=== PATIENT | male | born 1945 | race Caucasian/White ===

== ENCOUNTER 2019-08-08 13:01 | Outpatient (RCR) | payer OTHER, SELFPAY | END 2019-08-16 00:01 | LOC: WOUND 13:01 | PROVIDERS: Family Provider Emergency Medicine Emergency Medical Services; Visit Provider Nurse Practitioner Family | DX: I96 Gangrene, not elsewhere classified (principal); L89.893 Pressure ulcer of other site, stage 3 | CPT/HCPCS: 11042; 11043 ×2; 83036; 87070; 87077; 87176; 87186 ×2; 87205; 93923; 93970 ==

== ENCOUNTER 2019-09-08 10:40 | Outpatient (RCR) | payer OTHER, SELFPAY | END 2019-09-16 23:59 | disposition home or self-care (01) | LOC: WOUND 10:40 | PROVIDERS: Family Provider Emergency Medicine Emergency Medical Services; PCP Emergency Medicine Emergency Medical Services; Visit Provider Nurse Practitioner Family | DX: I96 Gangrene, not elsewhere classified (principal); L89.893 Pressure ulcer of other site, stage 3 | CPT/HCPCS: 11042; 99212; 99214; G0463 ==

== ENCOUNTER 2019-10-03 07:52 | Emergency (ER) | payer OTHER, SELFPAY ==
[2019-10-03 07:52] VITALS: BP 140/76; PULSE 60; RESP 18; TEMP 36.6; O2SAT 892; BMI 32.9
--- NOTE | 2019-10-03 08:01 | W.ED.NAVMDI ---
HPI - Nausea/Vomiting/Diarrhea General: Chief complaint: Nausea/Vomiting/Diarrhea Stated complaint: Diarrhea/nausea Time Seen by Provider: 10/03/19 07:54 Source: patient Mode of arrival: EMS Limitations: no limitations History of Present Illness: HPI Narrative: Patient is a 74-year-old male who presents to ED today with complaints of nausea and diarrhea that began yesterday. Patient states while in [facility] his belly began rumbling and states he had a diarrhea stool while there. He reports the remainder of the day he felt normal but reports last night around 6 PM after eating chicken broth and Ramen noodles he began having diarrhea again. He reports approximately 20 stools since onset. Reports some mild abdominal cramping that seems to improve after defecation. No vomiting. He does not seem to be able to tell me the color of his stools as he states it was dark in the bathroom every time he went. No urinary symptoms. No fever/chills. No bad food exposure he is aware of. No recent antibiotic use. MD elicited complaint: nausea, diarrhea and abdominal pain Associated nausea: Yes Associated abdominal pain: Yes Location of pain: Epigastric, LUQ and RUQ Pain consistency: intermittent Quality: cramping Associated symtoms: Reports nausea; Denies change in vision, chest pain, dysuria, fatigue, fecal incontinence, headache(s), malaise, palpitations or syncope Review of Systems Const: Denies: fever, chills, body aches, fatigue or malaise Eyes: Denies: change in vision or blurry vision ENMT: Denies: enlarged tonsils or painful swallowing Card: Denies: chest pain, palpitations, irregular heart rhythm, lightheadedness, syncope or shortness of breath on exertion Resp: Denies: shortness of breath, productive cough or pain on inspiration GI: Reports: abdominal pain, nausea, diarrhea and cramping; Denies: vomiting, vomiting blood, coffee grounds in vomit, difficulty swallowing, heartburn/indigestion, feeling full early, constipation, belching, excessive passing of gas, fecal incontinence or painful bowel movements : Denies: flank pain, difficulty urinating, painful urination, urinary frequency, urinary urgency or urinary hesitancy Musc: Denies: neck pain, back pain or joint pain Skin/Breast: Denies: rash Neuro: Denies: headache PFSH ED PFSH: Social History Smoking and tobacco status: never smoked Physical Exam Const: COMMON NORMALS: no apparent distress, oriented x3, no limitations and alert NUTRITIONAL APPEARANCE: obese HENMT: COMMON NORMALS: normocephalic and head/scalp atraumatic HEAD & SCALP: normocephalic and atraumatic Neck/C-Spine: COMMON NORMALS: full ROM, no lymphadenopathy, supple and no meningeal signs Resp: COMMON NORMALS: normal respiratory effort and clear to auscultation bilaterally AUSCULTATION: clear to auscultation bilaterally Cardio: COMMON NORMALS: regular rate and regular rhythm RATE: regular rate RHYTHM: regular rhythm GI: COMMON NORMALS: normal to inspection, nondistended, normoactive bowel sounds, soft to palpation, non-tender, no hepatosplenomegaly and no masses PALPATION: Yes soft and Yes no hepatosplenomegaly : COMMON NORMALS: Yes no CVA tenderness BLADDER/KIDNEY EXAM: Yes no CVA tenderness Back/Pelvis: COMMON NORMALS: no CVA tenderness and thoracic and lumbar spine normal to inspection Extremity: COMMON NORMALS: normal to inspection Neuro: COMMON NORMALS: oriented x3 SENSORIUM/ORIENTATION: Yes alert MENINGEAL SIGNS: Yes no meningeal signs Skin: COMMON NORMALS: no rashes or lesions noted GENERAL SKIN EXAM: no rashes or lesions noted Course Vital Signs: Vital signs: Vital Signs Temperature 97.8 F 10/03/19 07:52 Pulse Rate 75 10/03/19 09:23 Respiratory Rate 14 10/03/19 09:23 Blood Pressure 126/67 10/03/19 09:23 Pulse Oximetry 98 10/03/19 09:23 MDM - Nausea/Vomiting/Diarrhea MDM Narrative: Medical decision making narrative: Stool that patient produced here was nonbloody, non-black/tarry. Labs appear non-concerning. Vitals are stable. Stool sample is negative for Shigella, Shiga, Campylobacter, Salmonella, C. difficile, and occult blood. He is positive for lactoferrin. Parasite panel pending. Lab Data: Labs: Lab Results 10/03/19 10/03/19 Range/Units 08:02 08:02 WBC 8.1 (4.0-10.0) 10^3/ uL RBC 5.22 (4.1-5.3) 10^6/u L Hgb 15.1 (11.7-16.6) g/dL Hct 47.0 (42.0-52.0) % MCV 90.0 (80-94) fL MCH 28.9 (28.0-34.0) pg MCHC 32.1 (30.0-36.0) g/dL RDW 13.2 (12.1-15.1) % Plt Count 184 (130-400) 10^3/c mm MPV 9.8 (7.4-10.4) fL Neut % (Auto) 67.1 % Lymph % (Auto) 14.7 % [place] % (Auto) 12.7 % Eos % (Auto) 4.9 % Baso % (Auto) 0.4 % Neut # (Auto) 5.4 (1.8-7.7) 10^3/u L Lymph # (Auto) 1.2 (0.8-4.8) 10^3/u L [place] # (Auto) 1.0 H (0.2-0.9) 10^3/u L Eos # (Auto) 0.4 (0.0-0.8) 10^3/u L Baso # (Auto) 0.0 (0.0-0.1) 10^3/u L Nucleated RBC % (a uto) 0 % Nucleated RBCs # 0.0 /100WBC Sodium 135 L (136-145) mmol/L Potassium 4.1 (3.5-5.1) mmol/L Chloride 98 (98-107) mmol/L Carbon Dioxide 27 (22-29) mmol/L Anion Gap 14.1 (5-19) BUN 16 (8-23) mg/dL Creatinine 1.2 (0.7-1.2) mg/dL Glucose 130 H (65-115) mg/dL Calcium 10.1 (8.5-10.5) mg/dL Total Bilirubin 0.8 (0.15-1.2) mg/dL AST 22 (0-40) U/L ALT 14 (0-41) U/L Alkaline Phosphata se 65 (40-130) IU/L Total Protein 8.1 (6.6-8.7) g/dL Albumin 4.1 (3.5-5.2) g/dL Globulin 4.0 (1.3-4.6) g/dL Lipase 46 (13-60) U/L Discharge Plan Discharge Patient Disposition: Home, Self-Care Clinical Impression: Gastroenteritis Condition: Stable Prescriptions: No Action omeprazole 20 mg Capsule,Delayed Release(Dr/Ec) 20 mg PO DAILY RF: 0 pravastatin 20 mg Tablet 10 mg PO BID RF: 0 ProAir HFA 90 mcg/actuation Hfa Aerosol Inhaler 2 puff INHALATION QID PRN (Reason: Shortness Of Breath) RF: 0 cholecalciferol (vitamin D3) 2,000 unit Tablet 2,000 unit PO DAILY RF: 0 Discharge Orders: Discharge Order (Routine); Ordered 10/03/19 Ordered By: Maida Foster Referrals: Jesse Perry DO [Primary Care Provider] - Discharge Diet: Advance as tolerated Discharge Activity: Increase activity as tolerated Patient Instructions: Gastroenteritis (ED) Activity Restrictions/Additional Instructions: As discussed I will contact you with any abnormal results of your stool cultures. You may incorporate bananas, rice, apples, toast into your diet to help with the diarrhea. Do not take anti diarrhea medications. Most cases of diarrhea are self-limited and will resolve in 24 to 48 hours. If you still have symptoms past 48 hours please return to the emergency department or follow-up with primary care. Return to the emergency department sooner if you begin noticing blood in your diarrhea or black/tarry stools. Discharge Date/Time: 10/03/19 09:24 Coding Level of Care Code ED Pulmonary Fellow for Mike Fwd Exam Detailed
[2019-10-03 08:10] LABS: Basophils % 0.4 %; Eosinophils # 0.4 10^3/uL (0.0-0.8); Eosinophils % 4.9 %; Hemoglobin 15.1 g/dL (11.7-16.6); Lymphocytes # 1.2 10^3/uL (0.8-4.8); Lymphocytes % 14.7 %; Mean Corpuscular HGB Conc 32.1 g/dL (30.0-36.0); Mean Corpuscular Hemoglobin 28.9 pg (28.0-34.0); Mean Platelet Volume 9.8 fL (7.4-10.4); Monocytes % 12.7 %; Neutrophils # 5.4 10^3/uL (1.8-7.7); Neutrophils % 67.1 %; Nucleated Red Blood Cells % 0 %; Platelet Count 184 10^3/cmm (130-400); Red Blood Count 5.22 10^6/uL (4.1-5.3); Red Cell Distribution Width 13.2 % (12.1-15.1); White Blood Count 8.1 10^3/uL (4.0-10.0)
[2019-10-03] MEDS: sodium chloride 0.9% 1,000 ML 999 ML IV (08:14)
[2019-10-03 08:21] LABS: Alanine Aminotransferase 14 U/L (0-41); Albumin Level 4.1 g/dL (3.5-5.2); Alkaline Phosphatase 65 IU/L (40-130); Anion Gap 14.1 (5-19); Aspartate Amino Transferase 22 U/L (0-40); Blood Urea Nitrogen 16 mg/dL (8-23); Calcium 10.1 mg/dL (8.5-10.5); Carbon Dioxide 27 mmol/L (22-29); Chloride 98 mmol/L (98-107); Glucose 130 mg/dL (65-115); Lipase 46 U/L (13-60); Potassium 4.1 mmol/L (3.5-5.1); Sodium 135 mmol/L (136-145); Total Bilirubin 0.8 mg/dL (0.15-1.2); Total Protein 8.1 g/dL (6.6-8.7)
[2019-10-03 09:23] VITALS: BP 126/67; PULSE 75; RESP 14; O2SAT 98
== END 2019-10-03 09:24 | disposition home or self-care (01) ==
PROVIDERS: Emergency Provider Physician Assistant; Family Provider Emergency Medicine Emergency Medical Services; PCP Emergency Medicine Emergency Medical Services
DX: K52.9 Noninfective gastroenteritis and colitis, unspecified (principal); E66.9 Obesity, unspecified; Z68.32 Body mass index [BMI] 32.0-32.9, adult
CPT/HCPCS: 36415; 80053; 82274; 83630; 83690; 85025; 87493; 87505; 96360; 99282; 99283; J7030

== ENCOUNTER 2020-04-04 15:40 | Emergency (ER) | payer OTHER, SELFPAY ==
[2020-04-04 15:44] VITALS: BP 134/79; PULSE 56; RESP 18; TEMP 36.8; O2SAT 92; BMI 33.9
--- NOTE | 2020-04-04 15:50 | XR_ITS ---
WS: [id number] EXAM: AP CHEST: PORTABLE UPRIGHT DATE OF EXAM: 04/04/2020, 1615 hours COMPARISON: Chest x-ray from 09/17/2017. HISTORY: Patient is 74 years old with acute mental status changes.. FINDINGS: The cardiac silhouette is normal in size. The mediastinal contours are similar and within normal l imits. The pulmonary vascularity is normal. Chronic lung changes are demonstrated. Lungs are clear of consolidation. There is no effusion or pneumothorax. No acute bony abnormality is seen. Old ri ght clavicle fracture deformity again noted. XR/XR chest 1V portable [id number] IMPRESSION: No acute pulmonary disease.
--- NOTE | 2020-04-04 15:51 | ECG_ITS ---
[facility] Test Date: 2020-04-04 Pat Name: Laith Santiago Department: Room: Gender: Male Hand Model: : 1945 Requested By: Ilene Bernal Order Number: [id number] Melodie MD: Susanne Martínez M.D. Measurements Intervals [place] Rate: 58 P: 68 IA: 173 QRS: 47 QRSD: 93 T: 62 QT: 372 QTc: 367 Interpretive Statements SINUS BRADYCARDIA WITH FREQUENT SUPRAVENTRICULAR PREMATURE COMPLEXES NONSPECIFIC ST & T-WAVE ABNORMALITY ABNORMAL RHYTHM ECG Compared to ECG 06/25/2015 13:29:19 T-wave abnormality now present Electronically Signed On 04-04-2020 20:25:57 CDT by Susanne Martínez M.D. [id number]
[2020-04-04 16:07] LABS: Basophils % 0.6 %; Eosinophils # 0.7 10^3/uL (0.0-0.8); Eosinophils % 13.7 %; Hematocrit 44.7 % (42.0-52.0); Hemoglobin 14.6 g/dL (11.7-16.6); Lymphocytes # 1.3 10^3/uL (0.8-4.8); Lymphocytes % 28.3 %; Mean Corpuscular HGB Conc 32.7 g/dL (30.0-36.0); Mean Corpuscular Hemoglobin 30.4 pg (28.0-34.0); Mean Corpuscular Volume 93.1 fL (80-94); Mean Platelet Volume 9.8 fL (7.4-10.4); Monocytes # 0.8 10^3/uL (0.2-0.9); Monocytes % 16.5 %; Neutrophils # 1.94 10^3/uL (1.8-7.7); Neutrophils % 40.9 %; Nucleated Red Blood Cells % 0 %; Platelet Count 175 10^3/cmm (130-400); Red Cell Distribution Width 12.8 % (12.1-15.1); White Blood Count 4.7 10^3/uL (4.0-10.0)
--- NOTE | 2020-04-04 16:14 | W.ED.PSYCH ---
HPI - Psych General: Chief Complaint: Psychiatric Symptoms Stated Complaint: PSYCH EVAL, HALLUCINATIONS Time Seen by Provider: 04/04/20 15:43 Source: patient and police Mode of arrival: EMS Limitations: altered mental status History of Present Illness: HPI Narrative: Mr. Santiago is a 74-year-old male who called police today after he explained to them that his neighbors and other people where magic and passing in and out the mirror in his home. The patient believes that these things are real and does not understand that these could be hallucinations. Patient denies any pain or other illness. Patient stated the police that he was going to start shooting people that came into his home and the patient does have a firearm in his home. It was because of this finding the police brought him here. Review of Systems General: Reports: ROS unobtainable due to mental status PFSH ED PFSH: Medical History GERD (gastroesophageal reflux disease) Social History Smoking and tobacco status: never smoked Physical Exam Const: COMMON NORMALS: no acute distress, patient oriented x3, no limitations, healthy appearing and well nourished GENERAL APPEARANCE: cooperative, well kempt and well developed HENMT: COMMON NORMALS: normocephalic, atraumatic, external ears normal, EAC's normal and Normal external nose present HEAD & SCALP: normal to inspection, normocephalic and atraumatic FACE & SINUS: normal facial exam and face symmetric NOSE: Normal external nose present and Normal nares present EXTERNAL EAR: Yes external ears normal EXTERNAL AUDITORY CANAL: EAC's normal MOUTH: Normal oral and palatal mucosa present, lip normal and tongue normal Eye: COMMON NORMALS: Equal, round and reactive pupils present and conjunctivae normal GENERAL EYE: appearance normal, both eyes and all related structures ALIGNMENT: Yes alignment normal PERIORBITAL: periorbital findings normal EYELID: eyelids normal CONJUNCTIVA: Yes conjunctivae normal SCLERA: sclerae normal PUPIL: Yes Equal, round and reactive pupils present Neck/C-Spine: COMMON NORMALS: full ROM, no lymphadenopathy, supple, no meningeal signs and no JVD GENERAL: Yes normal visual inspection and Yes trachea midline Chest: COMMONS NORMALS: normal inspection of the chest and normal palpation of entire chest wall Resp: COMMON NORMALS: normal respiratory effort, No retractions, No use of accessory muscles and clear to auscultation bilaterally EFFORT & INSPECTION: Yes able to speak in complete sentences and Yes symmetric chest movement AUSCULTATION: clear to auscultation bilaterally, no crackles, no rales, no rhonchi and no wheezes Cardio: COMMON NORMALS: no JVD, regular rate, regular rhythm, S1 normal heart sound present and S2 normal heart sound present RATE: regular rate RHYTHM: regular rhythm HEART SOUNDS: S1 normal heart sound present, S2 normal heart sound present, no click, no gallops, no murmurs, no rubs and abnormal split S2 GI: COMMON NORMALS: Soft to palpation and No hepatosplenomegaly present PALPATION: Yes Soft to palpation, No Tenderness to palpation present (GI), No Guarding due to palpation present (GI), No Rigid due to palpation, Yes No hepatosplenomegaly present, No Hernia present, No Palpable mass present and No Pulsatile mass present : COMMON NORMALS: Yes no CVA tenderness BLADDER/KIDNEY EXAM: Yes no CVA tenderness Back/Pelvis: COMMON NORMALS: no CVA tenderness, thoracic and lumbar spine normal to inspection, no thoracic nor lumbar tenderness and thoraco-lumbar ROM normal Extremity: COMMON NORMALS: normal to inspection, full ROM, capillary refill normal, no joint enlargement, no clubbing, cyanosis or edema and no calf tenderness Neuro: COMMON NORMALS: patient oriented x3, CN's II-XII intact bilaterally, moves all extremities, no focal motor deficits and no sensory deficits noted MENINGEAL SIGNS: Yes no meningeal signs SPEECH: speech normal Psych: APPEARANCE: Yes well kempt OTHER: Patient somewhat reluctant to answer questions. He does repeat the same story of hallucinations as described by police. Skin: COMMON NORMALS: no rashes or lesions noted, turgor normal, no jaundice, no petechiae and no mottling GENERAL SKIN EXAM: no rashes or lesions noted and turgor normal MDM - Psych Lab Data: Labs: Lab Results 04/04/20 04/04/20 04/04/20 Range/Units 16:00 16:00 16:00 WBC 4.7 (4.0-10.0) 10^3/ uL RBC 4.80 (4.1-5.3) 10^6/u L Hgb 14.6 (11.7-16.6) g/dL Hct 44.7 (42.0-52.0) % MCV 93.1 (80-94) fL MCH 30.4 (28.0-34.0) pg MCHC 32.7 (30.0-36.0) g/dL RDW 12.8 (12.1-15.1) % Plt Count 175 (130-400) 10^3/c mm MPV 9.8 (7.4-10.4) fL Neut % (Auto) 40.9 % Lymph % (Auto) 28.3 % [place] % (Auto) 16.5 % Eos % (Auto) 13.7 % Baso % (Auto) 0.6 % Neut # (Auto) 1.94 (1.8-7.7) 10^3/u L Lymph # (Auto) 1.3 (0.8-4.8) 10^3/u L [place] # (Auto) 0.8 (0.2-0.9) 10^3/u L Eos # (Auto) 0.7 (0.0-0.8) 10^3/u L Baso # (Auto) 0.0 (0.0-0.1) 10^3/u L Nucleated RBC % (a uto) 0 % Nucleated RBCs # 0.0 /100WBC PT 13.20 (12.1-14.9) SECO NDS INR 0.97 (0.8-1.2) Sodium 138 (136-145) mmol/L Potassium 4.2 (3.5-5.1) mmol/L Chloride 102 (98-107) mmol/L Carbon Dioxide 29 (22-29) mmol/L Anion Gap 11.2 (5-19) BUN 12 (8-23) mg/dL Creatinine 0.9 (0.7-1.2) mg/dL GFR Calculation Not Reportable Glucose 112 (65-115) mg/dL Calculated Osmolal ity 283 L (285-295) mOsm/k g Calcium 9.4 (8.5-10.5) mg/dL Magnesium 1.9 (1.7-2.3) mg/dL Total Bilirubin 0.5 (0.15-1.2) mg/dL AST 19 (0-40) U/L ALT 13 (0-41) U/L Alkaline Phosphata se 63 (40-130) IU/L Troponin T Baselin e (0-15) ng/L Troponin T 120 Min [place] (0-15) ng/L Delta Troponin T (0-10) ABS# Troponin T Hi Sens 6Hr (0-15) ng/L Troponin T Hi Sens 6Hr Delta (0-12) ng/L Total Protein 7.1 (6.6-8.7) g/dL Albumin 4.0 (3.5-5.2) g/dL Globulin 3.1 (1.3-4.6) g/dL TSH 1.65 (0.27-4.20) uIU/ mL Free T4 1.18 (0.82-1.77) ng/d L Urine Color (Yellow) Urine Appearance (CLEAR) Urine pH (5-7) Ur Specific Gravit y (1.005-1.030) Urine Protein (Negative) Urine Glucose (UA) (Normal) Urine Ketones (Negative) Urine Blood (Negative) Urine Nitrate (Negative) Urine Bilirubin (NEGATIVE) Urine Urobilinogen (Negative) mg/dL Ur Leukocyte Constance ase (Negative) Urine RBC (0-2) /hpf Urine WBC (0-5) /hpf Ur Squamous Epith Cells (0-5) Amorphous Sediment Urine Bacteria (NONE) Urine Mucus Urine Opiates Scre en (Negative) ng/mL Ur Barbiturates Sc reen (Negative) ng/mL Ur Phencyclidine S crn (Negative) ng/mL Ur Amphetamines Sc reen (Negative) ng/mL U Benzodiazepines Scrn (Negative) ng/mL Urine Cocaine Scre en (Negative) ng/mL U Marijuana (THC) Screen (Negative) ng/mL SARS-CoV-2 Ag (Rap id) (Negative) 04/04/20 04/04/20 04/04/20 Range/Units 16:00 16:40 16:40 WBC (4.0-10.0) 10^3/ uL RBC (4.1-5.3) 10^6/u L Hgb (11.7-16.6) g/dL Hct (42.0-52.0) % MCV (80-94) fL MCH (28.0-34.0) pg MCHC (30.0-36.0) g/dL RDW (12.1-15.1) % Plt Count (130-400) 10^3/c mm MPV (7.4-10.4) fL Neut % (Auto) % Lymph % (Auto) % [place] % (Auto) % Eos % (Auto) % Baso % (Auto) % Neut # (Auto) (1.8-7.7) 10^3/u L Lymph # (Auto) (0.8-4.8) 10^3/u L [place] # (Auto) (0.2-0.9) 10^3/u L Eos # (Auto) (0.0-0.8) 10^3/u L Baso # (Auto) (0.0-0.1) 10^3/u L Nucleated RBC % (a uto) % Nucleated RBCs # /100WBC PT (12.1-14.9) SECO NDS INR (0.8-1.2) Sodium (136-145) mmol/L Potassium (3.5-5.1) mmol/L Chloride (98-107) mmol/L Carbon Dioxide (22-29) mmol/L Anion Gap (5-19) BUN (8-23) mg/dL Creatinine (0.7-1.2) mg/dL GFR Calculation Glucose (65-115) mg/dL Calculated Osmolal ity (285-295) mOsm/k g Calcium (8.5-10.5) mg/dL Magnesium (1.7-2.3) mg/dL Total Bilirubin (0.15-1.2) mg/dL AST (0-40) U/L ALT (0-41) U/L Alkaline Phosphata se (40-130) IU/L Troponin T Baselin e 22 H (0-15) ng/L Troponin T 120 Min [place] (0-15) ng/L Delta Troponin T (0-10) ABS# Troponin T Hi Sens 6Hr (0-15) ng/L Troponin T Hi Sens 6Hr Delta (0-12) ng/L Total Protein (6.6-8.7) g/dL Albumin (3.5-5.2) g/dL Globulin (1.3-4.6) g/dL TSH (0.27-4.20) uIU/ mL Free T4 (0.82-1.77) ng/d L Urine Color Yellow (Yellow) Urine Appearance Clear (CLEAR) Urine pH 5 (5-7) Ur Specific Gravit y 1.020 (1.005-1.030) Urine Protein Neg (Negative) Urine Glucose (UA) Norm (Normal) Urine Ketones Negative (Negative) Urine Blood Neg (Negative) Urine Nitrate Negative (Negative) Urine Bilirubin Neg (NEGATIVE) Urine Urobilinogen Norm (Negative) mg/dL Ur Leukocyte Constance ase Negative (Negative) Urine RBC None (0-2) /hpf Urine WBC 0-4 H (0-5) /hpf Ur Squamous Epith Cells 0-4 H (0-5) Amorphous Sediment Not Reportable Urine Bacteria Trace (NONE) Urine Mucus 1+ Urine Opiates Scre en Negative (Negative) ng/mL Ur Barbiturates Sc reen Negative (Negative) ng/mL Ur Phencyclidine S crn Negative (Negative) ng/mL Ur Amphetamines Sc reen Negative (Negative) ng/mL U Benzodiazepines Scrn Negative (Negative) ng/mL Urine Cocaine Scre en Negative (Negative) ng/mL U Marijuana (THC) Screen Negative (Negative) ng/mL SARS-CoV-2 Ag (Rap id) (Negative) 04/04/20 04/04/20 04/05/20 Range/Units 18:06 23:20 07:05 WBC (4.0-10.0) 10^3/ uL RBC (4.1-5.3) 10^6/u L Hgb (11.7-16.6) g/dL Hct (42.0-52.0) % MCV (80-94) fL MCH (28.0-34.0) pg MCHC (30.0-36.0) g/dL RDW (12.1-15.1) % Plt Count (130-400) 10^3/c mm MPV (7.4-10.4) fL Neut % (Auto) % Lymph % (Auto) % [place] % (Auto) % Eos % (Auto) % Baso % (Auto) % Neut # (Auto) (1.8-7.7) 10^3/u L Lymph # (Auto) (0.8-4.8) 10^3/u L [place] # (Auto) (0.2-0.9) 10^3/u L Eos # (Auto) (0.0-0.8) 10^3/u L Baso # (Auto) (0.0-0.1) 10^3/u L Nucleated RBC % (a uto) % Nucleated RBCs # /100WBC PT (12.1-14.9) SECO NDS INR (0.8-1.2) Sodium (136-145) mmol/L Potassium (3.5-5.1) mmol/L Chloride (98-107) mmol/L Carbon Dioxide (22-29) mmol/L Anion Gap (5-19) BUN (8-23) mg/dL Creatinine (0.7-1.2) mg/dL GFR Calculation Glucose (65-115) mg/dL Calculated Osmolal ity (285-295) mOsm/k g Calcium (8.5-10.5) mg/dL Magnesium (1.7-2.3) mg/dL Total Bilirubin (0.15-1.2) mg/dL AST (0-40) U/L ALT (0-41) U/L Alkaline Phosphata se (40-130) IU/L Troponin T Baselin e (0-15) ng/L Troponin T 120 Min [place] 20.39 H (0-15) ng/L Delta Troponin T -1.61 L (0-10) ABS# Troponin T Hi Sens 6Hr 19.04 H (0-15) ng/L Troponin T Hi Sens 6Hr Delta -2.96 L (0-12) ng/L Total Protein (6.6-8.7) g/dL Albumin (3.5-5.2) g/dL Globulin (1.3-4.6) g/dL TSH (0.27-4.20) uIU/ mL Free T4 (0.82-1.77) ng/d L Urine Color (Yellow) Urine Appearance (CLEAR) Urine pH (5-7) Ur Specific Gravit y (1.005-1.030) Urine Protein (Negative) Urine Glucose (UA) (Normal) Urine Ketones (Negative) Urine Blood (Negative) Urine Nitrate (Negative) Urine Bilirubin (NEGATIVE) Urine Urobilinogen (Negative) mg/dL Ur Leukocyte Constance ase (Negative) Urine RBC (0-2) /hpf Urine WBC (0-5) /hpf Ur Squamous Epith Cells (0-5) Amorphous Sediment Urine Bacteria (NONE) Urine Mucus Urine Opiates Scre en (Negative) ng/mL Ur Barbiturates Sc reen (Negative) ng/mL Ur Phencyclidine S crn (Negative) ng/mL Ur Amphetamines Sc reen (Negative) ng/mL U Benzodiazepines Scrn (Negative) ng/mL Urine Cocaine Scre en (Negative) ng/mL U Marijuana (THC) Screen (Negative) ng/mL SARS-CoV-2 Ag (Rap id) Negative (Negative) EKG Data^: EKG 1: Attestation: I personally reviewed and interpreted this EKG as follows: EKG interpretation date: 04/04/20 EKG interpretation time: 16:15 Interpretation: Sinus bradycardia 58 beats a minute, nonspecific ST and T wave changes. EKG 2: Attestation: I personally reviewed and interpreted this EKG as follows: EKG interpretation date: 04/04/20 EKG interpretation time: 17:54 Interpretation: Normal sinus rhythm at 52 beats a minute, nonspecific ST and T wave changes, no blocks, normal intervals Discharge Plan Discharge Patient Disposition: Xfer Psychiatric Hosp Clinical Impression: Acute psychosis Condition: Stable Referrals: Jesse Perry DO [Primary Care Provider] - Coding Level of Care Code ED [place] for Chg Fwd Exam Comprehensive
[2020-04-04 16:21] LABS: INR 0.97 (0.8-1.2)
[2020-04-04 16:33] LABS: Troponin(5th) Baseline 22 ng/L (0-15)
[2020-04-04 16:35] LABS: Alanine Aminotransferase 13 U/L (0-41); Alkaline Phosphatase 63 IU/L (40-130); Anion Gap 11.2 (5-19); Aspartate Amino Transferase 19 U/L (0-40); Blood Urea Nitrogen 12 mg/dL (8-23); Calcium 9.4 mg/dL (8.5-10.5); Carbon Dioxide 29 mmol/L (22-29); Chloride 102 mmol/L (98-107); Free T4 Free Thyroxine 1.18 ng/dL (0.82-1.77); Globulin 3.1 g/dL (1.3-4.6); Glucose 112 mg/dL (65-115); Magnesium 1.9 mg/dL (1.7-2.3); Osmolality Calculated 283 mOsm/kg (285-295); Potassium 4.2 mmol/L (3.5-5.1); Sodium 138 mmol/L (136-145); Thyroid Stimulating Hormone 1.65 uIU/mL (0.27-4.20); Total Bilirubin 0.5 mg/dL (0.15-1.2); Total Protein 7.1 g/dL (6.6-8.7)
[2020-04-04] MEDS: ondansetron 2 mg/ML SDV 2 mL 4 MG IVP (16:41)
[2020-04-04] MEDS: sodium chloride 0.9% 1,000 ML 999 ML IV (16:41)
[2020-04-04] MEDS: LORazepam 1 mg Tablet PO (16:41)
[2020-04-04 16:52] LABS: Bilirubin Urine Neg (NEGATIVE); Blood Urine Neg (Negative); Glucose Urine UA Norm (Normal); Ketones Urine Negative (Negative); Leukocyte Esterase Urine Negative (Negative); Nitrate Urine Negative (Negative); Protein Urine Neg (Negative); Urine Appearance Clear (CLEAR); Urine Color Yellow (Yellow); Urobilinogen Urine Norm (Negative); WBC Urine 0-4 /hpf (0-5); pH Urine 5 (5-7)
[2020-04-04 16:53] LABS: Add Urine Culture? No; Bacteria Urine TRACE; Mucus Urine 1+; Squamous Epithelial Cell Urine 0-4 (0-5)
--- NOTE | 2020-04-04 17:51 | ECG_ITS ---
[facility] Test Date: 2020-04-04 Pat Name: Laith Santiago Department: Room: Gender: Male Hospital Clinic Assistant: : 1945 Requested By: Ilene Bernal Order Number: [id number] Melodie MD: Susanne Martínez M.D. Measurements Intervals [place] Rate: 52 P: 52 ID: [id number] QRS: 30 QRSD: 99 T: 43 QT: 422 QTc: 394 Interpretive Statements SINUS BRADYCARDIA WITH OCCASIONAL SUPRAVENTRICULAR PREMATURE COMPLEXES Compared to ECG 04/04/2020 16:15:05 T-wave abnormality no longer present Electronically Signed On 04-04-2020 20:27:50 CDT by Susanne Martínez M.D. [id number]
[2020-04-04 18:37] LABS: Troponin 5 2HR 20.39 ng/L (0-15)
[2020-04-04 18:41] LABS: Troponin 5 2HR Delta -1.61 ABS# (0-10)
[2020-04-04 20:00] VITALS: BP 132/84; PULSE 62; RESP 18; O2SAT 94
[2020-04-04 23:38] LABS: Amphetamines Screen Urine Negative (Negative); Barbiturates Screen Urine Negative (Negative); Benzodiazepines Screen Urine Negative (Negative); Cocaine Screen Urine Negative (Negative); Opiate Screen Urine Negative (Negative); PCP Screen Urine Negative (Negative); THC Screen Urine Negative (Negative)
[2020-04-05] VITALS: BP 128/79; PULSE 55; RESP 18; O2SAT 95
[2020-04-05 00:16] LABS: Troponin 5 6HR 19.04 ng/L (0-15); Troponin 5 6HR Delta -2.96 ng/L (0-12)
--- NOTE | 2020-04-05 03:04 | PC.NURSE ---
[facility] requesting neg Covid test prior to admission. [facility] states since [facility] is [facility], they will not accept [facility]. Per [place], will not do overnight transfer request. Will have to call earliest [phone] to [phone] to speak with ED physician prior to acceptance
--- NOTE | 2020-04-05 03:08 | PC.NURSE ---
[facility] will review chart for bed acceptance
--- NOTE | 2020-04-05 06:58 | PC.NURSE ---
Bedside report received at this time. Patient resting in bed. No distress noted at this time. Will continue to monitor patient.
[2020-04-05 07:45] LABS: SARS Covid-2 Antigen Negative (Negative)
[2020-04-05 08:00] VITALS: BP 179/96; PULSE 58; RESP 18; O2SAT 91
[2020-04-05 10:30] VITALS: BP 156/63; PULSE 56; RESP 18; O2SAT 92
--- NOTE | 2020-04-05 11:57 | USCV_ITS ---
Liath Santiago Age: 74 Gender: M : 1945 Exam Date: 04/05/2020 12:26 Ordering Phys: Ilene Jurado DO Technologist: Anabella Wayne Exam Location: [facility] [place] Indication: INCREASED CARDIAC ENZYMES BP: / HR: 53 Rhythm: Technical Quality: Adequate MEASUREMENTS (Male / Female) Normal Values 2D ECHO LV Diastolic Diameter PLAX 3.8 cm 4.2 - 5.9 / 3.9 - 5.3 cm LV Systolic Diameter PLAX 2.8 cm LV Chamber Size 3.4 cm IVS Diastolic Thickness 1.6 cm 0.6 - 1.0 / 0.6 - 0.9 cm IVS Systolic Thickness 1.5 cm LVPW Diastolic Thickness 1.4 cm 0.6 - 1.0 / 0.6 - 0.9 cm LVPW Systolic Thickness 1.5 cm RV Chamber Size 2.5 cm LVOT Diameter 2.0 cm LV Ejection Fraction 2D Teich 50.9 % LV Ejection Fraction MOD 2C 76.8 % LV Ejection Fraction 2C AL 76.3 % LA Diameter 2.8 cm LA Width 2.6 cm LA Height 4.4 cm RA Width 3.3 cm RA Height 4.5 cm Aorta at Sinotubular Diameter 3.3 cm M-MODE LV Diastolic Diameter MM 4.7 cm 4.2 - 5.9 / 3.9 - 5.3 cm LV Systolic Diameter MM 2.6 cm LV Ejection Fraction MM Teich 77.1 % IVS Diastolic Thickness MM 1.2 cm 0.6 - 1.0 / 0.6 - 0.9 cm IVS Systolic Thickness MM 1.4 cm LVPW Diastolic Thickness MM 1.2 cm 0.6 - 1.0 / 0.6 - 0.9 cm LVPW Systolic Thickness MM 1.9 cm RV Diastolic Diameter MM 1.8 cm Aortic Annulus Diameter 3.3 cm LA Ao Ratio MM 0.8 MV E Point Septal Separation 0.7 cm FINDINGS Left Ventricle Normal left ventricular size, systolic function and wall thickness, with no regional wall motion abnormalities. Left ventricular ejection fraction is estimated at 55 %. Right Ventricle The right ventricle is normal in size and function. Right Atrium The right atrium is normal in size. Left Atrium The left atrium is normal in size. Mitral Valve Structurally normal mitral valve without significant stenosis or prolapse. There is no mitral regurgitation. Aortic Valve Moderate aortic valve calcification. Aortic valve not well visualized. Could be there is element of mild aortic valve stenosis. Tricuspid Valve Structurally normal tricuspid valve without significant stenosis or regurgitation. Pulmonary artery systolic pressure is normal. Pulmonic Valve Structurally normal pulmonic valve without significant stenosis. There is no pulmonic regurgitation. Pericardium Normal pericardium without effusion. Aorta Normal ascending aorta dimension. CONCLUSIONS 1-Normal left ventricular size, systolic function and wall thickness, with no regional wall motion abnormalities. Left ventricular ejection fraction is estimated at 55 %. 2-Moderate aortic valve calcification. Aortic valve not well visualized. Could be there is element of mild aortic valve stenosis. 3-There is no pericardial effusion. 4-Right atrial pressure is around 5 mm of mercury. 5-No significant change since the prior echocardiogram study of 06/26/2015. Susanne Martínez MD (Electronically Signed) Final Date: 05 April 2020 15:01 S
[2020-04-05 12:14] VITALS: BP 130/80; PULSE 64; RESP 18; O2SAT 93
[2020-04-05 14:00] VITALS: BP 138/76; PULSE 62; RESP 18; TEMP 36.6; O2SAT 95
[2020-04-05 16:00] VITALS: BP 141/72; PULSE 57; RESP 18; TEMP 36.6; O2SAT 94
--- NOTE | 2020-04-05 16:39 | PC.NURSE ---
Accepted patient accepted to [facility]. is accepting physician.
--- NOTE | 2020-04-05 17:43 | PC.NURSE ---
REPORT CALLED REPORT CALLED TO rachael Duffy. all questions answered.
== END 2020-04-05 18:23 ==
PROVIDERS: Emergency Medicine; Emergency Provider Emergency Medicine; PCP Emergency Medicine Emergency Medical Services
DX: F23 Brief psychotic disorder (principal)
CPT/HCPCS: 12345; 36415; 71045; 80053; 80306; 81001; 83735; 84439; 84443; 84484; 85025; 85610; 87426; 93005; 93308; 96361; 96374; 96375; 99284; 99285; J2405; J7030

== ENCOUNTER 2020-06-08 12:56 | Outpatient (CLI) | payer OTHER, SELFPAY | END 2020-06-08 12:57 | disposition home or self-care (01) | LOC: WOUND 12:59 | PROVIDERS: PCP Emergency Medicine Emergency Medical Services; Visit Provider Surgery | DX: L97.422 Non-pressure chronic ulcer of left heel and midfoot with fat layer exposed (principal) | CPT/HCPCS: 97597; G0463; L3260 ==

== ENCOUNTER 2020-06-15 14:40 | Outpatient (CLI) | payer OTHER, SELFPAY | END 2020-06-15 14:41 | disposition home or self-care (01) | LOC: WOUND 14:45 | PROVIDERS: PCP Emergency Medicine Emergency Medical Services; Visit Provider Surgery | DX: L89.892 Pressure ulcer of other site, stage 2 (principal) | CPT/HCPCS: 99212 ==

== ENCOUNTER 2020-08-15 13:47 | Outpatient (CLI) | payer OTHER, SELFPAY | END 2020-08-15 13:48 | disposition home or self-care (01) | LOC: SPT 13:48 | PROVIDERS: PCP Emergency Medicine Emergency Medical Services; Visit Provider Podiatrist Foot & Ankle Surgery | DX: Z46.89 Encounter for fitting and adjustment of other specified devices (principal); L97.522 Non-pressure chronic ulcer of other part of left foot with fat layer exposed | CPT/HCPCS: 97760; L4361 ==

== ENCOUNTER 2020-11-19 15:47 | Inpatient (IN) | payer OTHER, MEDICARE, SELFPAY ==
[2020-11-19 15:56] VITALS: BP 126/69; PULSE 68; RESP 18; TEMP 37.2; O2SAT 93; BMI 29.3
--- NOTE | 2020-11-19 16:40 | ECG_ITS ---
[facility] Test Date: 2020-11-19 Pat Name: Laith Santiago Department: Room: Gender: Male X [employer] Tech: : 1945 Requested By: Murphy Cedeno Order Number: [id number] Melodie MD: Dior Damon M.D. Measurements Intervals [place] Rate: 65 P: 46 GA: 156 QRS: -7 QRSD: 100 T: 51 QT: 401 QTc: 417 Interpretive Statements SINUS RHYTHM WITH OCCASIONAL SUPRAVENTRICULAR PREMATURE COMPLEXES NONSPECIFIC T-WAVE ABNORMALITY Compared to ECG 04/04/2020 17:54:06 T-wave abnormality now present Sinus bradycardia no longer present Electronically Signed On 11-20-2020 1:13:15 CDT by Dior Damon M.D. [id number]
--- NOTE | 2020-11-19 16:40 | XRR_ITS ---
PROCEDURE INFORMATION: Exam: XR Chest Exam date and time: 11/19/2020 4:49 PM Age: 75 years old Clinical indication: Injury or trauma; Fall; Dyspnea; Blunt trauma (contusions or hematomas); Injury date: 11/18/20 TECHNIQUE: Imaging protocol: XR of the chest Views: 1 view. COMPARISON: CR XR chest 1V portable [id number] 04/04/2020 4:15 PM FINDINGS: Lungs: Minimal left basilar atelectasis or other infiltrate. Pleural spaces: Unremarkable. No pleural effusion. No pneumothorax. Heart/Mediastinum: No cardiomegaly. Bones/joints: No acute fracture. XR/XR chest 1V portable [id number] IMPRESSION: Minimal left basilar atelectasis or other infiltrate.
--- NOTE | 2020-11-19 16:40 | CTR_ITS ---
PROCEDURE INFORMATION: Exam: CT Head Without Contrast Exam date and time: 11/19/2020 4:59 PM Age: 75 years old Clinical indication: Injury or trauma; Fall; Blunt trauma (contusions or hematomas); Altered mental status/memory loss; Patient HX: Pellets in face; Additional info: Trauma/ams TECHNIQUE: Imaging protocol: Computed tomography of the head without contrast. Radiation optimization: All CT scans at this facility use at least one of these dose optimization techniques: automated exposure control; mA and/or kV adjustment per patient size (includes targeted exams where dose is matched to clinical indication); or iterative reconstruction. COMPARISON: CT head wo con* [id number] 04/21/2018 3:25 PM RADIATION DOSE METRICS: Total DLP (mGy-cm): 987.28 FINDINGS: Brain: No evidence of acute infarct. No mass or mass effect. No intra axial hemorrhage. No extra axial fluid collection or hemorrhage. Scattered white matter hypodensities likely from chronic microvascular ischemic disease. Global brain volume loss, likely age related. Cerebral ventricles: Symmetric and without enlargement. Bones/joints: No acute fracture. 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 Paranasal sinuses: Visualized sinuses are well aerated. Mastoid air cells: Visualized mastoid air cells are well aerated. Soft tissues: No concerning abnormalities. Multiple metallic densities in the superficial soft tissues again noted. CT/CT head wo con* [id number] IMPRESSION: No acute intracranial abnormality. Radiation Dose CTDIVOL = (mGy): DLP = 987.28 (mGy-cm)
--- NOTE | 2020-11-19 16:42 | W.ED.AMS ---
Documented by User: Murphy Caruso DO 11/20/20 05:58 HPI - Altered Mental Status General: Chief Complaint: ER Hold Stated Complaint: falling Time Seen by Provider: 11/19/20 16:25 History of Present Illness: HPI narrative: 75-year-old male presents emergency room with the daughter. He evidently fell at home and went to the [place] [facility] to be evaluated and he was sent here because he fell he has a abrasion on left supraorbital ridge. He cannot really tell me if he lost consciousness. He does say that people come in and out of his house at 90 is not having any visual or auditory hallucinations the daughter does come into the hospital states she states it is not at night. He denies any suicidal or homicidal thoughts. He largely denies any particular problem. He is not been taking his medications which is his daughter's main complaint that she brought him in for along with a fall. He seems lethargic and slow to answer questions. Patient noted to have masklike facies and a baseline tremor. MD complaint: weakness Onset (ago): day(s) Timing confirmed by: family member Severity: mild Consistency of symptoms: Getting Worse Context: other (History of Parkinson's) Review of Systems Const: Denies: fever(s), chills, body aches, change in appetite, fatigue or malaise ENMT: Denies: throat pain, ear or mastoid pain, nasal discharge or nasal congestion Card: Denies: chest pain, edema, dyspnea on exertion or orthopnea Resp: Denies: dyspnea, productive cough or non-productive cough GI: Denies: abdominal pain, nausea, vomiting, hematemesis, coffee ground emesis, diarrhea, constipation, bloating, hematochezia or melena : Denies: flank pain, dysuria, urinary frequency or urinary urgency Skin/Breast: Denies: rash or pruritus PFSH ED PFSH: Medical History Acquired hallux malleus of both feet Depression Equinus contracture of ankle Falls GERD (gastroesophageal reflux disease) Hallucinations Hammertoe HLD (hyperlipidemia) Parkinsons Vitamin B 12 deficiency Surgical History H/O hand surgery History of mandibular surgery Status post tonsillectomy Family History Father CAD (coronary artery disease) Mother CAD (coronary artery disease) Social History Smoking and tobacco status: never smoked Alcohol intake: never Lives independently: Yes Housing: House Physical Exam Const: COMMON NORMALS: no acute distress GENERAL APPEARANCE: cooperative and comfortable ORIENTATION/CONSCIOUSNESS: Yes awake HENMT: COMMON NORMALS: normocephalic, atraumatic and hearing grossly normal bilaterally HEAD & SCALP: normocephalic and atraumatic Neck/C-Spine: COMMON NORMALS: no JVD Resp: COMMON NORMALS: normal respiratory effort, No retractions, No use of accessory muscles and clear to auscultation bilaterally AUSCULTATION: clear to auscultation bilaterally Cardio: COMMON NORMALS: no JVD, regular rate, regular rhythm and No murmurs present (Cardio) RATE: regular rate RHYTHM: regular rhythm GI: COMMON NORMALS: Soft to palpation and No hepatosplenomegaly present AUSCULTATION: Yes normoactive bowel sounds PALPATION: Yes Soft to palpation, No Tenderness to palpation present (GI), No Guarding due to palpation present (GI) and Yes No hepatosplenomegaly present Extremity: COMMON NORMALS: normal to inspection, capillary refill normal, no clubbing, cyanosis or edema, no calf tenderness and no pedal edema Skin: COMMON NORMALS: no rashes or lesions noted GENERAL SKIN EXAM: no rashes or lesions noted Course Vital Signs: Vital signs: Vital Signs Temperature 98.9 F 11/19/20 15:56 Pulse Rate 72 11/20/20 04:56 Respiratory Rate 15 11/20/20 04:56 Blood Pressure 123/74 11/20/20 04:56 Pulse Oximetry 97 11/20/20 04:56 MDM - Altered Mental Status MDM Narrative: Medical decision making narrative: Elevated CPK. UA is pending. 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 Also suspect he may need long-term placement do not think he is currently able to manage cares even with his family assistance at home. UA pending care turned over to Dr. Cid at change of shift see his notes for final diagnosis and disposition Lab Data: Labs: Lab Results 11/19/20 11/19/20 11/19/20 Range/Units 16:48 17:00 17:00 WBC 5.6 (4.0-10.0) 10^3/ uL RBC 4.33 (4.1-5.3) 10^6/u L Hgb 13.2 (11.7-16.6) g/dL Hct 40.6 L (42.0-52.0) % MCV 93.8 (80-94) fL MCH 30.5 (28.0-34.0) pg MCHC 32.5 (30.0-36.0) g/dL RDW 12.8 (12.1-15.1) % Plt Count 199 (130-400) 10^3/c mm MPV 10.1 (7.4-10.4) fL Neut % (Auto) 47.8 % Lymph % (Auto) 26.1 % [place] % (Auto) 20.5 % Eos % (Auto) 4.3 % Baso % (Auto) 1.1 % Neut # (Auto) 2.66 (1.8-7.7) 10^3/u L Lymph # (Auto) 1.5 (0.8-4.8) 10^3/u L [place] # (Auto) 1.1 H (0.2-0.9) 10^3/u L Eos # (Auto) 0.2 (0.0-0.8) 10^3/u L Baso # (Auto) 0.1 (0.0-0.1) 10^3/u L Nucleated RBC % (a uto) 0 % Nucleated RBCs # 0.0 /100WBC Specimen Type Arterial Sample Site Radial, left ABG pH 7.44 (7.35-7.45) ABG pCO2 48.3 H (35-45) mmHg ABG pO2 58.3 L (80.0-100.0) mmH g ABG HCO3 32.9 H (22-26) mmol/L ABG O2 Saturation 92.8 ABG Base Excess 7.5 H (-2.0-2.0) mmol/ L Rm Test Pos A-a O2 Gradient 4.2 L (5-10) mmHg Hematocrit 40.8 L (42-52) % Hgb O2 Saturation 90.8 L (95-100) % Carboxyhemoglobin 1.3 (0.4-20.1) %THgb Methemoglobin 0.8 (0.4-1.5) % Total Hemoglobin 13.3 L (14-18) g/dL Sodium 145.0 H (131-143) mmol/L Potassium 3.7 (3.5-5.0) mmol/L Glucose 108.0 (70-115) mg/dL Ionized Calcium 1.2 (1.1-1.4) mmol/L O2 Delivery Device Room air FiO2 21.0 % Freezer Unloader ID glc Chloride (98-107) mmol/L Carbon Dioxide (22-29) mmol/L Anion Gap (5-19) BUN (8-23) mg/dL Creatinine (0.7-1.2) mg/dL GFR Calculation Calculated Osmolal ity (285-295) mOsm/k g Lactic Acid 1.3 (0.5-2.2) mmol/L Calcium (8.5-10.5) mg/dL Total Bilirubin (0.15-1.2) mg/dL AST (0-40) U/L ALT (0-41) U/L Alkaline Phosphata se (40-130) IU/L Creatine Kinase (39-308) U/L Total Protein (6.6-8.7) g/dL Albumin (3.5-5.2) g/dL Globulin (1.3-4.6) g/dL Lipase (13-60) U/L Urine Color (Yellow) Urine Appearance (CLEAR) Urine pH (5-7) Ur Specific Gravit y (1.005-1.030) Urine Protein (Negative) Urine Glucose (UA) (Normal) Urine Ketones (Negative) Urine Blood (Negative) Urine Nitrate (Negative) Urine Bilirubin (Negative) Urine Urobilinogen (Negative) mg/dL Ur Leukocyte Constance ase (Negative) Serum Ketones (Negative) 11/19/20 11/19/20 11/19/20 Range/Units 17:00 17:00 17:31 WBC (4.0-10.0) 10^3/ uL RBC (4.1-5.3) 10^6/u L Hgb (11.7-16.6) g/dL Hct (42.0-52.0) % MCV (80-94) fL MCH (28.0-34.0) pg MCHC (30.0-36.0) g/dL RDW (12.1-15.1) % Plt Count (130-400) 10^3/c mm MPV (7.4-10.4) fL Neut % (Auto) % Lymph % (Auto) % [place] % (Auto) % Eos % (Auto) % Baso % (Auto) % Neut # (Auto) (1.8-7.7) 10^3/u L Lymph # (Auto) (0.8-4.8) 10^3/u L [place] # (Auto) (0.2-0.9) 10^3/u L Eos # (Auto) (0.0-0.8) 10^3/u L Baso # (Auto) (0.0-0.1) 10^3/u L Nucleated RBC % (a uto) % Nucleated RBCs # /100WBC Specimen Type Sample Site ABG pH (7.35-7.45) ABG pCO2 (35-45) mmHg ABG pO2 (80.0-100.0) mmH g ABG HCO3 (22-26) mmol/L ABG O2 Saturation ABG Base Excess (-2.0-2.0) mmol/ L Rm Test A-a O2 Gradient (5-10) mmHg Hematocrit (42-52) % Hgb O2 Saturation (95-100) % Carboxyhemoglobin (0.4-20.1) %THgb Methemoglobin (0.4-1.5) % Total Hemoglobin (14-18) g/dL Sodium 138 (131-143) mmol/L Potassium 3.5 (3.5-5.0) mmol/L Glucose 103 (70-115) mg/dL Ionized Calcium (1.1-1.4) mmol/L O2 Delivery Device FiO2 % Freezer Unloader ID Chloride 100 (98-107) mmol/L Carbon Dioxide 31 H (22-29) mmol/L Anion Gap 10.5 (5-19) BUN 26 H (8-23) mg/dL Creatinine 1.0 (0.7-1.2) mg/dL GFR Calculation Not Reportable Calculated Osmolal ity 291 (285-295) mOsm/k g Lactic Acid (0.5-2.2) mmol/L Calcium 9.2 (8.5-10.5) mg/dL Total Bilirubin 0.7 (0.15-1.2) mg/dL AST 266 H (0-40) U/L ALT 95 H (0-41) U/L Alkaline Phosphata se 78 (40-130) IU/L Creatine Kinase 7495 H* (39-308) U/L Total Protein 7.5 (6.6-8.7) g/dL Albumin 4.0 (3.5-5.2) g/dL Globulin 3.5 (1.3-4.6) g/dL Lipase 37 (13-60) U/L Urine Color Dark yellow (Yellow) Urine Appearance Clear (CLEAR) Urine pH 5 (5-7) Ur Specific Gravit y 1.025 (1.005-1.030) Urine Protein Neg (Negative) Urine Glucose (UA) Norm (Normal) Urine Ketones 1+ H (Negative) Urine Blood Neg (Negative) Urine Nitrate Negative (Negative) Urine Bilirubin 1+ H (Negative) Urine Urobilinogen 8 H (Negative) mg/dL Ur Leukocyte Constance ase Negative (Negative) Serum Ketones Negative (Negative) Discharge Plan Discharge Patient Disposition: Admitted As Inpatient Admit Provider: Wali Musa Clinical Impression: Fall Qualifiers: Encounter type: initial encounter Qualified Code(s): W19.XXXA - Unspecified fall, initial encounter Rhabdomyolysis Qualifiers: Rhabdomyolysis type: non-traumatic Qualified Code(s): M62.82 - Rhabdomyolysis Condition: Stable Coding Level of Care Code ED Distribution [facility] Administrator for [facility] Fwd Exam Comprehensive Documented by User: Tanja Cid MD 11/19/20 19:28 HPI - Altered Mental Status General: Chief Complaint: ER Hold Stated Complaint: falling Time Seen by Provider: 11/19/20 16:25 PFSH ED PFSH: Medical History Acquired hallux malleus of both feet Depression Equinus contracture of ankle Falls GERD (gastroesophageal reflux disease) Hallucinations Hammertoe HLD (hyperlipidemia) Parkinsons Vitamin B 12 deficiency Surgical History H/O hand surgery History of mandibular surgery Status post tonsillectomy Family History Father CAD (coronary artery disease) Mother CAD (coronary artery disease) Social History Smoking and tobacco status: never smoked Alcohol intake: never Lives independently: Yes Housing: House Course Vital Signs: Vital signs: Vital Signs Temperature 98.9 F 11/19/20 15:56 Pulse Rate 72 11/20/20 04:56 Respiratory Rate 15 11/20/20 04:56 Blood Pressure 123/74 11/20/20 04:56 Pulse Oximetry 97 11/20/20 04:56 MDM - Altered Mental Status MDM Narrative: Medical decision making narrative: Patient presents here after a fall and is in multiple falls likely from his Parkinson's. Patient is in rhabdomyolysis and has a CK of 7500. He has no kidney malfunction at this time. Spoke to hospitalist will admit for continued hydration. Lab Data: Labs: Lab Results 11/19/20 11/19/20 11/19/20 Range/Units 16:48 17:00 17:00 WBC 5.6 (4.0-10.0) 10^3/ uL RBC 4.33 (4.1-5.3) 10^6/u L Hgb 13.2 (11.7-16.6) g/dL Hct 40.6 L (42.0-52.0) % MCV 93.8 (80-94) fL MCH 30.5 (28.0-34.0) pg MCHC 32.5 (30.0-36.0) g/dL RDW 12.8 (12.1-15.1) % Plt Count 199 (130-400) 10^3/c mm MPV 10.1 (7.4-10.4) fL Neut % (Auto) 47.8 % Lymph % (Auto) 26.1 % [place] % (Auto) 20.5 % Eos % (Auto) 4.3 % Baso % (Auto) 1.1 % Neut # (Auto) 2.66 (1.8-7.7) 10^3/u L Lymph # (Auto) 1.5 (0.8-4.8) 10^3/u L [place] # (Auto) 1.1 H (0.2-0.9) 10^3/u L Eos # (Auto) 0.2 (0.0-0.8) 10^3/u L Baso # (Auto) 0.1 (0.0-0.1) 10^3/u L Nucleated RBC % (a uto) 0 % Nucleated RBCs # 0.0 /100WBC Specimen Type Arterial Sample Site Radial, left ABG pH 7.44 (7.35-7.45) ABG pCO2 48.3 H (35-45) mmHg ABG pO2 58.3 L (80.0-100.0) mmH g ABG HCO3 32.9 H (22-26) mmol/L ABG O2 Saturation 92.8 ABG Base Excess 7.5 H (-2.0-2.0) mmol/ L Rm Test Pos A-a O2 Gradient 4.2 L (5-10) mmHg Hematocrit 40.8 L (42-52) % Hgb O2 Saturation 90.8 L (95-100) % Carboxyhemoglobin 1.3 (0.4-20.1) %THgb Methemoglobin 0.8 (0.4-1.5) % Total Hemoglobin 13.3 L (14-18) g/dL Sodium 145.0 H (131-143) mmol/L Potassium 3.7 (3.5-5.0) mmol/L Glucose 108.0 (70-115) mg/dL Ionized Calcium 1.2 (1.1-1.4) mmol/L O2 Delivery Device Room air FiO2 21.0 % Freezer Unloader ID glc Chloride (98-107) mmol/L Carbon Dioxide (22-29) mmol/L Anion Gap (5-19) BUN (8-23) mg/dL Creatinine (0.7-1.2) mg/dL GFR Calculation Calculated Osmolal ity (285-295) mOsm/k g Lactic Acid 1.3 (0.5-2.2) mmol/L Calcium (8.5-10.5) mg/dL Total Bilirubin (0.15-1.2) mg/dL AST (0-40) U/L ALT (0-41) U/L Alkaline Phosphata se (40-130) IU/L Creatine Kinase (39-308) U/L Total Protein (6.6-8.7) g/dL Albumin (3.5-5.2) g/dL Globulin (1.3-4.6) g/dL Lipase (13-60) U/L Urine Color (Yellow) Urine Appearance (CLEAR) Urine pH (5-7) Ur Specific Gravit y (1.005-1.030) Urine Protein (Negative) Urine Glucose (UA) (Normal) Urine Ketones (Negative) Urine Blood (Negative) Urine Nitrate (Negative) Urine Bilirubin (Negative) Urine Urobilinogen (Negative) mg/dL Ur Leukocyte Constance ase (Negative) Serum Ketones (Negative) 11/19/20 11/19/20 11/19/20 Range/Units 17:00 17:00 17:31 WBC (4.0-10.0) 10^3/ uL RBC (4.1-5.3) 10^6/u L Hgb (11.7-16.6) g/dL Hct (42.0-52.0) % MCV (80-94) fL MCH (28.0-34.0) pg MCHC (30.0-36.0) g/dL RDW (12.1-15.1) % Plt Count (130-400) 10^3/c mm MPV (7.4-10.4) fL Neut % (Auto) % Lymph % (Auto) % [place] % (Auto) % Eos % (Auto) % Baso % (Auto) % Neut # (Auto) (1.8-7.7) 10^3/u L Lymph # (Auto) (0.8-4.8) 10^3/u L [place] # (Auto) (0.2-0.9) 10^3/u L Eos # (Auto) (0.0-0.8) 10^3/u L Baso # (Auto) (0.0-0.1) 10^3/u L Nucleated RBC % (a uto) % Nucleated RBCs # /100WBC Specimen Type Sample Site ABG pH (7.35-7.45) ABG pCO2 (35-45) mmHg ABG pO2 (80.0-100.0) mmH g ABG HCO3 (22-26) mmol/L ABG O2 Saturation ABG Base Excess (-2.0-2.0) mmol/ L Rm Test A-a O2 Gradient (5-10) mmHg Hematocrit (42-52) % Hgb O2 Saturation (95-100) % Carboxyhemoglobin (0.4-20.1) %THgb Methemoglobin (0.4-1.5) % Total Hemoglobin (14-18) g/dL Sodium 138 (131-143) mmol/L Potassium 3.5 (3.5-5.0) mmol/L Glucose 103 (70-115) mg/dL Ionized Calcium (1.1-1.4) mmol/L O2 Delivery Device FiO2 % Freezer Unloader ID Chloride 100 (98-107) mmol/L Carbon Dioxide 31 H (22-29) mmol/L Anion Gap 10.5 (5-19) BUN 26 H (8-23) mg/dL Creatinine 1.0 (0.7-1.2) mg/dL GFR Calculation Not Reportable Calculated Osmolal ity 291 (285-295) mOsm/k g Lactic Acid (0.5-2.2) mmol/L Calcium 9.2 (8.5-10.5) mg/dL Total Bilirubin 0.7 (0.15-1.2) mg/dL AST 266 H (0-40) U/L ALT 95 H (0-41) U/L Alkaline Phosphata se 78 (40-130) IU/L Creatine Kinase 7495 H* (39-308) U/L Total Protein 7.5 (6.6-8.7) g/dL Albumin 4.0 (3.5-5.2) g/dL Globulin 3.5 (1.3-4.6) g/dL Lipase 37 (13-60) U/L Urine Color Dark yellow (Yellow) Urine Appearance Clear (CLEAR) Urine pH 5 (5-7) Ur Specific Gravit y 1.025 (1.005-1.030) Urine Protein Neg (Negative) Urine Glucose (UA) Norm (Normal) Urine Ketones 1+ H (Negative) Urine Blood Neg (Negative) Urine Nitrate Negative (Negative) Urine Bilirubin 1+ H (Negative) Urine Urobilinogen 8 H (Negative) mg/dL Ur Leukocyte Constance ase Negative (Negative) Serum Ketones Negative (Negative) Imaging Data^: CT Head: Radiologist's impression: [id number] [id number] [address] Scan Report Signed Patient: Laith Santiago Unit #: [id number] : 1945 Age/Sex: 75 / M ADM Date: 11/19/20 Loc: ER Room/Bed: Attending Dr: Ordering Provider/Ordering MD: Murphy Caruso DO Date of Service: 11/19/20 Procedure(s): CT head wo con* [id number] Accession Number(s): [id number] Report Number: [id number] PROCEDURE INFORMATION: Exam: CT Head Without Contrast Exam date and time: 11/19/2020 4:59 PM Age: 75 years old Clinical indication: Injury or trauma; Fall; Blunt trauma (contusions or hematomas); Altered mental status/memory loss; Patient HX: Pellets in face; Additional info: Trauma/ams TECHNIQUE: Imaging protocol: Computed tomography of the head without contrast. Radiation optimization: All CT scans at this facility use at least one of these dose optimization techniques: automated exposure control; mA and/or kV adjustment per patient size (includes targeted exams where dose is matched to clinical indication); or iterative reconstruction. COMPARISON: CT head wo con* [id number] 04/21/2018 3:25 PM RADIATION DOSE METRICS: Total DLP (mGy-cm): 987.28 FINDINGS: Brain: No evidence of acute infarct. No mass or mass effect. No intra axial hemorrhage. No extra axial fluid collection or hemorrhage. Scattered white matter hypodensities likely from chronic microvascular ischemic disease. Global brain volume loss, likely age related. Cerebral ventricles: Symmetric and without enlargement. Bones/joints: No acute fracture. 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 Paranasal sinuses: Visualized sinuses are well aerated. Mastoid air cells: Visualized mastoid air cells are well aerated. Soft tissues: No concerning abnormalities. Multiple metallic densities in the superficial soft tissues again noted. CT/CT head wo con* [id number] IMPRESSION: No acute intracranial abnormality. Discharge Plan Discharge Patient Disposition: Admitted As Inpatient Admit Provider: Wali Musa Clinical Impression: Fall Qualifiers: Encounter type: initial encounter Qualified Code(s): W19.XXXA - Unspecified fall, initial encounter Rhabdomyolysis Qualifiers: Rhabdomyolysis type: non-traumatic Qualified Code(s): M62.82 - Rhabdomyolysis Condition: Stable Coding Level of Care Code ED Distribution Center Administrator for [facility] Fwd Exam Comprehensive
[2020-11-19 16:59] LABS: Blood Gas Allen Test Pos; Blood Gas Sample Type Arterial; Ionized Calcium Level - ABG 1.2 mmol/L (1.1-1.4); Methemoglobin 0.8 % (0.4-1.5); Oxygen Device ROOM AIR
[2020-11-19 17:10] LABS: Basophils # 0.1 10^3/uL (0.0-0.1); Basophils % 1.1 %; Eosinophils # 0.2 10^3/uL (0.0-0.8); Eosinophils % 4.3 %; Hematocrit 40.6 % (42.0-52.0); Hemoglobin 13.2 g/dL (11.7-16.6); Lymphocytes # 1.5 10^3/uL (0.8-4.8); Lymphocytes % 26.1 %; Mean Corpuscular HGB Conc 32.5 g/dL (30.0-36.0); Mean Corpuscular Hemoglobin 30.5 pg (28.0-34.0); Mean Corpuscular Volume 93.8 fL (80-94); Mean Platelet Volume 10.1 fL (7.4-10.4); Monocytes # 1.1 10^3/uL (0.2-0.9); Monocytes % 20.5 %; Neutrophils # 2.66 10^3/uL (1.8-7.7); Neutrophils % 47.8 %; Nucleated Red Blood Cells % 0 %; Platelet Count 199 10^3/cmm (130-400); Red Blood Count 4.33 10^6/uL (4.1-5.3); Red Cell Distribution Width 12.8 % (12.1-15.1); White Blood Count 5.6 10^3/uL (4.0-10.0)
[2020-11-19 17:26] LABS: Ketone (Acetest) Serum Negative (Negative)
[2020-11-19 17:34] VITALS: BP 128/72; PULSE 64; RESP 18; O2SAT 96
[2020-11-19 17:35] LABS: Lactic Sepsis W/Reflex 1.3 mmol/L (0.5-2.2)
[2020-11-19 17:37] LABS: Alanine Aminotransferase 95 U/L (0-41); Alkaline Phosphatase 78 IU/L (40-130); Anion Gap 10.5 (5-19); Aspartate Amino Transferase 266 U/L (0-40); Blood Urea Nitrogen 26 mg/dL (8-23); Calcium 9.2 mg/dL (8.5-10.5); Carbon Dioxide 31 mmol/L (22-29); Chloride 100 mmol/L (98-107); Creatinine Clr Calc Pharmacy 67.6064; Globulin 3.5 g/dL (1.3-4.6); Glucose 103 mg/dL (65-115); Lipase 37 U/L (13-60); Osmolality Calculated 291 mOsm/kg (285-295); Potassium 3.5 mmol/L (3.5-5.1); Sodium 138 mmol/L (136-145); Total Bilirubin 0.7 mg/dL (0.15-1.2); Total Protein 7.5 g/dL (6.6-8.7)
[2020-11-19 17:38] LABS: Add Urine Microscopic? NO; Charge for UA Resulting for Rev
[2020-11-19 17:39] LABS: ABG PCO2 48.3 mmHg (35-45); ABG PH Result 7.44 (7.35-7.45); Alveolar-Arterial Oxygen Gradi 4.2 mmHg (5-10); Arterial Blood Gas Hematocrit 40.8 % (42-52); Base Excess ABG 7.5 mmol/L (-2.0-2.0); Blood Gas Operator Identificat glc; Blood Gas Sample Site Radial, left; Carboxyhemoglobin 1.3 %THgb (0.4-20.1); HCO3 ABG 32.9 mmol/L (22-26); HGB O2 Sat 90.8 % (95-100); Oxygen Saturation ABG 92.8; PO2 ABG 58.3 mmHg (80.0-100.0); Potassium Level - ABG 3.7 mmol/L (3.5-5.0); Total Hemoglobin 13.3 g/dL (14-18)
[2020-11-19 17:51] LABS: Creatine Phosphokinase 7495 U/L (39-308)
[2020-11-19 17:59] LABS: Bilirubin Urine 1+ (Negative); Blood Urine Neg (Negative); Glucose Urine UA Norm (Normal); Ketones Urine 1+ (Negative); Leukocyte Esterase Urine Negative (Negative); Nitrate Urine Negative (Negative); Protein Urine Neg (Negative); Specific Gravity, Urine 1.025 (1.005-1.030); Urine Appearance Clear (CLEAR); Urine Color Dark Yellow (Yellow); Urobilinogen Urine 8 mg/dL (Negative); pH Urine 5 (5-7)
[2020-11-19] MEDS: tetanus-diphtheria tox (adult) 0.5 mL SDV IM (19:11)
[2020-11-19 19:14] VITALS: BP 123/68; PULSE 66; RESP 14; O2SAT 93
[2020-11-19] MEDS: sodium chloride 0.9% 1,000 ML 999 ML IV (19:14)
--- NOTE | 2020-11-19 19:23 | PM.HP ---
Providers/Chief Complaint Primary Care Provider: Jesse Perry DO Chief Complaint: falling History of Present Illness Laith Satniago is a 75 year old male who has history of Parkinson's, dementia, preserved ejection fraction, presented today with chief complaint of generalized weakness, fatigue and recurrent falls. Patient is stating that he lives alone and manages his daily activities on his own, his daughter visits him frequently. Today when she visited him found him very weak, lethargic and as per EMS report he was found on the ground, that is why he was sent to the ED for further evaluation. Patient himself is denying staying on the ground for prolonged period of time, he is denying chest pain, shortness of breath, dysuria, he is endorsing recurrent falls, resting tremors, constipation. No previous history of seizure or syncopal events. Diagnosis in the ER revealed normal CBC, BMP, I do believe blood gas is venous not arterial he saturating well on room air, he is awake alert oriented x3 GCS 15, CT head shows chronic changes, CPK is 7400 normal UA, chest x-ray without acute pathology Review of Systems Const: Reports: chills, body aches and fatigue; Denies: fever(s) Eyes: Denies: change in vision ENMT: Denies: throat pain Card: Denies: chest pain Resp: Denies: dyspnea GI: Denies: abdominal pain : Denies: flank pain Musc: Denies: neck pain Skin/Breast: Reports: rash, lesions and striae Neuro: Denies: headache(s) Psych: Denies: anxiety Endo: Denies: polyuria Mitchell/Lymph: Denies: easy bruising All/Imm: Denies: urticaria Medications/Allergies Home Medications Medication Instructions Recorded Confirmed Last Taken Type cholecalciferol (vitamin D3) 2,000 unit PO DAILY 10/03/19 11/19/20 11/15/20 History atorvastatin 10 mg tablet 10 mg PO BEDTIME tab 04/18/20 11/19/20 11/16/20 History escitalopram oxalate 5 mg tablet 5 mg PO DAILY 04/18/20 11/19/20 Unknown History cam boot #1 ea 08/15/20 11/19/20 Unknown Rx custom orthotics #1 ea 08/15/20 11/19/20 Unknown Rx orthopedic shoes with extra deapth #1 ea 09/25/20 11/19/20 Unknown Rx olanzapine 10 mg PO BID 11/19/20 11/19/20 11/16/20 History omeprazole 20 mg PO DAILY 11/19/20 11/19/20 11/16/20 History Allergies Allergy/AdvReac Type Severity Reaction Status Date / Time Penicillins Allergy Unknown Verified 11/19/20 15:56 ranitidine [From Zantac] Allergy Unknown Verified 11/19/20 15:56 PFSH Acute PFSH: Medical History Acquired hallux malleus of both feet Depression Equinus contracture of ankle Falls GERD (gastroesophageal reflux disease) Hallucinations Hammertoe HLD (hyperlipidemia) Parkinsons Vitamin B 12 deficiency Surgical History H/O hand surgery History of mandibular surgery Status post tonsillectomy Family History Father CAD (coronary artery disease) Mother CAD (coronary artery disease) Social History Smoking and tobacco status: never smoked Alcohol intake: never Lives independently: Yes Housing: House Vitals/I&O/Wt Last Vital Signs Temp 98.9 F 11/19/20 15:56 Pulse 66 11/19/20 19:14 Resp 14 11/19/20 19:14 BP 123/68 11/19/20 19:14 Pulse Ox 93 11/19/20 19:14 Weight last 48 hrs Weight 87.543 kg Physical Exam Narrative: EXAM NARRATIVE: Pleasant male he was laying comfortably in his bed, he was asking for orange juice when entered the room, I gave him orange juice and then started my interview and evaluation S1, S2, did not appreciate murmur however has mild fluid overload + Lower extremity edema 1+ with pedal edema Abdomen soft, distended, bloated bowel sound present Bilateral breath sounds without adventitious rhonchi or crackles Resting tremors Multiple laceration all over his extremities, Laceration on forehead noticed as well Appropriate mood and affect No neurological deficits Hammertoes Healing wound of left foot dorsal side Data : 11/19/20 17:00 11/19/20 17:00 A&P Assessment and plan (1) Fall: Status: Acute Qualifiers: Encounter type: initial encounter Qualified Code(s): W19.XXXA - Unspecified fall, initial encounter (2) Rhabdomyolysis: Status: Acute Qualifiers: Rhabdomyolysis type: non-traumatic Qualified Code(s): M62.82 - Rhabdomyolysis (3) Vitamin B 12 deficiency: Status: Acute Additional A&P Information Rhabdomyolysis due to recurrent falls Has resting tremors, B12 deficiency, he lives alone, Will start him on normal saline 75 mill per hour, his EF is preserved however has grade 2 diastolic dysfunction clinically has edema of lower extremities, I would avoid titrating up his fluids because of history of diastolic heart failure Trend CPK Creatinine is normal We will get physical therapy evaluation I do believe he is unsafe to live alone considering his multiple comorbid conditions, ideally would need assisted living, patient is refusing going to a care home, kindly reevaluate in the morning TSH normal Check B12 level Patient does have parkinsonian features, does not take any Parkinson's medications, will need neurology consult for diagnosis and treatment Lower extremity edema: We will obtain Dopplers, Requiring IV fluids for mild rhabdo, will initiate Lasix tomorrow I would not repeat echo at this point Goals of care discussed with the patient: Full code DVT prophylaxis Lovenox Cardiac diet Attestations Medical Necessity Statement*: Anticipating discharge in less than 48 hours continued IV fluids for rhabdomyolysis recurrent falls Time Spent in Patient Care: (>than 50% of time spent in counselling and/or direct pt care on unit). 40mins Coding Level of Care Code Acute Operations Management Trainee for Mike Fwd Diagnoses Fall W19.XXXA Encounter type: initial encounter Rhabdomyolysis M62.82 Rhabdomyolysis type: non-traumatic Vitamin B 12 deficiency E53.8
[2020-11-19 20:51] VITALS: BP 114/71; PULSE 67; RESP 19; O2SAT 95
[2020-11-19 21:04] VITALS: BP 112/57; PULSE 68; RESP 18; O2SAT 95
[2020-11-19] MEDS: sodium chloride 0.9% 1,000 ML 150 ML IV (22:09)
[2020-11-20] VITALS (11 sets, daily range): BP systolic 101–176; BP diastolic 65–91; PULSE 55–76; RESP 12–27; TEMP 36.5–37.1; O2SAT 90–98
--- NOTE | 2020-11-20 | USCV_ITS ---
Laith Santiago Age: 75 Gender: M : 1945 Exam Date: 11/20/2020 06:18 Ordering Phys: Susanne Alvarez MD Technologist: Shara Torres Exam Location: [facility] [place] Indication: BLE SWELLING HISTORY: Lower extremity swelling. PROCEDURES: Venous duplex imaging was performed in bilateral lower extremities. The following venous structures were evaluated: common femoral vein, profunda vein, proximal portion of the greater saphenous vein, superficial femoral vein, and the popliteal vein. In addition, the posterior tibial and peroneal trunk were evaluated. Serial compression, augmentation maneuvers, and spectral Doppler flow evaluation were performed. FINDINGS: No evidence of DVT seen in any vessel visualized at this time. RIGHT POP FOSSA SUAREZ'S CYST SEEN CONCLUSIONS No evidence of right lower extremity DVT. No evidence of left lower extremity DVT. Popliteal cyst measuring 2.5 x 0.9 x 4.9cm with internal debris Elpidio Maguire MD (Electronically Signed) Final Date: 20 November 2020 17:28 S
[2020-11-20] MEDS: enoxaparin 40 mg/0.4 mL Syringe SUBCUT (00:20)
[2020-11-20 01:29] LABS: Creatine Phosphokinase 5166 U/L (39-308)
[2020-11-20 02:14] LABS: Vitamin B12 278 pg/mL (232-1245)
[2020-11-20 04:35] LABS: Anion Gap 11.3 (5-19); Blood Urea Nitrogen 19 mg/dL (8-23); Calcium 8.3 mg/dL (8.5-10.5); Carbon Dioxide 28 mmol/L (22-29); Chloride 105 mmol/L (98-107); Glucose 114 mg/dL (65-115); Osmolality Calculated 295 mOsm/kg (285-295); Potassium 3.3 mmol/L (3.5-5.1); Sodium 141 mmol/L (136-145)
[2020-11-20] MEDS: sodium chloride 0.9% 1,000 ML 75 ML IV ×2 (06:26→17:07)
--- NOTE | 2020-11-20 08:03 | PC.NURSE ---
Addendum entered by Basia Drummond RN 11/20/20 18:14: noted pt to have what appears to be an abd hernia/distention Original Note: ADMISSION NOTE UPON ENTERING ROOM THIS NURSE ASK PT NAME AND DATE - PT STARES AT NURSE - AFTER MULTIPLE ATTEMPTS STATES ARE YOU TALKING TO ME - PT STATES NAME AND PLACE - UNSURE TO WHERE HE LIVES OR WHO ASSISTS HIM AT HOME - STATES A BUNCH OF BEAUTIF[employer] WOMEN BROUGHT ME HERE - SEE ADMISSION ASSESSMENT AND PHYSICAL ASSESSMENT FOR DETAILS - BED CHECK ON - WILL MONITOR AND AWAIT DR SEGOVIA - ALSO NOTED LEFT EYE TO BE BLOOD SHOT - PT IS ABLE TO FOLLOW COMMANDS AND FOLLOW/RESPOND TO DIRECTIONS ON FOLLOWING OBJECT
[2020-11-20] MEDS: FUROsemide 20 mg Tablet PO (09:27)
[2020-11-20] MEDS: sennosides-docusate Tablet 1 TAB PO (09:27)
--- NOTE | 2020-11-20 09:34 | PC.NURSE ---
AM NOTE PT NOW ALERT AND ORIENTATED X4 - TALKATIVE STATES HE LIVES IN [facility]
[2020-11-20] MEDS: ondansetron 2 mg/ML SDV 2 mL 4 MG IVP (10:45)
--- NOTE | 2020-11-20 10:49 | PC.NURSE ---
CONFUSION PT NOTED TO HAVE PERIODS OF CONFUSION - HOLDING BASIN COMPLAINING OF NAUSEA - ZOFRAN GIVEN - PT ALSO HAS URINAL TO MOUTH - TAKEN FROM PT AND INSTRUCTED PT NOT TO HOLD URINAL TO FACE - PT DEMANDS URINAL BACK - GIVEN - TAKEN BACK TO FACIAL AREA - AGAIN INSTRUCTED PT TO WHAT URINAL WAS AND TO NOT HOLD IT TO FACE - PT STATES OK
--- NOTE | 2020-11-20 14:48 | PC.NURSE ---
PT UP TO BATHROOM WITH ESEQUIEL LUKE - HAD APPROX 60CC OF DARK EMESIS INTO TOLIET - RETURNED TO BED - GREG FAIR - NEEDS ASSISTANCE TO GET UP AND OUT OF BED
--- NOTE | 2020-11-20 16:43 | XR_ITS ---
WS: [id number] KUB, AP view, 11/20/2020 Clinical Data: evaluate for ileus/SBO Comparison: None. Findings: There are dilated small bowel loops in the central portion of the abdomen. The stomach is dilated. Th ere is air in the colon. No abnormal intra-abdominal masses or calcifications are seen. XR/XR abdomen 1V* 13013 Impression: Dilated central small bowel loops which could indicate severe ileus or early sm all bowel obstruction.
--- NOTE | 2020-11-20 16:44 | ECG_ITS ---
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 Measurements Intervals [place] Rate: 63 P: 61 MT: 159 QRS: 2 QRSD: 103 T: 19 QT: 384 QTc: 394 Interpretive Statements SINUS RHYTHM WITH OCCASIONAL SUPRAVENTRICULAR PREMATURE COMPLEXES NONSPECIFIC ST & T-WAVE ABNORMALITY Compared to ECG 11/19/2020 16:26:54 No significant changes Electronically Signed On 11-20-2020 17:58:04 CDT by Jairon Osorio M.D. [id number] f
--- NOTE | 2020-11-20 16:44 | P.PN_ITS ---
Subjective Subjective: Interval history: Complains of multiple episodes of vomiting since this morning, denies any chest pain, denies any dyspnea. Also noted to have increased abdominal distention. Patient did have bowel movement today and has been passing urine however output noted to be 200 cc. Patient is incontinent. Medications: Reviewed: Yes Vitals/I&O/Wt Last Vital Signs Temp 98.6 F 11/20/20 15:32 Pulse 72 11/20/20 15:32 Resp 18 11/20/20 15:32 BP 156/65 11/20/20 15:32 Pulse Ox 98 11/20/20 15:32 11/20/20 11/20/20 11/20/20 06:59 14:59 22:59 Intake Total 999 260 / 260 Output Total 200 / 200 Balance 999 60 / 60 Weight last 48 hrs Weight 87.543 kg Physical Exam Narrative: EXAM NARRATIVE: GEN: Awake, alert and oriented, currently with emesis, CVS: S1S2 N RS: CTA B/L Abd: Noted to be distended, bowel sounds present but sluggish INTERN PRODUCT MARKETING MANAGER: no focal neuro deficits Data : 11/19/20 17:00 11/20/20 03:57 A&P Assessment and plan (1) Fall: Status: Acute Qualifiers: Encounter type: initial encounter Qualified Code(s): W19.XXXA - Unspecified fall, initial encounter (2) Rhabdomyolysis: Status: Acute Qualifiers: Rhabdomyolysis type: non-traumatic Qualified Code(s): M62.82 - Rhabdomyolysis (3) Vitamin B 12 deficiency: Status: Acute Additional A&P Information Rhabdomyolysis due to recurrent falls, presented overnight, CPK greater than 5000 At this present time patient is experiencing multiple episodes of vomiting nausea, noted to have increased abdominal distention Check stat abdominal x-ray to evaluate for ileus/SBO, bladder scan to evaluate for any urinary retention which could be causing the above symptoms Check also EKG and troponin series to rule out acute MD with atypical presentation. Currently patient is receiving normal saline for his rhabdomyolysis Creatinine is normal Awaiting physical therapy evaluation I do believe he is unsafe to live alone considering his multiple comorbid conditions, ideally would need assisted living, defers decision to his next of kin who has been contacted and will let us know by tomorrow TSH normal Lower extremity edema: Requiring IV fluids for mild rhabdo, reduced to 50 cc an hour DVT prophylaxis Lovenox Cardiac diet Attestations Medical Necessity Statement*: Continued observation for rhabdomyolysis, IV fluids, intractable nausea vomiting today, needs symptomatic control, CT imaging if persists Coding Level of Care Code Acute Assistant Golf Coach for Chg Fwd Diagnoses Fall W19.XXXA Encounter type: initial encounter Rhabdomyolysis M62.82 Rhabdomyolysis type: non-traumatic Vitamin B 12 deficiency E53.8
[2020-11-20] MEDS: metoclopramide 5 mg/mL SDV 2 mL IVP (17:06)
--- NOTE | 2020-11-20 17:11 | PC.NURSE ---
DR OSEAS MC PREVIOUSLY IN ROOM - NOTIFIED OF EMESIS X2 - DARK EMESIS - NEW ORDERS REC'D
[2020-11-20 18:09] LABS: Troponin(5th) Baseline 36 ng/L (0-15)
--- NOTE | 2020-11-20 18:44 | ECG_ITS ---
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 Measurements Intervals [place] Rate: 68 P: 54 VA: 158 QRS: 22 QRSD: 97 T: 23 QT: 396 QTc: 422 Interpretive Statements SINUS RHYTHM WITH OCCASIONAL SUPRAVENTRICULAR PREMATURE COMPLEXES NONSPECIFIC ST & T-WAVE ABNORMALITY Compared to ECG 11/20/2020 17:04:55 No significant changes Electronically Signed On 11-20-2020 18:37:13 CDT by Jairon Osorio M.D. [id number]
[2020-11-20 20:31] LABS: Troponin 5 2HR 37.51 ng/L (0-15); Troponin 5 2HR Delta 1.51 ABS# (0-10)
[2020-11-20 23:58] LABS: Troponin 5 6HR 31.27 ng/L (0-15)
[2020-11-21] LABS: Troponin 5 6HR Delta -4.73 ng/L (0-12)
[2020-11-21] MEDS: ondansetron 2 mg/ML SDV 2 mL 4 MG IVP ×2 (00:32→10:38)
[2020-11-21] MEDS: enoxaparin 40 mg/0.4 mL Syringe SUBCUT (00:32)
[2020-11-21] MEDS: metoclopramide 5 mg/mL SDV 2 mL IVP (02:44)
[2020-11-21 04:00] VITALS: BP 158/85; PULSE 67; RESP 16; TEMP 37.2; O2SAT 92
[2020-11-21 06:44] LABS: Basophils % 0.2 %; Hematocrit 39.6 % (42.0-52.0); Hemoglobin 12.8 g/dL (11.7-16.6); Lymphocytes # 0.9 10^3/uL (0.8-4.8); Lymphocytes % 8.6 %; Mean Corpuscular HGB Conc 32.3 g/dL (30.0-36.0); Mean Corpuscular Hemoglobin 30.3 pg (28.0-34.0); Mean Corpuscular Volume 93.8 fL (80-94); Mean Platelet Volume 10.6 fL (7.4-10.4); Monocytes # 1.2 10^3/uL (0.2-0.9); Monocytes % 12.5 %; Neutrophils # 7.77 10^3/uL (1.8-7.7); Neutrophils % 78.5 %; Nucleated Red Blood Cells % 0 %; Platelet Count 185 10^3/cmm (130-400); Red Blood Count 4.22 10^6/uL (4.1-5.3); Red Cell Distribution Width 12.9 % (12.1-15.1); White Blood Count 9.9 10^3/uL (4.0-10.0)
[2020-11-21 06:57] LABS: Alanine Aminotransferase 66 U/L (0-41); Albumin Level 3.4 g/dL (3.5-5.2); Alkaline Phosphatase 64 IU/L (40-130); Anion Gap 11.4 (5-19); Aspartate Amino Transferase 112 U/L (0-40); Blood Urea Nitrogen 20 mg/dL (8-23); Calcium 8.9 mg/dL (8.5-10.5); Carbon Dioxide 28 mmol/L (22-29); Chloride 107 mmol/L (98-107); Globulin 3.2 g/dL (1.3-4.6); Glucose 135 mg/dL (65-115); Osmolality Calculated 301 mOsm/kg (285-295); Potassium 3.4 mmol/L (3.5-5.1); Sodium 143 mmol/L (136-145); Total Bilirubin 0.8 mg/dL (0.15-1.2); Total Protein 6.6 g/dL (6.6-8.7)
[2020-11-21 07:11] VITALS: BP 146/83; PULSE 83; RESP 18; TEMP 36.6; O2SAT 91
[2020-11-21 07:14] LABS: Creatine Phosphokinase 1410 U/L (39-308)
[2020-11-21] MEDS: sodium chloride 0.9% 1,000 ML 75 ML IV (10:38)
--- NOTE | 2020-11-21 10:43 | CT_ITS ---
WS: [id number] CT ABDOMEN PELVIS TECHNIQUE: Noncontrast CT of the abdomen and pelvis with coronal and sagittal reformatted images. CLINICAL INFORMATION: small bowel obstruction vs ileus COMPARISON: None. DLP: 1279.[address] scans at [facility] use at least one of these dose optimization techniques: automat ed exposure control; mA and/or kV adjustment per patient size (includes targeted exams where dose is matched to clinical indication); or iterative reconstruction. FINDINGS: Small left pleural effusion. Compressive atelectasis left lower lobe with a few air bronchograms. Tin y right pleural effusion with compressive atelectasis in the right lower lobe.Gastric emphysema invol ving the proximal stomach and greater curvature likely due to recent vomiting. Tiny amount of pneumobilia. Noncontrast liver with small cyst in the dome of the liver left hepatic l obe measuring 1.7 CM. Adrenal glands are normal. Small esophageal hiatal hernia. Right renal cyst the largest right upper pole measuring 6.4 x 5.4 cm with a few septations. Bilateral renal cortical atro phy. No hydronephrosis in either kidney. Dilated fluid-filled loops of proximal and mid small bowel loops in the left upper quadrant, mid abd omen and pelvis measuring up to 3.5 cm. Terminal ileal small bowel loops are decompressed. Small amou nt of fluid in the right lower quadrant. Low-lying mobile cecum in the right midabdomen. Suspected tr ansition point in the right lower quadrant with transition to more normal appearing ileal bowel loops . Distended transverse colon with air-fluid levels due to ileus. Normal sigmoid colon. Sigmoid divertic ulosis. CT/CT abdomen pelvis wo con [id number] IMPRESSION: 1. Dilated loops of fluid-filled proximal and mid small bowel loops with suspe cted transition point in the right lower quadrant to more normal caliber ileal bowel loops. Largest small bowel is measure approximately 3.5 CM. 2. Largest small bowel loops measure approximately 3.5 CM. 3. Gastric emphysema involving the proximal stomach and greater curvature like ly due to recent vomiting. 4. Fluid-filled transverse colon with air-fluid levels likely due to ileus. Lo w-lying mobile cecum right lower quadrant. 5. Small left pleural effusion with compressive atelectasis left lower lobe. 6. Septated right upper pole renal cyst measuring 6.4 x 5.3 CCM. Notified Vicki Haile MD at 11/21/2020 2:23 PM.
[2020-11-21 11:48] VITALS: BP 123/65; PULSE 65; RESP 18; TEMP 36.6; O2SAT 96
--- NOTE | 2020-11-21 14:07 | PC.NURSE ---
CT SCAN RETURNED TO FLOOR VIA TRANSPORT FROM CT - PT SITTING ON SIDE OF BED WITH SMALL AMOUNT OF LIQUID STOOL NOTED - AMBULATED TO BATHROOM PER THIS NURSE - PT STATES I NEED TO GET MY PANTS AND GET TO MY TRUCK HAS REMAINED CONFUSED THROUGHOUT THIS SHIFT - DAUGHTER, JANUARY UPDATED TO PLAN OF CARE
[2020-11-21] MEDS: dextrose 5%-sod chloride 0.9% 1,000 ML 50 ML IV (14:56)
[2020-11-21] MEDS: famotidine 20 mg/2 mL INJ IVP (14:56)
--- NOTE | 2020-11-21 15:42 | PM.CONSULT ---
Providers/Reason For Consult Consulting Physican/Specialty*: General Surgery Geovany Kumar MD Reason for Consult*: Abnormal CAT scan of the abdomen revealing gastric emphysema and possible small bowel obstruction. Attending Physician: Vicki Haile MD Primary Care Provider: Jesse Perry DO History of Present Illness History of Present Illness Laith Santiago is a 75 year old male who apparently lives by himself and can tell me that he has frequent falls at home. His family members visit him and apparently when they visited him a couple of days ago they found him very weak and lethargic. EMS was called and he was brought to the hospital. He says he was vomiting multiple times over the weekend. He did not see any evidence of hematemesis. While he has had reportedly improved from that aspect, he was apparently found to have some increased small bowel air on a plain film. A follow-up CAT scan was done today and revealed possible evidence of small bowel obstruction, but also some air-fluid levels within the colon. More impressively, he was found to have some gastric emphysema. The patient denies any abdominal pain. He thinks he may have had a history of ulcers a long time ago. He tells me that he has been moving his bowels since he came into the hospital, but it has been loose. Review of Systems General: Reports: 10 or more systems reviewed and unremarkable except in HPI and below Const: Denies: fever(s) GI: Reports: vomiting ( Thursday and Thursday ) and diarrhea; Denies: abdominal pain or hematemesis Meds/Allergies Home Medications and Allergies Home Medications Medication Instructions Recorded Confirmed Last Taken Type cholecalciferol (vitamin D3) 2,000 unit PO DAILY 10/03/19 11/19/20 11/15/20 History atorvastatin 10 mg tablet 10 mg PO BEDTIME tab 04/18/20 11/19/20 11/16/20 History escitalopram oxalate 5 mg tablet 5 mg PO DAILY 04/18/20 11/19/20 Unknown History cam boot #1 ea 08/15/20 11/19/20 Unknown Rx custom orthotics #1 ea 08/15/20 11/19/20 Unknown Rx orthopedic shoes with extra deapth #1 ea 09/25/20 11/19/20 Unknown Rx olanzapine 10 mg PO BID 11/19/20 11/19/20 11/16/20 History omeprazole 20 mg PO DAILY 11/19/20 11/19/20 11/16/20 History Allergies Allergy/AdvReac Type Severity Reaction Status Date / Time Penicillins Allergy Unknown Verified 11/19/20 15:56 ranitidine [From Zantac] Allergy Unknown Verified 11/19/20 15:56 Current Medications Current Medications Generic Name Dose Route Start Last Admin Trade Name Freq PRN Reason Stop Dose Admin Enoxaparin Sodium 40 mg 11/20/20 00:00 11/21/20 00:32 Enoxaparin 40 Mg/0.4 Ml Syringe SUBCUT 40 mg Q24H ATIF Administration Famotidine 20 mg 11/21/20 16:00 11/21/20 14:56 Famotidine 20 Mg/2 Ml Inj IVP 20 mg Q12H ATIF Administration Furosemide 20 mg 11/20/20 09:00 11/20/20 09:27 Furosemide 20 Mg Tablet PO 20 mg DAILY ATIF Administration Dextrose/Sodium Chloride 1,000 mls @ 50 mls/hr 11/21/20 15:00 11/21/20 14:56 Dextrose 5%-Sod Chloride 0.9% IV 50 mls/hr .Q20H ATIF Administration Metoclopramide HCl 5 mg 11/20/20 16:52 11/21/20 02:44 Metoclopramide 5 Mg/Ml Sdv 2 Ml IVP 5 mg Q6H PRN Administration NAUSEA AND VOMITING Ondansetron HCl 4 mg 11/20/20 10:34 11/21/20 10:38 Ondansetron 2 Mg/Ml Sdv 2 Ml IVP 4 mg Q6H PRN Administration NAUSEA AND VOMITING Senna/Docusate Sodium 1 tab 11/20/20 09:00 11/21/20 08:03 Sennosides-Docusate Tablet PO Not Given DAILY ATIF PFSH Acute PFSH: Medical History Acquired hallux malleus of both feet Depression Equinus contracture of ankle Falls GERD (gastroesophageal reflux disease) Hallucinations Hammertoe HLD (hyperlipidemia) Parkinsons Vitamin B 12 deficiency Surgical History H/O hand surgery History of mandibular surgery Status post tonsillectomy Family History Father CAD (coronary artery disease) Mother CAD (coronary artery disease) Social History Smoking and tobacco status: never smoked Alcohol intake: never Lives independently: Yes Housing: House Vitals/I&O/Wt Last Vital Signs Temp 97.8 F 11/21/20 11:48 Pulse 65 11/21/20 11:48 Resp 18 11/21/20 11:48 BP 123/65 11/21/20 11:48 Pulse Ox 96 11/21/20 11:48 11/21/20 11/21/20 11/21/20 06:59 14:59 22:59 Intake Total 1000 / 1.25 Balance 1000 / 1786.25 Weight last 48 hrs Weight 193 lb Physical Exam Narrative: EXAM NARRATIVE: The patient was examined in his hospital room. He does not appear to be in any distress. His pupils seem equal. No carotid bruits are heard. The lungs are clear anteriorly. The heart is regular. The abdomen reveals some bowel sounds that may be somewhat hypoactive. It is soft but somewhat protuberant. He has no tenderness to my exam, however. No obvious masses are palpated. The extremities reveal no edema. Data Imaging^: CT Abd/Pel: Radiologist's impression: CT scan abdomen/pelvis 11/21/2020 IMPRESSION: 1. Dilated loops of fluid-filled proximal and mid small bowel loops with suspected transition point in the right lower quadrant to more normal caliber ileal bowel loops. Largest small bowel is measure approximately 3.5 CM. 2. Largest small bowel loops measure approximately 3.5 CM. 3. Gastric emphysema involving the proximal stomach and greater curvature likely due to recent vomiting. 4. Fluid-filled transverse colon with air-fluid levels likely due to ileus. Low-lying mobile cecum right lower quadrant. 5. Small left pleural effusion with compressive atelectasis left lower lobe. 6. Septated right upper pole renal cyst measuring 6.4 x 5.3 CCM. A&P Assessment and plan (1) Gastric emphysema: Gastric emphysema can be secondary to a benign source which can usually and easily be treated conservatively or a more ominous source such as infections, etc. requiring immediate exploration. Many so-called benign cases have been seen following episodes of vomiting. This does not appear to be a ominous case of gastric emphysema, and is probably from his repeated vomiting. He does have an impressive amount of air within the wall of his stomach, however. I am going to recommend placement of a nasogastric tube to keep his stomach decompressed for 2 to 3 days. I have discussed this with him. Most of these cases will resolve with gastric decompression over that period of time. Continue famotidine. With respect to the possible small bowel obstruction reported on the CAT scan, I do not think this is the case. The patient has air and fluid throughout his colon and I suspect this is probably more of an ileus as opposed to a mechanical obstructive process. He says he continues to pass some stool. I will continue following with you. Status: Acute Consult Attestations Medical Necessity Statement: See admitting service's notation. Coding Level of Care Code Acute Production Proofreader for Mike Bellamy Diagnoses Gastric emphysema K29.60
[2020-11-21 15:57] VITALS: BP 154/78; PULSE 77; RESP 18; TEMP 36.6; O2SAT 97
[2020-11-21] MEDS: lidocaine 1% 5 ML in potassium chloride premix 100 ML 25 ML IV (16:00)
--- NOTE | 2020-11-21 16:28 | P.PN_ITS ---
Subjective Subjective: Interval history: X-ray abdomen performed yesterday evening returned with SBO needs follow-up CT of the abdomen performed today which did show presence of small bowel obstruction with transition point in the right lower quadrant. Also of note made of gastric emphysema unclear significance. Symptomatically patient reports improvement today, he has not had any more vomiting today, was mildly nauseous this morning but states this is currently under control. Had one episode of loose bowel movement earlier this morning. Medications: Reviewed: Yes Vitals/I&O/Wt Last Vital Signs Temp 97.8 F 11/21/20 15:57 Pulse 77 11/21/20 15:57 Resp 18 11/21/20 15:57 BP 154/78 11/21/20 15:57 Pulse Ox 97 11/21/20 15:57 11/21/20 11/21/20 11/21/20 06:59 14:59 22:59 Intake Total 1000 / 2061.25 Balance 1000 / 1786.25 Physical Exam 2 Narrative: EXAM NARRATIVE: GEN: Awake, alert and oriented, appears overall more comfortable compared to yesterday's exam CVS: S1S2 N RS: CTA B/L Abd: Abdomen still with some distention, however improved compared to yesterday, no gross tenderness REGIONAL DIRECTOR OF ADMISSIONS: no focal neuro deficits Data : 11/21/20 06:13 11/21/20 06:13 CT Abd/Pel: I personally reviewed and interpreted this imaging study as follows: My impression: 1. Dilated loops of fluid-filled proximal and mid small bowel loops with suspected transition point in the right lower quadrant to more normal caliber ileal bowel loops. Largest small bowel is measure approximately 3.5 CM. 2. Largest small bowel loops measure approximately 3.5 CM. 3. Gastric emphysema involving the proximal stomach and greater curvature likely due to recent vomiting. 4. Fluid-filled transverse colon with air-fluid levels likely due to ileus. Low-lying mobile cecum right lower quadrant. KUB: I personally reviewed and interpreted this imaging study as follows: My impression: Dilated central small bowel loops which could indicate severe ileus or early small bowel obstruction. A&P Assessment and plan (1) Fall: Status: Acute Qualifiers: Encounter type: initial encounter Qualified Code(s): W19.XXXA - Unspec ified fall, initial encounter (2) Rhabdomyolysis: Status: Acute Qualifiers: Rhabdomyolysis type: non-traumatic Qualified Code(s): M62.82 - Rhabd omyolysis (3) Vitamin B 12 deficiency: Status: Acute (4) Small bowel obstruction: Status: Acute Additional A&P Information Rhabdomyolysis due to recurrent falls, CPK greater than 5000, now trending down appropriately to 1500 with IV hydration. Renal function remains stable at this time. Yesterday noted to have proximal abdominal distention along with multiple episodes of vomiting, abdominal x-ray and CT of the abdomen taken today confirms small bowel obstruction. Note made on CAT scan of emphysematous stomach wall lining, unclear significance, may be related to excessive vomiting. Surgical consult given SBO and above changes. EKG and troponin series negative for acute AL Change fluids to D5 normal saline at 50 cc/h, careful IV hydration in view of history of CHF. Lasix continues to be on hold Hypokalemia, repleted with IV supplementation Appreciate PT evaluation Lower extremity edema: Lower extremity Doppler negative for DVT Requiring IV fluids for mild rhabdo, reduced to 50 cc an hour to avoid decompensated heart failure. Last echocardiogram with LVEF of 55%, no regional wall motion abnormalities, moderate aortic valve calcification, diastolic function not established. DVT prophylaxis Lovenox Cardiac diet Change to inpatient admission, will require greater than 2 midnight stay as patient has small bowel obstruction, will need to await return of bowel function, surgery consult as above. Attestations Medical Necessity Statement*: Small bowel obstruction, needs further evaluation, return of bowel function will need to be evaluated Coding Level of Care Code Acute Magician/Illusionist for Chg Fwd Diagnoses Fall W19.XXXA Encounter type: initial encounter Rhabdomyolysis M62.82 Rhabdomyolysis type: non-traumatic Vitamin B 12 deficiency E53.8 Small bowel obstruction K56.609
--- NOTE | 2020-11-21 16:57 | PC.NURSE ---
1:1 1:1 AT SIDE TO SECURE NG PLACEMENT
--- NOTE | 2020-11-21 18:21 | PC.NURSE ---
DAUGHTER DAUGHTER AT BEDSIDE - UPDATED TO PLAN OF CARE
[2020-11-21 19:22] VITALS: BP 171/84; PULSE 62; RESP 18; TEMP 36.9; O2SAT 93
[2020-11-21 19:34] VITALS: BP 162/84
[2020-11-22] VITALS (7 sets, daily range): BP systolic 156–174; BP diastolic 72–86; PULSE 54–67; RESP 17–18; TEMP 36.5–37.1; O2SAT 90–96
[2020-11-22] MEDS: enoxaparin 40 mg/0.4 mL Syringe SUBCUT ×2 (00:22→23:51)
[2020-11-22] MEDS: famotidine 20 mg/2 mL INJ IVP ×2 (04:38→17:30)
[2020-11-22 05:41] LABS: Basophils # 0.1 10^3/uL (0.0-0.1); Basophils % 0.6 %; Eosinophils # 0.2 10^3/uL (0.0-0.8); Hematocrit 43.8 % (42.0-52.0); Hemoglobin 13.8 g/dL (11.7-16.6); Lymphocytes # 1.5 10^3/uL (0.8-4.8); Lymphocytes % 13.2 %; Mean Corpuscular HGB Conc 31.5 g/dL (30.0-36.0); Mean Corpuscular Hemoglobin 30.1 pg (28.0-34.0); Mean Corpuscular Volume 95.6 fL (80-94); Mean Platelet Volume 10.1 fL (7.4-10.4); Monocytes # 1.3 10^3/uL (0.2-0.9); Monocytes % 11.7 %; Neutrophils # 7.91 10^3/uL (1.8-7.7); Neutrophils % 72.1 %; Nucleated Red Blood Cells % 0 %; Platelet Count 191 10^3/cmm (130-400); Red Blood Count 4.58 10^6/uL (4.1-5.3); Red Cell Distribution Width 12.9 % (12.1-15.1)
[2020-11-22 05:58] LABS: Alanine Aminotransferase 54 U/L (0-41); Albumin Level 3.4 g/dL (3.5-5.2); Alkaline Phosphatase 72 IU/L (40-130); Anion Gap 10.9 (5-19); Aspartate Amino Transferase 75 U/L (0-40); Blood Urea Nitrogen 15 mg/dL (8-23); Carbon Dioxide 30 mmol/L (22-29); Chloride 107 mmol/L (98-107); Globulin 3.3 g/dL (1.3-4.6); Glucose 102 mg/dL (65-115); Osmolality Calculated 299 mOsm/kg (285-295); Potassium 3.9 mmol/L (3.5-5.1); Sodium 144 mmol/L (136-145); Total Bilirubin 0.9 mg/dL (0.15-1.2); Total Protein 6.7 g/dL (6.6-8.7)
--- NOTE | 2020-11-22 06:36 | PM.PN ---
Subjective Subjective: Interval history: The patient has a nasogastric tube in place. He says his abdomen is still the same. He was a little bit confused when I was talking to him yesterday, and remains about the same today. Vitals/I&O/Wt Last Vital Signs Temp 97.7 F 11/22/20 04:00 Pulse 67 11/22/20 04:00 Resp 18 11/22/20 04:00 BP 164/83 11/22/20 04:00 Pulse Ox 90 11/22/20 04:00 11/21/20 11/21/20 11/22/20 14:59 22:59 06:59 Intake Total 1105 / 1105 Output Total 50 / 450 400 / 450 Balance -50 / 655 705 / 655 Physical Exam Narrative: EXAM NARRATIVE: Abdomen remains soft and nontender. Data : 11/22/20 05:30 11/22/20 05:30 A&P Assessment and plan (1) Gastric emphysema: NG placed 11/21/2020. I am going to recommend we leave the nasogastric tube in place until perhaps Thursday morning. If a repeat CAT scan of the stomach at that time looks like this has resolved then hopefully we can get it removed. Status: Acute Attestations Medical Necessity Statement*: See admitting service's notation. Coding Level of Care Code Acute Biomedical Analytical Scientist for Mike Bellamy Diagnoses Gastric emphysema K29.60
--- NOTE | 2020-11-22 10:20 | PC.NURSE ---
PSA in room with patient.
--- NOTE | 2020-11-22 10:55 | PC.CHAP ---
Pastoral Care Encounter/Spiritual Assessment Type of Contact [x] Declined rv service technician visit [] Patient/Family/Request visit [] Outpatient visit [] Follow-up visit [] Physician referral [] Code/Alert [] Routine visit [] Staff referral [] Actively dying [] Patient sleeping [] Family support [] [] Out of room [] Palliative care [] [] Receiving care in room [] Pre-surgical visit [] Trauma [] Long length of stay [] ICU visit [] Other: Relational/Emotional Strength [] Patient feels connected with others/family/visitors/staff [] Distress [] Loneliness/isolation [] Abandonment Spirituality of Patient [] Person of Betsy [] Attends Religion of their Betsy [] Believes in Prayer [] Reads Bible or Advent materials [] There are Spiritual issues to be addressed Inspector Electromechanical Interventions [] Prayer [] Active listening [] Non-anxious presence [] Spiritual/emotional support [] Crisis/trauma care [] Spiritual counseling [] Bereavement support [] Provided bereavement packet [] Provided Bible/devotional materials [] Provided toy/stuffed animal, coloring book to patient or family member [] Provided Communion [] Anointing/[place] [] Salvation [] Completed spiritual assessment [] Other: Impact on Illness or Injury [] Angry [] Fearful [] Anxious [] Often cries [] Exhaustion [] Unable to work [] Unable to attend tenriism [] Unable to walk/stand [] Unable to read [] Unable to drive [] Unable to eat/drink [] Unable to sleep [] Unable to be with family [] Patient intubated [] Other: Summary Declined rv service technician visit Time spent with patient 5 mins
--- NOTE | 2020-11-22 11:08 | PC.NURSE ---
PSA in room with patient.
--- NOTE | 2020-11-22 13:07 | PC.NURSE ---
AT APPROX 1250 PT PULLED OUT NG TUBE, DR. FAROOQ NOTIFIED
--- NOTE | 2020-11-22 13:49 | PC.NURSE ---
SALES MERCHANDISE ASSOCIATE in room with patient
--- NOTE | 2020-11-22 14:50 | P.PN_ITS ---
Subjective Subjective: Interval history: Yesterday, noted to have some bruising from recent fall, swelling over left knee overall ears to be unchanged. Systolic blood pressure ranging between 1 60-1 70 heart rate 60 bpm intermittent asymptomatic sinus bradycardia with heart rate between 54-60. Patient is afebrile. NGT ongoing to suction, output 300 cc Medications: Reviewed: Yes Vitals/I&O/Wt Last Vital Signs Temp 98.6 F 11/22/20 11:09 Pulse 60 11/22/20 11:09 Resp 17 11/22/20 11:09 BP 174/72 11/22/20 11:09 Pulse Ox 96 11/22/20 11:09 11/21/20 11/22/20 11/22/20 22:59 06:59 14:59 Intake Total 1105 / 1105 Output Total 50 / 50 400 / 450 Balance -50 / -50 705 / 655 Physical Exam Narrative: EXAM NARRATIVE: GEN: Awake, alert and oriented, no acute distress CVS: S1S2 N RS: CTA B/L anteriorly Abd: Soft, nt/nd , bs+ REMEDIAL PROJECT MANAGER: no focal neuro deficits Extremities: Minimal pitting edema left greater than right, overall appears unchanged Data : 11/22/20 05:30 11/22/20 05:30 A&P Assessment and plan (1) Fall: Status: Acute Qualifiers: Encounter type: initial encounter Qualified Code(s): W19.XXXA - Unspecified fall, initial encounter (2) Rhabdomyolysis: Status: Acute Qualifiers: Rhabdomyolysis type: non-traumatic Qualified Code(s): M62.82 - Rhabdomyolysis (3) Vitamin B 12 deficiency: Status: Acute (4) Small bowel obstruction: Status: Acute (5) Hypertension: Status: Acute (6) Gastric emphysema: Status: Acute Additional A&P Information # Rhabdomyolysis due to recurrent falls, CPK greater than 5000, trending down appropriately with IV hydration. Renal function remains stable at this time. Continue fluids wuth D5 normal saline at 50 cc/h, careful IV hydration in view of history of CHF. Lasix continues to be on hold Appreciate PT evaluation # Ileus/gastric emphysema Appreciate surgical recommendations Overall CT findings appear more consistent with ileus as against small bowel obstruction. Emphysematous gastric changes likely as a result of excessive vomiting, patient does not appear to have any current signs or symptoms of infection. #Transaminitis, resolving #Hypertension: Currently n.p.o., avoiding IV beta-blockers as patient otherwise with sinus bradycardia heart rate between 54-60. Currently short on IV hydralazine. Started on Nitro-Bid patch 1 inch every 6 hour and monitor blood pressure. #Lower extremity edema: Lower extremity Doppler negative for DVT, currently stable, careful IV hydration, patient has a history of CHF #History of preserved ejection fraction heart failure, currently euvolemic last echocardiogram with LVEF of 55%, no regional wall motion abnormalities, moderate aortic valve calcification, diastolic function not established. #Complains of pain over bilateral knees, multiple scrapes and bruises noted, likely from recent fall. Added morphine pain control lidocaine patch locally. DVT prophylaxis Lovenox NPO Disposition discharge planning to SNF. Attestations Medical Necessity Statement*: ileus, gastric emphysema, needs ongoing NGT, bowel rest, Blood pressure control Coding Level of Care Code Acute Unit Manager [employer] for Chg Fwd Diagnoses Fall W19.XXXA Encounter type: initial encounter Rhabdomyolysis M62.82 Rhabdomyolysis type: non-traumatic Vitamin B 12 deficiency E53.8 Small bowel obstruction K56.609 Hypertension I10 Gastric emphysema K29.60
--- NOTE | 2020-11-22 15:19 | PC.NURSE ---
PSA in room with patient.
[2020-11-22] MEDS: dextrose 5%-sod chloride 0.9% 1,000 ML 50 ML IV (15:24)
[2020-11-22] MEDS: morphine 4 mg/mL SDV 1 mL 2 MG IVP (15:26)
--- NOTE | 2020-11-22 15:33 | XRR_ITS ---
PROCEDURE INFORMATION: Exam: XR Chest Exam date and time: 11/22/2020 3:56 PM Age: 75 years old Clinical indication: Device placement; Ng tube; Additional info: Ng tube placement TECHNIQUE: Imaging protocol: XR of the chest. Views: 1 view. COMPARISON: CR XR chest 1V portable [id number] 11/19/2020 5:03 PM FINDINGS: Tubes, catheters and devices: NG tube in the proximal stomach. Lungs: Decreased lung volumes. No focal airspace consolidation. Pleural spaces: Unremarkable. No pleural effusion. No pneumothorax. Heart/Mediastinum: Mild dilation central pulmonary arteries. Vasculature: Mild atherosclerosis thoracic aortic arch. Bones/joints: Old right clavicle fracture. No acute thoracic fractures. XR/XR chest 1V portable [id number] IMPRESSION: NG tube in the proximal stomach. Recommend advancement 10 cm.
--- NOTE | 2020-11-22 15:50 | PC.NURSE ---
PT PULLED OUT NG TUBE, VERBAL ORDER FROM DR. LEA TO REINSERT IT.
[2020-11-22] MEDS: nitroglycerin 1 gm/inch oint Pkt 0.5 INCH TOPICAL ×2 (17:30→23:51)
[2020-11-22] MEDS: OLANZapine 10 mg ODT PO (17:31)
[2020-11-23] VITALS (9 sets, daily range): BP systolic 152–183; BP diastolic 75–93; PULSE 63–94; RESP 17–22; TEMP 36.3–38.3; O2SAT 91–97
--- NOTE | 2020-11-23 00:47 | XRR_ITS ---
PROCEDURE INFORMATION: Exam: XR Chest Exam date and time: 11/23/2020 12:48 AM Age: 75 years old Clinical indication: Device placement; Ng tube; Patient HX: Check for ng placement; Additional info: Ng tube placement TECHNIQUE: Imaging protocol: XR of the chest. Views: 1 view. COMPARISON: CR XR chest 1V portable [id number] 11/22/2020 3:53 PM FINDINGS: Tubes, catheters and devices: Nasogastric tube side port is just below the GE junction. Lungs: Patchy opacity present at the left lung base concerning for pneumonia. Pleural spaces: Unremarkable. No pleural effusion. No pneumothorax. Heart/Mediastinum: Unremarkable. No cardiomegaly. Bones/joints: Unremarkable. XR/XR chest 1V portable [id number] IMPRESSION: 1. Nasogastric tube side port is just below the GE junction. 2. Patchy opacity present at the left lung base concerning for pneumonia.
[2020-11-23] MEDS: famotidine 20 mg/2 mL INJ IVP ×2 (04:56→17:16)
[2020-11-23] MEDS: nitroglycerin 1 gm/inch oint Pkt 0.5 INCH TOPICAL ×2 (05:37→14:15)
[2020-11-23] MEDS: dextrose 5%-sod chloride 0.9% 1,000 ML 50 ML IV ×2 (05:37→23:22)
[2020-11-23 06:27] LABS: Basophils # 0.1 10^3/uL (0.0-0.1); Basophils % 0.6 %; Eosinophils # 0.3 10^3/uL (0.0-0.8); Eosinophils % 2.8 %; Hematocrit 39.3 % (42.0-52.0); Hemoglobin 12.6 g/dL (11.7-16.6); Lymphocytes # 1.3 10^3/uL (0.8-4.8); Lymphocytes % 13.2 %; Mean Corpuscular HGB Conc 32.1 g/dL (30.0-36.0); Mean Corpuscular Hemoglobin 30.2 pg (28.0-34.0); Mean Corpuscular Volume 94.2 fL (80-94); Mean Platelet Volume 10.5 fL (7.4-10.4); Monocytes # 1.2 10^3/uL (0.2-0.9); Neutrophils # 6.79 10^3/uL (1.8-7.7); Nucleated Red Blood Cells % 0 %; Platelet Count 194 10^3/cmm (130-400); Red Blood Count 4.17 10^6/uL (4.1-5.3); Red Cell Distribution Width 12.7 % (12.1-15.1); White Blood Count 9.6 10^3/uL (4.0-10.0)
[2020-11-23 06:54] LABS: Alanine Aminotransferase 42 U/L (0-41); Albumin Level 3.2 g/dL (3.5-5.2); Alkaline Phosphatase 63 IU/L (40-130); Anion Gap 12.5 (5-19); Aspartate Amino Transferase 39 U/L (0-40); Blood Urea Nitrogen 11 mg/dL (8-23); Calcium 8.6 mg/dL (8.5-10.5); Carbon Dioxide 28 mmol/L (22-29); Chloride 106 mmol/L (98-107); Globulin 3.4 g/dL (1.3-4.6); Glucose 110 mg/dL (65-115); Osmolality Calculated 296 mOsm/kg (285-295); Potassium 3.5 mmol/L (3.5-5.1); Sodium 143 mmol/L (136-145); Total Bilirubin 0.8 mg/dL (0.15-1.2); Total Protein 6.6 g/dL (6.6-8.7)
[2020-11-23 07:10] LABS: Magnesium 1.7 mg/dL (1.7-2.3)
--- NOTE | 2020-11-23 07:35 | PC.NURSE ---
PSA in room with patient
--- NOTE | 2020-11-23 09:32 | P.PN_ITS ---
Subjective Subjective: Interval history: The patient says I am doing better today. He denies any abdominal pain. Nursing has reported that he has pulled his nasogastric tube out twice, and it h as been replaced. He had a one-on-one sitter both times this happened but now they are using some soft restraints as it is very important that he keep his stomach decompressed with the NG tube. Vitals/I&O/Wt Last Vital Signs Temp 97.3 F L 11/23/20 07:28 Pulse 63 11/23/20 07:28 Resp 17 11/23/20 07:28 BP 159/82 11/23/20 07:28 Pulse Ox 94 11/23/20 07:28 11/22/20 11/23/20 11/23/20 22:59 06:59 14:59 Intake Total 710.833 / 1710.833 Output Total 100 / 600 500 / 600 Balance -100 / 1110.833 210.833 / 1110.833 Physical Exam Narrative: EXAM NARRATIVE: The patient has a very small amount of watery but bright red blood in the nasogastric tube. This may be the result of the tube being present and/or trauma from having it replaced 2 times. His chest x-ray this morning shows the NG tube to be in good position. His abdomen remains n ontender. Data : 11/23/20 05:55 11/23/20 05:55 A&P Assessment and plan (1) Gastric emphysema: NG placed 11/21/2020. It has been replaced twice after the patient pulled it out despite having a 1 on 1 sitter both times. He now has some soft restraints in place. I am going to order a CAT scan of the abdomen tomorrow to follow-up his gastric emphysema. Continue to watch nasogastric output. If the bloody content of his gastric drainage increases, his Lovenox may need to be discontinued and we may need to switch to mechanical DVT prophylaxis in the form of teds/SCDs. Status: Acute Attestations Medical Necessity Statement*: See admitting service's notation. Coding Level of Care Code Acute Senior Maintenance Mechanic for Mike Bellamy Diagnoses Gastric emphysema K29.60
[2020-11-23] MEDS: lidocaine 5% Patch 1 PATCH TOPICAL (10:39)
[2020-11-23] MEDS: OLANZapine 10 mg ODT PO (10:39)
[2020-11-23] MEDS: sennosides-docusate Tablet 1 TAB PO (10:39)
[2020-11-23] MEDS: LORazepam 2 mg/mL INJ 1 mL 1 MG IVP (14:13)
[2020-11-23] MEDS: nitroglycerin 1 gm/inch oint Pkt 1 INCH TOPICAL ×2 (17:16→22:35)
--- NOTE | 2020-11-23 17:42 | PM.PN ---
Subjective Subjective: Interval history: Patient removed his NG tube twice, needed to be replaced. Mild restraints on. Developed fever with T-max up to 100.9 Fahrenheit. No leukocytosis. Chest x-ray with possible left-sided infiltrate. Medications: Reviewed: Yes Vitals/I&O/Wt Last Vital Signs Temp 100.9 F H 11/23/20 16:00 Pulse 76 11/23/20 16:00 Resp 17 11/23/20 16:00 BP 168/86 11/23/20 16:00 Pulse Ox 92 11/23/20 16:00 11/23/20 11/23/20 11/23/20 06:59 14:59 22:59 Intake Total 710.833 / 1710.833 Output Total 500 / 600 Balance 210.833 / 1110.833 Physical Exam Narrative: EXAM NARRATIVE: GEN: Awake, alert and oriented, no acute distress CVS: S1S2 N RS: CTA B/L anteriorly Abd: Soft, nt/nd , bs+ SUSTAINABILITY DIRECTOR: no focal neuro deficits Data : 11/24/20 07:30 11/24/20 07:30 A&P Assessment and plan (1) Fall: Status: Acute Qualifiers: Encounter type: initial encounter Qualified Code(s): W19.XXXA - Unspecified fall, initial encounter (2) Rhabdomyolysis: Status: Acute Qualifiers: Rhabdomyolysis type: non-traumatic Qualified Code(s): M62.82 - Rhabdomyolysis (3) Vitamin B 12 deficiency: Status: Acute (4) Small bowel obstruction: Status: Acute (5) Hypertension: Status: Acute (6) Gastric emphysema: Status: Acute Additional A&P Information # Rhabdomyolysis due to recurrent falls, CPK greater than 5000, trending down appropriately with IV hydration. Renal function remains stable at this time. Continue fluids wuth D5 normal saline at 50 cc/h, careful IV hydration in view of history of CHF. Lasix continues to be on hold # Ileus/gastric emphysema Appreciate surgical recommendations Overall CT findings appear more consistent with ileus as against small bowel obstruction. Emphysematous gastric changes likely as a result of excessive vomiting. No other evidence of intraabdominal infection. Planned for f/up CT in am #Transaminitis, resolving #Hypertension: Currently n.p.o., avoiding IV beta-blockers as patient otherwise with sinus bradycardia heart rate between 54-60. Currently short on IV hydralazine. Started on Nitro-Bid patch 1 inch every 6 hour and monitor blood pressure. #Lower extremity edema: Lower extremity Doppler negative for DVT, currently stable, careful IV hydration, patient has a history of CHF #History of preserved ejection fraction heart failure, currently euvolemic last echocardiogram with LVEF of 55%, no regional wall motion abnormalities, moderate aortic valve calcification, diastolic function not established. #Complains of pain over bilateral knees, multiple scrapes and bruises noted, likely from recent fall. Added morphine pain control lidocaine patch locally. DVT prophylaxis Lovenox NPO Disposition discharge planning to SNF. Attestations Medical Necessity Statement*: ongoing NGT management, repeat CT in am to follow up resoltuion of ileus, emphysematous gastric changes Coding Level of Care Code Acute Computer Terminal Operator for Chg Fwd Diagnoses Fall W19.XXXA Encounter type: initial encounter Rhabdomyolysis M62.82 Rhabdomyolysis type: non-traumatic Vitamin B 12 deficiency E53.8 Small bowel obstruction K56.609 Hypertension I10 Gastric emphysema K29.60
--- NOTE | 2020-11-23 17:45 | XRR_ITS ---
PROCEDURE INFORMATION: Exam: XR Chest Exam date and time: 11/23/2020 5:46 PM Age: 75 years old Clinical indication: Shortness of breath; Additional info: Pneumonia TECHNIQUE: Imaging protocol: XR of the chest. Views: 1 view. COMPARISON: CR (CHEST, ) 11/23/2020 12:59 AM FINDINGS: Tubes, catheters and devices: Enteric tube terminates over the upper abdomen with the side port at the expected gastroesophageal junction. Lungs: Mild left basilar atelectasis. The lungs are otherwise clear. Pleural spaces: Unremarkable. No pleural effusion. No pneumothorax. Heart/Mediastinum: Cardiac shadow is at the upper limit of normal for size. Bones/joints: No acute abnormality. XR/XR chest 1V portable [id number] IMPRESSION: Mild left basilar atelectasis. Unchanged appearance of the enteric tube whose side port terminates over the expected gastroesophageal junction. Consider advancement.
[2020-11-23] MEDS: cefTRIAXone 1,000 MG in sodium chloride 0.9% (plus) 50 ML 100 MG IV (17:51)
[2020-11-23] MEDS: metroNIDAZOLE IV 500 MG/100 ML PREMIX 100 MG IV (18:38)
[2020-11-23] MEDS: haloperidol inj 5 mg/mL INJ 1 mL 1 MG IM (18:38)
[2020-11-23] MEDS: enoxaparin 40 mg/0.4 mL Syringe SUBCUT (23:22)
[2020-11-24 03:22] VITALS: BP 161/81; PULSE 72; RESP 18; TEMP 38.1; O2SAT 93
[2020-11-24] MEDS: metroNIDAZOLE IV 500 MG/100 ML PREMIX 100 MG IV ×3 (03:22→18:15)
[2020-11-24] MEDS: haloperidol inj 5 mg/mL INJ 1 mL 1 MG IM (03:28)
[2020-11-24] MEDS: famotidine 20 mg/2 mL INJ IVP ×2 (04:42→17:08)
[2020-11-24] MEDS: nitroglycerin 1 gm/inch oint Pkt 1 INCH TOPICAL ×2 (04:42→10:49)
--- NOTE | 2020-11-24 07:36 | CTR_ITS ---
PROCEDURE INFORMATION: Exam: CT Abdomen Without Contrast Exam date and time: 11/24/2020 8:25 AM Age: 75 years old Clinical indication: Other: Gastric emphysema; Additional info: Follow-up gastric emphysema TECHNIQUE: Imaging protocol: Computed tomography images of the abdomen without contrast. Radiation optimization: All CT scans at this facility use at least one of these dose optimization techniques: automated exposure control; mA and/or kV adjustment per patient size (includes targeted exams where dose is matched to clinical indication); or iterative reconstruction. COMPARISON: CR XR abdomen 1V* [id number] 11/20/2020 5:36 PM RADIATION DOSE METRICS: Total DLP (mGy-cm): 953.93 FINDINGS: Tubes, catheters and devices: A nasogastric tube is present in the stomach. Lungs: There is left basilar atelectasis. Small bilateral pleural effusions are present larger on the left side. Liver: There is a benign 2 cm cyst in the dome of the left lobe of the liver and a benign 5 mm cyst in the dome of the right lobe of the liver. The tiny amount of portal venous gas that was seen in the liver on previous study has resolved. Gallbladder and bile ducts: Normal. No calcified stones. No ductal dilation. Pancreas: Normal. No ductal dilation. Spleen: Normal. No splenomegaly. Adrenals: Normal. No mass. Kidneys and ureters: Multiple benign renal cysts are present which have not significantly changed since a CT scan from 09/22/2014. The largest is in the upper pole of the right kidney measures 6 cm in diameter. There is no hydronephrosis or renal calculus. Stomach and bowel: There is a small amount of gastric wall emphysema. This has near completely resolved when compared to the previous scan from 11/21/2020. There is no evidence of bowel obstruction dilatation or mural thickening. Intraperitoneal space: Unremarkable. No free air. No significant fluid collection. Lymph nodes: Unremarkable. No enlarged lymph nodes. Vasculature: The aorta is calcified. There is no aneurysm. Bones/joints: Chronic degenerative changes are present in the spine with sclerosis joint space narrowing and osteophytes. Soft tissues: Unremarkable. CT/CT abdomen wo con [id number] IMPRESSION: 1. The gastric wall emphysema has near completely resolved. 2. There is no longer any air identified in the portal veins. 3. Left basilar atelectasis and bilateral small pleural effusions. 4. No new abnormalities have developed since previous scan. COMMENTS: Consistent with the [employer]'s Incidental Findings Committee white paper (J Am Rudolph Radiol 2018): Any incidental renal lesion less than 1 cm or classified as too small to characterize, or any incidental cystic renal lesion characterized as simple-appearing, is likely benign. No follow-up imaging is recommended for these lesions per consensus recommendations based on imaging criteria. Radiation Dose CTDIVOL = (mGy): DLP = 953.93 (mGy-cm)
[2020-11-24 07:43] LABS: Basophils # 0.1 10^3/uL (0.0-0.1); Basophils % 0.6 %; Eosinophils # 0.3 10^3/uL (0.0-0.8); Eosinophils % 2.9 %; Hematocrit 39.2 % (42.0-52.0); Hemoglobin 12.7 g/dL (11.7-16.6); Mean Corpuscular HGB Conc 32.4 g/dL (30.0-36.0); Mean Corpuscular Hemoglobin 30.5 pg (28.0-34.0); Mean Platelet Volume 10.2 fL (7.4-10.4); Monocytes # 1.2 10^3/uL (0.2-0.9); Monocytes % 13.7 %; Neutrophils % 70.3 %; Nucleated Red Blood Cells % 0 %; Platelet Count 214 10^3/cmm (130-400); Red Blood Count 4.17 10^6/uL (4.1-5.3); Red Cell Distribution Width 12.5 % (12.1-15.1); White Blood Count 8.7 10^3/uL (4.0-10.0)
[2020-11-24 07:47] VITALS: BP 184/86; PULSE 75; RESP 17; TEMP 37.1; O2SAT 90
[2020-11-24 08:29] LABS: Procalcitonin 0.07 ng/mL (0-0.5)
[2020-11-24 08:40] LABS: Alanine Aminotransferase 33 U/L (0-41); Albumin Level 3.1 g/dL (3.5-5.2); Alkaline Phosphatase 66 IU/L (40-130); Anion Gap 12.4 (5-19); Aspartate Amino Transferase 33 U/L (0-40); Blood Urea Nitrogen 9 mg/dL (8-23); Calcium 8.5 mg/dL (8.5-10.5); Carbon Dioxide 29 mmol/L (22-29); Chloride 103 mmol/L (98-107); Globulin 3.2 g/dL (1.3-4.6); Glucose 101 mg/dL (65-115); Osmolality Calculated 291 mOsm/kg (285-295); Potassium 3.4 mmol/L (3.5-5.1); Sodium 141 mmol/L (136-145); Total Bilirubin 0.8 mg/dL (0.15-1.2); Total Protein 6.3 g/dL (6.6-8.7)
--- NOTE | 2020-11-24 09:57 | PC.NURSE ---
Physical therapy did range of motion on all 4 extremities with patient at 0930.
[2020-11-24] MEDS: sennosides-docusate Tablet 1 TAB PO (10:31)
[2020-11-24] MEDS: OLANZapine 10 mg ODT PO ×2 (10:31→17:11)
[2020-11-24] MEDS: lidocaine 5% Patch 1 PATCH TOPICAL (10:32)
--- NOTE | 2020-11-24 10:42 | PM.PN ---
Subjective Subjective: Interval history: The patient says he is ready to have his nasogastric tube removed. His CAT scan was repeated this morning. He has no new complaints. Vitals/I&O/Wt Last Vital Signs Temp 98.8 F 11/24/20 07:47 Pulse 75 11/24/20 07:47 Resp 17 11/24/20 07:47 BP 184/86 11/24/20 07:47 Pulse Ox 90 11/24/20 07:47 11/23/20 11/24/20 11/24/20 22:59 06:59 14:59 Intake Total 150 / 1137.5 987.5 / 1137.5 Balance 150 / 1137.5 987.5 / 1137.5 Physical Exam Narrative: EXAM NARRATIVE: Abdomen remains soft and nontender. Data : 11/24/20 07:30 11/24/20 07:30 Micro: Microbiology 11/24/20 07:31 Blood Culture - Preliminary Blood SPECIMEN COLLECTED 11/24/20 07:30 Blood Culture - Preliminary Blood SPECIMEN COLLECTED Other CT: Radiologist's impression: CT abdomen 11/24/2020 IMPRESSION: 1. The gastric wall emphysema has near completely resolved. 2. There is no longer any air identified in the portal veins. 3. Left basilar atelectasis and bilateral small pleural effusions. 4. No new abnormalities have developed since previous scan. A&P Assessment and plan (1) Gastric emphysema: I am going to have nursing remove the patient's nasogastric tube. His CAT scan looks much better. Additionally, there is no evidence of a bowel obstruction on this most recent CAT scan (I thought he was dealing with more of an ileus on the first CAT scan, anyway). Status: Acute Attestations Medical Necessity Statement*: See admitting service's notation. Coding Level of Care Code Acute Clinical Mental Health Counselor for Mike Bellamy Diagnoses Gastric emphysema K29.60
[2020-11-24 12:00] VITALS: BP 164/83; PULSE 60; RESP 18; TEMP 36.9; O2SAT 91
[2020-11-24 12:56] LABS: Add Urine Microscopic? NO; Charge for UA Resulting for Rev
[2020-11-24 13:09] LABS: Bilirubin Urine 1+ (Negative); Blood Urine Neg (Negative); Glucose Urine UA Norm (Normal); Ketones Urine 2+ (Negative); Leukocyte Esterase Urine Negative (Negative); Nitrate Urine Negative (Negative); Protein Urine Neg (Negative); Urine Appearance Clear (CLEAR); Urine Color Dark Yellow (Yellow); Urobilinogen Urine 8 mg/dL (Negative); pH Urine 7 (5-7)
[2020-11-24] MEDS: LORazepam 2 mg/mL INJ 1 mL 1 MG IVP (13:46)
--- NOTE | 2020-11-24 13:49 | PC.SOCIAL ---
IMM Update Pg.2 of IMM updated and reviewed with patient who verbalized understanding. Copy provided.
[2020-11-24 16:00] VITALS: BP 170/78; PULSE 79; RESP 17; TEMP 36.6; O2SAT 90
--- NOTE | 2020-11-24 16:37 | PM.PN ---
Subjective Subjective: Interval history: CT scan repeated today which shows rapid lesion of emphysematous changes. Has a gastric tube removed today. Starting on clear liquid diet with dysphagia modifications today. Swallow eval ordered. T-max over last 24 hours at 100.9 Fahrenheit. Was started on ceftriaxone and Flagyl with onset of fever. Since removal of NGT, patient is more relaxed, denies any current complaints at this time. Medications: Reviewed: Yes Vitals/I&O/Wt Last Vital Signs Temp 98.5 F 11/24/20 12:00 Pulse 60 11/24/20 12:00 Resp 18 11/24/20 12:00 BP 164/83 11/24/20 12:00 Pulse Ox 91 11/24/20 12:00 11/24/20 11/24/20 11/24/20 06:59 14:59 22:59 Intake Total 987.5 / 1137.5 100 / 100 Balance 987.5 / 1137.5 100 / 100 Physical Exam Narrative: EXAM NARRATIVE: GEN: Awake, alert and oriented, no acute distress CVS: S1S2 N RS: CTA B/L anteriorly Abd: Soft, nt/nd , bs+ VICE PRESIDENT QUALITY ASSURANCE: no focal neuro deficits Data : 11/24/20 07:30 11/24/20 07:30 Micro: Microbiology 11/24/20 07:31 Blood Culture - Preliminary Blood SPECIMEN COLLECTED 11/24/20 07:30 Blood Culture - Preliminary Blood SPECIMEN COLLECTED Attestation for Other Data: I personally reviewed and interpreted the following: Other data: Laboratory Results WBC 8.7 10^3/uL (4.0-10.0) 11/24/20 07:30 RBC 4.17 10^6/uL (4.1-5.3) 11/24/20 07:30 Hgb 12.7 g/dL (11.7-16.6) 11/24/20 07:30 Hct 39.2 % (42.0-52.0) L 11/24/20 07:30 MCV 94.0 fL (80-94) 11/24/20 07:30 MCH 30.5 pg (28.0-34.0) 11/24/20 07:30 MCHC 32.4 g/dL (30.0-36.0) 11/24/20 07:30 RDW 12.5 % (12.1-15.1) 11/24/20 07:30 Plt Count 214 10^3/cmm (130-400) 11/24/20 07:30 MPV 10.2 fL (7.4-10.4) 11/24/20 07:30 Neut % (Auto) 70.3 % 11/24/20 07:30 Lymph % (Auto) 12.0 % 11/24/20 07:30 [place] % (Auto) 13.7 % 11/24/20 07:30 Eos % (Auto) 2.9 % 11/24/20 07:30 Baso % (Auto) 0.6 % 11/24/20 07:30 Neut # (Auto) 6.10 10^3/uL (1.8-7.7) 11/24/20 07:30 Lymph # (Auto) 1.0 10^3/uL (0.8-4.8) 11/24/20 07:30 [place] # (Auto) 1.2 10^3/uL (0.2-0.9) H 11/24/20 07:30 Eos # (Auto) 0.3 10^3/uL (0.0-0.8) 11/24/20 07:30 Baso # (Auto) 0.1 10^3/uL (0.0-0.1) 11/24/20 07:30 Nucleated RBC % (auto) 0 % 11/24/20 07:30 Nucleated RBCs # 0.0 /100WBC 11/24/20 07:30 Specimen Type Arterial 11/19/20 16:48 Sample Site Radial, left 11/19/20 16:48 ABG pH 7.44 (7.35-7.45) 11/19/20 16:48 ABG pCO2 48.3 mmHg (35-45) H 11/19/20 16:48 ABG pO2 58.3 mmHg (80.0-100.0) L 11/19/20 16:48 ABG HCO3 32.9 mmol/L (22-26) H 11/19/20 16:48 ABG O2 Saturation 92.8 11/19/20 16:48 ABG Base Excess 7.5 mmol/L (-2.0-2.0) H 11/19/20 16:48 Rm Test Pos 11/19/20 16:48 A-a O2 Gradient 4.2 mmHg (5-10) L 11/19/20 16:48 Hematocrit 40.8 % (42-52) L 11/19/20 16:48 Hgb O2 Saturation 90.8 % (95-100) L 11/19/20 16:48 Carboxyhemoglobin 1.3 %THgb (0.4-20.1) 11/19/20 16:48 Methemoglobin 0.8 % (0.4-1.5) 11/19/20 16:48 Total Hemoglobin 13.3 g/dL (14-18) L 11/19/20 16:48 Sodium 145.0 mmol/L (131-143) H 11/19/20 16:48 Potassium 3.7 mmol/L (3.5-5.0) 11/19/20 16:48 Glucose 108.0 mg/dL (70-115) 11/19/20 16:48 Ionized Calcium 1.2 mmol/L (1.1-1.4) 11/19/20 16:48 O2 Delivery Device Room air 11/19/20 16:48 FiO2 21.0 % 11/19/20 16:48 Cotton Picking Machine Operator ID glc 11/19/20 16:48 Sodium 141 mmol/L (136-145) 11/24/20 07:30 Potassium 3.4 mmol/L (3.5-5.1) L 11/24/20 07:30 Chloride 103 mmol/L (98-107) 11/24/20 07:30 Carbon Dioxide 29 mmol/L (22-29) 11/24/20 07:30 Anion Gap 12.4 (5-19) 11/24/20 07:30 BUN 9 mg/dL (8-23) 11/24/20 07:30 Creatinine 0.6 mg/dL (0.7-1.2) L 11/24/20 07:30 GFR Calculation Not Reportable 11/24/20 07:30 Glucose 101 mg/dL (65-115) 11/24/20 07:30 Calculated Osmolality 291 mOsm/kg (285-295) 11/24/20 07:30 Lactic Acid 1.3 mmol/L (0.5-2.2) 11/19/20 17:00 Calcium 8.5 mg/dL (8.5-10.5) 11/24/20 07:30 Magnesium 1.7 mg/dL (1.7-2.3) 11/23/20 05:55 Total Bilirubin 0.8 mg/dL (0.15-1.2) 11/24/20 07:30 AST 33 U/L (0-40) 11/24/20 07:30 ALT 33 U/L (0-41) 11/24/20 07:30 Alkaline Phosphatase 66 IU/L (40-130) 11/24/20 07:30 Creatine Kinase 1410 U/L (39-308) H* 11/21/20 06:13 Troponin T Baseline 36 ng/L (0-15) H 11/20/20 17:38 Troponin T 120 Minute 37.51 ng/L (0-15) H 11/20/20 19:38 Delta Troponin T 1.51 ABS# (0-10) 11/20/20 19:38 Troponin T Hi Sens 6Hr 31.27 ng/L (0-15) H 11/20/20 23:24 Troponin T Hi Sens 6Hr Delta -4.73 ng/L (0-12) L 11/20/20 23:24 Total Protein 6.3 g/dL (6.6-8.7) L 11/24/20 07:30 Albumin 3.1 g/dL (3.5-5.2) L 11/24/20 07:30 Globulin 3.2 g/dL (1.3-4.6) 11/24/20 07:30 Lipase 37 U/L (13-60) 11/19/20 17:00 Vitamin B12 278 pg/mL (232-1245) 11/20/20 00:50 Procalcitonin 0.07 ng/mL (0-0.5) 11/24/20 07:30 Urine Color Dark yellow (Yellow) 11/24/20 11:56 Urine Appearance Clear (CLEAR) 11/24/20 11:56 Urine pH 7 (5-7) 11/24/20 11:56 Ur Specific [place] 1.010 (1.005-1.030) 11/24/20 11:56 Urine Protein Neg (Negative) 11/24/20 11:56 Urine Glucose (UA) Norm (Normal) 11/24/20 11:56 Urine Ketones 2+ (Negative) H 11/24/20 11:56 Urine Blood Neg (Negative) 11/24/20 11:56 Urine Nitrate Negative (Negative) 11/24/20 11:56 Urine Bilirubin 1+ (Negative) H 11/24/20 11:56 Urine Urobilinogen 8 mg/dL (Negative) H 11/24/20 11:56 Ur Leukocyte Esterase Negative (Negative) 11/24/20 11:56 Serum Ketones Negative (Negative) 11/19/20 17:[address] 11/24/20 07:36 IMPRESSION: 1. The gastric wall emphysema has near completely resolved. 2. There is no longer any air identified in the portal veins. 3. Left basilar atelectasis and bilateral small pleural effusions. 4. No new abnormalities have developed since previous scan. COMMENTS: Consistent with the [employer]'s Incidental Findings Committee white paper (J Am Rudolph Radiol 2018): Any incidental renal lesion less than 1 cm or classified as too small to characterize, or any incidental cystic renal lesion characterized as simple-appearing, is likely benign. No follow-up imaging is recommended for these lesions per consensus recommendations based on imaging criteria. Radiation Dose CTDIVOL = (mGy): DLP = 953.93 (mGy-cm) A&P Assessment and plan (1) Fall: Status: Acute Qualifiers: Encounter type: initial encounter Qualified Code(s): W19.XXXA - Unspecified fall, initial encounter (2) Rhabdomyolysis: Status: Acute Qualifiers: Rhabdomyolysis type: non-traumatic Qualified Code(s): M62.82 - Rhabdomyolysis (3) Vitamin B 12 deficiency: Status: Acute (4) Small bowel obstruction: Status: Acute (5) Hypertension: Status: Acute (6) Gastric emphysema: Status: Acute Additional A&P Information # Rhabdomyolysis due to recurrent falls, now resolved. IV fluid D5 normal saline at 50 cc an hour currently. Starting clear liquid diet today. If consistently able to take p.o. intake over the next 24 to 48 hours, will discontinue IV fluids. Kidney function remained stable. # Ileus/gastric emphysema Appreciate surgical recommendations Overall CT findings appear more consistent with ileus as against small bowel obstruction. Emphysematous gastric changes likely as a result of excessive vomiting. No other evidence of intraabdominal infection on CT imaging. Repeat CT today shows resolution of emphysematous changes. NGT removed, start clear liquid diet with dinner. Assess for tolerability. #Fever 100.9 Fahrenheit, left lower lobe atelectasis versus infiltrate on chest x-ray. May have developed aspiration pneumonia with episodes of multiple vomiting. Started on ceftriaxone and metronidazole empirically yesterday. Remains afebrile today. Incentive spirometry additionally added now. Urine culture without growth #Hypertension: Discontinue nitrates. Start amlodipine 10 mg orally now. #History of preserved ejection fraction heart failure, currently euvolemic last echocardiogram with LVEF of 55%, no regional wall motion abnormalities, moderate aortic valve calcification, diastolic function not established. #Complains of pain over bilateral knees, multiple scrapes and bruises noted, likely from recent fall. Added morphine pain control lidocaine patch locally. Pain is much better controlled now. Swelling over left knee is additionally much improved on today's exam. DVT prophylaxis Lovenox Clear liquid diet Disposition discharge planning to SNF. Attestations Medical Necessity Statement*: NGT removed, watch for return of bowel function, fever likely as a result of aspiration pneumonia, on antibiotics Coding Level of Care Code Acute Heater Room Helper for Chg Fwd Diagnoses Fall W19.XXXA Encounter type: initial encounter Rhabdomyolysis M62.82 Rhabdomyolysis type: non-traumatic Vitamin B 12 deficiency E53.8 Small bowel obstruction K56.609 Hypertension I10 Gastric emphysema K29.60
[2020-11-24] MEDS: amlodipine 10 mg Tablet PO (17:11)
[2020-11-24] MEDS: cefTRIAXone 1,000 MG in sodium chloride 0.9% (plus) 50 ML 100 MG IV (17:11)
[2020-11-24 17:54] VITALS: PULSE 87; RESP 16; O2SAT 94
[2020-11-24 19:36] VITALS: BP 178/93; PULSE 72; RESP 20; TEMP 37; O2SAT 96
--- NOTE | 2020-11-24 19:39 | PC.NURSE ---
Shift summary pt had NG removed at approximately 1250, 150ml brown fluid came from NG tube, pt tolerated well and is on a clear liquid diet which he is tolerating well. pt is confused and continues to try to get out of bed and becomes very anxious and agitated at which his PRN order for Ativan helps when he becomes anxious and agitated. Pt has had no other changes at this time. No BM this shift.
[2020-11-24] MEDS: dextrose 5%-sod chloride 0.9% 1,000 ML 50 ML IV (22:46)
[2020-11-25] VITALS: BP 155/79; PULSE 61; RESP 20; TEMP 36.8; O2SAT 93
[2020-11-25] MEDS: enoxaparin 40 mg/0.4 mL Syringe SUBCUT (01:10)
[2020-11-25] MEDS: metroNIDAZOLE IV 500 MG/100 ML PREMIX 100 MG IV ×3 (01:10→18:39)
[2020-11-25 03:58] VITALS: BP 149/76; PULSE 70; RESP 18; TEMP 36.7; O2SAT 95
[2020-11-25] MEDS: famotidine 20 mg/2 mL INJ IVP ×2 (04:07→15:49)
--- NOTE | 2020-11-25 07:59 | P.PN_ITS ---
Subjective Subjective: Interval history: The patient's nasogastric tube is out. He is resting comfortably this morning. Vitals/I&O/Wt Last Vital Signs Temp 98.0 F 11/25/20 03:58 Pulse 70 11/25/20 03:58 Resp 18 11/25/20 03:58 BP 149/76 11/25/20 03:58 Pulse Ox 95 11/25/20 03:58 11/24/20 11/25/20 11/25/20 22:59 06:59 14:59 Intake Total 1390 / 1590 100 / 1590 Output Total 200 / 320 120 / 320 Balance 1190 / 1270 -20 / 1270 Physical Exam Narrative: EXAM NARRATIVE: The patient remains afebrile. Abdomen remains soft. Data : 11/24/20 07:30 11/24/20 07:30 Micro: Microbiology 11/24/20 07:31 Blood Culture - Preliminary Blood NEGATIVE TO DATE 11/24/20 07:30 Blood Culture - Preliminary Blood NEGATIVE TO DATE A&P Assessment and plan (1) Gastric emphysema: Resolved. Nasogastric tube is now out. I may not continue to follow the patient daily. Please call if I can be of further help. Status: Acute Attestations Medical Necessity Statement*: See admitting service's notation. Coding Level of Care Code Acute Retail Center Receptionist for Mike Bellamy Diagnoses Gastric emphysema K29.60
[2020-11-25 08:00] VITALS: BP 156/83; PULSE 55; RESP 18; TEMP 36.6; O2SAT 93
[2020-11-25] MEDS: sennosides-docusate Tablet 1 TAB PO (09:11)
[2020-11-25] MEDS: OLANZapine 10 mg ODT PO ×2 (09:11→18:43)
[2020-11-25] MEDS: amlodipine 10 mg Tablet PO (09:11)
[2020-11-25] MEDS: escitalopram 10 mg Tablet 5 MG PO (09:11)
[2020-11-25] MEDS: lidocaine 5% Patch 1 PATCH TOPICAL (09:12)
[2020-11-25 12:00] VITALS: BP 123/62; PULSE 62; RESP 18; TEMP 36.6; O2SAT 90
[2020-11-25 16:00] VITALS: BP 148/76; PULSE 58; RESP 18; TEMP 36.7; O2SAT 91
--- NOTE | 2020-11-25 17:04 | P.PN_ITS ---
Subjective Subjective: Interval history: Resting comfortably this morning. Asleep when first seen, wakes up easily to calling name, able to answer all questions appropriately regarding his name age date of , current location and medical problems. Passing flatus, no bowel movement. Medications: Reviewed: Yes Vitals/I&O/Wt Last Vital Signs Temp 98.0 F 11/25/20 16:00 Pulse 58 L 11/25/20 16:00 Resp 18 11/25/20 16:00 BP 148/76 11/25/20 16:00 Pulse Ox 91 11/25/20 16:00 11/25/20 11/25/20 11/25/20 06:59 14:59 22:59 Intake Total 100 / 1590 340 / 340 Output Total 120 / 320 Balance -20 / 1270 340 / 340 Physical Exam Narrative: EXAM NARRATIVE: GEN: Awake, alert and oriented, no acute distress CVS: S1S2 N RS: CTA B/L anteriorly Abd: Soft, nt/nd , bs+ SIGNALS INTELLIGENCE ANALYST: no focal neuro deficits Data : 11/24/20 07:30 11/24/20 07:30 Micro: Microbiology 11/24/20 07:31 Blood Culture - Preliminary Blood NEGATIVE TO DATE 11/24/20 07:30 Blood Culture - Preliminary Blood NEGATIVE TO DATE A&P Assessment and plan (1) Fall: Status: Acute Qualifiers: Encounter type: initial encounter Qualified Code(s): W19.XXXA - Unspecified fall, initial encounter (2) Rhabdomyolysis: Status: Acute Qualifiers: Rhabdomyolysis type: non-traumatic Qualified Code(s): M62.82 - Rhabdomyolysis (3) Vitamin B 12 deficiency: Status: Acute (4) Small bowel obstruction: Status: Acute (5) Hypertension: Status: Acute (6) Gastric emphysema: Status: Acute Additional A&P Information # Rhabdomyolysis due to recurrent falls, now resolved. IV fluid D5 normal saline at 50 cc an hour currently. Tolerating a clear liquid diet at this present time, advance as tolerated to GI soft. If consistently able to take p.o. intake over the next 24 to 48 hours, will discontinue IV fluids. Kidney function remained stable. # Ileus/gastric emphysema Appreciate surgical recommendations Overall CT findings appear more consistent with ileus as against small bowel obstruction. Emphysematous gastric changes likely as a result of excessive vomiting. No other evidence of intraabdominal infection on CT imaging. Repeat CT today shows resolution of emphysematous changes. NGT removed, advance diet today. #Fever 100.9 Fahrenheit, now resolved. Left lower lobe atelectasis versus infiltrate on chest x-ray. May have developed aspiration pneumonia with episodes of multiple vomiting. Started on ceftriaxone and metronidazole empirically. Plan treatment for 5 days Continue incentive spirometry. Urine culture without growth #Hypertension: Continue amlodipine 10 mg orally, blood pressure is better controlled today #History of preserved ejection fraction heart failure, currently euvolemic last echocardiogram with LVEF of 55%, no regional wall motion abnormalities, moderate aortic valve calcification, diastolic function not established. #Complains of pain over bilateral knees, multiple scrapes and bruises noted, likely from recent fall. Added morphine pain control lidocaine patch locally. Pain is much better controlled now. Swelling over left knee is additionally much improved on today's exam. DVT prophylaxis Lovenox Clear liquid diet, advance as tolerated Disposition discharge planning to SNF. Attestations Medical Necessity Statement*: Improving SBO ileus, advance diet as tolerated, wean off of IV fluids, awaiting placement to SNF, IV antibiotics for aspiration pneumonia. Coding Level of Care Code Acute Auditor Supervisor for Chg Fwd Diagnoses Fall W19.XXXA Encounter type: initial encounter Rhabdomyolysis M62.82 Rhabdomyolysis type: non-traumatic Vitamin B 12 deficiency E53.8 Small bowel obstruction K56.609 Hypertension I10 Gastric emphysema K29.60
[2020-11-25] MEDS: cefTRIAXone 1,000 MG in sodium chloride 0.9% (plus) 50 ML 100 MG IV (18:39)
[2020-11-25] MEDS: dextrose 5%-sod chloride 0.9% 1,000 ML 50 ML IV (18:41)
[2020-11-25 20:00] VITALS: BP 150/76; PULSE 69; RESP 17; TEMP 36.6; O2SAT 91
[2020-11-25] MEDS: haloperidol inj 5 mg/mL INJ 1 mL IM (23:16)
[2020-11-26] VITALS: BP 162/78; PULSE 70; RESP 17; TEMP 36.3; O2SAT 91
[2020-11-26] MEDS: LORazepam 2 mg/mL INJ 1 mL 1 MG IVP (01:03)
[2020-11-26] MEDS: metroNIDAZOLE IV 500 MG/100 ML PREMIX 100 MG IV ×3 (03:50→18:00)
[2020-11-26 04:00] VITALS: BP 157/88; PULSE 59; RESP 16; TEMP 36.6; O2SAT 90
[2020-11-26] MEDS: famotidine 20 mg/2 mL INJ IVP ×2 (04:06→15:57)
[2020-11-26 07:11] VITALS: BP 164/93; PULSE 63; RESP 17; TEMP 36.4; O2SAT 91
[2020-11-26 08:01] LABS: Alanine Aminotransferase 29 U/L (0-41); Albumin Level 3.2 g/dL (3.5-5.2); Alkaline Phosphatase 61 IU/L (40-130); Anion Gap 11.3 (5-19); Aspartate Amino Transferase 26 U/L (0-40); Blood Urea Nitrogen 8 mg/dL (8-23); Calcium 8.6 mg/dL (8.5-10.5); Carbon Dioxide 29 mmol/L (22-29); Chloride 106 mmol/L (98-107); Globulin 3.3 g/dL (1.3-4.6); Glucose 100 mg/dL (65-115); Osmolality Calculated 294 mOsm/kg (285-295); Potassium 3.3 mmol/L (3.5-5.1); Sodium 143 mmol/L (136-145); Total Bilirubin 0.4 mg/dL (0.15-1.2); Total Protein 6.5 g/dL (6.6-8.7)
[2020-11-26] MEDS: escitalopram 10 mg Tablet 5 MG PO (10:05)
[2020-11-26] MEDS: sennosides-docusate Tablet 1 TAB PO (10:05)
[2020-11-26] MEDS: amlodipine 10 mg Tablet PO (10:06)
[2020-11-26] MEDS: lidocaine 5% Patch 1 PATCH TOPICAL (10:06)
[2020-11-26] MEDS: OLANZapine 10 mg ODT PO ×2 (10:06→17:57)
--- NOTE | 2020-11-26 11:16 | P.PN_ITS ---
Subjective Subjective: Interval history: No acute event overnight.Patient has remained afebrile,other vitals and labs have been reviewed. Medications: Reviewed: Yes Vitals/I&O/Wt Last Vital Signs Temp 97.5 F L 11/26/20 07:11 Pulse 63 11/26/20 07:11 Resp 17 11/26/20 07:11 BP 164/93 11/26/20 07:11 Pulse Ox 91 11/26/20 07:11 11/25/20 11/26/20 11/26/20 22:59 06:59 14:59 Intake Total 1265.833 / 1605.833 100 / 1705.833 60 / 60 Balance 1265.833 / 1605.833 100 / 1705.833 60 / 60 Physical Exam HENMT: COMMON NORMALS: normocephalic and atraumatic HEAD & SCALP: normocep halic and atraumatic Resp: COMMON NORMALS: clear to auscultation bilaterally EFFORT & INSPECTION: Yes symmetric chest movement AUSCULTATION: clear to auscultation bilaterally Cardio: COMMON NORMALS: regular rate, regular rhythm, S1 normal heart sound present, S2 normal heart sound present, No gallops present (Cardio), No murmurs present (Cardio), No rub (Cardio) and Peripheral pulses 2+ throughout RATE: regular rate RHYTHM: regular rhythm HEART SOUNDS: S1 normal heart sound present and S2 normal heart sound present PERIPHERAL PULSES: Peripheral pulses 2+ throughout GI: COMMON NORMALS: Normal to inspection, nondistended, normoactive bowel sounds present, Soft to palpation, non-tender, No hepatosplenomegaly present and no masses AUSCULTATION: Yes normoactive bowel sounds PALPATION: Yes Soft to palpation and Yes No hepatosplenomegaly present RECTAL EXAM: Yes deferred Extremity: COMMON NORMALS: no clubbing, cyanosis or edema and no pedal edema Data : 11/24/20 07:30 11/26/20 07:24 Micro: Microbiology 11/24/20 07:31 Blood Culture - Preliminary Blood NEGATIVE TO DATE 11/24/20 07:30 Blood Culture - Preliminary Blood NEGATIVE TO DATE A&P Assessment and plan (1) Fall: Status: Acute Qualifiers: Encounter type: initial encounter Qualified Code(s): W19.XXXA - Unspecified fall, initial encounter (2) Rhabdomyolysis: Status: Acute Qualifiers: Rhabdomyolysis type: non-traumatic Qualified Code(s): M62.82 - Rhabdomyolysis (3) Vitamin B 12 deficiency: Status: Acute (4) Small bowel obstruction: Status: Acute (5) Hypertension: Status: Acute (6) Gastric emphysema: Status: Acute Additional A&P Information # Rhabdomyolysis due to recurrent falls, now resolved. IV fluid D5 normal saline at 50 cc an hour currently. Tolerating a clear liquid diet at this present time, advance as tolerated to GI soft. If consistently able to take p.o. intake over the next 24 to 48 hours, will discontinue IV fluids. Kidney function remained stable. # Ileus/gastric emphysema Appreciate surgical recommendations Overall CT findings appear more consistent with ileus as against small bowel obstruction. Emphysematous gastric changes likely as a result of excessive vomiting. No other evidence of intraabdominal infection on CT imaging. Repeat CT today shows resolution of emphysematous changes. NGT removed, advance diet today. #Fever 100.9 Fahrenheit, now resolved. Left lower lobe atelectasis versus infiltrate on chest x-ray. May have developed aspiration pneumonia with episodes of multiple vomiting. Started on ceftriaxone and metronidazole empirically. Plan treatment for 5 days Continue incentive spirometry. Urine culture without growth #Hypertension: Continue amlodipine 10 mg orally, blood pressure is better controlled today #History of preserved ejection fraction heart failure, currently euvolemic last echocardiogram with LVEF of 55%, no regional wall motion abnormalities, moderate aortic valve calcification, diastolic function not established. #Complains of pain over bilateral knees, multiple scrapes and bruises noted, likely from recent fall. Added morphine pain control lidocaine patch locally. Pain is much better controlled now. Swelling over left knee is additionally much improved on today's exam. DVT prophylaxis Lovenox Clear liquid diet, advance as tolerated Disposition discharge planning to SNF. Attestations Medical Necessity Statement*: awaiting placement to SNF. Coding Level of Care Code Acute Field Training Agent for [facility] Fwd Diagnoses Fall W19.XXXA Encounter type: initial encounter Rhabdomyolysis M62.82 Rhabdomyolysis type: non-traumatic Vitamin B 12 deficiency E53.8 Small bowel obstruction K56.609 Hypertension I10 Gastric emphysema K29.60
[2020-11-26 11:20] VITALS: BP 158/77; PULSE 53; RESP 17; TEMP 36.4; O2SAT 93
--- NOTE | 2020-11-26 12:20 | PC.CHAP ---
Pastoral Care Encounter/Spiritual Assessment Type of Contact [] Declined flame annealing machine setter visit [] Patient/Family/Request visit [] Outpatient visit [x] Follow-up visit [] Physician referral [] Code/Alert [] Routine visit [] Staff referral [] Actively dying [] Patient sleeping [] Family support [] [] Out of room [] Palliative care [] [] Receiving care in room [] Pre-surgical visit [] Trauma [] Long length of stay [] ICU visit [] Other: Relational/Emotional Strength [] Patient feels connected with others/family/visitors/staff [] Distress [] Loneliness/isolation [] Abandonment Spirituality of Patient [] Person of Betsy [] Attends Sabianist of their Betsy [] Believes in Prayer [] Reads Bible or Advent materials [] There are Spiritual issues to be addressed Hamper Maker Interventions [] Prayer [] Active listening [] Non-anxious presence [] Spiritual/emotional support [] Crisis/trauma care [] Spiritual counseling [] Bereavement support [] Provided bereavement packet [] Provided Bible/devotional materials [] Provided toy/stuffed animal, coloring book to patient or family member [] Provided Communion [] Anointing/[place] [] Salvation [] Completed spiritual assessment [] Other: Impact on Illness or Injury [] Angry [] Fearful [] Anxious [] Often cries [] Exhaustion [] Unable to work [] Unable to attend jain [] Unable to walk/stand [] Unable to read [] Unable to drive [] Unable to eat/drink [] Unable to sleep [] Unable to be with family [] Patient intubated [] Other: Summary Time spent with patient sjeeping
--- NOTE | 2020-11-26 15:00 | PC.SLP ---
PRODUCTION POTTER attempted follow-up, but pt was not able to maintain alertness to participate.
[2020-11-26 15:47] VITALS: BP 160/88; PULSE 53; RESP 17; TEMP 36.4; O2SAT 93
[2020-11-26] MEDS: dextrose 5%-sod chloride 0.9% 1,000 ML 50 ML IV (15:57)
[2020-11-26] MEDS: cefTRIAXone 1,000 MG in sodium chloride 0.9% (plus) 50 ML 100 MG IV (17:10)
--- NOTE | 2020-11-26 17:45 | PC.SOCIAL ---
IMM Updated Updated Pg 2 IMM with Pt & daughter. No questions voiced. Provided pt a copy. Initialed, dated, & timed copy in chart.
--- NOTE | 2020-11-26 18:18 | PC.NURSE ---
Rcvd order from Dr Musa to renew 1:1 order
[2020-11-26 20:00] VITALS: BP 125/71; PULSE 63; RESP 20; TEMP 36.7; O2SAT 94
[2020-11-26] MEDS: haloperidol inj 5 mg/mL INJ 1 mL IM (21:48)
--- NOTE | 2020-11-26 21:50 | PC.NURSE ---
PATIENT AGITATED, ATTEMPTING TO CRAWL OUT OF BED, GRABBING AT LINEN AND GOWN, WHILE TAKING OFF GOWN RIPPED OUT IV. YELLING AT STAFF THAT HE HAS BEEN MOLESTED, RAPED AND THE JAVA ANALYST ARE ON THE WAY. ATTEMPTS TO REDIRECT HAVE FAILED. THIS NURSE ADMINISTERED 0.5MG HALDOL IM AT 2148 INTO PATIENTS LEFT DELTOID. WILL CONTINUE TO REDIRECT PATIENT AND REASSESS.
[2020-11-27] VITALS: BP 146/73; PULSE 67; RESP 18; TEMP 36.7; O2SAT 97
[2020-11-27] MEDS: enoxaparin 40 mg/0.4 mL Syringe SUBCUT (00:05)
[2020-11-27] MEDS: metroNIDAZOLE IV 500 MG/100 ML PREMIX 100 MG IV ×3 (00:52→17:53)
[2020-11-27] MEDS: famotidine 20 mg/2 mL INJ IVP ×2 (03:08→16:40)
[2020-11-27 04:00] VITALS: BP 103/60; PULSE 52; RESP 16; TEMP 36.2; O2SAT 92
[2020-11-27 07:16] VITALS: BP 124/68; PULSE 70; RESP 18; TEMP 36.4; O2SAT 91
[2020-11-27] MEDS: OLANZapine 10 mg ODT PO ×2 (08:35→17:59)
[2020-11-27] MEDS: amlodipine 10 mg Tablet PO (08:35)
[2020-11-27] MEDS: escitalopram 10 mg Tablet 5 MG PO (08:35)
[2020-11-27] MEDS: sennosides-docusate Tablet 1 TAB PO (08:35)
[2020-11-27] MEDS: lidocaine 5% Patch 1 PATCH TOPICAL (08:36)
--- NOTE | 2020-11-27 08:41 | PC.NURSE ---
Lidocaine placed behind patients left knee per patient request.
[2020-11-27 10:26] LABS: SARS Covid-2 Antigen Negative (Negative)
--- NOTE | 2020-11-27 11:31 | PM.PN ---
Subjective Subjective: Interval history: No acute event overnight.Patient has remained afebrile,other vitals and labs have been reviewed. Medications: Reviewed: Yes Vitals/I&O/Wt Last Vital Signs Temp 97.5 F L 11/27/20 07:16 Pulse 70 11/27/20 07:16 Resp 18 11/27/20 07:16 BP 124/68 11/27/20 07:16 Pulse Ox 91 11/27/20 07:16 11/26/20 11/27/20 11/27/20 22:59 06:59 14:59 Intake Total 1552.5 / 1712.5 100 / 1812.5 786.667 / 786.667 Output Total 120 / 120 Balance 1552.5 / 1712.5 -20 / 1692.5 786.667 / 786.667 Physical Exam HENMT: COMMON NORMALS: normocephalic and atraumatic HEAD & SCALP: normocephalic and atraumatic Resp: COMMON NORMALS: clear to auscultation bilaterally EFFORT & INSPECTION: Yes symmetric chest movement AUSCULTATION: clear to auscultation bilaterally Cardio: COMMON NORMALS: regular rate, regular rhythm, S1 normal heart sound present, S2 normal heart sound present, No gallops present (Cardio), No murmurs present (Cardio), No rub (Cardio) and Peripheral pulses 2+ throughout RATE: regular rate RHYTHM: regular rhythm HEART SOUNDS: S1 normal heart sound present and S2 normal heart sound present PERIPHERAL PULSES: Peripheral pulses 2+ throughout GI: COMMON NORMALS: Normal to inspection, nondistended, normoactive bowel sounds present, Soft to palpation, non-tender, No hepatosplenomegaly present and no masses AUSCULTATION: Yes normoactive bowel sounds PALPATION: Yes Soft to palpation and Yes No hepatosplenomegaly present RECTAL EXAM: Yes deferred Extremity: COMMON NORMALS: no clubbing, cyanosis or edema and no pedal edema Data : 11/24/20 07:30 11/26/20 07:24 A&P Assessment and plan (1) Fall: Status: Acute Qualifiers: Encounter type: initial encounter Qualified Code(s): W19.XXXA - Unspecified fall, initial encounter (2) Rhabdomyolysis: Status: Acute Qualifiers: Rhabdomyolysis type: non-traumatic Qualified Code(s): M62.82 - Rhabdomyolysis (3) Vitamin B 12 deficiency: Status: Acute (4) Small bowel obstruction: Status: Acute (5) Hypertension: Status: Acute (6) Gastric emphysema: Status: Acute Additional A&P Information # Rhabdomyolysis due to recurrent falls, now resolved. IV fluid D5 normal saline at 50 cc an hour currently. Tolerating a clear liquid diet at this present time, advance as tolerated to GI soft. If consistently able to take p.o. intake over the next 24 to 48 hours, will discontinue IV fluids. Kidney function remained stable. # Ileus/gastric emphysema Appreciate surgical recommendations Overall CT findings appear more consistent with ileus as against small bowel obstruction. Emphysematous gastric changes likely as a result of excessive vomiting. No other evidence of intraabdominal infection on CT imaging. Repeat CT today shows resolution of emphysematous changes. NGT removed.Currently tolerating G/I Soft diet. #Fever 100.9 Fahrenheit, now resolved. Left lower lobe atelectasis versus infiltrate on chest x-ray. May have developed aspiration pneumonia with episodes of multiple vomiting. Started on ceftriaxone and metronidazole empirically. Plan treatment for 5 days Continue incentive spirometry. Urine culture without growth #Hypertension: Continue amlodipine 10 mg orally, blood pressure is better controlled today #History of preserved ejection fraction heart failure, currently euvolemic last echocardiogram with LVEF of 55%, no regional wall motion abnormalities, moderate aortic valve calcification, diastolic function not established. #Complains of pain over bilateral knees, multiple scrapes and bruises noted, likely from recent fall. Added morphine pain control lidocaine patch locally. Pain is much better controlled now. Swelling over left knee is additionally much improved on today's exam. DVT prophylaxis Lovenox Clear liquid diet, advance as tolerated Disposition discharge planning to SNF. Attestations Medical Necessity Statement*: Awaiting placement to SNF.1:1 has been discontinued.Likely discharge in am Coding Level of Care Code Acute Insurance Specialist for [facility] Fwd Exam Detailed Diagnoses Fall W19.XXXA Encounter type: initial encounter Rhabdomyolysis M62.82 Rhabdomyolysis type: non-traumatic Vitamin B 12 deficiency E53.8 Small bowel obstruction K56.609 Hypertension I10 Gastric emphysema K29.60
--- NOTE | 2020-11-27 11:47 | PC.NURSE ---
Patient set off bed alarm, went to assist patient to restroom. Patient voided on the floor in the bathroom. Gave bed bath via bath wipes. IV from right forearm was pulled out by patient. Located IV in the linen cart. Disposed of catheter observed tip intact. Patient assisted back to bed. Call light in reach and bed alarm reset.
[2020-11-27 11:49] VITALS: BP 114/71; PULSE 74; RESP 18; TEMP 36.8; O2SAT 95
[2020-11-27 15:36] VITALS: BP 112/70; PULSE 62; RESP 18; TEMP 36.8; O2SAT 95
[2020-11-27] MEDS: cefTRIAXone 1,000 MG in sodium chloride 0.9% (plus) 50 ML 100 MG IV (17:53)
--- NOTE | 2020-11-27 19:12 | PC.NURSE ---
Patient peeled off his lidocaine patch off the back of his left knee. Did not want it replaced,
[2020-11-27 20:00] VITALS: BP 114/71; PULSE 63; RESP 18; TEMP 36.6; O2SAT 93
--- NOTE | 2020-11-27 20:13 | PC.NURSE ---
Fall Patient attempted to ambulate to bathroom and lost his balance. Pt states I grabbed the chair to get my balance and slipped down to floor on my bottom. Patient was assessed by this nurse and assisted to the bathroom and back into bed with bed alarm on. No injuries to patient. Patient did not hit his head. Vital signs within normal limits. Physician notified with no new orders. Daughter, Trini Horton, was notified of incident.
[2020-11-28 00:10] VITALS: BP 113/63; PULSE 67; RESP 18; TEMP 36.7; O2SAT 91
[2020-11-28] MEDS: metroNIDAZOLE IV 500 MG/100 ML PREMIX 100 MG IV ×2 (00:57→10:40)
[2020-11-28] MEDS: enoxaparin 40 mg/0.4 mL Syringe SUBCUT (00:57)
[2020-11-28] MEDS: famotidine 20 mg/2 mL INJ IVP (03:15)
[2020-11-28 04:51] VITALS: BP 120/60; PULSE 62; RESP 17; TEMP 36.6; O2SAT 93
[2020-11-28 07:51] VITALS: BP 134/60; PULSE 60; RESP 17; TEMP 37; O2SAT 95
[2020-11-28] MEDS: lidocaine 5% Patch 1 PATCH TOPICAL (10:24)
[2020-11-28] MEDS: amlodipine 10 mg Tablet PO (10:25)
[2020-11-28] MEDS: sennosides-docusate Tablet 1 TAB PO (10:25)
[2020-11-28] MEDS: escitalopram 10 mg Tablet 5 MG PO (10:25)
[2020-11-28] MEDS: OLANZapine 10 mg ODT PO (10:25)
[2020-11-28 11:24] VITALS: BP 132/70; PULSE 82; RESP 18; TEMP 36.6; O2SAT 94
--- NOTE | 2020-11-28 13:11 | P.DS_ITS ---
Discharge Providers Date of Admission: 11/21/20 10:42 Date of Discharge: November 28, 2020 Attending Provider at Admission: Wali Musa MD Attending Provider at Discharge: Wali Musa MD Primary Care Provider: Jesse Perry DO Diagnoses at Discharge Discharge Diagnosis (1) Rhabdomyolysis: Status: Resolved Qualifiers: Rhabdomyolysis type: non-traumatic Qualified Code(s): M62.82 - Rhabdomyolysis (2) Small bowel obstruction: Status: Resolved (3) Hypertension: Status: Chronic (4) Gastric emphysema: Status: Resolved Reason for Visit Reason for Visit: falling Hospital Course Hospital Course 75-year-old male with past medical history of GERD (gastroesophageal reflux disease), Parkinsons initially presented with fall at home and rhabdomyolysis, that has improved with IV hydration, however incidentally found to have grossly distended abdomen, x-ray with ileus.Was managed conservatively with N.G tube which was later removed and at the time of discharge patient was tolerating G.I Soft diet well. Patient also had emphysematous gastritis on his CT abdomen likely 2/2 excessive vomitting. No other evidence of intraabdominal infection on CT imaging. Repeat CT today shows resolution of emphysematous changes. Surgery was on board.Patient was also managed for aspiration PNA was on ceftriaxone and metronidazole empirically.Patient responded well to the above medical management and was discharged in stable condition to [facility] ( SNF ) Physical Exam Narrative: EXAM NARRATIVE: Alert and awake HENMT: COMMON NORMALS: normocephalic and atraumatic HEAD & SCALP: normocephalic and atraumatic Resp: COMMON NORMALS: clear to auscultation bilaterally EFFORT & INSPECTION: Yes symmetric chest movement AUSCULTATION: clear to auscultation bilaterally Cardio: COMMON NORMALS: regular rate, regular rhythm, S1 normal heart sound present, S2 normal heart sound present, No gallops present (Cardio), No murmurs present (Cardio), No rub (Cardio) and Peripheral pulses 2+ throughout RATE: regular rate RHYTHM: regular rhythm HEART SOUNDS: S1 normal heart sound present and S2 normal heart sound present PERIPHERAL PULSES: Peripheral pulses 2+ throughout GI: COMMON NORMALS: Normal to inspection, nondistended, normoactive bowel sounds present, Soft to palpation, non-tender, No hepatosplenomegaly present and no masses AUSCULTATION: Yes normoactive bowel sounds PALPATION: Yes Soft to palpation and Yes No hepatosplenomegaly present RECTAL EXAM: Yes deferred Extremity: COMMON NORMALS: no clubbing, cyanosis or edema and no pedal edema Discharge Data Data Completed and Pending: Completed Studies During Hospitalization Category Date Time Status CT abdomen pelvis wo con [id number] Rout ine Cat Scan 11/21/20 10:[address] abdomen wo con [id number] Routine Cat Scan 11/24/20 07:[address] head wo con* 7 [id number] Stat Cat Scan 11/19/20 16:40 Completed XR abdomen 1V* 74 [id number] Stat Exams 11/20/20 16:43 Completed XR chest 1V krystin ble [id number] Routine Exams 11/23/20 17:45 Completed XR chest 1V krystin ble [id number] Stat Exams 11/19/20 16:40 Completed XR chest 1V krystin ble [id number] Stat Exams 11/22/20 15:33 Completed XR chest 1V krystin ble [id number] Stat Exams 11/23/20 00:47 [place] [id number] Routin e Ultrasound 11/20/20 00:00 Completed Pending at discharge Category Date Time Status Blood Culture AM LABS Lab 11/24/20 07:31 Results Clostridioides Di fficile PCR Routin e Lab 11/21/20 15:15 Uncollected Vitals: Last Vital Signs Temp 98 F 11/28/20 11:24 Pulse 82 11/28/20 11:24 Resp 18 11/28/20 11:24 BP 132/70 11/28/20 11:24 Pulse Ox 94 11/28/20 11:24 Discharge Plan Discharge Patient Disposition: Home Condition: Stable Prescriptions: Continued atorvastatin 10 mg tablet 10 mg PO BEDTIME RF: 0 escitalopram oxalate 5 mg tablet 5 mg PO DAILY RF: 0 (DME) cam boot See Rx Instructions .Route .MEDSUPPLY Qty: 1 RF: 0 (DME) custom orthotics 11 See Rx Instructions .Route .MEDSUPPLY Qty: 1 RF: 0 (DME) orthopedic shoes with extra deapth See Rx Instructions .Route .MEDSUPPLY Qty: 1 RF: 0 cholecalciferol (vitamin D3) 2,000 unit Tablet 2,000 unit PO DAILY RF: 0 omeprazole 20 mg Capsule,Delayed Release(Dr/Ec) 20 mg PO DAILY RF: 0 olanzapine 10 mg tablet 10 mg PO BID RF: 0 Discharge Orders: Discharge Order (Routine); Ordered 11/28/20 Ordered By: Wali Musa Referrals: Jesse Perry, DO [Primary Care Provider] - Discharge Diet: GI Soft Discharge Activity: Increase activity as tolerated Patient Instructions: Opioid Safety Discharge Attestations Time Spent in Discharge Care*: less than 30 min Specific Discharge Activities: educating patient, discussing with medical case manager/social workers/dc planners, documenting/other paperwork and evaluating patient/reviewing data Status at Discharge: Cognitive status at discharge: cognitively intact , Behavioral status at discharge: cooperative , Functional status at discharge: uses cane/walker Overall status at discharge: patient is back to baseline Quality Metrics Clinical Quality Measures During this hospital stay, did patient experience: None Coding Level of Care Code Acute Chg FW DC note Exam Detailed Diagnoses Rhabdomyolysis M62.82 Rhabdomyolysis type: non-traumatic Small bowel obstruction K56.609 Hypertension I10 Gastric emphysema K29.60
--- NOTE | 2020-11-28 15:36 | PC.SOCIAL ---
*IMM UPDATE* Gave patient's daughter IMM update. 11/28/20 @1521 Initialed, dated, timed and placed in chart.
[2020-11-28 16:00] VITALS: BP 124/78; PULSE 88; RESP 18; TEMP 36.9; O2SAT 94
[2020-11-28 17:02] VITALS: BP 124/78; PULSE 88; RESP 18; TEMP 36.9; O2SAT 94
== END 2020-11-28 16:55 | disposition skilled nursing facility (03) | DRG 388 ==
LOC: ER 19:25 → ER IP 21:27 → MEDSURG 11-20 06:32
PROVIDERS: Family Medicine; Internal Medicine; Student in an Organized Health Care Education/Training Program; Admitting Provider Internal Medicine; Emergency Provider Emergency Medicine; PCP Emergency Medicine Emergency Medical Services; Visit Provider Internal Medicine
DX: K56.609 Unspecified intestinal obstruction, unspecified as to partial versus complete obstruction (principal); J69.0 Pneumonitis due to inhalation of food and vomit; M62.82 Rhabdomyolysis; G20 Parkinson's disease; F02.80 Dementia in other diseases classified elsewhere, unspecified severity, without behavioral disturbance, psychotic disturbance, mood disturbance, and anxiety; M20.32 Hallux varus (acquired), left foot; M20.31 Hallux varus (acquired), right foot; F32.9 Major depressive disorder, single episode, unspecified; K21.9 Gastro-esophageal reflux disease without esophagitis; E78.5 Hyperlipidemia, unspecified; E53.8 Deficiency of other specified B group vitamins; R29.6 Repeated falls; K29.60 Other gastritis without bleeding; M25.562 Pain in left knee; M25.561 Pain in right knee; K56.7 Ileus, unspecified; I10 Essential (primary) hypertension; I70.0 Atherosclerosis of aorta
CPT/HCPCS: 12345; 36415; 36600; 51798; 70450; 71045; 74018; 74150; 74176; 80048; 80051; 80053; 81003; 82009; 82330; 82550; 82607; 82805; 83605; 83690; 83735; 84145; 84484; 85025; 87040; 87426; 90471; 90714; 92507; 92523; 92526; 92610; 93005; 93970; 96372; 97110; 97116; 97161; 97530; 99285; 99291; G0378; J0696; J1630; J1650; J2060; J2270; J2405; J2765; J3480; J3490; J7030; S0030

== ENCOUNTER → 2020-12-25 14:17 | Outpatient (BNVA) | payer OTHER, SELFPAY | PROVIDERS: PCP Emergency Medicine Emergency Medical Services; Visit Provider Specialist | DX: G31.83 Neurocognitive disorder with Lewy bodies (principal); F02.80 Dementia in other diseases classified elsewhere, unspecified severity, without behavioral disturbance, psychotic disturbance, mood disturbance, and anxiety | CPT/HCPCS: 96116; 99215 ==

== ENCOUNTER 2021-02-27 08:44 | Emergency (ER) | payer OTHER, SELFPAY ==
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
[2021-02-27 08:51] VITALS: BP 167/79; PULSE 50; RESP 14; O2SAT 96; BMI 27.3
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
[2021-02-27 09:03] VITALS: BP 161/81; PULSE 47; O2SAT 94
--- NOTE | 2021-02-27 09:03 | XR_ITS ---
WS: [id number] Portable AP upright chest, 02/27/2021 Clinical Data: falls, weakness Comparison: Portable chest, 11/23/2020. Findings: No nodules, masses or effusions are seen. The heart is normal. The pulmonary vascularity is not increased. No pneumonia or pneumothorax is seen. The aortic arch and descending aorta show calci fication and tortuosity. There is an old fracture of the middle of the right clavicle. XR/XR chest 1V portable [id number] Impression: Atherosclerosis.
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
--- NOTE | 2021-02-27 09:03 | CT_ITS ---
WS: [id number] CT CERVICAL TRAUMA TECHNIQUE: Noncontrast CT of the cervical spine with coronal and sagittal reformatted images. CLINICAL INFORMATION: fall COMPARISON: None. DLP: 767.[address] scans at [facility] use at least one of these dose optimization techniques: automat ed exposure control; mA and/or kV adjustment per patient size (includes targeted exams where dose is matched to clinical indication); or iterative reconstruction. FINDINGS: Straightening of the normal cervical lordosis. Moderate spondylitic changes. Normal C1-C2 articulatio n. Disc space narrowing worse at C3-4, C4-5, C6-C7, and C7-T1. Normal craniocervical junction. Normal C1-C2 articulation. Congenital partial absence of the posterio r C1 ring. This is unchanged since September 07, 2018. Incomplete fusion of the anterior ring is unchan ged. Dens is normal in appearance. Normal occipital condyles. No high-grade spinal canal narrowing. N ormal C1 ring. No evidence of acute fracture or dislocation. Mild chronic central canal stenosis in t he mid cervical spine C3-C5. Normal prevertebral soft tissues. Mastoids air cells are well aerated. CT/CT cervical spin wo con* [id number] IMPRESSION: 1. Straightening of the normal cervical lordosis with moderate spondylitic yadira nges. 2. No acute fractures. 3. 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
--- NOTE | 2021-02-27 09:04 | ECG_ITS ---
[facility] Test Date: 2021-02-27 Pat Name: Laith Santiago Department: Room: Gender: Male Panel Sewer: : 1945 Requested By: Maida Foster Order Number: [id number] Melodie MD: Roz Guy M.D. Measurements Intervals [place] Rate: 59 P: 34 OK: 185 QRS: 11 QRSD: 110 T: 9 QT: 462 QTc: 458 Interpretive Statements SINUS BRADYCARDIA WITH OCCASIONAL VENTRICULAR PREMATURE COMPLEXES WITH OCCASIONAL SUPRAVENTRICULAR PREMATURE COMPLEXES Compared to ECG 11/20/2020 18:27:32 Ventricular premature complex(es) now present Sinus rhythm no longer present T-wave abnormality no longer present Electronically Signed On 02-27-2021 21:45:50 CDT by Roz Guy M.D. [id number]
[2021-02-27 10:00] VITALS: BP 154/101; PULSE 55; RESP 15; O2SAT 96
[2021-02-27] MEDS: sodium chloride 0.9% 1,000 ML 999 ML IV (10:30)
[2021-02-27 10:56] LABS: Basophils % 0.9 %; Eosinophils # 0.2 10^3/uL (0.0-0.8); Eosinophils % 3.5 %; Hematocrit 44.2 % (42.0-52.0); Hemoglobin 14.3 g/dL (11.7-16.6); Lymphocytes # 1.2 10^3/uL (0.8-4.8); Lymphocytes % 28.4 %; Mean Corpuscular HGB Conc 32.4 g/dL (30.0-36.0); Mean Corpuscular Hemoglobin 29.9 pg (28.0-34.0); Mean Corpuscular Volume 92.5 fL (80-94); Mean Platelet Volume 10.3 fL (7.4-10.4); Monocytes # 0.6 10^3/uL (0.2-0.9); Monocytes % 13.9 %; Neutrophils # 2.23 10^3/uL (1.8-7.7); Neutrophils % 52.8 %; Nucleated Red Blood Cells % 0 %; Platelet Count 161 10^3/cmm (130-400); Red Blood Count 4.78 10^6/uL (4.1-5.3); Red Cell Distribution Width 12.7 % (12.1-15.1); White Blood Count 4.2 10^3/uL (4.0-10.0)
[2021-02-27 11:04] VITALS: BP 163/91; PULSE 52; RESP 14; O2SAT 96
[2021-02-27 11:15] LABS: Troponin(5th) Baseline 31 ng/L (0-15)
[2021-02-27 11:17] LABS: Alanine Aminotransferase 13 U/L (0-41); Alkaline Phosphatase 69 IU/L (40-130); Aspartate Amino Transferase 20 U/L (0-40); Blood Urea Nitrogen 18 mg/dL (8-23); Carbon Dioxide 27 mmol/L (22-29); Chloride 102 mmol/L (98-107); Creatine Phosphokinase 191 U/L (39-308); Creatinine Clr Calc Pharmacy 72.7889; Glucose 96 mg/dL (65-115); Magnesium 1.9 mg/dL (1.7-2.3); Osmolality Calculated 288 mOsm/kg (285-295); Sodium 138 mmol/L (136-145); Total Bilirubin 0.5 mg/dL (0.15-1.2)
--- NOTE | 2021-02-27 11:31 | PC.PHAR ---
PT UNABLE TO VERIFY MEDICATIONS-PTS FAMILY VERIFIED MEDICATIONS-FAMILY STATES THE PT IS ONLY TAKING ZYPREXA 10MG HS-RX FILLED 5MG IN THE AM AND 10MG HS-PTS [facility] LIST HAS PREDNISOLONE ACETATES 1% EYE DROPS FAMILY STATES THE PT HASNT EVER USED STATES THE PT CHANGED HIS MIND ABOUT HAVING THE EYE SURGERY
[2021-02-27 11:53] LABS: Anion Gap 13.1 (5-19); Potassium 4.1 mmol/L (3.5-5.1)
[2021-02-27 12:12] LABS: Add Urine Microscopic? NO; Charge for UA Resulting for Rev
[2021-02-27 12:42] LABS: Bilirubin Urine Neg (Negative); Blood Urine Neg (Negative); Glucose Urine UA Norm (Normal); Ketones Urine 1+ (Negative); Nitrate Urine Negative (Negative); Protein Urine Neg (Negative); Specific Gravity, Urine 1.025 (1.005-1.030); Urine Appearance Clear (CLEAR); Urine Color Yellow (Yellow); pH Urine 5 (5-7)
[2021-02-27 12:43] LABS: Leukocyte Esterase Urine Negative (Negative); Urobilinogen Urine 1 mg/dL (Negative)
[2021-02-27 13:15] LABS: Troponin 5 2HR 29.65 ng/L (0-15)
[2021-02-27 13:17] LABS: Troponin 5 2HR Delta -1.35 ABS# (0-10)
== END 2021-02-27 13:52 | disposition home or self-care (01) ==
PROVIDERS: Emergency Provider Physician Assistant; PCP Emergency Medicine Emergency Medical Services
DX: S01.01XA Laceration without foreign body of scalp, initial encounter (principal); G31.83 Neurocognitive disorder with Lewy bodies; R29.6 Repeated falls; E78.5 Hyperlipidemia, unspecified; I10 Essential (primary) hypertension; G20 Parkinson's disease
CPT/HCPCS: 12002; 36415; 70450; 70486; 71045; 72125; 80053; 81003; 82550; 83605; 83735; 84484; 85025; 93005; 96360; 99284; J7030

== ENCOUNTER → 2021-06-17 11:56 | Outpatient (BNVA) | payer OTHER, SELFPAY | PROVIDERS: PCP Emergency Medicine Emergency Medical Services; Visit Provider Specialist | DX: G31.83 Neurocognitive disorder with Lewy bodies (principal); F02.80 Dementia in other diseases classified elsewhere, unspecified severity, without behavioral disturbance, psychotic disturbance, mood disturbance, and anxiety | CPT/HCPCS: 99214 ==

== ENCOUNTER 2021-06-26 10:20 | Emergency (ER) | payer OTHER, SELFPAY ==
[2021-06-26 10:29] VITALS: BP 109/68; PULSE 63; RESP 16; TEMP 36.2; O2SAT 97; BMI 27.3
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
--- NOTE | 2021-06-26 10:39 | XR_ITS ---
WS: [id number] Left hand, 3 views, 06/26/2021 Clinical Data: pain trauma Comparison: None. Findings: No new fractures or dislocations are seen. The soft tissues are unremarkable. 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 There is old trauma to the distal phalanx of the left third finger. There is a plate and screws repairing an old fracture of the distal left second metacarpal. There is osteoarthritic overgrowth of the distal left ulna. There are vascular calcifications. XR/XR hand LT min 3V* [id number] Impression: 1. Negative for new fractures or dislocations. 2. Repair of old left second metacarpal fracture. 3. Osteoarthritis of the distal left ulna.
--- NOTE | 2021-06-26 10:39 | XR_ITS ---
WS: [id number] Left shoulder, 3 views, 06/26/2021 Clinical Data: pain trauma Comparison: None. Findings: No fractures or dislocations are seen. The AC joint is normal. The adjacent left clavicle, left scapu la and ribs are normal. The soft tissues are unremarkable. XR/XR shoulder LT min 2V* [id number] Impression: Negative left shoulder.
--- NOTE | 2021-06-26 10:39 | CT_ITS ---
WS: [id number] CT CERVICAL SPINE HISTORY: pain TECHNIQUE: Contiguous 2.5 mm axial imaging performed through the entire cervical spine. Sagittal and coronal reformats also performed. All CT scans at [facility] use at least one of these dose o ptimization techniques: automated exposure control; mA and/or kV adjustment per patient size (include s targeted exams where dose is matched to clinical indication); or iterative reconstruction. DLP: 826.23 mGy.cm COMPARISON: 02/27/2021 Straightening of the normal cervical lordosis. C3 retrolisthesis by 2 mm. Advanced degenerative disc space narrowing and osteophytosis and spondylitic changes. Craniocervical junction is normally aligne d. Lateral masses are normally aligned. 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 Facet joint arthritis is mild/moderate throughout the cervical spine. Vertebral body osteophytic ridg ing at multiple levels causing mild central stenosis. No acute interval change. Lung apices are clear. CT/CT cervical spin wo con* [id number] IMPRESSION: 1. No acute cervical spine fractures identified. 2. Moderate spondylitic changes as described above. Very similar to the prior study from 02/27/2021.
--- NOTE | 2021-06-26 10:39 | ECG_ITS ---
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 Measurements Intervals [place] Rate: 56 P: 29 VA: 170 QRS: 30 QRSD: 95 T: 57 QT: 419 QTc: 407 Interpretive Statements SINUS BRADYCARDIA WITH OCCASIONAL SUPRAVENTRICULAR PREMATURE COMPLEXES IN A BIGEMINAL PATTERN ABNORMAL RHYTHM ECG Compared to ECG 02/27/2021 10:25:51 Ventricular premature complex(es) no longer present Electronically Signed On 06-26-2021 20:42:17 PROFESSOR OF GENETICS by Dior Damno M.D. [email or web address] [email or web address] systemGl[facility] Medicalreg[email or web address] [email or web address]/[id number]
[2021-06-26 11:21] LABS: Basophils % 0.8 %; Eosinophils # 0.2 10^3/uL (0.0-0.8); Eosinophils % 4.9 %; Hematocrit 38.8 % (42.0-52.0); Hemoglobin 12.3 g/dL (11.7-16.6); Lymphocytes # 1.7 10^3/uL (0.8-4.8); Lymphocytes % 35.9 %; Mean Corpuscular HGB Conc 31.7 g/dL (30.0-36.0); Mean Corpuscular Hemoglobin 29.7 pg (28.0-34.0); Mean Corpuscular Volume 93.7 fl (80-94); Mean Platelet Volume 9.5 fL (7.4-10.4); Monocytes # 0.8 10^3/uL (0.2-0.9); Monocytes % 16.7 %; Neutrophils # 1.97 10^3/uL (1.8-7.7); Neutrophils % 41.7 %; Nucleated Red Blood Cells % 0 %; Platelet Count 185 10^3/cmm (130-400); Red Blood Count 4.14 10^6/uL (4.1-5.3); Red Cell Distribution Width 13.3 % (12.1-15.1); White Blood Count 4.7 10^3/uL (4.0-10.0)
--- NOTE | 2021-06-26 11:32 | ED_ITS ---
HPI - Fall General: Chief Complaint: Fall Stated Complaint: FALL THIS AM: HIT HEAD, LUE INJURIES Time Seen by Provider: 06/26/21 10:34 History of Present Illness: HPI Narrative: 75-year-old male presents emergency room after falling at home and hitting his head. He is complaining of pain in his left shoulder left hand. There is no loss consciousness he was on the floor for approximately an hour eventually was able to get himself up using a chair. He has some swelling in his left hand severe pain left shoulder he denies any loss of consciousness. Patient has known Parkinson's is not any medications because he had problems with side effects. He denies any chest pain or any other injuries he was ambulatory has no pain in the hips. complaint: fall Onset (ago): hour(s) Fall from: standing Fall witnessed: no Place fall occurred: home Loss of consciousness: None Prolonged down time: no Context: tripped/slipped Location of injury: head and neck Location of injury - extremities: Left: shoulder and hand Severity: moderate Associated symptoms-after fall: Denies abdominal pain, chest pain, confusion, difficulty walking, headache(s), hematuria, lightheadedness, neck pain, numbness, short of breath, vertigo or weakness Review of Systems Const: Denies: fever(s), chills, body aches, change in appetite, fatigue or malaise ENMT: Denies: throat pain, ear or mastoid pain, nasal discharge or nasal congestion Card: Denies: chest pain or lightheadedness Resp: Denies: dyspnea, productive cough or non-productive cough GI: Denies: abdominal pain : Denies: hematuria Musc: Denies: neck pain Skin/Breast: Denies: rash or pruritus Neuro: Denies: headache(s), difficulty walking, vertigo or confusion PFSH ED PFSH: Medical History Acquired hallux malleus of both feet Depression Equinus contracture of ankle [place] Gastric emphysema GERD (gastroesophageal reflux disease) Hallucinations Hammertoe HLD (hyperlipidemia) Hypertension Parkinsons Rhabdomyolysis Small bowel obstruction Vitamin B 12 deficiency Surgical History H/O hand surgery History of mandibular surgery Status post tonsillectomy Family History Father CAD (coronary artery disease) Mother CAD (coronary artery disease) Social History Alcohol intake: never Lives independently: Yes Housing: House History of recent travel: No Physical Exam Const: COMMON NORMALS: no acute distress GENERAL APPEARANCE: cooperative and comfortable ORIENTATION/CONSCIOUSNESS: Yes awake, Yes oriented to person, Yes oriented to place and Yes oriented to time HENMT: COMMON NORMALS: normocephalic, atraumatic and hearing grossly normal bilaterally HEAD & SCALP: normocephalic and atraumatic Neck/C-Spine: COMMON NORMALS: no JVD Resp: COMMON NORMALS: normal respiratory effort, No retractions, No use of accessory muscles and clear to auscultation bilaterally AUSCULTATION: clear to auscultation bilaterally Cardio: COMMON NORMALS: no JVD, regular rate, regular rhythm and No murmurs present (Cardio) RATE: regular rate RHYTHM: regular rhythm GI: COMMON NORMALS: Soft to palpation and No hepatosplenomegaly present AUSCULTATION: Yes normoactive bowel sounds PALPATION: Yes Soft to palpation, No Tenderness to palpation present (GI), No Guarding due to palpation present (GI) and Yes No hepatosplenomegaly present Extremity: COMMON NORMALS: normal to inspection, capillary refill normal, no clubbing, cyanosis or edema, no calf tenderness and no pedal edema Neuro: SENSORIUM/ORIENTATION: Yes oriented to person, Yes oriented to place and Yes oriented to time Skin: COMMON NORMALS: no rashes or lesions noted GENERAL SKIN EXAM: no rashes or lesions noted Course Vital Signs: Vital signs: Vital Signs Temperature 97.1 F L 06/26/21 10:29 Pulse Rate 54 L 06/26/21 15:02 Respiratory Rate 14 06/26/21 15:02 Blood Pressure 117/69 06/26/21 15:02 Pulse Oximetry 96 06/26/21 15:02 MDM - Fall MDM Narrative: Medical decision making narrative: Labs and imaging reviewed with the patient. No fractures noted. We will go ahead and discharge patient home discussed with family encouraged him to consider higher level of care for his living facility. Lab Data: Labs: Lab Results 06/26/21 06/26/21 06/26/21 11:13 11:13 11:13 WBC 4.7 10^3/uL 10^3/ uL (4.0-10.0) RBC 4.14 10^6/uL 10^6 /uL (4.1-5.3) Hgb 12.3 g/dL g/dL (11.7-16.6) Hct 38.8 % L % (42.0-52.0) MCV 93.7 fl fl (80-94) MCH 29.7 pg pg (28.0-34.0) MCHC 31.7 g/dL g/dL (30.0-36.0) RDW 13.3 % % (12.1-15.1) Plt Count 185 10^3/cmm 10^3 /cmm (130-400) MPV 9.5 fL fL (7.4-10.4) Neut % (Auto) 41.7 % % Lymph % (Auto) 35.9 % % [place] % (Auto) 16.7 % % Eos % (Auto) 4.9 % % Baso % (Auto) 0.8 % % Neut # (Auto) 1.97 10^3/uL 10^3 /uL (1.8-7.7) Lymph # (Auto) 1.7 10^3/uL 10^3/ uL (0.8-4.8) [place] # (Auto) 0.8 10^3/uL 10^3/ uL (0.2-0.9) Eos # (Auto) 0.2 10^3/uL 10^3/ uL (0.0-0.8) Baso # (Auto) 0.0 10^3/uL 10^3/ uL (0.0-0.1) Nucleated RBC % (a uto) 0 % % Nucleated RBCs # 0.0 /100WBC /100W BC Sodium 141 mmol/L mmol/L (136-145) Potassium 4.2 mmol/L mmol/L (3.5-5.1) Chloride 103 mmol/L mmol/L (98-107) Carbon Dioxide 30 mmol/L H mmol/ L (22-29) Anion Gap 12.2 (5-19) BUN 18 mg/dL mg/dL (8-23) Creatinine 0.8 mg/dL mg/dL (0.7-1.2) GFR Calculation Not Reportable Glucose 101 mg/dL mg/dL (65-115) Calculated Osmolal ity 294 mOsm/kg mOsm/ kg (285-295) Calcium 9.0 mg/dL mg/dL (8.5-10.5) Total Bilirubin 0.3 mg/dL mg/dL (0.15-1.2) AST 24 U/L U/L (0-40) ALT 16 U/L U/L (0-41) Alkaline Phosphata se 66 IU/L IU/L (40-130) Creatine Kinase 376 U/L H* U/L (39-308) Troponin T Baselin e 64 ng/L H ng/L (0-15) Troponin T 120 Min squax[place] Delta Troponin T Total Protein 6.3 g/dL L g/dL (6.6-8.7) Albumin 3.7 g/dL g/dL (3.5-5.2) Globulin 2.6 g/dL g/dL (1.3-4.6) Urine Color Urine Appearance Urine pH Ur Specific Gravit y Urine Protein Urine Glucose (UA) Urine Ketones Urine Blood Urine Nitrate Urine Bilirubin Urine Urobilinogen Ur Leukocyte Constance ase 06/26/21 06/26/21 12:33 13:50 WBC RBC Hgb Hct MCV MCH MCHC RDW Plt Count MPV Neut % (Auto) Lymph % (Auto) [place] % (Auto) Eos % (Auto) Baso % (Auto) Neut # (Auto) Lymph # (Auto) [place] # (Auto) Eos # (Auto) Baso # (Auto) Nucleated RBC % (a uto) Nucleated RBCs # Sodium Potassium Chloride Carbon Dioxide Anion Gap BUN Creatinine GFR Calculation Glucose Calculated Osmolal ity Calcium Total Bilirubin AST ALT Alkaline Phosphata se Creatine Kinase Troponin T Baselin e Troponin T 120 Min [place] 59.99 ng/L H ng/L (0-15) Delta Troponin T -4.01 ABS# L ABS# (0-10) Total Protein Albumin Globulin Urine Color Dark yellow (Yellow) Urine Appearance Clear (CLEAR) Urine pH 5 (5-7) Ur Specific Gravit y 1.020 (1.005-1.030) Urine Protein Neg (Negative) Urine Glucose (UA) Norm (Normal) Urine Ketones Negative (Negative) Urine Blood Neg (Negative) Urine Nitrate Negative (Negative) Urine Bilirubin 1+ H (Negative) Urine Urobilinogen 1 mg/dL H mg/dL (Negative) Ur Leukocyte Constance ase Negative (Negative) Discharge Plan Discharge Patient Disposition: Home Clinical Impression: Fall, Lewy body dementia Condition: Stable Prescriptions: No Action atorvastatin 10 mg tablet 10 mg PO BEDTIME RF: 0 escitalopram oxalate 5 mg tablet 5 mg PO QAM RF: 0 (DME) custom orthotics 11 See Rx Instructions .Route .MEDSUPPLY Qty: 1 RF: 0 (DME) orthopedic shoes with extra deapth See Rx Instructions .Route .MEDSUPPLY Qty: 1 RF: 0 cholecalciferol (vitamin D3) 2,000 unit Tablet 2,000 unit PO QAM RF: 0 mupirocin 2 % ointment 1 applic topical BID PRN (Reason: UNKNOWN) RF: 0 omeprazole 20 mg Capsule,Delayed Release(Dr/Ec) 20 mg PO QAM RF: 0 olanzapine 10 mg tablet 10 mg PO BEDTIME RF: 0 Discharge Orders: Discharge ED (Routine); Ordered 06/26/21 Ordered By: Murphy Caruso Referrals: Jesse Perry DO [Primary Care Provider] - Discharge Diet: Usual diet Discharge Activity: Resume usual activity Patient Instructions: Opioid Safety Activity Restrictions/Additional Instructions: Follow-up with your primary care doctor for a repeat creatinine test in the next 1 to 2 days. Return if you have further problems. Coding Level of Care Code ED Collections Analyst for Mike Fwd Exam Comprehensive
[2021-06-26 11:52] LABS: Troponin(5th) Baseline 64 ng/L (0-15)
[2021-06-26 11:54] LABS: Alanine Aminotransferase 16 U/L (0-41); Albumin Level 3.7 g/dL (3.5-5.2); Alkaline Phosphatase 66 IU/L (40-130); Anion Gap 12.2 (5-19); Aspartate Amino Transferase 24 U/L (0-40); Blood Urea Nitrogen 18 mg/dL (8-23); Carbon Dioxide 30 mmol/L (22-29); Chloride 103 mmol/L (98-107); Globulin 2.6 g/dL (1.3-4.6); Glucose 101 mg/dL (65-115); Osmolality Calculated 294 mOsm/kg (285-295); Potassium 4.2 mmol/L (3.5-5.1); Sodium 141 mmol/L (136-145); Total Bilirubin 0.3 mg/dL (0.15-1.2); Total Protein 6.3 g/dL (6.6-8.7)
[2021-06-26 12:01] LABS: Creatine Phosphokinase 376 U/L (39-308)
--- NOTE | 2021-06-26 12:39 | ECG_ITS ---
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 Measurements Intervals [place] Rate: 51 P: 85 SC: 168 QRS: 63 QRSD: 97 T: 75 QT: 419 QTc: 388 Interpretive Statements SINUS BRADYCARDIA WITH SINUS ARRHYTHMIA Nonspecific T wave change Compared to ECG 06/26/2021 11:12:19 No significant changes Electronically Signed On 06-26-2021 20:49:17 BUSHER HELPER by Dior Damon M.D. [id number]
[2021-06-26 13:04] LABS: Add Urine Microscopic? NO; Charge for UA Resulting for Rev
[2021-06-26 13:10] LABS: Bilirubin Urine 1+ (Negative); Blood Urine Neg (Negative); Glucose Urine UA Norm (Normal); Ketones Urine Negative (Negative); Leukocyte Esterase Urine Negative (Negative); Nitrate Urine Negative (Negative); Protein Urine Neg (Negative); Urine Appearance Clear (CLEAR); Urine Color Dark Yellow (Yellow); Urobilinogen Urine 1 mg/dL (Negative); pH Urine 5 (5-7)
[2021-06-26 14:18] LABS: Troponin 5 2HR 59.99 ng/L (0-15)
[2021-06-26 14:19] LABS: Troponin 5 2HR Delta -4.01 ABS# (0-10)
[2021-06-26 15:02] VITALS: BP 117/69; PULSE 54; RESP 14; O2SAT 96
== END 2021-06-26 15:05 | disposition home or self-care (01) ==
PROVIDERS: Emergency Provider Family Medicine; PCP Emergency Medicine Emergency Medical Services
DX: S09.90XA Unspecified injury of head, initial encounter (principal); W01.0XXA Fall on same level from slipping, tripping and stumbling without subsequent striking against object, initial encounter; G31.83 Neurocognitive disorder with Lewy bodies; F02.80 Dementia in other diseases classified elsewhere, unspecified severity, without behavioral disturbance, psychotic disturbance, mood disturbance, and anxiety; I10 Essential (primary) hypertension; K21.9 Gastro-esophageal reflux disease without esophagitis; E78.5 Hyperlipidemia, unspecified; G20 Parkinson's disease
CPT/HCPCS: 70450; 72125; 73030; 73130; 80053; 81003; 82550; 84484; 85025; 93005; 99283

== ENCOUNTER 2021-07-08 15:34 | Inpatient (IN) | payer OTHER, MEDICARE, SELFPAY ==
[2021-07-08 15:43] VITALS: BP 124/68; PULSE 66; RESP 16; TEMP 37; O2SAT 94; BMI 28.0
--- NOTE | 2021-07-08 15:46 | ED_ITS ---
HPI - Extremity Problem General: Chief complaint: Extremity Injury, Lower Stated complaint: Left Foot Pain Time Seen by Provider: 07/08/21 15:45 PFSH ED PFSH: Medical History Acquired hallux malleus of both feet Depression Equinus contracture of ankle [place] Gastric emphysema GERD (gastroesophageal reflux disease) Hallucinations Hammertoe HLD (hyperlipidemia) Hypertension Parkinsons Rhabdomyolysis Small bowel obstruction Vitamin B 12 deficiency Surgical History H/O hand surgery History of mandibular surgery Status post tonsillectomy Family History Father CAD (coronary artery disease) Mother CAD (coronary artery disease) Social History Alcohol intake: never Lives independently: Yes Housing: House History of recent travel: No Discharge Plan Discharge Prescriptions: No Action atorvastatin 10 mg tablet 10 mg PO BEDTIME RF: 0 escitalopram oxalate 5 mg tablet 5 mg PO QAM RF: 0 (DME) custom orthotics 11 See Rx Instructions .Route .MEDSUPPLY Qty: 1 RF: 0 (DME) orthopedic shoes with extra deapth See Rx Instructions .Route .MEDSUPPLY Qty: 1 RF: 0 cholecalciferol (vitamin D3) 2,000 unit Tablet 2,000 unit PO QAM RF: 0 mupirocin 2 % ointment 1 applic topical BID PRN (Reason: UNKNOWN) RF: 0 omeprazole 20 mg Capsule,Delayed Release(Dr/Ec) 20 mg PO QAM RF: 0 olanzapine 10 mg tablet 10 mg PO BEDTIME RF: 0 Coding Level of Care Code ED Digital Photographic Printer for Mike Fwmatthew
--- NOTE | 2021-07-08 15:58 | CTR_ITS ---
PROCEDURE INFORMATION: Exam: CT Left Lower Extremity With Contrast, Foot Exam date and time: 07/08/2021 3:58 PM Age: 75 years old Clinical indication: Swelling, leg or foot and other: Sore on bottom of left foot; Additional info: Necrotic ulcer TECHNIQUE: Imaging protocol: CT of the Left lower extremity with intravenous contrast was performed. Exam focused on the foot. Radiation optimization: All CT scans at this facility use at least one of these dose optimization techniques: automated exposure control; mA and/or kV adjustment per patient size (includes targeted exams where dose is matched to clinical indication); or iterative reconstruction. Contrast material: OMNI 350; Contrast volume: 95 ml; Contrast route: INTRAVENOUS (IV); COMPARISON: MRI Foot w/wo LEFT [id number] 06/17/2019 2:43 PM RADIATION DOSE METRICS: Total DLP (mGy-cm): 170.82 FINDINGS: Bones/joints: Normal. No acute fracture or dislocation. Soft tissues: Plantar skin ulceration seen overlying the 1st metatarsal head with a 11 mm collection of fluid in this area with some subcutaneous edema suggestive of an abscess and cellulitis, negative for bony abnormality. CT/CT foot LT w con [id number] IMPRESSION: Plantar skin ulceration seen overlying the 1st metatarsal head with a 11 mm collection of fluid in this area with some subcutaneous edema suggestive of an abscess and cellulitis, negative for bony abnormality. Radiation Dose CTDIVOL = (mGy): DLP = 170.82 (mGy-cm)
--- NOTE | 2021-07-08 16:26 | PC.PHAR ---
PTS DAUGHTER VERIFIED THE PTS MEDICATIONS-[facility] FOR [facility] FA[facility] MED LIST
--- NOTE | 2021-07-08 16:36 | ED_ITS ---
Documented by User: Murphy Caruso DO 07/12/21 09:53 HPI - Extremity Problem General: Chief complaint: Extremity Injury, Lower Stated complaint: Left Foot Pain Time Seen by Provider: 07/08/21 15:45 History of Present Illness: HPI Narrative: 75-year-old male presents emergency room initially was seen in vertical flow by one of the midlevel's and handed over to me. Patient has a wound between the first and second metatarsals distally been present for some time he has not been following instructions on wound is open and necrotic appearing has foul-smelling serous drainage. He denies any fever sweats or chills. Patient does not seem to be fully cognizant of the care needs of the foot injury. This evidently initially occurred some weeks ago. MD Complaint: extremity pain and extremity swelling Onset (ago): week(s) Pain Consistency: constant Location: left (foot) Quality: aching Radiation: proximal Relieving factors: elevation Exacerbating factors: weight bearing, walking and palpation Associated symptoms: Deny arthralgias, chest pain, fever(s), myalgias, rash or short of breath Review of Systems Const: Denies: fever(s) ENMT: Denies: throat pain, ear or mastoid pain, nasal discharge or nasal congestion Card: Denies: chest pain Resp: Denies: dyspnea, productive cough or non-productive cough GI: Denies: abdominal pain, nausea, vomiting, hematemesis, coffee ground emesis, diarrhea, constipation, bloating, hematochezia or melena : Denies: flank pain, dysuria, urinary frequency or urinary urgency Skin/Breast: Denies: rash PFSH ED PFSH: Medical History Acquired hallux malleus of both feet Depression Equinus contracture of ankle [place] Gastric emphysema GERD (gastroesophageal reflux disease) Hallucinations Hammertoe HLD (hyperlipidemia) Hypertension Parkinsons Rhabdomyolysis Small bowel obstruction Vitamin B 12 deficiency Surgical History H/O hand surgery History of mandibular surgery Status post tonsillectomy Family History Father CAD (coronary artery disease) Mother CAD (coronary artery disease) Social History Alcohol intake: never Lives independently: Yes Housing: House History of recent travel: No Physical Exam Const: COMMON NORMALS: no acute distress GENERAL APPEARANCE: cooperative and comfortable ORIENTATION/CONSCIOUSNESS: Yes awake, Yes oriented to person, Yes oriented to place and Yes oriented to time HENMT: COMMON NORMALS: normocephalic, atraumatic and hearing grossly normal bilaterally HEAD & SCALP: normocephalic and atraumatic Neck/C-Spine: COMMON NORMALS: no JVD Resp: COMMON NORMALS: normal respiratory effort, No retractions, No use of accessory muscles and clear to auscultation bilaterally AUSCULTATION: clear to auscultation bilaterally Cardio: COMMON NORMALS: no JVD, regular rate, regular rhythm and No murmurs present (Cardio) RATE: regular rate RHYTHM: regular rhythm GI: COMMON NORMALS: Soft to palpation and No hepatosplenomegaly present AUSCULTATION: Yes normoactive bowel sounds PALPATION: Yes Soft to palpation, No Tenderness to palpation present (GI), No Guarding due to palpation present (GI) and Yes No hepatosplenomegaly present Extremity: COMMON NORMALS: normal to inspection, capillary refill normal, no clubbing, cyanosis or edema and no calf tenderness OTHER: Edema and swelling to the level of the malleoli on the left foot. There is gangrenous changes with a open laceration with a necrotic 6 area on the sole of the foot between the first and second distal metatarsals. There is serous drainage foul-smelling. Some the tissue discoloration is very dark black underlay underneath the overlying devascularized skin. Neuro: SENSORIUM/ORIENTATION: Yes oriented to person, Yes oriented to place and Yes oriented to time Course Vital Signs: Vital signs: Vital Signs Temperature 97.7 F 07/12/21 07:47 Pulse Rate 48 L 07/12/21 07:47 Respiratory Rate 16 07/12/21 07:47 Blood Pressure 146/84 07/12/21 07:47 Pulse Oximetry 94 07/12/21 07:47 MDM - Extremity (Nontraumatic) MDM Narrative: Medical decision making narrative: Care turned over to Dr. Cid at change of shift see his note from diagnosis and disposition. Lab Data: Labs: Lab Results 07/08/21 07/08/21 07/08/21 14:22 14:22 14:22 WBC 4.6 10^3/uL 10^3/ uL (4.0-10.0) RBC 3.29 10^6/uL L 10 ^6/uL (4.1-5.3) Hgb 10.0 g/dL L g/dL (11.7-16.6) Hct 30.4 % L % (42.0-52.0) MCV 92.4 fl fl (80-94) MCH 30.4 pg pg (28.0-34.0) MCHC 32.9 g/dL g/dL (30.0-36.0) RDW 13.3 % % (12.1-15.1) Plt Count 176 10^3/cmm 10^3 /cmm (130-400) MPV 10.1 fL fL (7.4-10.4) Neut % (Auto) 48.2 % % Lymph % (Auto) 23.6 % % Sutton % (Auto) 21.2 % % Eos % (Auto) 6.1 % % Baso % (Auto) 0.7 % % Neut # (Auto) 2.20 10^3/uL 10^3 /uL (1.8-7.7) Lymph # (Auto) 1.1 10^3/uL 10^3/ uL (0.8-4.8) Sutton # (Auto) 1.0 10^3/uL H 10^ 3/uL (0.2-0.9) Eos # (Auto) 0.3 10^3/uL 10^3/ uL (0.0-0.8) Baso # (Auto) 0.0 10^3/uL 10^3/ uL (0.0-0.1) Nucleated RBC % (a uto) 0 % % Nucleated RBCs # 0.0 /100WBC /100W BC PT 14.70 SECONDS SEC ONDS (12.1-14.9) INR 1.12 (0.8-1.2) APTT 36.6 SECONDS SECO NDS (23.9-36.7) Sodium 141 mmol/L mmol/L (136-145) Potassium 3.6 mmol/L mmol/L (3.5-5.1) Chloride 106 mmol/L mmol/L (98-107) Carbon Dioxide 30 mmol/L H mmol/ L (22-29) Anion Gap 8.6 (5-19) BUN 13 mg/dL mg/dL (8-23) Creatinine 0.8 mg/dL mg/dL (0.7-1.2) GFR Calculation Not Reportable Glucose 108 mg/dL mg/dL (65-115) Calculated Osmolal ity 293 mOsm/kg mOsm/ kg (285-295) Calcium 8.0 mg/dL L mg/dL (8.5-10.5) Total Bilirubin 0.3 mg/dL mg/dL (0.15-1.2) AST 28 U/L U/L (0-40) ALT 20 U/L U/L (0-41) Alkaline Phosphata se 67 IU/L IU/L (40-130) C-Reactive Protein 66.0 mg/L H mg/L (0.0-4.9) Total Protein 5.9 g/dL L g/dL (6.6-8.7) Albumin 3.1 g/dL L g/dL (3.5-5.2) Globulin 2.8 g/dL g/dL (1.3-4.6) Procalcitonin 07/08/21 14:22 WBC RBC Hgb Hct MCV MCH MCHC RDW Plt Count MPV Neut % (Auto) Lymph % (Auto) Sutton % (Auto) Eos % (Auto) Baso % (Auto) Neut # (Auto) Lymph # (Auto) Sutton # (Auto) Eos # (Auto) Baso # (Auto) Nucleated RBC % (a uto) Nucleated RBCs # PT INR APTT Sodium Potassium Chloride Carbon Dioxide Anion Gap BUN Creatinine GFR Calculation Glucose Calculated Osmolal ity Calcium Total Bilirubin AST ALT Alkaline Phosphata se C-Reactive Protein Total Protein Albumin Globulin Procalcitonin 0.05 ng/mL ng/mL (0-0.5) Discharge Plan Discharge Patient Disposition: Admitted As Inpatient Admit Provider: Susanne Alvarez Clinical Impression: Cellulitis Qualifiers: Site of cellulitis: extremity Site of cellulitis of extremity: lower extremity Laterality: left Qualified Code(s): L03.116 - Cellulitis of left lower limb Condition: Stable Coding Level of Care Code ED Mechanical Test Technician for [facility] Fwd Exam Detailed Documented by User: Tanja Cid MD 07/08/21 19:41 HPI - Extremity Problem General: Chief complaint: Extremity Injury, Lower Stated complaint: Left Foot Pain Time Seen by Provider: 07/08/21 15:45 PFSH ED PFSH: Medical History Acquired hallux malleus of both feet Depression Equinus contracture of ankle [place] Gastric emphysema GERD (gastroesophageal reflux disease) Hallucinations Hammertoe HLD (hyperlipidemia) Hypertension Parkinsons Rhabdomyolysis Small bowel obstruction Vitamin B 12 deficiency Surgical History H/O hand surgery History of mandibular surgery Status post tonsillectomy Family History Father CAD (coronary artery disease) Mother CAD (coronary artery disease) Social History Alcohol intake: never Lives independently: Yes Housing: House History of recent travel: No Course Vital Signs: Vital signs: Vital Signs Temperature 97.7 F 07/12/21 07:47 Pulse Rate 48 L 07/12/21 07:47 Respiratory Rate 16 07/12/21 07:47 Blood Pressure 146/84 07/12/21 07:47 Pulse Oximetry 94 07/12/21 07:47 MDM - Extremity (Nontraumatic) 2 MDM Narrative: Medical decision making narrative: I took patient over from Dr. Mariano and patient does have cellulitis along with ulcer to the leg very poor diabetic spoke to hospitalist will admit for IV antibiotics. Patient has no obvious signs of osteomyelitis. Lab Data: Labs: Lab Results 07/08/21 07/08/21 07/08/21 14:22 14:22 14:22 WBC 4.6 10^3/uL 10^3/ uL (4.0-10.0) RBC 3.29 10^6/uL L 10 ^6/uL (4.1-5.3) Hgb 10.0 g/dL L g/dL (11.7-16.6) Hct 30.4 % L % (42.0-52.0) MCV 92.4 fl fl (80-94) MCH 30.4 pg pg (28.0-34.0) MCHC 32.9 g/dL g/dL (30.0-36.0) RDW 13.3 % % (12.1-15.1) Plt Count 176 10^3/cmm 10^3 /cmm (130-400) MPV 10.1 fL fL (7.4-10.4) Neut % (Auto) 48.2 % % Lymph % (Auto) 23.6 % % Sutton % (Auto) 21.2 % % Eos % (Auto) 6.1 % % Baso % (Auto) 0.7 % % Neut # (Auto) 2.20 10^3/uL 10^3 /uL (1.8-7.7) Lymph # (Auto) 1.1 10^3/uL 10^3/ uL (0.8-4.8) Sutton # (Auto) 1.0 10^3/uL H 10^ 3/uL (0.2-0.9) Eos # (Auto) 0.3 10^3/uL 10^3/ uL (0.0-0.8) Baso # (Auto) 0.0 10^3/uL 10^3/ uL (0.0-0.1) Nucleated RBC % (a uto) 0 % % Nucleated RBCs # 0.0 /100WBC /100W BC PT 14.70 SECONDS SEC ONDS (12.1-14.9) INR 1.12 (0.8-1.2) APTT 36.6 SECONDS SECO NDS (23.9-36.7) Sodium 141 mmol/L mmol/L (136-145) Potassium 3.6 mmol/L mmol/L (3.5-5.1) Chloride 106 mmol/L mmol/L (98-107) Carbon Dioxide 30 mmol/L H mmol/ L (22-29) Anion Gap 8.6 (5-19) BUN 13 mg/dL mg/dL (8-23) Creatinine 0.8 mg/dL mg/dL (0.7-1.2) GFR Calculation Not Reportable Glucose 108 mg/dL mg/dL (65-115) Calculated Osmolal ity 293 mOsm/kg mOsm/ kg (285-295) Calcium 8.0 mg/dL L mg/dL (8.5-10.5) Total Bilirubin 0.3 mg/dL mg/dL (0.15-1.2) AST 28 U/L U/L (0-40) ALT 20 U/L U/L (0-41) Alkaline Phosphata se 67 IU/L IU/L (40-130) C-Reactive Protein 66.0 mg/L H mg/L (0.0-4.9) Total Protein 5.9 g/dL L g/dL (6.6-8.7) Albumin 3.1 g/dL L g/dL (3.5-5.2) Globulin 2.8 g/dL g/dL (1.3-4.6) Procalcitonin 07/08/21 14:22 WBC RBC Hgb Hct MCV MCH MCHC RDW Plt Count MPV Neut % (Auto) Lymph % (Auto) Sutton % (Auto) Eos % (Auto) Baso % (Auto) Neut # (Auto) Lymph # (Auto) Sutton # (Auto) Eos # (Auto) Baso # (Auto) Nucleated RBC % (a uto) Nucleated RBCs # PT INR APTT Sodium Potassium Chloride Carbon Dioxide Anion Gap BUN Creatinine GFR Calculation Glucose Calculated Osmolal ity Calcium Total Bilirubin AST ALT Alkaline Phosphata se C-Reactive Protein Total Protein Albumin Globulin Procalcitonin 0.05 ng/mL ng/mL (0-0.5) Imaging Data^: Other CT: Attestation: I personally reviewed and interpreted this imaging study as follows: Radiologist's impression: [address] [address] [address] Scan Report Signed Patient: Laith Jimenez Unit #: [id number] : 1945 Acct#:[id number] Age/Sex: 75 / M ADM Date: 07/08/21 Loc: ER Room/Bed: Attending Dr: Ordering Provider/Ordering MD: Danuta Sawyer Date of Service: 07/08/21 Procedure(s): CT foot LT w con [id number] Accession Number(s): [id number] Report Number: [id number] PROCEDURE INFORMATION: Exam: CT Left Lower Extremity With Contrast, Foot Exam date and time: 07/08/2021 3:58 PM Age: 75 years old Clinical indication: Swelling, leg or foot and other: Sore on bottom of left foot; Additional info: Necrotic ulcer TECHNIQUE: Imaging protocol: CT of the Left lower extremity with intravenous contrast was performed. Exam focused on the foot. Radiation optimization: All CT scans at this facility use at least one of these dose optimization techniques: automated exposure control; mA and/or kV adjustment per patient size (includes targeted exams where dose is matched to clinical indication); or iterative reconstruction. Contrast material: OMNI 350; Contrast volume: 95 ml; Contrast route: INTRAVENOUS (IV); COMPARISON: MRI Foot w/wo LEFT [id number] 06/17/2019 2:43 PM RADIATION DOSE METRICS: Total DLP (mGy-cm): 170.82 FINDINGS: Bones/joints: Normal. No acute fracture or dislocation. Soft tissues: Plantar skin ulceration seen overlying the 1st metatarsal head with a 11 mm collection of fluid in this area with some subcutaneous edema suggestive of an abscess and cellulitis, negative for bony abnormality. CT/CT foot LT w con [id number] IMPRESSION: Plantar skin ulceration seen overlying the 1st metatarsal head with a 11 mm collection of fluid in this area with some subcutaneous edema suggestive of an abscess and cellulitis, negative for bony abnormality. Radiation Dose CTDIVOL = (mGy): DLP = 170.82 (mGy-cm) Dictated By: Fabien Basilio MD Signed By: Fabien Basilio MD Signed Date/Time: 07/08/21 1721 DD/ 1558 Discharge Plan Discharge Patient Disposition: Admitted As Inpatient Admit Provider: Susanne Alvarez Clinical Impression: Cellulitis Qualifiers: Site of cellulitis: extremity Site of cellulitis of extremity: lower extremity Laterality: left Qualified Code(s): L03.116 - Cellulitis of left lower limb Condition: Stable Coding Level of Care Code ED Mechanical Test Technician for [facility] Fwd Exam Detailed
[2021-07-08] MEDS: iohexol 350 mg/mL 100 mL Btl IV (16:52)
[2021-07-08] MEDS: vancomycin 1,000 MG in sodium chloride 0.9% 250 ML 250 MG IV (17:10)
[2021-07-08 17:15] VITALS: BP 136/57; PULSE 64; RESP 20; O2SAT 97
[2021-07-08 18:36] LABS: Basophils % 0.7 %; Eosinophils # 0.3 10^3/uL (0.0-0.8); Eosinophils % 6.1 %; Hematocrit 30.4 % (42.0-52.0); Lymphocytes # 1.1 10^3/uL (0.8-4.8); Lymphocytes % 23.6 %; Mean Corpuscular HGB Conc 32.9 g/dL (30.0-36.0); Mean Corpuscular Hemoglobin 30.4 pg (28.0-34.0); Mean Corpuscular Volume 92.4 fl (80-94); Mean Platelet Volume 10.1 fL (7.4-10.4); Monocytes % 21.2 %; Neutrophils % 48.2 %; Nucleated Red Blood Cells % 0 %; Platelet Count 176 10^3/cmm (130-400); Red Blood Count 3.29 10^6/uL (4.1-5.3); Red Cell Distribution Width 13.3 % (12.1-15.1); White Blood Count 4.6 10^3/uL (4.0-10.0)
[2021-07-08 18:56] LABS: INR 1.12 (0.8-1.2); Partial Thromboplastin Time 36.6 SECONDS (23.9-36.7)
[2021-07-08 19:02] LABS: Alanine Aminotransferase 20 U/L (0-41); Albumin Level 3.1 g/dL (3.5-5.2); Alkaline Phosphatase 67 IU/L (40-130); Anion Gap 8.6 (5-19); Aspartate Amino Transferase 28 U/L (0-40); Blood Urea Nitrogen 13 mg/dL (8-23); Carbon Dioxide 30 mmol/L (22-29); Chloride 106 mmol/L (98-107); Globulin 2.8 g/dL (1.3-4.6); Glucose 108 mg/dL (65-115); Osmolality Calculated 293 mOsm/kg (285-295); Potassium 3.6 mmol/L (3.5-5.1); Sodium 141 mmol/L (136-145); Total Bilirubin 0.3 mg/dL (0.15-1.2); Total Protein 5.9 g/dL (6.6-8.7)
[2021-07-08 19:15] VITALS: BP 134/62; PULSE 66; RESP 18; O2SAT 98
--- NOTE | 2021-07-08 19:47 | PM.HP ---
Providers/Chief Complaint Primary Care Provider: Jesse Perry DO Chief Complaint: Left Foot Pain History of Present Illness Laith Jimenez is a 75 year old male carries history of dementia, has been living in an apartment near her daughter's home, Dr. Chew recommended care home because of his worsening dementia and Parkinson's, presented today with chief complaint of left foot pain and edema. Patient stated that he had a spider bite a few weeks ago which has gotten worse. He has been noticing leg swelling. No family member at the bedside at the time of my evaluation around 9 PM. Patient arrived in the ER around 4 PM. He is not a reliable historian. Hemodynamically stable, no leukocytosis, ESR requested, he was not septic, foot CT shows IMPRESSION: Plantar skin ulceration seen overlying the 1st metatarsal head with a 11 mm collection of fluid in this area with some subcutaneous edema suggestive of an abscess and cellulitis, negative for bony abnormality. He has penicillin allergy I will start him on vancomycin, metronidazole and cefepime, n.p.o., will need surgical intervention in the morning, Review of Systems General: Reports: ROS unobtainable due to medical condition ( underlying dementia) Medications/Allergies Home Medications Medication Instructions Recorded Confirmed Last Taken Type cholecalciferol (vitamin D3) 2,000 unit PO QAM 10/03/19 07/08/21 07/08/21 History atorvastatin 10 mg tablet 10 mg PO BEDTIME tab 04/18/20 07/08/21 07/07/21 History escitalopram oxalate 5 mg tablet 5 mg PO QAM 04/18/20 07/08/21 07/08/21 History custom orthotics #1 ea 08/15/20 07/08/21 Unknown Rx orthopedic shoes with extra deapth #1 ea 09/25/20 07/08/21 Unknown Rx olanzapine See Rx Instructions .ROUTE .COMPLEX 11/19/20 07/08/21 07/08/21 History 5 MG omeprazole 20 mg PO QAM 11/19/20 07/08/21 07/08/21 History vitamin E 1 cap PO QAM 07/08/21 07/08/21 Unknown History Allergies Allergy/AdvReac Type Severity Reaction Status Date / Time Penicillins Allergy Unknown Verified 06/17/21 12:16 ranitidine [From Zantac] Allergy Unknown Verified 06/17/21 12:16 PFSH Acute PFSH: Medical History Acquired hallux malleus of both feet Depression Equinus contracture of ankle [place] Gastric emphysema GERD (gastroesophageal reflux disease) Hallucinations Hammertoe HLD (hyperlipidemia) Hypertension Parkinsons Rhabdomyolysis Small bowel obstruction Vitamin B 12 deficiency Surgical History H/O hand surgery History of mandibular surgery Status post tonsillectomy Family History Father CAD (coronary artery disease) Mother CAD (coronary artery disease) Social History Alcohol intake: never Lives independently: Yes Housing: House History of recent travel: No Vitals/I&O/Wt Last Vital Signs Temp 98.6 F 07/08/21 15:43 Pulse 64 07/08/21 17:15 Resp 20 H 07/08/21 17:15 BP 136/57 07/08/21 17:15 Pulse Ox 97 07/08/21 17:15 Weight last 48 hrs Weight 86.183 kg Physical Exam Narrative: EXAM NARRATIVE: Patient is oriented to himself Laying in bed Left leg edema with open purulent wound of left foot, muscle layer exposed, necrotic base with serous drainage Purulent cellulitis Hyperemia of leg noted No signs of ischemic ulcer Oriented to himself Nonfocal neuro exam Parkinsonian features Abdomen hard no active signs of peritonitis S1, S2 Clinical looks euvolemic Saturating well on room air Data : 07/08/21 14:22 07/08/21 14:22 Micro: Microbiology 07/08/21 14:22 Blood Culture - Preliminary Blood SPECIMEN COLLECTED 07/08/21 14:22 Blood Culture - Preliminary Blood SPECIMEN COLLECTED A&P Assessment and plan (1) Cellulitis: Status: Acute Qualifiers: Laterality: left Site of cellulitis: extremity Site of cellulitis of extremity: lower extremity Qualified Code(s): L03.116 - Cellulitis of left lower limb (2) Weight loss, non-intentional: Status: Acute (3) Lewy body dementia: Status: Acute (4) Cellulitis and abscess of foot: Status: Acute Additional A&P Information Purulent cellulitis Start broad-spectrum antibiotics Penicillin allergy Would use vancomycin, metronidazole and cefepime Blood cultures requested in the ER He is not septic He is not diabetic, last A1c level 4.9, recheck A1c N.p.o. for intervention in the morning No family member at the bedside, kindly call his daughter in the morning to get more details DVT prophylaxis contraindicated in anticipation of surgical intervention Morphine for analgesia along bowel regimen Full code DVT prophylaxis: SCDs Attestations Medical Necessity Statement*: More than 2 midnights anticipated Time Spent in Patient Care: Greater than 35 minutes Coding Level of Care Code Acute Tapper Helper for [facility] Fwd Diagnoses Cellulitis L03.116 Laterality: left Site of cellulitis: extremity Site of cellulitis of extremity: lower extremity Weight loss, non-intentional R63.4 Lewy body dementia G31.83; F02.80 Cellulitis and abscess of foot L03.119; L02.619
[2021-07-08 20:34] LABS: Procalcitonin 0.05 ng/mL (0-0.5)
[2021-07-08 22:05] VITALS: BP 150/78; PULSE 64; RESP 17; O2SAT 97
[2021-07-08 22:58] VITALS: BP 136/72; PULSE 98; RESP 18; O2SAT 98
--- NOTE | 2021-07-08 23:58 | PC.PHAR ---
Vancomycin is dosed at 1gm IVPB every 12 hours to produce a predicted trough level of 13.34 (population based pharmacokinetic analysis). A trough level has been ordered from the lab to be obtained before the fourth dose to confirm and adjust if needed.
[2021-07-09] VITALS (13 sets, daily range): BP systolic 115–161; BP diastolic 54–82; PULSE 48–82; RESP 14–18; TEMP 36.3–36.9; O2SAT 90–99; BMI 29.0
[2021-07-09 00:49] LABS: Glucose Point of Care 103 mg/dL (70-110)
--- NOTE | 2021-07-09 01:25 | USCV_ITS ---
BarbaraLaith cassidy Age: 75 Gender: M : 1945 Exam Date: 07/09/2021 09:00 Ordering Phys: Susanne Alvarez MD Technologist: Shara Torres Exam Location[place] [facility] [place] Indication: LLE EDEMA HISTORY: Lower extremity edema. PROCEDURES: Venous duplex imaging was performed in only the left lower extremity. The following venous structures were evaluated: common femoral vein, profunda vein, proximal portion of the greater saphenous vein, superficial femoral vein, and the popliteal vein. In addition, the posterior tibial and peroneal trunk were evaluated. Serial compression, augmentation maneuvers, and spectral Doppler flow evaluation were performed. FINDINGS: Normal 2-D Doppler and augmentation and compressibility throughout the lower extremity venous structures. Additional imaging through the proximal calf veins also reveals no thrombus. Limited evaluation of the greater saphenous vein is patent with no thrombus. Small left inguinal lymph nodes Complex cystic mass with low level echos and no vascularity measuring 4.8 x 2.3 cm in the left popliteal fossa. CONCLUSIONS No DVT left lower extremity. Left popliteal fossa Long's cyst. Dr. Jen Olson DO (Electronically Signed) Final Date: 09 July 2021 10:31 S
[2021-07-09] MEDS: cefepime 2,000 MG in sodium chloride 0.9% (plus) 50 ML 100 MG IV (03:27)
[2021-07-09] MEDS: dextrose 5%-sod chloride 0.45% 1,000 ML 75 ML IV ×2 (03:28→16:29)
[2021-07-09] MEDS: vancomycin 1,000 MG in sodium chloride 0.9% 250 ML 250 MG IV ×2 (05:18→17:20)
[2021-07-09] MEDS: OLANZapine 5 mg TABLET PO (06:15)
[2021-07-09 06:46] LABS: Glucose Point of Care 82 mg/dL (70-110)
[2021-07-09 06:59] LABS: Basophils % 0.5 %; Eosinophils # 0.3 10^3/uL (0.0-0.8); Eosinophils % 6.3 %; Hemoglobin 10.4 g/dL (11.7-16.6); Lymphocytes % 25.8 %; Mean Corpuscular HGB Conc 31.5 g/dL (30.0-36.0); Mean Corpuscular Hemoglobin 29.9 pg (28.0-34.0); Mean Corpuscular Volume 94.8 fl (80-94); Mean Platelet Volume 10.5 fL (7.4-10.4); Monocytes # 0.8 10^3/uL (0.2-0.9); Monocytes % 20.5 %; Neutrophils # 1.85 10^3/uL (1.8-7.7); Neutrophils % 46.6 %; Nucleated Red Blood Cells % 0 %; Platelet Count 195 10^3/cmm (130-400); Red Blood Count 3.48 10^6/uL (4.1-5.3); Red Cell Distribution Width 13.3 % (12.1-15.1)
[2021-07-09 07:15] LABS: D Dimer 1.02 ug/mIFEU (0-0.59)
[2021-07-09 07:22] LABS: Anion Gap 10.6 (5-19); Blood Urea Nitrogen 11 mg/dL (8-23); C Reactive Protein 59.5 mg/L (0.0-4.9); Carbon Dioxide 31 mmol/L (22-29); Chloride 105 mmol/L (98-107); Glucose 81 mg/dL (65-115); Magnesium 1.7 mg/dL (1.7-2.3); Osmolality Calculated 294 mOsm/kg (285-295); Potassium 3.6 mmol/L (3.5-5.1); Sodium 143 mmol/L (136-145)
[2021-07-09 07:30] LABS: Procalcitonin 0.06 ng/mL (0-0.5)
--- NOTE | 2021-07-09 07:50 | PC.NURSE ---
Patient came to floor via stretcher from ER. Patient was unable to help transfer from [facility] to bed and was very lethargic. Patient slept most of the night after arriving with the exception of waking up to urinate. Patient was confused at one point about the IV and asked what was in his hand while holding the IV line. This nurse educated patient on the IV, line, pump and pole. Patient nodded that he understood then closed eyes. Frequent rounding was done through out shift.
[2021-07-09 08:20] LABS: Estmated Average Glucose 88; Hemoglobin A1C 4.7 % (4.0-6.0)
[2021-07-09] MEDS: metroNIDAZOLE 500 MG Tablet PO ×2 (08:24→20:21)
[2021-07-09] MEDS: sennosides-docusate Tablet 1 TAB PO (08:24)
--- NOTE | 2021-07-09 10:24 | PM.CONSULT ---
Providers/Reason For Consult Consulting Physician/Specialty*: Chu Garcia MD Reason for Consult*: Left diabetic foot infection Requesting Physician: Dr. Walter Attending Physician: Susanne Alvarez MD Primary Care Provider: Jesse Perry DO History of Present Illness History of Present Illness Chief Complaint: Left foot infection History of present illness: Laith Jimenez is a 75 year old male multiple medical comorbidities appears to be a longterm resident with worsening dementia. Patient presented to the ER with worsening left foot pain and swelling. Hospitalist note there was a history of spider bite but not clear as the patient is nonverbal to me at the time of the clinical encounter, further work-up was done in the ER. CT scan left foot shows: Plantar skin ulceration seen overlying the 1st metatarsal head with a 11 mm collection of fluid in this area with some subcutaneous edema suggestive of an abscess and cellulitis, negative for bony abnormality. Left lower extremity venous duplex that showed No DVT left lower extremity. Left popliteal fossa Long's cyst. Review of Systems General: Reports: ROS unobtainable due to medical condition Meds/Allergies Home Medications and Allergies Home Medications Medication Instructions Recorded Confirmed Last Taken Type cholecalciferol (vitamin D3) 2,000 unit PO QAM 10/03/19 07/08/21 07/08/21 History atorvastatin 10 mg tablet 10 mg PO BEDTIME tab 04/18/20 07/08/21 07/07/21 History escitalopram oxalate 5 mg tablet 5 mg PO QAM 04/18/20 07/08/21 07/08/21 History custom orthotics #1 ea 08/15/20 07/08/21 Unknown Rx orthopedic shoes with extra deapth #1 ea 09/25/20 07/08/21 Unknown Rx olanzapine See Rx Instructions .ROUTE .COMPLEX 11/19/20 07/08/21 07/08/21 History 5 MG omeprazole 20 mg PO QAM 11/19/20 07/08/21 07/08/21 History vitamin E 1 cap PO QAM 07/08/21 07/08/21 Unknown History Allergies Allergy/AdvReac Type Severity Reaction Status Date / Time Penicillins Allergy Unknown Verified 07/09/21 12:58 ranitidine [From Zantac] Allergy Unknown Verified 07/09/21 12:58 Current Medications Current Medications Generic Name Dose Route Start Last Admin Trade Name Freq PRN Reason Stop Dose Admin Cefepime HCl 2,000 mg/ Sodium 50 mls @ 100 mls/hr 07/08/21 23:33 07/09/21 04:26 Chloride IV Infused Q12H ATIF Infusion Protocol Vancomycin HCl 1,000 mg/ 250 mls @ 250 mls/hr 07/09/21 05:00 07/09/21 06:20 Sodium Chloride IV Infused Q12H ATIF Infusion Dextrose/Sodium Chloride 1,000 mls @ 75 mls/hr 07/09/21 01:30 07/09/21 03:28 Dextrose 5%-Sod Chloride 0.45% IV 75 mls/hr .[id number] ATIF Administration Insulin Human Lispro 0 unit 07/09/21 08:00 07/09/21 08:23 Insulin Lispro 100 Unit/1 Ml SUBCUT Not Given TIDWM ATIF Protocol Metronidazole 500 mg 07/08/21 23:33 07/09/21 08:24 Metronidazole 500 Mg Tablet PO 500 mg TID ATIF Administration Olanzapine 5 mg 07/09/21 06:00 07/09/21 06:15 Olanzapine 5 Mg Tablet PO 5 mg QAM ATIF Administration Senna/Docusate Sodium 1 tab 07/09/21 09:00 07/09/21 08:24 Sennosides-Docusate Tablet PO 1 tab DAILY ATIF Administration PFSH Acute PFSH: Medical History Acquired hallux malleus of both feet Depression Equinus contracture of ankle [place] Gastric emphysema GERD (gastroesophageal reflux disease) Hallucinations Hammertoe HLD (hyperlipidemia) Hypertension Parkinsons Rhabdomyolysis Small bowel obstruction Vitamin B 12 deficiency Surgical History H/O hand surgery History of mandibular surgery Status post tonsillectomy Family History Father CAD (coronary artery disease) Mother CAD (coronary artery disease) Social History Alcohol intake: never Lives independently: Yes Housing: House History of recent travel: No Vitals/I&O/Wt Last Vital Signs Temp 97.3 F L 07/09/21 08:00 Pulse 59 L 11/23/21 08:00 Resp 18 07/09/21 08:00 BP 134/70 07/09/21 08:00 Pulse Ox 93 07/09/21 08:00 07/08/21 07/09/21 07/09/21 22:59 06:59 14:59 Intake Total 550 / 550 Balance 550 / 550 Weight last 48 hrs Weight 196 lb 6.4 oz Weight 190 lb Physical Exam Narrative: EXAM NARRATIVE: Patient is conscious alert, signs of dementia BMI 29 Head and neck examination PERRLA no masses no cervical lymphadenopathy no jaundice Cardiac examination audible S1-S2 no murmurs no gallops no arrhythmias Chest is clear bilateral,abscence of Rhonchi or wheezes,no surgical emphysema Abdomen nontender nondistended soft no organomegaly guarding or rigidity/no signs of peritonitis Bilateral lower extremities well Left foot shows dorsal edema with draining sinus at the plantar aspect of the base of the left big toe. With purulent discharge, left dorsalis pedis artery was palpated with difficulty due to dorsal edema. Data Micro: Micro: Microbiology 07/08/21 14:22 Blood Culture - Pr eliminary Blood SPECIMEN [facility] 07/08/21 14:22 Blood Culture - Pr eliminary Blood SPECIMEN [facility] A&P Assessment and plan (1) Diabetic infection of left foot: After thorough history physical examination and reviewing the chart and images with my personal interpretation. I did financial counselor the patient's son-in-law [place] for incision and drainage of left foot abscess. Indications, risks, benefits alternatives all discussed with the patient's family and agreed to proceed accordingly Patient may require future surgical interventions may end up by an amputate left or [id number] Informed consent per chart Status: Acute Consult Attestations Medical Necessity Statement: Per admitting service Time Spent in Patient Care: (>than 50% of time spent in counselling and/or direct pt care on unit). Coding Level of Care Code Acute Computer Support Technician for Mike Bellamy Diagnoses Diabetic infection of left foot E11.628; L08.9
[2021-07-09 12:23] LABS: Glucose Point of Care 95 mg/dL (70-110)
--- NOTE | 2021-07-09 13:41 | ANES.PREANE2 ---
Pre-Anesthetic Assessment Pre-Anesthetic Assessment: Height/Weight: Height 1.75 m Weight 89.086 kg Temp Pulse Resp BP Pulse Ox 97.8 F 65 16 136/56 92 07/09/21 12:00 07/09/21 12:00 07/09/21 12:00 07/09/21 12:00 07/09/21 12:00 Preop Diagnosis: Abcess Proposed Procedure: Operation Date: 07/09/21 15:00 Proposed Procedures p Incision And Drainage(Left) - Chu Garcia MD Familial anesthetic complications: none Was Beta Fransisco taken within 24 hours: N/A Was Clonidine taken within 24 hours: N/A Last intake: > 8hrs Social: Social History: No alcohol and No tobacco Exam: Pre-Anes Outpt Exam: alert, oriented x 3, clear to auscultation bilaterally and regular rate & rhythm Airway: Cervical ROM: WNL MP: 3 Dentition: Other (1 tooth in back) CV/HEM: CV/HEM: HTN GI: GI: GERD Neuropsych: Neuropsych: Dementia Anesthetic Plan: ASA status: 3 Anesthesia: MAC Risk of > 500 ml blood loss (7ml/kg in children): No Meds/Allergies Current Medications: Current Medications Generic Name Dose Route Start Last Admin Trade Name Freq PRN Reason Stop Dose Admin Cefepime HCl 2,000 mg/ Sodium 50 mls @ 100 mls/ hr 07/08/21 23:33 07/09/21 04:26 Chloride IV Infused Q12H ATIF Infusion Protocol Vancomycin HCl 1,0 00 mg/ 250 mls @ 250 mls /hr 07/09/21 05:00 07/09/21 06:20 Sodium Chloride IV Infused Q12H ATIF Infusion Dextrose/Sodium Ch loride 1,000 mls @ 75 ml s/hr 07/09/21 01:30 07/09/21 03:28 Dextrose 5%-Sod Chloride 0.45% IV 75 mls/hr .[id number] ATIF Administration Insulin Human Lisp ro 0 unit 07/09/21 08:00 07/09/21 08:23 Insulin Lispro 1 00 Unit/1 Ml SUBCUT Not Given TIDWM ATIF Protocol Metronidazole 500 mg 07/08/21 23:33 07/09/21 08:24 Metronidazole 50 0 Mg Tablet PO 500 mg TID ATIF Administration Olanzapine 5 mg 07/09/21 06:00 07/09/21 06:15 Olanzapine 5 Mg Tablet PO 5 mg QAM ATIF Administration Senna/Docusate Sod ium 1 tab 07/09/21 09:00 07/09/21 08:24 Sennosides-Docus ate Tablet PO 1 tab DAILY ATIF Administration PFSH Anesthesia PFSH: Medical History Acquired hallux malleus of both feet Depression Equinus contracture of ankle [place] Gastric emphysema GERD (gastroesophageal reflux disease) Hallucinations Hammertoe HLD (hyperlipidemia) Hypertension Parkinsons Rhabdomyolysis Small bowel obstruction Vitamin B 12 deficiency Surgical History H/O hand surgery History of mandibular surgery Status post tonsillectomy Family History Father CAD (coronary artery disease) Mother CAD (coronary artery disease) Social History Alcohol intake: never Lives independently: Yes Housing: House History of recent travel: No Data Anesthesia CBC & Chem 7: 07/09/21 06:14 07/09/21 06:14 Other Labs: Laboratory Results - last 48 hr 07/08/21 07/08/21 07/08/21 14:22 14:22 14:22 WBC 4.6 RBC 3.29 L Hgb 10.0 L Hct 30.4 L MCV 92.4 MCH 30.4 MCHC 32.9 RDW 13.3 Plt Count 176 MPV 10.1 Neut % (Auto) 48.2 Lymph % (Auto) 23.6 [place] % (Auto) 21.2 Eos % (Auto) 6.1 Baso % (Auto) 0.7 Neut # (Auto) 2.20 Lymph # (Auto) 1.1 [place] # (Auto) 1.0 H Eos # (Auto) 0.3 Baso # (Auto) 0.0 Nucleated RBC % (auto) 0 Nucleated RBCs # 0.0 PT 14.70 INR 1.12 APTT 36.6 D-Dimer Sodium 141 Potassium 3.6 Chloride 106 Carbon Dioxide 30 H Anion Gap 8.6 BUN 13 Creatinine 0.8 GFR Calculation Not Reportable Glucose 108 POC Glucose Estimat Average Glucose Hemoglobin A1c Calculated Osmolality 293 Calcium 8.0 L Magnesium Total Bilirubin 0.3 AST 28 ALT 20 Alkaline Phosphatase 67 C-Reactive Protein 66.0 H Total Protein 5.9 L Albumin 3.1 L Globulin 2.8 Procalcitonin 07/08/21 07/09/21 07/09/21 14:22 00:45 06:14 WBC 4.0 RBC 3.48 L Hgb 10.4 L Hct 33.0 L MCV 94.8 H MCH 29.9 MCHC 31.5 RDW 13.3 Plt Count 195 MPV 10.5 H Neut % (Auto) 46.6 Lymph % (Auto) 25.8 [place] % (Auto) 20.5 Eos % (Auto) 6.3 Baso % (Auto) 0.5 Neut # (Auto) 1.85 Lymph # (Auto) 1.0 [place] # (Auto) 0.8 Eos # (Auto) 0.3 Baso # (Auto) 0.0 Nucleated RBC % (auto) 0 Nucleated RBCs # 0.0 PT INR APTT D-Dimer Sodium Potassium Chloride Carbon Dioxide Anion Gap BUN Creatinine GFR Calculation Glucose POC Glucose 103 Estimat Average Glucose Hemoglobin A1c Calculated Osmolality Calcium Magnesium Total Bilirubin AST ALT Alkaline Phosphatase C-Reactive Protein Total Protein Albumin Globulin Procalcitonin 0.05 07/09/21 07/09/21 07/09/21 06:14 06:14 06:14 WBC RBC Hgb Hct MCV MCH MCHC RDW Plt Count MPV Neut % (Auto) Lymph % (Auto) [place] % (Auto) Eos % (Auto) Baso % (Auto) Neut # (Auto) Lymph # (Auto) [place] # (Auto) Eos # (Auto) Baso # (Auto) Nucleated RBC % (auto) Nucleated RBCs # PT INR APTT D-Dimer 1.02 H Sodium 143 Potassium 3.6 Chloride 105 Carbon Dioxide 31 H Anion Gap 10.6 BUN 11 Creatinine 0.7 GFR Calculation Not Reportable Glucose 81 POC Glucose Estimat Average Glucose 88 Hemoglobin A1c 4.7 Calculated Osmolality 294 Calcium 8.0 L Magnesium 1.7 Total Bilirubin AST ALT Alkaline Phosphatase C-Reactive Protein 59.5 H Total Protein Albumin Globulin Procalcitonin 0.06 07/09/21 07/09/21 06:32 12:13 WBC RBC Hgb Hct MCV MCH MCHC RDW Plt Count MPV Neut % (Auto) Lymph % (Auto) [place] % (Auto) Eos % (Auto) Baso % (Auto) Neut # (Auto) Lymph # (Auto) [place] # (Auto) Eos # (Auto) Baso # (Auto) Nucleated RBC % (auto) Nucleated RBCs # PT INR APTT D-Dimer Sodium Potassium Chloride Carbon Dioxide Anion Gap BUN Creatinine GFR Calculation Glucose POC Glucose 82 95 Estimat Average Glucose Hemoglobin A1c Calculated Osmolality Calcium Magnesium Total Bilirubin AST ALT Alkaline Phosphatase C-Reactive Protein Total Protein Albumin Globulin Procalcitonin Micro: Microbiology 07/08/21 14:22 Blood Culture - Preliminary Blood SPECIMEN COLLECTED 07/08/21 14:22 Blood Culture - Preliminary Blood SPECIMEN COLLECTED Cardiac Studies: No Data to Display
[2021-07-09] MEDS: sodium chloride 0.9% 1,000 ML 30 ML IV (14:19)
--- NOTE | 2021-07-09 14:59 | P.OP_ITS ---
Operative Report Date of procedure: July 09, 2021 Pre-op Diagnosis: Left diabetic foot infection Post-op diagnosis: same Post-op Findings: Left diabetic foot abscess located at the base of the left first toe occupying the distal metatarsal phalangeal Procedure Done: 1-Incision and drainage of left diabetic foot abscess 2-Sharp and excisional debridement of abscess cavity Implants: Packing half-inch Nu Gauze impregnated and lidocaine 2% Specimens removed/disposition: Tissues for cultures and sensitivities Surgeon: Chu Garcia Registered Occupational Therapist: radiological technologist Sarina Circulating nurse Mariluz Anesthesia: MAC (Prasanna Garza) Estimated blood loss (mL): 5 IV fluids (mL): 300 Condition: stable Disposition: floor Brief History: Left diabetic foot infection Procedure: After identifying the patient holding area,Left lower extremity was marked by me, the, patient was then taken to the operative suite, was placed in supine position, IV propofol was infused by the anesthesia provider a patient wa s already on therapeutic antibiotics, prep and drape of Left lower extremity circumferentially till below the knee done under the usual sterile technique. Time-out was done verifying the patient's name/date of /planned procedure and destination after the procedure, all were in agreement Started by debridement of the ulcer located at the dorsal surface of the base of the left big toe. Sharp and debridement included necrotic tissues to the level of the muscular fascial layer without evidence of joint or bone exposure. Tissues were taken for cultures and sensitivities there was mild purulent discharge draining from the site of the ulcer Predebridement measurements 2 x 1 x 0.1 cm Post debridement measurements 3 x 1.2 x [address] to the muscular fascial layer Copious and thorough irrigation with lavage followed by 1 L of warm saline was done, followed by appropriate hemostasis, 1/2 inch Nu Gauze impregnated with lidocaine 2% was used to pack the abscess cavity. Followed by 4 x 4's, ABDs Kerlix and Tim wrap Patient tolerated the procedure well, count of instruments and sponges were completed at the end of the procedure. And then patient was taken to the recovery area in stable condition. I Was present for the whole entire procedure
--- NOTE | 2021-07-09 15:15 | SUR.PHASEI ---
PT AWAKES TO VOICE PT ASKES PERTINENT QUESTIONS ABOUT HIS FOOT, PT KNOWS NAME AND THAT HE IS IN A HOSPITAL ONLY PT QUICKLY BACK TO SLEEP . ATTEMPTED TO CALL REPORT TO FLOOR , UNABLE AT THIS TIME.
--- NOTE | 2021-07-09 15:29 | SUR.PHASEI ---
STILL WAITING TO GIVE REPORT TO FLOOR NURSE. PT SLEEPING QUIETLY
--- NOTE | 2021-07-09 15:45 | P.PN_ITS ---
Subjective Subjective: Interval history: He is sleeping, wakes up, tells me he is not been doing very well. He seems unable to identify where he is currently. Tells me he has had difficulty walking that his foot has gotten worse. Vitals/I&O/Wt Last Vital Signs Temp 97.6 F 07/09/21 15:20 Pulse 51 L 07/09/21 15:20 Resp 17 07/09/21 15:20 BP 120/66 07/09/21 15:20 Pulse Ox 91 07/09/21 15:20 07/09/21 07/09/21 07/09/21 06:59 14:59 22:59 Intake Total 550 / 550 25 / 25 Output Total 5 / 5 Balance 550 / 550 / Weight last 48 hrs Weight 89.086 kg Weight 86.183 kg Physical Exam Const: COMMON NORMALS: no acute distress; negative for patient oriented x3 GENERAL APPEARANCE: cooperative OTHER: [place]: COMMON NORMALS: oropharynx normal Neck/C-Spine: COMMON NORMALS: no JVD Resp: COMMON NORMALS: normal respiratory effort and clear to auscultation bilaterally AUSCULTATION: clear to auscultation bilaterally Cardio: COMMON NORMALS: no JVD, regular rhythm, S1 normal heart sound present, S2 normal heart sound present and No murmurs present (Cardio) RHYTHM: regular rhythm HEART SOUNDS: S1 normal heart sound present and S2 normal heart sound present GI: COMMON NORMALS: Normal to inspection, nondistended, normoactive bowel sounds present, Soft to palpation and non-tender PALPATION: Yes Soft to palpation Extremity: COMMON NORMALS: no joint enlargement and no pedal edema OTHER: Left plantar foot with noted horizontal cleft, with thickened ridges, erythema, swelling and with localized swelling under the first metatarsal, no active drainage during my examination. Prior blister noted going laterally from the same location. Neuro: COMMON NORMALS: moves all extremities; negative for patient oriented x3 Skin: COMMON NORMALS: no rashes or lesions noted GENERAL SKIN EXAM: no rashes or lesions noted Data : 07/09/21 06:14 07/09/21 06:14 Micro: Microbiology 07/08/21 14:22 Blood Culture - Preliminary Blood SPECIMEN COLLECTED 07/08/21 14:22 Blood Culture - Preliminary Blood SPECIMEN COLLECTED A&P Assessment and plan (1) Cellulitis: Cellulitis, abscess left foot, I&D today. Antibiotic treatment currently with cefepime, Flagyl and vancomycin. Follow-up cultures. PT, OT assessment. Disposition planning. No suggestion for bony abnormality on recent CT with contrast 07/08, however, additional imaging to exclude osteomyelitis may need to be revisited depending on healing. Status: Acute Qualifiers: Laterality: left Site of cellulitis: extremity Site of cellulitis of extremity: lower extremity Qualified Code(s): L03.116 - Cellulitis of left lower limb (2) Weight loss, non-intentional: Status: Acute (3) Lewy body dementia: PT, OT assessment. ST assessment. Disposition planning. Status: Acute (4) Cellulitis and abscess of foot: Status: Acute Additional A&P Information Left Long's cyst: Incidentally noted on venous venous duplex ultrasound. No DVT. Attestations Medical Necessity Statement*: Continue admission for assessment management of left foot with cellulitis, abscess, nonhealing wound. Coding Level of Care Code Acute General Warehouse Worker for [facility] Diagnoses Cellulitis L03.116 Laterality: left Site of cellulitis: extremity Site of cellulitis of extremity: lower extremity Weight loss, non-intentional R63.4 Lewy body dementia G31.83; F02.80 Cellulitis and abscess of foot L03.119; L02.619
--- NOTE | 2021-07-09 16:51 | ANE.PACU2 ---
Inpatient post-anesthesia follow up: Airway intact: Yes Vital signs: Temperature 97.6 F Pulse Rate 51 Respiratory Rate 17 Blood Pressure 120/66 Pulse Oximetry 91 Oxygen Delivery Me thod Room Air Oxygen Flow Rate 8 Fraction of Inspir ed Oxygen Hydration adequate: Yes Nausea and vomiting: No Pain level: 2 Mental status: Baseline
--- NOTE | 2021-07-09 16:58 | PC.PT ---
Attempted PT evaluation at 1645, unable to arouse patient, patient still lethargic postanesthesia from debridement received left foot at 3 PM today; will reattempt tomorrow.
--- NOTE | 2021-07-09 17:04 | PC.SLP ---
Decreased alertness reported. Unable to work with physical therapy due to inability to wake up. CASTING MACHINE ADJUSTER will attempt to follow-up with the patient tomorrow.
[2021-07-09 17:20] LABS: Glucose Point of Care 89 mg/dL (70-110)
[2021-07-09] MEDS: OLANZapine 10 mg TABLET PO (17:20)
--- NOTE | 2021-07-09 17:41 | PC.NURSE ---
family requesting that patient have food to eat. press writer explained we have an order for Speech Eval prior to eating. daughter wanted press writer to contact Dr about this. Dr Walter said we can do bedside swallow test when patient is awake. patient is awake, press writer done bedside swallow test. press writer notified Dr Walter that patient was able to eat applesauce, jello, pudding, and ice cream with no problems and drink water with no problems.
[2021-07-09] MEDS: morphine IR 15 mg Tablet PO (20:20)
[2021-07-09 21:16] LABS: Glucose Point of Care 106 mg/dL (70-110)
[2021-07-10] VITALS (7 sets, daily range): BP systolic 103–160; BP diastolic 55–77; PULSE 54–69; RESP 16–21; TEMP 36.4–36.9; O2SAT 90–95
[2021-07-10] MEDS: cefepime 2,000 MG in sodium chloride 0.9% (plus) 50 ML 100 MG IV ×2 (03:12→15:07)
[2021-07-10 05:23] LABS: Basophils # 0.1 10^3/uL (0.0-0.1); Eosinophils # 0.3 10^3/uL (0.0-0.8); Eosinophils % 5.8 %; Hematocrit 33.9 % (42.0-52.0); Hemoglobin 10.4 g/dL (11.7-16.6); Lymphocytes # 1.7 10^3/uL (0.8-4.8); Lymphocytes % 34.6 %; Mean Corpuscular HGB Conc 30.7 g/dL (30.0-36.0); Mean Corpuscular Hemoglobin 29.5 pg (28.0-34.0); Mean Corpuscular Volume 96.3 fl (80-94); Mean Platelet Volume 10.6 fL (7.4-10.4); Monocytes # 0.9 10^3/uL (0.2-0.9); Neutrophils # 1.88 10^3/uL (1.8-7.7); Neutrophils % 39.2 %; Nucleated Red Blood Cells % 0 %; Platelet Count 191 10^3/cmm (130-400); Red Blood Count 3.52 10^6/uL (4.1-5.3); Red Cell Distribution Width 13.2 % (12.1-15.1); White Blood Count 4.8 10^3/uL (4.0-10.0)
[2021-07-10 05:42] LABS: Alanine Aminotransferase 17 U/L (0-41); Albumin Level 2.7 g/dL (3.5-5.2); Alkaline Phosphatase 56 IU/L (40-130); Aspartate Amino Transferase 21 U/L (0-40); Blood Urea Nitrogen 7 mg/dL (8-23); Calcium 8.1 mg/dL (8.5-10.5); Carbon Dioxide 28 mmol/L (22-29); Chloride 104 mmol/L (98-107); Globulin 3.2 g/dL (1.3-4.6); Glucose 83 mg/dL (65-115); Osmolality Calculated 285 mOsm/kg (285-295); Sodium 139 mmol/L (136-145); Total Bilirubin 0.5 mg/dL (0.15-1.2); Total Protein 5.9 g/dL (6.6-8.7)
[2021-07-10 05:56] LABS: Vancomycin Trough 13.7 ug/mL (10-15)
[2021-07-10 06:45] LABS: Glucose Point of Care 84 mg/dL (70-110)
[2021-07-10] MEDS: dextrose 5%-sod chloride 0.45% 1,000 ML 75 ML IV ×2 (06:46→19:10)
[2021-07-10] MEDS: vancomycin 1,000 MG in sodium chloride 0.9% 250 ML 250 MG IV ×2 (06:50→16:52)
[2021-07-10] MEDS: OLANZapine 5 mg TABLET PO (06:53)
[2021-07-10] MEDS: metroNIDAZOLE 500 MG Tablet PO ×3 (08:37→20:35)
[2021-07-10] MEDS: sennosides-docusate Tablet 1 TAB PO (08:37)
[2021-07-10 11:27] LABS: Glucose Point of Care 123 mg/dL (70-110)
--- NOTE | 2021-07-10 12:19 | P.PN_ITS ---
Subjective Subjective: Interval history: Overall patient is about the same Medications: Reviewed: Yes Vitals/I&O/Wt Last Vital Signs Temp 97.6 F 07/10/21 08:00 Pulse 59 L 07/10/21 09:35 Resp 18 07/10/21 09:35 BP 145/76 07/10/21 08:00 Pulse Ox 93 07/10/21 09:35 07/09/21 07/10/21 07/10/21 22:59 06:59 14:59 Intake Total 1787.25 / 1787.25 1170 / 2957.25 610 / 610 Output Total 205 / 205 150 / 355 Balance 1582.25 / 1582.25 1020 / 2602.25 610 / 610 Weight last 48 hrs Weight 196 lb 6.4 oz Weight 190 lb Physical Exam Narrative: EXAM NARRATIVE: Patient is conscious alert, signs of dementia Left foot ulcer bed is clean with mild residual necrotic tissues. Bedside packing was done using half inch Nu Gauze wet-to-dry followed by 4 x 4's Kerlix and Tim wrap Data : 07/10/21 04:10 07/10/21 04:10 Micro: Microbiology 07/09/21 Unknown Gram Stain - Final Foot - Left Tissue Culture - Preliminary Gram Negative Rods 07/08/21 14:22 Blood Culture - Preliminary Blood NEGATIVE TO DATE 07/08/21 14:22 Blood Culture - Preliminary Blood NEGATIVE TO DATE A&P Assessment and plan (1) Diabetic infection of left foot: Assessment Patient is a status post I&D of left diabetic foot abscess 07/09/2021 Plan 1-nutrition optimization 2-wound care in the form of Daily packing of the wound using half inch Nu Gauze wet-to-dry followed by 4 x 4's Kerlix and Tim wrap 3-management of medical comorbidities Per hospitalist service 4-physical therapy consultation when needed 5-assurance and education From general surgery standpoint of view patient can go to [facility] with local wound care instruction Upon discharge patient can follow-up with me in the wound care center as needed All questions have been answered and all concerns have been addressed to patient's satisfaction. Status: Acute Attestations 2 Medical Necessity Statement*: Per hospitalist service Time Spent in Patient Care: 16 - 35 minutes (>than 50% of time spent in counselling and/or direct pt care on unit) . Coding Level of Care Code Acute Hospital Chief Executive Officer for [facility] Diagnoses Diabetic infection of left foot E11.628; L08.9
[2021-07-10 16:58] LABS: Glucose Point of Care 92 mg/dL (70-110)
--- NOTE | 2021-07-10 20:59 | P.PN_ITS ---
Subjective Subjective: Interval history: Foot is hurting him. Otherwise doing okay. No chest pain or pressure no trouble breathing. Vitals/I&O/Wt Last Vital Signs Temp 98.4 F 07/10/21 20:00 Pulse 69 07/10/21 20:00 Resp 18 07/10/21 20:00 BP 126/68 07/10/21 20:00 Pulse Ox 91 07/10/21 20:00 07/10/21 07/10/21 07/10/21 06:59 14:59 22:59 Intake Total 1170 / 2957.25 610 / 610 1590 / 2200 Output Total 150 / 355 100 / 100 Balance 1020 / 2602.25 510 / 510 1590 / 2100 Weight last 48 hrs Weight 89.086 kg Physical Exam Const: COMMON NORMALS: no acute distress; negative for patient oriented x3 GENERAL APPEARANCE: cooperative OTHER: [place] H[place]MT: COMMON NORMALS: oropharynx normal Neck/C-Spine: COMMON NORMALS: no JVD Resp: COMMON NORMALS: normal respiratory effort and clear to auscultation bilaterally AUSCULTATION: clear to auscultation bilaterally Cardio: COMMON NORMALS: no JVD, regular rhythm, S1 normal heart sound present, S2 normal heart sound present and No murmurs present (Cardio) RHYTHM: regular rhythm HEART SOUNDS: S1 normal heart sound present and S2 normal heart sound present GI: COMMON NORMALS: Normal to inspection, nondistended, normoactive bowel sounds present, Soft to palpation and non-tender PALPATION: Yes Soft to palpation Extremity: COMMON NORMALS: no joint enlargement and no pedal edema OTHER: Clean dressing over left foot. Neuro: COMMON NORMALS: moves all extremities; negative for patient oriented x3 Skin: COMMON NORMALS: no rashes or lesions noted GENERAL SKIN EXAM: no rashes or lesions noted Data : 07/10/21 04:10 07/10/21 04:10 Micro: Microbiology 07/09/21 Unknown Gram Stain - Final Foot - Left Tissue Culture - Preliminary Gram Negative Rods 07/08/21 14:22 Blood Culture - Preliminary Blood NEGATIVE TO DATE 07/08/21 14:22 Blood Culture - Preliminary Blood NEGATIVE TO DATE A&P Assessment and plan (1) Cellulitis: Continue antibiotics for cellulitis. Status post I&D of abscess of left plantar foot. Cefepime, Flagyl and vancomycin. Follow-up cultures. So far growing gram- negative rods. PT, OT. Disposition planning with placement to [facility] as patient with dementia, living alone unable to care for his wound. No suggestion for bony abnormality on recent CT with contrast 07/08, however, additional imaging to exclude osteomyelitis may need to be revisited depending on healing. Status: Acute Qualifiers: Laterality: left Site of cellulitis: extremity Site of cellulitis of extremity: lower extremity Qualified Code(s): L03.116 - Cellulitis of left lower limb (2) Weight loss, non-intentional: Status: Acute (3) Lewy body dementia: PT, OT assessment. ST assessment. Disposition planning. Status: Acute (4) Cellulitis and abscess of foot: Status: Acute Additional A&P Information Left Long's cyst: Incidentally noted on venous venous duplex ultrasound. No DVT. Attestations Medical Necessity Statement*: Continue treatment of cellulitis, status post I &D left plantar nonhealing wound, and gentleman with dementia living alone, continued disposition planning and arrangements. 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
[2021-07-10 21:08] LABS: Glucose Point of Care 97 mg/dL (70-110)
[2021-07-11] MEDS: cefepime 2,000 MG in sodium chloride 0.9% (plus) 50 ML 100 MG IV ×2 (01:36→16:55)
[2021-07-11 04:26] VITALS: BP 128/70; PULSE 98; RESP 15; TEMP 37; O2SAT 92
[2021-07-11] MEDS: vancomycin 1,000 MG in sodium chloride 0.9% 250 ML 250 MG IV ×2 (05:09→18:13)
[2021-07-11] MEDS: OLANZapine 5 mg TABLET PO (05:09)
[2021-07-11 06:07] LABS: Glucose Point of Care 96 mg/dL (70-110)
[2021-07-11 06:07] LABS: Basophils % 0.9 %; Eosinophils # 0.3 10^3/uL (0.0-0.8); Hematocrit 31.6 % (42.0-52.0); Hemoglobin 9.8 g/dL (11.7-16.6); Lymphocytes # 0.9 10^3/uL (0.8-4.8); Lymphocytes % 20.2 %; Mean Corpuscular Hemoglobin 29.5 pg (28.0-34.0); Mean Corpuscular Volume 95.2 fl (80-94); Mean Platelet Volume 9.9 fL (7.4-10.4); Monocytes # 0.9 10^3/uL (0.2-0.9); Monocytes % 21.2 %; Neutrophils # 2.21 10^3/uL (1.8-7.7); Neutrophils % 51.5 %; Nucleated Red Blood Cells % 0 %; Platelet Count 196 10^3/cmm (130-400); Red Blood Count 3.32 10^6/uL (4.1-5.3); White Blood Count 4.3 10^3/uL (4.0-10.0)
[2021-07-11 06:33] LABS: Alanine Aminotransferase 14 U/L (0-41); Albumin Level 2.9 g/dL (3.5-5.2); Alkaline Phosphatase 58 IU/L (40-130); Anion Gap 11.7 (5-19); Aspartate Amino Transferase 21 U/L (0-40); Blood Urea Nitrogen 10 mg/dL (8-23); Calcium 8.2 mg/dL (8.5-10.5); Carbon Dioxide 26 mmol/L (22-29); Chloride 103 mmol/L (98-107); Globulin 2.7 g/dL (1.3-4.6); Glucose 90 mg/dL (65-115); Osmolality Calculated 283 mOsm/kg (285-295); Potassium 3.7 mmol/L (3.5-5.1); Sodium 137 mmol/L (136-145); Total Bilirubin 0.3 mg/dL (0.15-1.2); Total Protein 5.6 g/dL (6.6-8.7)
[2021-07-11 08:00] VITALS: BP 151/73; PULSE 63; RESP 16; TEMP 37; O2SAT 94
[2021-07-11] MEDS: dextrose 5%-sod chloride 0.45% 1,000 ML 75 ML IV (08:43)
[2021-07-11 11:38] LABS: Glucose Point of Care 100 mg/dL (70-110)
[2021-07-11 12:00] VITALS: BP 130/71; PULSE 68; RESP 17; TEMP 37; O2SAT 95
--- NOTE | 2021-07-11 13:39 | PM.PN ---
Subjective Subjective: Interval history: Does not remember where he is, after several tries tells me the year. Not bothered by his foot as much today. Vitals/I&O/Wt Last Vital Signs Temp 98.6 F 07/11/21 12:00 Pulse 68 07/11/21 12:00 Resp 17 07/11/21 12:00 BP 130/71 07/11/21 12:00 Pulse Ox 95 07/11/21 12:00 07/10/21 07/11/21 07/11/21 22:59 06:59 14:59 Intake Total 1590 / 2200 300 / 2500 1120 / 1120 Output Total 150 / 250 Balance 1440 / 1950 300 / 2250 1120 / 1120 Physical Exam Const: COMMON NORMALS: no acute distress; negative for patient oriented x3 GENERAL APPEARANCE: cooperative OTHER: [place] HENMT: COMMON NORMALS: oropharynx normal Neck/C-Spine: COMMON NORMALS: no JVD Resp: COMMON NORMALS: normal respiratory effort and clear to auscultation bilaterally AUSCULTATION: clear to auscultation bilaterally Cardio: COMMON NORMALS: no JVD, regular rhythm, S1 normal heart sound present, S2 normal heart sound present and No murmurs present (Cardio) RHYTHM: regular rhythm HEART SOUNDS: S1 normal heart sound present and S2 normal heart sound present GI: COMMON NORMALS: Normal to inspection, nondistended, normoactive bowel sounds present, Soft to palpation and non-tender PALPATION: Yes Soft to palpation Extremity: COMMON NORMALS: no joint enlargement and no pedal edema OTHER: Clean dressing over left foot. Neuro: COMMON NORMALS: moves all extremities; negative for patient oriented x3 Skin: COMMON NORMALS: no rashes or lesions noted GENERAL SKIN EXAM: no rashes or lesions noted Data : 07/11/21 05:54 07/11/21 05:54 Micro: Microbiology 07/09/21 Unknown Gram Stain - Final Foot - Left Tissue Culture - Preliminary Enterobacter cloacae A&P Assessment and plan (1) Cellulitis: Cellulitis is decreasing. Status post I&D of abscess of left plantar foot. Enterobacter cloacae growing in the wound. Continue cefepime, vancomycin for now. Stop Flagyl. PT, OT. Disposition planning with placement to [facility] as patient with dementia, living alone unable to care for his wound. No suggestion for bony abnormality on recent CT with contrast 07/08, however, additional imaging to exclude osteomyelitis may need to be revisited depending on healing. Status: Acute Qualifiers: Laterality: left Site of cellulitis: extremity Site of cellulitis of extremity: lower extremity Qualified Code(s): L03.116 - Cellulitis of left lower limb (2) Weight loss, non-intentional: Status: Acute (3) Lewy body dementia: PT, OT assessment. ST assessment. Disposition planning. Status: Acute (4) Cellulitis and abscess of foot: Status: Acute Additional A&P Information Left Long's cyst: Incidentally noted on venous venous duplex ultrasound. No DVT. Attestations Medical Necessity Statement*: Continue treatment of nonhealing infected wound of left foot status post I&D of abscess, treatment of cellulitis which is improving, and gentleman with dementia, who is on his own at home, unable to care for his wound. Disposition arrangements for [facility]. 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
--- NOTE | 2021-07-11 14:58 | PC.SOCIAL ---
Pg 2 IMM Explained to pt's daughter, January, via phone Pg 2 IMM. No questions voiced. Provided pt a copy. Initialed, dated, & timed a copy & placed in chart.
[2021-07-11 16:00] VITALS: BP 160/79; PULSE 53; RESP 15; TEMP 36.9; O2SAT 95
[2021-07-11 17:37] LABS: Glucose Point of Care 100 mg/dL (70-110)
[2021-07-11] MEDS: OLANZapine 10 mg TABLET PO (18:14)
[2021-07-11 20:00] VITALS: BP 162/80; PULSE 60; RESP 16; TEMP 36.9; O2SAT 96
[2021-07-11 21:30] LABS: Glucose Point of Care 105 mg/dL (70-110)
[2021-07-12] VITALS: BP 158/78; PULSE 60; RESP 16; TEMP 36.8; O2SAT 94
[2021-07-12] MEDS: dextrose 5%-sod chloride 0.45% 1,000 ML 75 ML IV (02:54)
[2021-07-12] MEDS: cefepime 2,000 MG in sodium chloride 0.9% (plus) 50 ML 100 MG IV (02:56)
[2021-07-12 04:00] VITALS: BP 161/79; PULSE 61; RESP 17; TEMP 36.7; O2SAT 95
[2021-07-12] MEDS: vancomycin 1,000 MG in sodium chloride 0.9% 250 ML 250 MG IV (04:59)
[2021-07-12] MEDS: OLANZapine 5 mg TABLET PO (05:01)
[2021-07-12 05:07] LABS: Basophils # 0.1 10^3/uL (0.0-0.1); Basophils % 1.4 %; Eosinophils # 0.3 10^3/uL (0.0-0.8); Eosinophils % 8.2 %; Hematocrit 33.4 % (42.0-52.0); Hemoglobin 10.4 g/dL (11.7-16.6); Lymphocytes # 1.1 10^3/uL (0.8-4.8); Lymphocytes % 27.3 %; Mean Corpuscular HGB Conc 31.1 g/dL (30.0-36.0); Mean Corpuscular Hemoglobin 29.5 pg (28.0-34.0); Mean Corpuscular Volume 94.6 fl (80-94); Mean Platelet Volume 10.2 fL (7.4-10.4); Monocytes % 24.7 %; Neutrophils # 1.59 10^3/uL (1.8-7.7); Neutrophils % 38.2 %; Nucleated Red Blood Cells % 0 %; Platelet Count 204 10^3/cmm (130-400); Red Blood Count 3.53 10^6/uL (4.1-5.3); Red Cell Distribution Width 13.1 % (12.1-15.1); White Blood Count 4.2 10^3/uL (4.0-10.0)
[2021-07-12 05:36] LABS: Alanine Aminotransferase 17 U/L (0-41); Albumin Level 2.7 g/dL (3.5-5.2); Alkaline Phosphatase 58 IU/L (40-130); Anion Gap 10.3 (5-19); Aspartate Amino Transferase 22 U/L (0-40); Blood Urea Nitrogen 8 mg/dL (8-23); Calcium 9.1 mg/dL (8.5-10.5); Carbon Dioxide 30 mmol/L (22-29); Chloride 107 mmol/L (98-107); Globulin 3.5 g/dL (1.3-4.6); Glucose 94 mg/dL (65-115); Osmolality Calculated 294 mOsm/kg (285-295); Potassium 4.3 mmol/L (3.5-5.1); Sodium 143 mmol/L (136-145); Total Bilirubin 0.4 mg/dL (0.15-1.2); Total Protein 6.2 g/dL (6.6-8.7)
[2021-07-12 06:44] LABS: Glucose Point of Care 86 mg/dL (70-110)
[2021-07-12 07:33] VITALS: PULSE 55; RESP 18; O2SAT 94
[2021-07-12 07:47] VITALS: BP 146/84; PULSE 48; RESP 16; TEMP 36.5; O2SAT 94
[2021-07-12] MEDS: sennosides-docusate Tablet 1 TAB PO (08:36)
--- NOTE | 2021-07-12 10:19 | PC.SLP ---
Patient was not asleep when the therapist arrived. The patient would not wake up with verbal prompts. Per nursing and nursing services manager, the patient was fed and required verbal prompts to continue eating. Per their report, he ate his entire breakfast, without any signs or symptoms of coughing.
--- NOTE | 2021-07-12 10:49 | PM.DCS ---
Discharge Providers Date of Admission: 07/08/21 19:39 Date of Discharge: July 12, 2021 Attending Provider at Admission: Susanne Alvarez MD Attending Provider at Discharge: Ta Walter Primary Care Provider: Jsese Perry DO Diagnoses at Discharge Discharge Diagnosis (1) Cellulitis: Status: Acute Qualifiers: Laterality: left Site of cellulitis: extremity Site of cellulitis of extremity: lower extremity Qualified Code(s): L03.116 - Cellulitis of left lower limb (2) Weight loss, non-intentional: Status: Acute (3) Lewy body dementia: Status: Acute (4) Cellulitis and abscess of foot: Status: Acute Reason for Visit Reason for Visit: Left Foot Pain Hospital Course Hospital Course Pleasant 75-year-old gentleman with history of Lewy body dementia, parkinsonism, HTN, HLD, other comorbidities, living alone, has been having worsening left foot pain, swelling, wound for which he has been unable to care. On presentation with cellulitis, wound of distal plantar foot, on CT with noted ulceration overlying first metatarsal head with 1.1 cm collection of fluid in the area with subcutaneous edema suggestive of abscess and cellulitis. No bony abnormality. Venous duplex of left lower extremity without DVT. Incidentally noted left popliteal fossa Long's cyst. Received treatment with antibiotics with cefepime, vancomycin 1 hour hospital, was assessed by surgery, underwent I&D of abscess on 07/09 uneventfully, with cultures growing Enterobacter cloacae resistant to Augmentin, Unasyn, cefuroxime. Clinically has been improving, with improvement in swelling, cellulitis, will complete course of antibiotics after discharge. Continue wound care as per instructions. Follow-up with wound care clinic. Physical Exam Const: COMMON NORMALS: no acute distress and patient oriented x3 (Says is here bc has problems. Asking to clarify says problems w his leg.) GENERAL APPEARANCE: cooperative OTHER: [place] HENMT: COMMON NORMALS: oropharynx normal Neck/C-Spine: COMMON NORMALS: no JVD Resp: COMMON NORMALS: normal respiratory effort and clear to auscultation bilaterally AUSCULTATION: clear to auscultation bilaterally Cardio: COMMON NORMALS: no JVD, regular rhythm, S1 normal heart sound present, S2 normal heart sound present and No murmurs present (Cardio) RHYTHM: regular rhythm HEART SOUNDS: S1 normal heart sound present and S2 normal heart sound present GI: COMMON NORMALS: Normal to inspection, nondistended, normoactive bowel sounds present, Soft to palpation and non-tender PALPATION: Yes Soft to palpation Extremity: COMMON NORMALS: no joint enlargement and no pedal edema OTHER: Clean dressing over left foot. Neuro: COMMON NORMALS: patient oriented x3 (Says is here bc has problems. Asking to clarify says problems w his leg.) and moves all extremities Skin: COMMON NORMALS: no rashes or lesions noted GENERAL SKIN EXAM: no rashes or lesions noted Discharge Data Data Completed and Pending: Completed Studies During Hospitalization Category Date Time Status CT foot LT w con [id number] Urgent Cat Scan 07/08/21 15:58 [place] [id number] Routin e Ultrasound 07/09/21 01:25 Completed Pending at discharge Category Date Time Status ES surgery / GI i mages Routine Exams 07/09/21 14:54 Ordered Blood Culture Sta t Lab 07/08/21 14:22 Results Erythrocyte Sedim entation Rate Stat Lab 07/08/21 14:22 Received SARS Covid-2 Anti gen Routine Lab 07/12/21 10:21 Ordered Tissue Culture an d Gram Stain Routi ne Lab 07/09/21 Results Labs from last 24 hours 07/12/21 07/12/21 07/12/21 06:39 04:40 04:40 WBC 4.2 RBC 3.53 L Hgb 10.4 L Hct 33.4 L MCV 94.6 H MCH 29.5 MCHC 31.1 RDW 13.1 Plt Count 204 MPV 10.2 Neut % (Auto) 38.2 Lymph % (Auto) 27.3 [place] % (Auto) 24.7 Eos % (Auto) 8.2 Baso % (Auto) 1.4 Neut # (Auto) 1.59 L Lymph # (Auto) 1.1 [place] # (Auto) 1.0 H Eos # (Auto) 0.3 Baso # (Auto) 0.1 Nucleated RBC % (a uto) 0 Nucleated RBCs # 0.0 Sodium 143 Potassium 4.3 Chloride 107 Carbon Dioxide 30 H Anion Gap 10.3 BUN 8 Creatinine 0.9 GFR Calculation Not Reportable Glucose 94 POC Glucose 86 Calculated Osmolal ity 294 Calcium 9.1 Total Bilirubin 0.4 AST 22 ALT 17 Alkaline Phosphata se 58 Total Protein 6.2 L Albumin 2.7 L Globulin 3.5 07/11/21 07/11/21 07/11/21 21:28 17:32 11:12 WBC RBC Hgb Hct MCV MCH MCHC RDW Plt Count MPV Neut % (Auto) Lymph % (Auto) [place] % (Auto) Eos % (Auto) Baso % (Auto) Neut # (Auto) Lymph # (Auto) [place] # (Auto) Eos # (Auto) Baso # (Auto) Nucleated RBC % (a uto) Nucleated RBCs # Sodium Potassium Chloride Carbon Dioxide Anion Gap BUN Creatinine GFR Calculation Glucose POC Glucose 105 100 100 Calculated Osmolal ity Calcium Total Bilirubin AST ALT Alkaline Phosphata se Total Protein Albumin Globulin Vitals: Last Vital Signs Temp 97.7 F 07/12/21 07:47 Pulse 48 L 07/12/21 07:47 Resp 16 07/12/21 07:47 BP 146/84 07/12/21 07:47 Pulse Ox 94 07/12/21 07:47 Discharge Plan Discharge Patient Disposition: Xfer SNF Condition: Stable Prescriptions: New ciprofloxacin HCl 500 mg tablet 500 mg PO BID Qty: 7 RF: 0 doxycycline hyclate 100 mg tablet 100 mg PO BID 5 Days Qty: 10 RF: 0 Continued atorvastatin 10 mg tablet 10 mg PO BEDTIME RF: 0 escitalopram oxalate 5 mg tablet 5 mg PO QAM RF: 0 (DME) custom orthotics 11 See Rx Instructions .Route .MEDSUPPLY Qty: 1 RF: 0 (DME) orthopedic shoes with extra deapth See Rx Instructions .Route .MEDSUPPLY Qty: 1 RF: 0 cholecalciferol (vitamin D3) 2,000 unit Tablet 2,000 unit PO QAM RF: 0 omeprazole 20 mg Capsule,Delayed Release(Dr/Ec) 20 mg PO QAM RF: 0 olanzapine 10 mg tablet See Rx Instructions .ROUTE .COMPLEX RF: 0 vitamin E 1 cap PO QAM RF: 0 Discharge Orders: Discharge Order (Routine); Ordered 07/12/21 Ordered By: Ta Walter Referrals: SNF, PCP [Other] - 4-7 days Wound Care [Provider Group] Jesse Perry DO [Primary Care Provider] - Discharge Diet: As Directed Discharge Activity: Increase activity as tolerated and As per PT/OT instructions Activity Restrictions/Additional Instructions: Wound: Using aseptic technique cleanse with normal saline, daily packing of the wound using half inch Nu Gauze wet-to-dry followed by 4 x 4's Kerlix and Tim wrap. Complete antibiotic course. Follow-up with wound care. Maintain dysphagia level 2 diet, ground solids, thin liquids. Aspiration precautions. Add Ensure with meals. Fall precautions. PT, OT, ST. Discharge Attestations Time Spent in Discharge Care*: greater than 30 min Status at Discharge: Cognitive status at discharge: cognitively intact, Behavioral status at discharge: cooperative, Quality Metrics Clinical Quality Measures During this hospital stay, did patient experience: None Coding Level of Care Code Acute Chg FW DC note Diagnoses Cellulitis L03.116 Laterality: left Site of cellulitis: extremity Site of cellulitis of extremity: lower extremity Weight loss, non-intentional R63.4 Lewy body dementia G31.83; F02.80 Cellulitis and abscess of foot L03.119; L02.619
[2021-07-12 11:29] VITALS: BP 136/76; PULSE 57; RESP 16; TEMP 36.4; O2SAT 90
[2021-07-12 11:42] LABS: SARS Covid-2 Antigen Negative (Negative)
[2021-07-12 11:57] LABS: Glucose Point of Care 117 mg/dL (70-110)
--- NOTE | 2021-07-12 12:00 | PC.NURSE ---
Called and gave report to WENCESLAO Owusu at [facility]
[2021-07-12 12:29] VITALS: BP 136/76; PULSE 57; RESP 16; TEMP 36.4; O2SAT 90
[2021-07-15 12:10] LABS: Erythrocyte Sedimentation Rate 17 mm/hr (0-10)
== END 2021-07-12 12:30 | disposition skilled nursing facility (03) | DRG 580 ==
LOC: ER 19:40 → MEDSURG 21:34
PROVIDERS: Physician Assistant; Surgery; Admitting Provider Internal Medicine; Emergency Provider Emergency Medicine; PCP Emergency Medicine Emergency Medical Services; Visit Provider Internal Medicine
PROC: 0KBW0ZZ Excision of Left Foot Muscle, Open Approach (ICD-10-PCS; principal; 2021-07-09 14:50)
DX: L03.116 Cellulitis of left lower limb (principal); L02.612 Cutaneous abscess of left foot; F32.A Depression, unspecified; M24.573 Contracture, unspecified ankle; Z91.81 History of falling; K21.9 Gastro-esophageal reflux disease without esophagitis; E78.5 Hyperlipidemia, unspecified; I10 Essential (primary) hypertension; E53.8 Deficiency of other specified B group vitamins; G31.83 Neurocognitive disorder with Lewy bodies; F02.80 Dementia in other diseases classified elsewhere, unspecified severity, without behavioral disturbance, psychotic disturbance, mood disturbance, and anxiety; M71.22 Synovial cyst of popliteal space [Baker], left knee
CPT/HCPCS: 36415; 36416; 73701; 80048; 80053; 80202; 82962; 83036; 83735; 84145; 85025; 85378; 85610; 85651; 85730; 86140; 87040; 87070; 87077; 87176; 87186; 87205; 87426; 92526; 92610; 93971; 96365; 97110; 97161; 97165; 97535; 99285; J0692; J1100; J2405; J2704; J3010; J3370; J7030; J7050; J7799; Q9967

== ENCOUNTER 2021-08-01 02:19 | Emergency (ER) | payer OTHER, SELFPAY ==
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
[2021-08-01 02:30] VITALS: BP 152/78; PULSE 56; RESP 17; TEMP 36.2; O2SAT 98; BMI 28.0
--- NOTE | 2021-08-01 02:57 | PC.NURSE ---
75 yo male brought in after fall at residential. EMS stated nursing staff found patient entangled in bedding. he stated he was trying to get up to use the bathroom. No LOC. has 3 cm lac to left occipital. bleeding is controlled.
[2021-08-01 03:50] VITALS: BP 122/62; PULSE 56; RESP 16; O2SAT 97
--- NOTE | 2021-08-01 04:54 | PC.NURSE ---
Report called to WENCESLAO Esteves @ [facility]. questions answered
[2021-08-01 07:20] VITALS: BP 173/96; PULSE 55; RESP 18; O2SAT 92
== END 2021-08-01 07:23 | disposition home or self-care (01) ==
PROVIDERS: Emergency Provider Emergency Medicine; PCP Emergency Medicine Emergency Medical Services
DX: S01.01XA Laceration without foreign body of scalp, initial encounter (principal); W01.0XXA Fall on same level from slipping, tripping and stumbling without subsequent striking against object, initial encounter; I10 Essential (primary) hypertension; E78.5 Hyperlipidemia, unspecified; F02.80 Dementia in other diseases classified elsewhere, unspecified severity, without behavioral disturbance, psychotic disturbance, mood disturbance, and anxiety; G20 Parkinson's disease
CPT/HCPCS: 12002; 70450; 72125; 99282

== ENCOUNTER → 2021-12-16 12:53 | Outpatient (BNVA) | payer OTHER, SELFPAY | PROVIDERS: PCP Internal Medicine; Visit Provider Specialist | DX: G31.83 Neurocognitive disorder with Lewy bodies (principal); F02.80 Dementia in other diseases classified elsewhere, unspecified severity, without behavioral disturbance, psychotic disturbance, mood disturbance, and anxiety | CPT/HCPCS: 99214 ==

== ENCOUNTER → 2022-06-17 11:00 | Outpatient (BNVA) | payer OTHER, SELFPAY | PROVIDERS: PCP Internal Medicine; Visit Provider Specialist | DX: G31.83 Neurocognitive disorder with Lewy bodies (principal); F02.80 Dementia in other diseases classified elsewhere, unspecified severity, without behavioral disturbance, psychotic disturbance, mood disturbance, and anxiety | CPT/HCPCS: 99213; 99214 ==

== ENCOUNTER 2022-07-08 07:17 | Observation (INO) | payer OTHER, SELFPAY ==
[2022-07-08] VITALS (17 sets, daily range): BP systolic 86–162; BP diastolic 53–93; PULSE 43–83; RESP 8–18; TEMP 36.3–36.9; O2SAT 89–98; BMI 26.6; BMI 28.6
--- NOTE | 2022-07-08 07:29 | CT_ITS ---
WS: [id number] CT ABDOMEN AND PELVIS WITH CONTRAST HISTORY: Abdominal pain, coffee-ground emesis. TECHNIQUE: Imaging performed of the abdomen and pelvis with IV contrast. Single phase imaging of the abdomen. Coronal and sagittal reformats are submitted. All CT scans at [facility] use at [address] one of these dose optimization techniques: automated exposure control; mA and/or kV adjustment per patient size (includes targeted exams where dose is matched to clinical indication); or iterative re construction. IV CONTRAST: Omnipaque 350; 100 mL IV. Oral contrast: No. DLP: 767.53 mGy.cm COMPARISON: 11/24/2020 and 11/21/2020 Lower thorax: Mild dependent changes at the lung bases. Mild cardiomegaly. Moderate-sized hiatal michel ia. Liver/biliary system: Normal size liver. LEFT hepatic cyst measures 2.1 x 1.3 cm. There are a few oth er scattered hypodensities which are too small to characterize. Gallbladder: Gallbladder is contracted. Pancreas: Atrophied pancreas. Spleen: Normal size spleen. No mass or infarct. Adrenal glands: Normal. Right kidney: Mild atrophy with numerous cystic masses throughout the kidney. No solid mass identifie d. No obstruction. Left kidney: Mild atrophy and a few scattered hypodensities. Some of these are too small to character ize. No solid mass identified. No obstruction. Aorta: Moderate atherosclerotic plaque with no aneurysm. Moderate calcification at the origin of the celiac axis and SMA. Calcification continues into the splenic artery and SMA. Lymphadenopathy: None. Free fluid: None. GI tract: Unremarkable appearance of the stomach. No small bowel obstruction. Moderate fluid distenti on of the colon. No obstructive pattern. The appendix is not identified. Abdominal wall: Fat containing umbilical hernia. Pelvis: No free fluid or adenopathy. Inguinal canals are patent bilaterally containing fat only. Bones: Moderate disc space narrowing and spondylitic changes. CT/CT abdomen pelvis w con* [id number] IMPRESSION: 1. Mild fluid distention of the colon without obstruction or bowel wall thicke julius. Mild gastroenteritis. 2. No free fluid or adenopathy. 3. Bilateral renal cysts. 4. Moderate size hiatal hernia. 5. Hepatic cysts. 6. Atherosclerosis aorta and mesenteric arteries.
[2022-07-08 07:46] LABS: Basophils % 0.6 %; Eosinophils # 0.2 10^3/uL (0.0-0.8); Eosinophils % 4.2 %; Hematocrit 39.4 % (42.0-52.0); Hemoglobin 12.5 g/dL (11.7-16.6); Lymphocytes # 1.4 10^3/uL (0.8-4.8); Lymphocytes % 27.7 %; Mean Corpuscular HGB Conc 31.7 g/dL (30.0-36.0); Mean Corpuscular Hemoglobin 30.5 pg (28.0-34.0); Mean Corpuscular Volume 96.1 fl (80-94); Monocytes # 0.7 10^3/uL (0.2-0.9); Monocytes % 13.9 %; Neutrophils # 2.76 10^3/uL (1.8-7.7); Neutrophils % 53.2 %; Nucleated Red Blood Cells % 0 %; Platelet Count 170 10^3/cmm (130-400); Red Cell Distribution Width 14.4 % (12.1-15.1); White Blood Count 5.2 10^3/uL (4.0-10.0)
--- NOTE | 2022-07-08 07:46 | ED_ITS ---
HPI - GI Bleed General: Chief complaint: GI Bleed Stated complaint: Coffee ground emesis Time Seen by Provider: 07/08/22 07:25 Source: patient Mode of arrival: EMS History of Present Illness: 76-year-old male with significant dementia issues with presents to the emergency room from [facility] via EMS after single episode of coffee-ground emesis at the [facility] today. He is not really been able to answer any questions he is not in any obvious distress stress initially on arrival vital signs are stable. His medication list does not include any anticoagulants. MD complaint: coffee ground emesis Onset (ago): hour(s) Pain Consistency: intermittent Relieving factors: none Exacerbating factors: none Review of Systems General: Reports: ROS unobtainable due to mental status PFSH ED PFSH: Medical History Acquired hallux malleus of both feet Depression Equinus contracture of ankle Fall Falls Gastric emphysema GERD (gastroesophageal reflux disease) Hallucinations Hammertoe HLD (hyperlipidemia) Hypertension Lewy body dementia Parkinsons Rhabdomyolysis Small bowel obstruction Vitamin B 12 deficiency Surgical History H/O hand surgery History of mandibular surgery Status post tonsillectomy Family History Father CAD (coronary artery disease) Mother CAD (coronary artery disease) Social History Smoking and tobacco status: never smoked Alcohol intake: never Lives independently: Yes Housing: House History of recent travel: No Physical Exam HENMT: COMMON NORMALS: normocephalic and atraumatic HEAD & SCALP: normocephalic and atraumatic Resp: COMMON NORMALS: normal respiratory effort, No retractions, No use of accessory muscles and clear to auscultation bilaterally AUSCULTATION: clear to auscultation bilaterally Cardio: COMMON NORMALS: regular rate, regular rhythm and No murmurs present (Cardio) RATE: regular rate RHYTHM: regular rhythm GI: COMMON NORMALS: Soft to palpation and No hepatosplenomegaly present AUSCULTATION: Yes normoactive bowel sounds PALPATION: Yes Soft to palpation, No Tenderness to palpation present (GI), No Guarding due to palpation present (GI) and Yes No hepatosplenomegaly present Extremity: COMMON NORMALS: normal to inspection, capillary refill normal, no clubbing, cyanosis or edema, no calf tenderness and no pedal edema Skin: COMMON NORMALS: no rashes or lesions noted GENERAL SKIN EXAM: no rashes or lesions noted Course Vital Signs: Vital signs: Vital Signs Temperature 97.5 F L 07/08/22 12:40 Pulse Rate 43 L 07/08/22 13:49 Respiratory Rate 14 07/08/22 12:40 Blood Pressure 127/73 07/08/22 12:40 Pulse Oximetry 94 07/08/22 13:49 Oxygen Delivery Me thod 07/08/22 13:49 MDM - GI Bleed Medical Decision Making Upper GI bleed patient has dried coffee-ground emesis around his mouth and his clothing will admit monitor his hemoglobin. We will also likely need endoscopy. Orders written Medical Records I reviewed the patient's medical records. Lab Data I reviewed the patient's lab results. 07/08/22 07:40 07/08/22 07:40 Radiology Impressions Abdomen/Pelvis CT 07/08/22 07:29 IMPRESSION: 1. Mild fluid distention of the colon without obstruction or bowel wall thickening. Mild gastroenteritis. 2. No free fluid or adenopathy. 3. Bilateral renal cysts. 4. Moderate size hiatal hernia. 5. Hepatic cysts. 6. Atherosclerosis aorta and mesenteric arteries. Laboratory Results WBC 5.2 10^3/uL (4.0-10.0) 07/08/22 07:40 RBC 4.10 10^6/uL (4.1-5.3) 07/08/22 07:40 Hgb 12.5 g/dL (11.7-16.6) 07/08/22 07:40 Hct 39.4 % (42.0-52.0) L 07/08/22 07:40 MCV 96.1 fl (80-94) H 07/08/22 07:40 MCH 30.5 pg (28.0-34.0) 07/08/22 07:40 MCHC 31.7 g/dL (30.0-36.0) 07/08/22 07:40 RDW 14.4 % (12.1-15.1) 07/08/22 07:40 Plt Count 170 10^3/cmm (130-400) 07/08/22 07:40 MPV 11.0 fL (7.4-10.4) H 07/08/22 07:40 Neut % (Auto) 53.2 % 07/08/22 07:40 Lymph % (Auto) 27.7 % 07/08/22 07:40 [place] % (Auto) 13.9 % 07/08/22 07:40 Eos % (Auto) 4.2 % 07/08/22 07:40 Baso % (Auto) 0.6 % 07/08/22 07:40 Neut # (Auto) 2.76 10^3/uL (1.8-7.7) 07/08/22 07:40 Lymph # (Auto) 1.4 10^3/uL (0.8-4.8) 07/08/22 07:40 [place] # (Auto) 0.7 10^3/uL (0.2-0.9) 07/08/22 07:40 Eos # (Auto) 0.2 10^3/uL (0.0-0.8) 07/08/22 07:40 Baso # (Auto) 0.0 10^3/uL (0.0-0.1) 07/08/22 07:40 Nucleated RBC % (auto) 0 % 07/08/22 07:40 Nucleated RBCs # 0.0 /100WBC 07/08/22 07:40 PT 13.40 SECONDS (12.1-14.9) 07/08/22 07:40 INR 0.99 (0.8-1.2) 07/08/22 07:40 APTT 28.6 SECONDS (23.9-36.7) 07/08/22 07:40 Sodium 142 mmol/L (136-145) 07/08/22 08:17 Potassium 4.4 mmol/L (3.5-5.1) 07/08/22 08:17 Chloride 107 mmol/L (98-107) 07/08/22 08:17 Carbon Dioxide 30 mmol/L (22-29) H 07/08/22 08:17 Anion Gap 9.4 (5-19) 07/08/22 08:17 BUN 25 mg/dL (8-23) H 07/08/22 08:17 Creatinine 1.2 mg/dL (0.7-1.2) 07/08/22 08:17 GFR Calculation Not Reportable 07/08/22 08:17 Glucose 89 mg/dL (65-115) 07/08/22 08:17 Calculated Osmolality 298 mOsm/kg (285-295) H 07/08/22 08:17 Lactic Acid 1.1 mmol/L (0.5-2.2) 07/08/22 08:18 Calcium 9.2 mg/dL (8.5-10.5) 07/08/22 08:17 Total Bilirubin 0.2 mg/dL (0.15-1.2) 07/08/22 08:17 AST 21 U/L (0-40) 07/08/22 08:17 ALT 23 U/L (0-41) 07/08/22 08:17 Alkaline Phosphatase 124 U/L (40-130) 07/08/22 08:17 Total Protein 6.8 g/dL (6.6-8.7) 07/08/22 08:17 Albumin 3.4 g/dL (3.5-5.2) L 07/08/22 08:17 Globulin 3.4 g/dL (1.3-4.6) 07/08/22 08:17 Lipase 33 U/L (13-60) 07/08/22 08:17 Urine Color Yellow (Yellow) 07/08/22 10:00 Urine Appearance Clear (CLEAR) 07/08/22 10:00 Urine pH 5 (5-7) 07/08/22 10:00 Ur Specific [place] 1.020 (1.005-1.030) 07/08/22 10:00 Urine Protein Neg (Negative) 07/08/22 10:00 Urine Glucose (UA) Norm (Normal) 07/08/22 10:00 Urine Ketones Negative (Negative) 07/08/22 10:00 Urine Blood Neg (Negative) 07/08/22 10:00 Urine Nitrate Negative (Negative) 07/08/22 10:00 Urine Bilirubin Neg (Negative) 07/08/22 10:00 Urine Urobilinogen Norm mg/dL (Negative) 07/08/22 10:00 Ur Leukocyte Esterase Negative (Negative) 07/08/22 10:00 Discharge Plan Discharge Patient Disposition: Admitted As Inpatient Admit Provider: Carroll Jacobs Clinical Impression: Upper GI bleed, Dementia, GERD (gastroesophageal reflux disease) Condition: Stable Coding Level of Care Code ED [employer] Consultant for Mike Bellamy
[2022-07-08 08:01] LABS: INR 0.99 (0.8-1.2)
[2022-07-08 08:02] LABS: Partial Thromboplastin Time 28.6 SECONDS (23.9-36.7)
[2022-07-08] MEDS: sodium chloride 0.9% 1,000 ML 999 ML IV (08:04)
[2022-07-08 08:42] LABS: Lactic Sepsis W/Reflex 1.1 mmol/L (0.5-2.2)
[2022-07-08 08:43] LABS: Alanine Aminotransferase 23 U/L (0-41); Albumin Level 3.4 g/dL (3.5-5.2); Alkaline Phosphatase 124 U/L (40-130); Anion Gap 9.4 (5-19); Aspartate Amino Transferase 21 U/L (0-40); Blood Urea Nitrogen 25 mg/dL (8-23); Calcium 9.2 mg/dL (8.5-10.5); Carbon Dioxide 30 mmol/L (22-29); Chloride 107 mmol/L (98-107); Globulin 3.4 g/dL (1.3-4.6); Glucose 89 mg/dL (65-115); Lipase 33 U/L (13-60); Osmolality Calculated 298 mOsm/kg (285-295); Potassium 4.4 mmol/L (3.5-5.1); Sodium 142 mmol/L (136-145); Total Bilirubin 0.2 mg/dL (0.15-1.2); Total Protein 6.8 g/dL (6.6-8.7)
[2022-07-08] MEDS: iohexol 350 mg/mL 500 mL Btl (per mL) IV (09:02)
[2022-07-08 10:02] LABS: Add Urine Microscopic? NO; Charge for UA Resulting for Rev
[2022-07-08 10:10] LABS: Urine Appearance Clear (CLEAR); Urine Color Yellow (Yellow); pH Urine 5 (5-7)
[2022-07-08 10:11] LABS: Bilirubin Urine Neg (Negative); Blood Urine Neg (Negative); Glucose Urine UA Norm (Normal); Ketones Urine Negative (Negative); Leukocyte Esterase Urine Negative (Negative); Nitrate Urine Negative (Negative); Protein Urine Neg (Negative); Urobilinogen Urine Norm (Negative)
--- NOTE | 2022-07-08 10:16 | PC.PHAR ---
Addendum entered by Sabrina Centeno 07/08/22 11:28: lilo at [facility] the pts zyprexa was just changed to 2.5mg qam and 5mg hs states pt only had one dose yesterday pt was taking 5mg bid-new mg was not on pts haily states the pt is also taking donepezil 5mg qam med not on pts haily states the pt had no medications today Addendum entered by Sabrina Centeno 07/08/22 10:46: llio CALVERT from [facility] buddy duarte Original Note: pt is from [facility]-chidi from [facility] will fax mar
[2022-07-08] MEDS: pantoprazole 40 mg SDV IVP ×2 (10:22→21:05)
--- NOTE | 2022-07-08 11:41 | P.HP_ITS ---
Providers/Chief Complaint Admitting Physician: Carroll Jacobs MD, hospitalist Primary Care Provider: Jermaine Espinosa MD Chief Complaint: Coffee ground emesis History of Present Illness Laith Jimenez is a 76 year old male resident of nursing facility who presents to the emergency department with history of coffee-ground emesis this morning, and increased confusion. Patient himself is confused, no family member was present when I interviewed the patient in the emergency department. However, I called the nursing facility and they reported that he was in his normal state of health until this morning, when he had several episodes of tarry appearing vomit that smelled like blood. He has had no recent nosebleeds. He has had no recent pain. They report he is not usually on any anticoagulants. He has never had a GI bleed before. They report he is not had any obvious abdominal pain, blood in stool, or black or tarry stool. He did recently start Aricept, with his first dose the day before. Review of Systems General: Reports: ROS unobtainable due to mental status (Unobtainable secondary to dementia) Medications/Allergies Home Medications Medication Instructions Recorded Confirmed Last Taken Type cholecalciferol (vitamin D3) 50 2,000 unit PO QAM 10/03/19 06/27/22 07/08/21 History mcg (2,000 unit) tablet atorvastatin 10 mg tablet 10 mg PO BEDTIME 04/18/20 06/27/22 07/07/21 History escitalopram oxalate 5 mg tablet 5 mg PO QAM Mood 04/18/20 06/27/22 07/08/21 History custom orthotics #1 ea 08/15/20 06/27/22 Unknown Rx orthopedic shoes with extra deapth #1 ea 09/25/20 06/27/22 Unknown Rx omeprazole 20 mg capsule,delayed 20 mg PO QAM 11/19/20 06/27/22 07/08/21 History release donepezil 5 mg tablet 5 mg PO DAILY@08 07/08/22 07/08/22 07/07/22 History food supplemt, lactose-reduced See Rx Instructions .Route .COMPLEX 07/08/22 07/08/22 Unknown History glycopyrrolate 1 mg tablet 1 mg PO BID@,18 07/08/22 07/08/22 07/07/22 History olanzapine 5 mg tablet (Zyprexa) See Rx Instructions .Route .COMPLEX 07/08/22 07/08/22 07/07/22 History povidone-iodine 10 % topical See Rx Instructions .Route .COMPLEX 07/08/22 07/08/22 Unknown History solution (Betadine) vitamin E 400 unit tablet 400 unit PO DAILY@08 07/08/22 07/08/22 Unknown History Allergies Allergy/AdvReac Type Severity Reaction Status Date / Time Penicillins Allergy Unknown Verified 07/08/22 11:11 ranitidine [From Zantac] Allergy Unknown Verified 07/08/22 11:11 PFSH Acute PFSH: Medical History Acquired hallux malleus of both feet Depression Equinus contracture of ankle [place] Gastric emphysema GERD (gastroesophageal reflux disease) Hallucinations Hammertoe HLD (hyperlipidemia) Hypertension Lewy body dementia Parkinsons Rhabdomyolysis Small bowel obstruction Vitamin B 12 deficiency Surgical History H/O hand surgery History of mandibular surgery Status post tonsillectomy Family History Father CAD (coronary artery disease) Mother CAD (coronary artery disease) Social History Smoking and tobacco status: never smoked Alcohol intake: never Lives independently: Yes Housing: House History of recent travel: No Vitals/I&O/Wt Last Vital Signs Temp 98.4 F 07/08/22 07:19 Pulse 59 L 07/08/22 10:30 Resp 9 L 07/08/22 10:30 BP 150/76 07/08/22 10:30 Pulse Ox 98 07/08/22 10:00 O2 Del Method 07/08/22 07:19 07/07/22 07/08/22 07/08/22 22:59 06:59 14:59 Intake Total 1000 / 1000 Balance 1000 / 1000 Weight last 48 hrs Weight 81.647 kg Physical Exam Narrative: General exam is a white male, no distress, able to follow instructions and answer in one-word responses when prompted. He is obviously confused. HEENT: Atraumatic normocephalic. Oropharynx is clear. Some crusted dried dark appearing blood is noted around his oropharynx. Neck is supple no lymphadenopathy or thyromegaly Cardiovascular slight bradycardia, regular, no murmur Lungs clear no wheezing or crackles Abdomen is soft. No obvious tenderness. No organomegaly. exam is deferred Extremities no cyanosis clubbing or edema, cap refill brisk Skin no rash Neuro: Confused but no obvious focal deficits. Data 07/08/22 07:40 07/08/22 08:17 Other Labs: INR is normal LFTs normal Albumin 3.4 Calcium normal at 9.2 Urinalysis negative Abdomen pelvis CT demonstrates slight fluid distention without obstruction of the colon, bilateral renal cysts, moderate hiatal hernia, some hepatic cysts and some atherosclerotic disease. A&P Assessment and plan (1) Upper GI bleed: Patient presents with vomiting, evidence of upper GI bleed with coffee-ground emesis. Initial hemoglobin is not concerning, although BUN is slightly high. Repeat hemoglobin in approximately 4 hours, and consider serial hemoglobins should any instability be noted N.p.o. Protonix 40 mg IV every 12 hours No anticoagulation/antiplatelets currently Surgery consult for EGD Discussed in detail plan with daughter who concurs (2) Dementia: Severe dementia. Discussed with daughter CODE STATUS secondary to this. Currently he is still full code. Plan Multiple other medical problems as outlined in past medical history SCDs for DVT prophylaxis, anticoagulation contraindicated secondary to GI bleed. Attestations Medical Necessity Statement*: Will need less than 2 midnight stay for eval uation and treatment of upper GI bleed Coding Level of Care Code Acute Supervisor [employer] Department for [facility] Diagnoses Upper GI bleed K92.2 Dementia F03.90
[2022-07-08] MEDS: D5-NS 0.45% + KCL 20 mEq 20 MEQ/1,000 ML BAG 100 MEQ IV ×2 (13:27→21:05)
--- NOTE | 2022-07-08 13:44 | ECG_ITS ---
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 Measurements Intervals [place] Rate: 50 P: 40 WI: 253 QRS: 19 QRSD: 106 T: 6 QT: 419 QTc: 383 Interpretive Statements SINUS BRADYCARDIA WITH FIRST DEGREE AV BLOCK WITH OCCASIONAL SUPRAVENTRICULAR PREMATURE COMPLEXES Compared to ECG 06/26/2021 13:07:37 First degree AV block now present Sinus arrhythmia no longer present T-wave abnormality no longer present Electronically Signed On 07-08-2022 20:45:35 DATA SOLUTIONS ARCHITECT by Dior Damon M.D. [id number]
[2022-07-08 14:03] LABS: Hematocrit 36.8 % (42.0-52.0); Hemoglobin 11.7 g/dL (11.7-16.6)
--- NOTE | 2022-07-08 23:53 | PC.NURSE ---
Addendum entered by Lissy Centeno RN 07/08/22 23:55: Patient continues to pull out IVs and pulls of heart monitor. Original Note: Dr. Alvarez notified of patient's bed alarm frequently going off. Per report from day shift RN, patient had a fall in the ED. One-on-one sitter ordered, but no one-on-one sitter is available at this time. Meryl ordered.
[2022-07-09] VITALS (8 sets, daily range): BP systolic 112–157; BP diastolic 67–80; PULSE 43–64; RESP 16–20; TEMP 36.1–36.9; O2SAT 90–95
[2022-07-09] MEDS: ziprasidone 20 mg/mL SDV 10 MG IM (00:05)
--- NOTE | 2022-07-09 00:17 | PC.NURSE ---
One-on-one sitter now available and at bedside.
--- NOTE | 2022-07-09 04:58 | ECG_ITS ---
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 Measurements Intervals [place] Rate: 45 P: 237 FL: 202 QRS: 15 QRSD: 109 T: 27 QT: 442 QTc: 386 Interpretive Statements Possible SINUS BRADYCARDIA WITH OCCASIONAL SUPRAVENTRICULAR PREMATURE COMPLEXES MODERATE ST DEPRESSION [0.05+ mV ST DEPRESSION] Compared to ECG 07/08/2022 15:51:42 ST (T wave) deviation now present First degree AV block no longer present Baseline artifact, need to repeat the study Electronically Signed On 07-10-2022 12:45:06 NONFARM ANIMAL CARETAKER by Dior Damon M.D. [id number]
[2022-07-09 04:59] LABS: Basophils % 0.9 %; Eosinophils # 0.2 10^3/uL (0.0-0.8); Eosinophils % 4.8 %; Hematocrit 36.8 % (42.0-52.0); Hemoglobin 11.6 g/dL (11.7-16.6); Lymphocytes # 1.6 10^3/uL (0.8-4.8); Lymphocytes % 35.4 %; Mean Corpuscular HGB Conc 31.5 g/dL (30.0-36.0); Mean Corpuscular Hemoglobin 30.6 pg (28.0-34.0); Mean Corpuscular Volume 97.1 fl (80-94); Mean Platelet Volume 10.2 fL (7.4-10.4); Monocytes # 0.8 10^3/uL (0.2-0.9); Monocytes % 17.5 %; Neutrophils # 1.89 10^3/uL (1.8-7.7); Neutrophils % 41.2 %; Nucleated Red Blood Cells % 0 %; Platelet Count 147 10^3/cmm (130-400); Red Blood Count 3.79 10^6/uL (4.1-5.3); Red Cell Distribution Width 14.4 % (12.1-15.1); White Blood Count 4.6 10^3/uL (4.0-10.0)
--- NOTE | 2022-07-09 05:23 | PC.NURSE ---
Per report from day shift RN, day shift physician is aware of patient's bradycardia.
[2022-07-09 05:27] LABS: Blood Urea Nitrogen 18 mg/dL (8-23); Carbon Dioxide 31 mmol/L (22-29); Chloride 105 mmol/L (98-107); Glucose 100 mg/dL (65-115); Osmolality Calculated 296 mOsm/kg (285-295); Sodium 142 mmol/L (136-145)
--- NOTE | 2022-07-09 05:33 | PC.NURSE ---
Patient received Geodon x1 due to very frequently trying to get out of bed, pulling out multiple IVs, confusion, and restlessness. 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 BRITTANYLA present. Patient asked by this nurse how are you feeling? Patient states I feel better. This nurse asked patient do you need anything? Patient states, no. Patient has not attempted to get out of bed since receiving IM Geodon. One-on-one sitter at bedside.
--- NOTE | 2022-07-09 05:48 | PM.CONSULT ---
Providers/Reason For Consult Consulting Physician/Specialty*: Dr. Jesús Bhardwaj, DO/General surgery Reason for Consult*: Hematemesis Attending Physician: Carroll Jacobs MD Primary Care Provider: Jermaine Espinosa MD History of Present Illness History of Present Illness Laith Jimenez is a 76 year old male who has Lewy body dementia he had multiple episodes of tarry emesis that smelled like blood. Patient is not reporting any pain. He is not on anticoagulation. HPI and review of systems are limited secondary to patient's dementia Review of Systems General: Reports: ROS unobtainable due to mental status Medications/Allergies Home Medications Medication Instructions Recorded Confirmed Last Taken Type cholecalciferol (vitamin D3) 50 2,000 unit PO DAILY@10/03/19 07/08/22 07/08/21 History mcg (2,000 unit) tablet atorvastatin 10 mg tablet 10 mg PO BEDTIME@04/18/20 07/08/22 07/07/21 History escitalopram oxalate 5 mg tablet 5 mg PO DAILY@04/18/20 07/08/22 07/08/21 History custom orthotics #1 ea 08/15/20 07/08/22 Unknown Rx orthopedic shoes with extra deapth #1 ea 09/25/20 07/08/22 Unknown Rx omeprazole 20 mg capsule,delayed 20 mg PO DAILY@11/19/20 07/08/22 07/08/21 History release donepezil 5 mg tablet 5 mg PO DAILY@07/08/22 07/08/22 07/07/22 History food supplemt, lactose-reduced See Rx Instructions .Route .COMPLEX 07/08/22 07/08/22 Unknown History glycopyrrolate 1 mg tablet 1 mg PO BID@07/08/22 07/08/22 07/07/22 History olanzapine 5 mg tablet (Zyprexa) See Rx Instructions .Route .COMPLEX 07/08/22 07/08/22 07/07/22 History povidone-iodine 10 % topical See Rx Instructions .Route .COMPLEX 07/08/22 07/08/22 Unknown History solution (Betadine) vitamin E 400 unit tablet 400 unit PO DAILY@08 07/08/22 07/08/22 Unknown History Allergies Allergy/AdvReac Type Severity Reaction Status Date / Time Penicillins Allergy Unknown Verified 07/08/22 11:11 ranitidine [From Zantac] Allergy Unknown Verified 07/08/22 11:11 Current Medications Generic Name Dose Route Start Last Admin Trade Name Larry PRN Reason Stop Dose Admin Potassium Chloride/Dextrose/Sod Cl 20 meq in 1,000 mls @ 100 mls/hr 07/08/22 12:40 07/08/22 21:05 D5-Ns 0.45% + Kcl 20 Meq IV 100 mls/hr .Q10H ATIF Administration Pantoprazole Sodium 40 mg 07/08/22 21:00 07/08/22 21:05 Pantoprazole 40 Mg Sdv IVP 40 mg Q12H ATIF Administration PFSH Acute PFSH: Medical History Acquired hallux malleus of both feet Depression Equinus contracture of ankle [place] Gastric emphysema GERD (gastroesophageal reflux disease) Hallucinations Hammertoe HLD (hyperlipidemia) Hypertension Lewy body dementia Parkinsons Rhabdomyolysis Small bowel obstruction Vitamin B 12 deficiency Surgical History H/O hand surgery History of mandibular surgery Status post tonsillectomy Family History Father CAD (coronary artery disease) Mother CAD (coronary artery disease) Social History Smoking and tobacco status: never smoked Alcohol intake: never Lives independently: Yes Housing: House History of recent travel: No Vitals/I&O/Wt Last Vital Signs Temp 97.4 F L 07/09/22 03:43 Pulse 43 L 07/09/22 04:04 Resp 20 H 07/09/22 03:43 BP 136/67 07/09/22 03:43 Pulse Ox 95 07/09/22 03:43 O2 Del Method 07/09/22 03:43 07/08/22 07/08/22 07/09/22 14:59 22:59 06:59 Intake Total 1000 / 1000 763.333 / 1763.333 Output Total 450 / 450 Balance 1000 / 1000 313.333 / 1313.333 Weight last 48 hrs Weight 194 lb 3.2 oz Weight 180 lb Physical Exam Narrative: General : Patient is well developed , no acute distress Head : Normal cephalic, a-traumatic. Ears : Pinnae and external canal are normal. Hearing is normal. Eyes : PERRLA, Sclera and injection are normal. No conjunctival discharge. Nose : Mucous membranes are without erythema. Throat : buccal mucosa is normal, gums are without significant recession or hypertrophy. Lungs : Equal chest rise bilaterally, no use of accessory muscles, trachea is midline. Cor : Rate and rhythm are normal. Abdomen : Soft, ND, NT, no g/r/m Extremities : No edema, no cyanosis or clubbing, dorsalis pedis pulses are present bilaterally, non-tender to palpation of calves. Upper extremities are normal bilaterally. Back : non-tender to palpation, no CVA tenderness. Neuro : CN II - XII intact, Upper and lower extremities have equal and full strength Data 07/09/22 04:34 07/09/22 04:34 A&P Assessment and plan (1) Upper GI bleed: Plan EGD this AM The risks and benefits of the procedure, including bleeding, infection, intestinal perforation requiring surgery, missed lesion, or explained to the patient. He is understanding of the risks and wishes to proceed. 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
--- NOTE | 2022-07-09 06:02 | PC.NURSE ---
Patient assisted to void in urinal. Brief and linens currently clean and dry.
--- NOTE | 2022-07-09 07:38 | P.ANESASSM_ITS ---
Pre-Anesthetic Assessment Height/Weight: Height 1.75 m Weight 88.088 kg Temp Pulse Resp BP Pulse Ox O2 Del Method 97.7 F 64 17 153/77 90 07/09/22 07:22 07/09/22 07:22 07/09/22 07:22 07/09/22 07:22 07/09/22 07:22 07/09/22 07:22 Preop Diagnosis: Left diabetic foot infection Operation Date: 07/09/22 10:45 Proposed Procedures p EGD(Not Applicable) - Jesús Bhardwaj, DO Was Beta [place] taken within 24 hours: N/A Was Clonidine taken within 24 hours: N/A Social No alcohol and No tobacco Exam clear to auscultation bilaterally and regular rate & rhythm confused. 1:1 sitter. baseline dementia residing at nursing facility. follows some commands Airway Submandibular: within normal limits Cervical ROM: within normal limits Mallampati: Class III Comments: Comments: endentulous History/ROS No significant history except as noted Pulmonary 2 L NC CV/HEM HLD. EKG - bradycardia with supraventricular premature beats None reported Hepatic None reported GI reported bloody emesis Metabolic None reported Musc/skel None reported Neuropsych Dementia Anesthetic Plan ASA status: 2 Anesthesia: Anesthesia Evaluation and MAC Risk of > 500 ml blood loss (7ml/kg in children): Yes, adequate IV access and fluids planned Other Pertinent Information phone consent obtained from daughter Trini Horton Medications/Allergies Home Medications Medication Instructions Recorded Confirmed Last Taken Type cholecalciferol (vitamin D3) 50 2,000 unit PO DAILY@10/03/19 07/08/22 07/08/21 History mcg (2,000 unit) tablet atorvastatin 10 mg tablet 10 mg PO BEDTIME@04/18/20 07/08/22 07/07/21 History escitalopram oxalate 5 mg tablet 5 mg PO DAILY@04/18/20 07/08/22 07/08/21 History custom orthotics #1 ea 08/15/20 07/08/22 Unknown Rx orthopedic shoes with extra deapth #1 ea 09/25/20 07/08/22 Unknown Rx omeprazole 20 mg capsule,delayed 20 mg PO DAILY@11/19/20 07/08/22 07/08/21 History release donepezil 5 mg tablet 5 mg PO DAILY@07/08/22 07/08/22 07/07/22 History food supplemt, lactose-reduced See Rx Instructions .Route .COMPLEX 07/08/22 07/08/22 Unknown History glycopyrrolate 1 mg tablet 1 mg PO BID@,18 07/08/22 07/08/22 07/07/22 History olanzapine 5 mg tablet (Zyprexa) See Rx Instructions .Route .COMPLEX 07/08/22 07/08/22 07/07/22 History povidone-iodine 10 % topical See Rx Instructions .Route .COMPLEX 07/08/22 07/08/22 Unknown History solution (Betadine) vitamin E 400 unit tablet 400 unit PO DAILY@08 07/08/22 07/08/22 Unknown History Allergies Allergy/AdvReac Type Severity Reaction Status Date / Time Penicillins Allergy Unknown Verified 07/08/22 11:11 ranitidine [From Zantac] Allergy Unknown Verified 07/08/22 11:11 Current Medications Generic Name Dose Route Start Last Admin Trade Name Freq PRN Reason Stop Dose Admin Potassium Chloride/Dextrose/Sod Cl 20 meq in 1,000 mls @ 100 mls/hr 07/08/22 12:40 07/08/22 21:05 D5-Ns 0.45% + Kcl 20 Meq IV 100 mls/hr .Q10H ATIF Administration Pantoprazole Sodium 40 mg 07/08/22 21:00 07/08/22 21:05 Pantoprazole 40 Mg Sdv IVP 40 mg Q12H ATIF Administration PFSH Anesthesia Medical History Acquired hallux malleus of both feet Depression Equinus contracture of ankle [place] Gastric emphysema GERD (gastroesophageal reflux disease) Hallucinations Hammertoe HLD (hyperlipidemia) Hypertension Lewy body dementia Parkinsons Rhabdomyolysis Small bowel obstruction Vitamin B 12 deficiency Surgical History H/O hand surgery History of mandibular surgery Status post tonsillectomy Family History Father CAD (coronary artery disease) Mother CAD (coronary artery disease) Social History Smoking and tobacco status: never smoked Alcohol intake: never Lives independently: Yes Housing: House History of recent travel: No Data Anesthesia 07/09/22 04:34 07/09/22 04:34 Short CBC 07/08/22 07/08/22 07/09/22 Range/Units 07:40 13:50 04:34 WBC 5.2 4.6 (4.0-10.0) 10^3/uL Hgb 12.5 11.7 11.6 L (11.7-16.6) g/dL Hct 39.4 L 36.8 L 36.8 L (42.0-52.0) % MCV 96.1 H 97.1 H (80-94) fl Plt Count 170 147 (130-400) 10^3/cmm Neut % (Auto) 53.2 41.2 % Neut # (Auto) 2.76 1.89 (1.8-7.7) 10^3/uL BMP 07/08/22 07/08/22 07/09/22 07:40 08:17 04:34 Sodium Cancelled 142 142 Potassium Cancelled 4.4 4.0 Chloride Cancelled 107 105 Carbon Dioxide Cancelled 30 H 31 H BUN Cancelled 25 H 18 Creatinine Cancelled 1.2 0.9 Glucose Cancelled 89 100 Calcium Cancelled 9.2 9.0 Liver Function 07/08/22 07/08/22 Range/Units 07:40 08:17 Total Bilirubin Cancelled 0.2 AST Cancelled 21 ALT Cancelled 23 Alkaline Phosphatase Cancelled 124 Albumin Cancelled 3.4 L Urine 07/08/22 Range/Units 10:00 Urine Color Yellow (Yellow) Urine Appearance Clear (CLEAR) Urine pH 5 (5-7) Ur Specific [place] 1.020 (1.005-1.030) Urine Protein Neg (Negative) Urine Glucose (UA) Norm (Normal) Urine Ketones Negative (Negative) Urine Nitrate Negative (Negative) Urine Bilirubin Neg (Negative) Ur Leukocyte Esterase Negative (Negative) Coags 07/08/22 07:40 PT 13.40 INR 0.99 APTT 28.6 Cardiac Studies: Echocardiogram Limited Views 04/05/20
[2022-07-09] MEDS: pantoprazole 40 mg SDV IVP (08:30)
--- NOTE | 2022-07-09 10:12 | PC.CHAP ---
Pastoral Care Encounter/Spiritual Assessment Type of Contact [] Declined superior court judge visit [] Patient/Family/Request visit [] Outpatient visit [] Follow-up visit [] Physician referral [] Code/Alert [x] Routine visit [] Staff referral [] Actively dying [] Patient sleeping [] Family support [] [] Out of room [] Palliative care [] [x] Receiving care in room [] Pre-surgical visit [] Trauma [] Long length of stay [] ICU visit [] Other: Relational/Emotional Strength [] Patient feels connected with others/family/visitors/staff [] Distress [] Loneliness/isolation [] Abandonment Spirituality of Patient [] Person of Betsy [] Attends Pentecostalism of their Betsy [] Believes in Prayer [] Reads Bible or Amish materials [] There are Spiritual issues to be addressed Machine Stacker Interventions [] Prayer [] Active listening [] Non-anxious presence [] Spiritual/emotional support [] Crisis/trauma care [] Spiritual counseling [] Bereavement support [] Provided bereavement packet [] Provided Bible/devotional materials [] Provided toy/stuffed animal, coloring book to patient or family member [] Provided Communion [] Anointing/[place] [] Salvation [] Completed spiritual assessment [] Other: Impact on Illness or Injury [] Angry [] Fearful [] Anxious [] Often cries [] Exhaustion [] Unable to work [] Unable to attend buddhism [] Unable to walk/stand [] Unable to read [] Unable to drive [] Unable to eat/drink [] Unable to sleep [] Unable to be with family [] Patient intubated [] Other: Summary Time spent with patient
[2022-07-09] MEDS: sodium chloride 0.9% 1,000 ML 30 ML IV (10:22)
[2022-07-09] MEDS: EPINEPHrine 1 mg/mL INJ XX (12:03)
--- NOTE | 2022-07-09 13:30 | PC.NURSE ---
[id number] patient recieved from Post op GI lab. patient sleeping arouses to verbal stimuli then returns to sleep. patient is to drowsy to attempt to give full liquid diet at this time. sitter at bedside. VS monitored
--- NOTE | 2022-07-09 13:55 | PM.DCS ---
Discharge Providers Date of Admission: 07/08/22 11:53 Date of Discharge: July 09, 2022 Attending Provider at Admission: Carroll Jacobs MD Attending Provider at Discharge: Carroll Jacobs MD Primary Care Provider: Jermaine Espinosa MD Diagnoses at Discharge Discharge Diagnosis (1) Upper GI bleed: Status: Acute Reason for Visit Reason for Visit: Coffee ground emesis Hospital Course Hospital Course Patient presented to the hospital from a nursing facility with coffee-ground emesis. He was placed on Protonix, made n.p.o., hydrated and followed closely. He had no significant drop in hemoglobin. Surgery was consulted for EGD which was performed July 09. This did demonstrated duodenal polyp, with some stigmata of bleeding. This was excised by the surgeon. The patient went back up to the floor, was given a full liquid diet which he should continue for the next 3 days and was able to be discharged back to the nursing facility. I discussed his care with his daughter, who agreed with the plan. He will follow-up with surgery, as well as his primary care provider. Physical Exam Narrative: General exam no distress Neck is supple no lymphadenopathy thyromegaly Cardiovascular regular rate and rhythm without murmur Lungs clear Abdomen is soft, positive bowel sounds Extremities no cyanosis clubbing or edema Skin without rash Discharge Data Studies Completed and Pending Completed Studies During Hospitalization Category Date Time Status CT abdomen pelvis w con* [id number] Stat Cat Scan 07/08/22 07:29 Completed Pending at discharge Category Date Time Status Pathology: Surgical [PTH] Routine Pth 07/09/22 12:05 Received Radiology Impressions Abdomen/Pelvis CT 07/08/22 07:29 IMPRESSION: 1. Mild fluid distention of the colon without obstruction or bowel wall thickening. Mild gastroenteritis. 2. No free fluid or adenopathy. 3. Bilateral renal cysts. 4. Moderate size hiatal hernia. 5. Hepatic cysts. 6. Atherosclerosis aorta and mesenteric arteries. Laboratory Results WBC 4.6 10^3/uL (4.0-10.0) 07/09/22 04:34 RBC 3.79 10^6/uL (4.1-5.3) L 07/09/22 04:34 Hgb 11.6 g/dL (11.7-16.6) L 07/09/22 04:34 Hct 36.8 % (42.0-52.0) L 07/09/22 04:34 MCV 97.1 fl (80-94) H 07/09/22 04:34 MCH 30.6 pg (28.0-34.0) 07/09/22 04:34 MCHC 31.5 g/dL (30.0-36.0) 07/09/22 04:34 RDW 14.4 % (12.1-15.1) 07/09/22 04:34 Plt Count 147 10^3/cmm (130-400) 07/09/22 04:34 MPV 10.2 fL (7.4-10.4) 07/09/22 04:34 Neut % (Auto) 41.2 % 07/09/22 04:34 Lymph % (Auto) 35.4 % 07/09/22 04:34 Kay % (Auto) 17.5 % 07/09/22 04:34 Eos % (Auto) 4.8 % 07/09/22 04:34 Baso % (Auto) 0.9 % 07/09/22 04:34 Neut # (Auto) 1.89 10^3/uL (1.8-7.7) 07/09/22 04:34 Lymph # (Auto) 1.6 10^3/uL (0.8-4.8) 07/09/22 04:34 Kay # (Auto) 0.8 10^3/uL (0.2-0.9) 07/09/22 04:34 Eos # (Auto) 0.2 10^3/uL (0.0-0.8) 07/09/22 04:34 Baso # (Auto) 0.0 10^3/uL (0.0-0.1) 07/09/22 04:34 Nucleated RBC % (auto) 0 % 07/09/22 04:34 Nucleated RBCs # 0.0 /100WBC 07/09/22 04:34 PT 13.40 SECONDS (12.1-14.9) 07/08/22 07:40 INR 0.99 (0.8-1.2) 07/08/22 07:40 APTT 28.6 SECONDS (23.9-36.7) 07/08/22 07:40 Sodium 142 mmol/L (136-145) 07/09/22 04:34 Potassium 4.0 mmol/L (3.5-5.1) 07/09/22 04:34 Chloride 105 mmol/L (98-107) 07/09/22 04:34 Carbon Dioxide 31 mmol/L (22-29) H 07/09/22 04:34 Anion Gap 10.0 (5-19) 07/09/22 04:34 BUN 18 mg/dL (8-23) 07/09/22 04:34 Creatinine 0.9 mg/dL (0.7-1.2) 07/09/22 04:34 GFR Calculation Not Reportable 07/09/22 04:34 Glucose 100 mg/dL (65-115) 07/09/22 04:34 Calculated Osmolality 296 mOsm/kg (285-295) H 07/09/22 04:34 Lactic Acid 1.1 mmol/L (0.5-2.2) 07/08/22 08:18 Calcium 9.0 mg/dL (8.5-10.5) 07/09/22 04:34 Total Bilirubin 0.2 mg/dL (0.15-1.2) 07/08/22 08:17 AST 21 U/L (0-40) 07/08/22 08:17 ALT 23 U/L (0-41) 07/08/22 08:17 Alkaline Phosphatase 124 U/L (40-130) 07/08/22 08:17 Total Protein 6.8 g/dL (6.6-8.7) 07/08/22 08:17 Albumin 3.4 g/dL (3.5-5.2) L 07/08/22 08:17 Globulin 3.4 g/dL (1.3-4.6) 07/08/22 08:17 Lipase 33 U/L (13-60) 07/08/22 08:17 Urine Color Yellow (Yellow) 07/08/22 10:00 Urine Appearance Clear (CLEAR) 07/08/22 10:00 Urine pH 5 (5-7) 07/08/22 10:00 Ur Specific [place] 1.020 (1.005-1.030) 07/08/22 10:00 Urine Protein Neg (Negative) 07/08/22 10:00 Urine Glucose (UA) Norm (Normal) 07/08/22 10:00 Urine Ketones Negative (Negative) 07/08/22 10:00 Urine Blood Neg (Negative) 07/08/22 10:00 Urine Nitrate Negative (Negative) 07/08/22 10:00 Urine Bilirubin Neg (Negative) 07/08/22 10:00 Urine Urobilinogen Norm mg/dL (Negative) 07/08/22 10:00 Ur Leukocyte Esterase Negative (Negative) 07/08/22 10:00 Vitals Last Vital Signs Temp 97.0 F L 07/09/22 12:11 Pulse 50 L 07/09/22 12:21 Resp 18 07/09/22 12:21 BP 120/69 07/09/22 12:21 Pulse Ox 94 07/09/22 12:21 O2 Del Method 07/09/22 12:21 Discharge Plan Discharge Patient Disposition: Xfer SNF Condition: Stable Prescriptions: New pantoprazole [Protonix] 40 mg tablet,delayed release (DR/EC) 40 mg PO BID Qty: 60 0RF Continued atorvastatin 10 mg tablet 10 mg PO BEDTIME@18 escitalopram oxalate 5 mg tablet 5 mg PO DAILY@08 (DME) custom orthotics 11 See Rx Instructions .Route .MEDSUPPLY Qty: 1 0RF Rx Instructions: As directed (DME) orthopedic shoes with extra deapth See Rx Instructions .Route .MEDSUPPLY Qty: 1 0RF Rx Instructions: As directed to be fitted by [facility] cholecalciferol (vitamin D3) 2,000 unit Tablet 2,000 unit PO DAILY@08 glycopyrrolate 1 mg tablet 1 mg PO BID@08,18 donepezil 5 mg tablet 5 mg PO DAILY@08 Zyprexa 5 mg Tablet See Rx Instructions .ROUTE .COMPLEX Rx Instructions: 2.5mg po qam and 5mg po bedtime vitamin E 400 unit Tablet 400 unit PO DAILY@08 TwoCal HN Liquid See Rx Instructions .ROUTE .COMPLEX Rx Instructions: 120cc po tid@08,12,17 Betadine 10 % Solution See Rx Instructions .ROUTE .COMPLEX Rx Instructions: wet to dry to rt foot below great toe wrap with gauze and secure with tape once a day and prn Discontinued omeprazole 20 mg Capsule,Delayed Release(Dr/Ec) 20 mg PO DAILY@06 Discharge Orders: Discharge Order (Routine); Ordered 07/09/22 Ordered By: Carroll Jacobs Referrals: Jesús Bhardwaj DO [Physician] - 2 weeks Jermaine Espinosa MD [Primary Care Provider] - 4-7 days Discharge Diet: Full LIquid Discharge Activity: Increase activity as tolerated Patient Instructions: GI Discharge Instructions Activity Restrictions/Additional Instructions: Full liquid diet, nectar thick for 3 days, then resume pur?ed diet CBC in 1 week May discharge if tolerates full liquid diet Patient's Health Concerns: Presented with upper GI bleed Assessment: Duodenal bulb had polyp, which was removed. Plan of Treatment: Close observation for any recurrent bleeding Goals: No recurrent bleeding Discharge Attestations Time Spent in Discharge Care*: greater than 30 min Status at Discharge: Cognitive status at discharge: cognitively intact, Behavioral status at discharge: cooperative, Quality Metrics Clinical Quality Measures [ No reported AMI, CVA or VTE this stay] Coding Level of Care Code Acute g [facility] note Diagnoses Upper GI bleed K92.2
--- NOTE | 2022-07-09 14:08 | ANE.PACU2 ---
Inpatient post-anesthesia follow up: Airway intact: Yes Vital signs: Temperature 97.0 F Pulse Rate 50 Respiratory Rate 18 Blood Pressure 120/69 Pulse Oximetry 94 Oxygen Delivery Me thod [ Room Air Current Rate & Del darrell] Oxygen Delivery Me thod Room Air Oxygen Flow Rate Fraction of Inspir ed Oxygen Hydration adequate: Yes Nausea and vomiting: No Pain level: 1 Mental status: Baseline
[2022-07-09 15:59] LABS: SARS Covid-2 Antigen negative (Negative)
--- NOTE | 2022-07-09 20:55 | PC.NURSE ---
REPORT TAKEN FROM MIKAEL RAINEY. PATIENT A&O TO NAME AND , OTHERWISE ALTERED. PATIENT'S SPEECH UNCLEAR AND INAPPROPRIATE. PREVIOUS SHIFT REPORTS THAT PATIENT WILL D/C ANYTIME VIA AMBULANCE, AND ALL IV LINES HAVE BEEN PULLED. PATIENT RESTING IN BED, 3 SIDE RAILS UP, BED ALARM ON, AND CALL LIGHT GIVEN TO PATIENT. THIS NURSE ATTEMPTED TO EDUCATED PATIENT TO PRESS CALL LIGHT PRIOR TO ATTEMPTS TO GET UP, REINFORCEMENT NEEDED DUE TO LACK OF COMPREHENSION. PATIENT STATES NO NEEDS AT THIS TIME.
--- NOTE | 2022-07-09 23:06 | PC.NURSE ---
PATIENT LEFT VIA STRETCHER WITH MICHAEL QUISPE.
== END 2022-07-09 23:10 | disposition skilled nursing facility (03) ==
LOC: ER 11:10 → MEDSURG 12:31
PROVIDERS: Surgery; Admitting Provider Internal Medicine; Emergency Provider Family Medicine; PCP Internal Medicine; Visit Provider Internal Medicine
PROC: 0DJ08ZZ Inspection of Upper Intestinal Tract, Via Natural or Artificial Opening Endoscopic (ICD-10-PCS; CPT 43235; principal; 2022-07-09 10:45)
DX: K92.2 Gastrointestinal hemorrhage, unspecified (principal); G31.83 Neurocognitive disorder with Lewy bodies; F02.80 Dementia in other diseases classified elsewhere, unspecified severity, without behavioral disturbance, psychotic disturbance, mood disturbance, and anxiety; I10 Essential (primary) hypertension; E78.5 Hyperlipidemia, unspecified; Z82.49 Family history of ischemic heart disease and other diseases of the circulatory system; G20 Parkinson's disease; J43.8 Other emphysema; K21.9 Gastro-esophageal reflux disease without esophagitis
CPT/HCPCS: 36415; 43236; 43251; 51701; 74177; 80048; 80053; 81003; 83605; 83690; 85014; 85018; 85025; 85610; 85730; 87426; 88305; 93005; 96361; 96365; 96366; 96372; 96375; 96376; 99285; C9113; G0378; J0171; J3486; J3490; J7030; Q9967

== ENCOUNTER → 2022-07-28 13:39 | Outpatient (BNVA) | payer MEDICARE, MEDICAID, SELFPAY | PROVIDERS: PCP Internal Medicine; Visit Provider Surgery | DX: Z09 Encounter for follow-up examination after completed treatment for conditions other than malignant neoplasm (principal); K31.7 Polyp of stomach and duodenum | CPT/HCPCS: 99203; 99213 ==

== ENCOUNTER → 2022-08-05 14:58 | Outpatient (BNVA) | payer MEDICARE, SELFPAY | PROVIDERS: PCP Internal Medicine; Visit Provider Thoracic Surgery (Cardiothoracic Vascular Surgery) | DX: I96 Gangrene, not elsewhere classified (principal); L97.422 Non-pressure chronic ulcer of left heel and midfoot with fat layer exposed | CPT/HCPCS: 99308 ==

== ENCOUNTER → 2022-08-13 10:26 | Outpatient (BNVA) | payer MEDICARE, SELFPAY | PROVIDERS: PCP Internal Medicine; Visit Provider Thoracic Surgery (Cardiothoracic Vascular Surgery) | DX: I96 Gangrene, not elsewhere classified (principal); L97.429 Non-pressure chronic ulcer of left heel and midfoot with unspecified severity ==

== ENCOUNTER 2022-11-07 01:34 | Emergency (ER) | payer MEDICARE, MEDICAID, SELFPAY ==
[2022-11-07 01:37] VITALS: BP 140/72; PULSE 51; RESP 18; TEMP 35.8; O2SAT 93; BMI 29.5
[2022-11-07 01:46] VITALS: BP 140/72; PULSE 48; RESP 16; O2SAT 93
--- NOTE | 2022-11-07 02:02 | CTR_ITS ---
PROCEDURE INFORMATION: Exam: CT Head Without Contrast Exam date and time: 11/07/2022 2:09 AM Age: 77 years old Clinical indication: Injury or trauma; Blunt trauma (contusions or hematomas) and laceration; Without residual foreign body; Patient HX: Fall at shelter. Struck left side of head against dresser. Deep lac to left auricle. PT non verbal. History of lewy body dementia. TECHNIQUE: Imaging protocol: Computed tomography of the head without contrast. Radiation optimization: All CT scans at this facility use at least one of these dose optimization techniques: automated exposure control; mA and/or kV adjustment per patient size (includes targeted exams where dose is matched to clinical indication); or iterative reconstruction. REPORTING DATA: Count of CT and Cardiac NM exams in prior 12 months: This patient has received 2 known CTs and 0 known cardiac nuclear medicine studies in the 12 months prior to the current study. COMPARISON: CT head wo con* [id number] 08/01/2021 2:22 AM RADIATION DOSE METRICS: Total DLP (mGy-cm): 1121.98 FINDINGS: Brain: No focal hemorrhage or midline shift is identified. The ventricles and parenchyma show moderate atrophy and chronic bicerebral white matter ischemic change. 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 A few scattered old lacunes are likely. Cerebral ventricles: No ventriculomegaly or evidence of hydrocephalus. Paranasal sinuses: No evidence of acute sinusitis. Mastoid air cells: Visualized mastoid air cells are well aerated. Bones/joints: No displaced skull fracture is noted. The C1 body shows congenital nonunion. Soft tissues: Numerous BB foreign bodies about the left face. Vasculature: Diffuse vascular calcifications are present. CT/CT head wo con* [id number] IMPRESSION: 1. No acute intracranial abnormality. 2. Moderate age-related changes. 3. Other chronic findings above. 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
--- NOTE | 2022-11-07 02:02 | CTR_ITS ---
PROCEDURE INFORMATION: Exam: CT Cervical Spine Without Contrast Exam date and time: 11/07/2022 2:12 AM Age: 77 years old Clinical indication: Injury or trauma; Blunt trauma; Patient HX: Fall at care home. Struck left side of head against dresser. Deep lac to left auricle. PT non verbal. History of lewy body dementia. TECHNIQUE: Imaging protocol: Computed tomography of the cervical spine without contrast. Radiation optimization: All CT scans at this facility use at least one of these dose optimization techniques: automated exposure control; mA and/or kV adjustment per patient size (includes targeted exams where dose is matched to clinical indication); or iterative reconstruction. REPORTING DATA: Count of CT and Cardiac NM exams in prior 12 months: This patient has received 2 known CTs and 0 known cardiac nuclear medicine studies in the 12 months prior to the current study. COMPARISON: CT cervical spin wo con* [id number] 08/01/2021 2:24 AM RADIATION DOSE METRICS: Total DLP (mGy-cm): 221.27 FINDINGS: Bones/joints: Multiple levels of minimal listhesis measure up to about 2.5 mm at C3 on C4. No acute fracture visualized. [id number] diffuse cervical degenerative change with loss of disc space and osteophyte formation with facet arthropathy. No fracture visualized. No acute or aggressive bone lesion. 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 Lungs: Lung apices are normal. Vasculature: Advanced diffuse vascular calcification noted. Soft tissues: Few left neck clips or bb FBs. CT/CT cervical spin wo con* [id number] IMPRESSION: 1. No acute fracture visualized. 2. Chronic findings above.
--- NOTE | 2022-11-07 02:08 | W.ED.FALL ---
Documented by User: Tanja Cid MD 11/07/22 04:03 HPI - Fall General: Chief Complaint: Fall Stated Complaint: FALL LAC TO EAR Time Seen by Provider: 11/07/22 02:03 Source: patient and EMS Mode of arrival: EMS History of Present Illness: 77-year-old male who has a history of dementia was found down had a fall at the longterm tonight he is demented no history available really from him he does have a laceration to his left ear no other injuries noted at this time. Review of Systems General: Reports: ROS unobtainable due to mental status PFSH ED PFSH: Medical History Acquired hallux malleus of both feet Depression Equinus contracture of ankle Fall Falls Gastric emphysema GERD (gastroesophageal reflux disease) Hallucinations Hammertoe HLD (hyperlipidemia) Hypertension Lewy body dementia Parkinsons Rhabdomyolysis Small bowel obstruction Vitamin B 12 deficiency Surgical History H/O hand surgery History of mandibular surgery Status post tonsillectomy Family History Father CAD (coronary artery disease) Mother CAD (coronary artery disease) Social History Smoking and tobacco status: never smoked Alcohol intake: never Lives independently: Yes Housing: House Physical Exam Const: COMMON NORMALS: negative for patient oriented x3 HENMT: COMMON NORMALS: normocephalic and atraumatic HEAD & SCALP: normocephalic and atraumatic EAR IMAGES: 1. 3 cm linear?approximated well with 6 sutures 6-0 nonabsorbable monofilament 2. 3 cm through and through laceration helix and antihelix with skin avulsion and missing cartilage noted in the antihelix. 11 sutures 6-o nonabsorbable monofilament used to tack the wound together. Bleeding controlled. 3. Bluish bruising discoloration 4. Skin avulsion with disruption of cartilage OTHER: laceration to left pinna Eye: COMMON NORMALS: Equal, round and reactive pupils present and EOMs intact bilaterally PUPIL: Yes Equal, round and reactive pupils present Neck/C-Spine: COMMON NORMALS: full ROM and supple Chest: COMMONS NORMALS: normal inspection of the chest and normal palpation of entire chest wall Resp: COMMON NORMALS: normal respiratory effort, No retractions, No use of accessory muscles and clear to auscultation bilaterally AUSCULTATION: clear to auscultation bilaterally Cardio: COMMON NORMALS: regular rate, regular rhythm and No murmurs present (Cardio) RATE: regular rate RHYTHM: regular rhythm GI: COMMON NORMALS: Normal to inspection, nondistended, normoactive bowel sounds present, Soft to palpation, non-tender and no masses PALPATION: Yes Soft to palpation Extremity: COMMON NORMALS: normal to inspection and full ROM Neuro: COMMON NORMALS: moves all extremities and no focal motor deficits; negative for patient oriented x3 Psych: COMMON NORMALS: Normal thought process present and cooperative; negative for mental status grossly normal THOUGHT PROCESS: Normal thought process present Skin: COMMON NORMALS: no rashes or lesions noted and no wounds GENERAL SKIN EXAM: no rashes or lesions noted Course Vital Signs: Vital signs: Vital Signs Temperature 96.4 F L 11/07/22 01:37 Pulse Rate 45 L 11/07/22 03:23 Respiratory Rate 16 11/07/22 01:46 Blood Pressure 140/72 11/07/22 03:23 Pulse Oximetry 94 11/07/22 03:23 Oxygen Delivery Me thod 11/07/22 01:46 MDM - Fall Medical Decision Making Patient presents after a fall he had a ear laceration that the nurse practitioner repaired head CT CT C-spine are normal he is stable for discharge at this time. Lab Data Radiology Impressions Cervical Spine CT 11/07/22 02:02 IMPRESSION: 1. No acute fracture visualized. 2. Chronic findings above. Head CT 11/07/22 02:02 IMPRESSION: 1. No acute intracranial abnormality. 2. Moderate age-related changes. 3. Other chronic findings above. 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 Discharge Plan Discharge Patient Disposition: Home Clinical Impression: Laceration of ear, Fall Condition: Stable Prescriptions: No Action atorvastatin 10 mg tablet 10 mg PO BEDTIME@18 escitalopram oxalate 5 mg tablet 5 mg PO DAILY@08 (DME) custom orthotics 11 See Rx Instructions .Route .MEDSULY Qty: 1 0RF Rx Instructions: As directed (DME) orthopedic shoes with extra deapth See Rx Instructions .Route .MEDSUPPLY Qty: 1 0RF Rx Instructions: As directed to be fitted by [facility] cholecalciferol (vitamin D3) 2,000 unit Tablet 2,000 unit PO DAILY@08 glycopyrrolate 1 mg tablet 1 mg PO BID@08,18 donepezil 5 mg tablet 5 mg PO DAILY@08 Zyprexa 5 mg Tablet See Rx Instructions .ROUTE .COMPLEX Rx Instructions: 2.5mg po qam and 5mg po bedtime vitamin E 400 unit Tablet 400 unit PO DAILY@08 food supplemt, lactose-reduced Liquid See Rx Instructions .ROUTE .COMPLEX Rx Instructions: 120cc po tid@08,12,17 Protonix 40 mg tablet,delayed release (DR/EC) 40 mg PO BID Qty: 60 0RF Discharge Orders: Discharge ED (Routine); Ordered 11/07/22 Ordered By: Tanja Cid Referrals: Jermaine Espinosa MD [Primary Care Provider] - 1-3 days Discharge Diet: Advance as tolerated Discharge Activity: Resume usual activity Patient Instructions: Laceration (ED) Activity Restrictions/Additional Instructions: suture removal in 10 days Coding Level of Care Code ED Assistant Project Engineer for Chg Fwd Documented by User: TORIE Arevalo 11/07/22 04:02 HPI - Fall General: Chief Complaint: Fall Stated Complaint: FALL LAC TO EAR Time Seen by Provider: 11/07/22 02:03 [facility] ED PFSH: Medical History Acquired hallux malleus of both feet Depression Equinus contracture of ankle [place] Gastric emphysema GERD (gastroesophageal reflux disease) Hallucinations Hammertoe HLD (hyperlipidemia) Hypertension Lewy body dementia Parkinsons Rhabdomyolysis Small bowel obstruction Vitamin B 12 deficiency Surgical History H/O hand surgery History of mandibular surgery Status post tonsillectomy Family History Father CAD (coronary artery disease) Mother CAD (coronary artery disease) Social History Smoking and tobacco status: never smoked Alcohol intake: never Lives independently: Yes Housing: House Physical Exam HENMT: EAR IMAGES: 1. 3 cm linear?approximated well with 6 sutures 6-0 nonabsorbable monofilament 2. 3 cm through and through laceration helix and antihelix with skin avulsion and missing cartilage noted in the antihelix. 11 sutures 6-o nonabsorbable monofilament used to tack the wound together. Bleeding controlled. 3. Bluish bruising discoloration 4. Skin avulsion with disruption of cartilage Procedures Laceration Left ear: Site: other (Ear) Side (If applicable): left Size (cm): 6 Description: irregular and other (Through and through laceration left helix and anthelix;) Depth: [id number] Local Anesthetic: other anesthetic (1% lidocaine auricular block) Amount of anesthesia used (mL): 5 Pre-repair: wound explored, irrigated extensively and wound margins revised Skin layer closed with: other (6-0 nonabsorbable monofilament) Size (cm): 6-0 Number of sutures: 17 Technique: simple, interrupted Course ED course: Suture repair done as requested per Dr. Cid. Auricular block performed. Total of 17 sutures 6-0 monofilament nonabsorbable utilized to tack the ear. Skin avulsion and some avulsion of the cartilage is appreciated the area inside the roger bowl that is avulsed is left open. Patient tolerated the procedure well. Bleeding is controlled. Pressure dressing applied. Vital Signs: Vital signs: Vital Signs Temperature 96.4 F L 11/07/22 01:37 Pulse Rate 45 L 11/07/22 03:23 Respiratory Rate 16 11/07/22 01:46 Blood Pressure 140/72 11/07/22 03:23 Pulse Oximetry 94 11/07/22 03:23 Oxygen Delivery Me thod 11/07/22 01:46 MDM - Fall Lab Data Radiology Impressions Cervical Spine CT 11/07/22 02:02 IMPRESSION: 1. No acute fracture visualized. 2. Chronic findings above. Head CT 11/07/22 02:02 IMPRESSION: 1. No acute intracranial abnormality. 2. Moderate age-related changes. 3. Other chronic findings above. 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 Discharge Plan Discharge Patient Disposition: Home Clinical Impression: Laceration of ear, Fall Condition: Stable Prescriptions: No Action atorvastatin 10 mg tablet 10 mg PO BEDTIME@18 escitalopram oxalate 5 mg tablet 5 mg PO DAILY@08 (DME) custom orthotics 11 See Rx Instructions .Route .MEDSUPPLY Qty: 1 0RF Rx Instructions: As directed (DME) orthopedic shoes with extra deapth See Rx Instructions .Route .MEDSUPPLY Qty: 1 0RF Rx Instructions: As directed to be fitted by [facility]&O cholecalciferol (vitamin D3) 2,000 unit Tablet 2,000 unit PO DAILY@08 glycopyrrolate 1 mg tablet 1 mg PO BID@08,18 donepezil 5 mg tablet 5 mg PO DAILY@08 Zyprexa 5 mg Tablet See Rx Instructions .ROUTE .COMPLEX Rx Instructions: 2.5mg po qam and 5mg po bedtime vitamin E 400 unit Tablet 400 unit PO DAILY@08 food supplemt, lactose-reduced Liquid See Rx Instructions .ROUTE .COMPLEX Rx Instructions: 120cc po tid@08,12,17 Protonix 40 mg tablet,delayed release (DR/EC) 40 mg PO BID Qty: 60 0RF Discharge Orders: Discharge ED (Routine); Ordered 11/07/22 Ordered By: Tanja Cid Referrals: Jermaine Epsinosa MD [Primary Care Provider] - 1-3 days Discharge Diet: Advance as tolerated Discharge Activity: Resume usual activity Patient Instructions: Laceration (ED) Activity Restrictions/Additional Instructions: suture removal in 10 days Coding Level of Care Code ED Assistant Project Engineer for Mike Bellamy
[2022-11-07 03:23] VITALS: BP 140/72; PULSE 45; O2SAT 94
[2022-11-07] MEDS: lidocaine 1% INJ 10 mL (per mL) INJECTION (03:56)
== END 2022-11-07 05:00 | disposition home or self-care (01) ==
PROVIDERS: Emergency Provider Emergency Medicine; PCP Internal Medicine
DX: S01.312A Laceration without foreign body of left ear, initial encounter (principal); I10 Essential (primary) hypertension; E78.5 Hyperlipidemia, unspecified; G31.83 Neurocognitive disorder with Lewy bodies; F02.80 Dementia in other diseases classified elsewhere, unspecified severity, without behavioral disturbance, psychotic disturbance, mood disturbance, and anxiety; W19.XXXA Unspecified fall, initial encounter; Y92.129 Unspecified place in nursing home as the place of occurrence of the external cause
CPT/HCPCS: 12014; 70450; 72125; 99284

== ENCOUNTER 2023-03-30 13:44 | Outpatient (CLI) | payer MEDICARE, MEDICAID, SELFPAY ==
--- NOTE | 2023-03-30 13:55 | CT_ITS ---
WS: [id number] CT ABDOMEN AND PELVIS WITH AND WITHOUT CONTRAST HISTORY: LOWER BACK PAIN/BLOOD PRESENT W/URINATION TECHNIQUE: Unenhanced 5 mm axial imaging first performed through the abdomen. Post contrast imaging t hrough the abdomen and pelvis. Oral contrast has not been provided. Sagittal and coronal reformats a re submitted. All CT scans at [facility] use at least one of these dose optimization techniqu es: automated exposure control; mA and/or kV adjustment per patient size (includes targeted exams whe re dose is matched to clinical indication); or iterative reconstruction. CONTRAST: Omnipaque 350; 95 mL IV. DLP: 2088.32 mGy.cm COMPARISON: 07/08/2022 Mild dependent changes with atelectasis at the lung bases. Irregular opacification incompletely visua lized in the right middle lobe. Mild cardiac enlargement. Moderate coronary artery calcification. Sma ll hiatal hernia. Normal size liver with several hepatic cysts. The largest cyst measures 1.8 cm in the left lobe of th e liver. There is no bile duct dilatation. Normal portal vein. Normal gallbladder. Normal size spleen . Mild pancreatic atrophy. No adrenal mass. Bilateral renal cysts. The largest renal cyst superior po le right kidney measures 5.4 x 6.5 cm. No solid mass identified. No obstruction. Extrarenal pelvis on the left. Moderate atherosclerosis aorta. Moderate calcification continues into the SMA. Nondistended stomach. No small bowel obstruction. Mild tortuosity of the colon with overlapping loops . Circumferential thickening of the rectum's extending towards the anus. New finding since the prior study from 2021. No ascites or adenopathy. Urinary bladder is well distended. No significant prostate enlargement. Ing uinal canals are patent bilaterally containing fat only. Mild degenerative changes throughout the lumbar spine. IMPRESSION: 1. Bilateral renal cysts. Numerous renal cysts are identified. No solid mass or obstruction. 2. Diffuse circumferential thickening of the distal rectum extending to the anus. Soft tissue thicken ing is new since 2021. Recommend colonoscopy and possible biopsy. Proctitis likely. 3. No ascites or adenopathy. 4. Bilateral lung base opacifications. May be areas of pneumonitis. Recommend follow-up chest CT with IV contrast. 5. Hepatic cysts.
[2023-03-30 14:42] LABS: Blood Urea Nitrogen 14 mg/dL (8-23)
[2023-03-30] MEDS: iohexol 350 mg/mL 500 mL Btl (per mL) IV (14:52)
== END 2023-03-30 13:45 | disposition home or self-care (01) ==
LOC: RAD 13:47
PROVIDERS: PCP Internal Medicine; Visit Provider Internal Medicine
DX: M54.50 Low back pain, unspecified (principal); R31.9 Hematuria, unspecified; Q61.02 Congenital multiple renal cysts; R93.3 Abnormal findings on diagnostic imaging of other parts of digestive tract; R91.8 Other nonspecific abnormal finding of lung field; K76.89 Other specified diseases of liver
CPT/HCPCS: 74178; 82565; 84520; Q9967

== ENCOUNTER 2023-10-10 21:31 | Inpatient (IN) | payer MEDICARE, MEDICAID, SELFPAY ==
[2023-10-10] VITALS (10 sets, daily range): BP systolic 109–170; BP diastolic 57–72; PULSE 46–54; RESP 12–20; TEMP 34.9–35.1; O2SAT 89–98; BMI 29.5
[2023-10-10 21:54] LABS: Glucose Point of Care 52 mg/dL (70-110)
--- NOTE | 2023-10-10 22:04 | XRR_ITS ---
PROCEDURE INFORMATION: Exam: XR Chest Exam date and time: 10/10/2023 10:10 PM Age: 78 years old Clinical indication: Patient HX: Bradycardia; Hypothermia; Cough; Additional info: AMS TECHNIQUE: Imaging protocol: Radiologic exam of the chest. Views: 1 view. COMPARISON: CR XR chest 1V portable [id number] 02/27/2021 9:02 AM FINDINGS: Lungs: Low lung volumes. Streaky left basilar opacities. Pleural spaces: No pleural effusion. No pneumothorax. Heart/Mediastinum: Likely unchanged cardiomediastinal silhouette when accounting for differences in patient rotation. Bones/joints: No acute osseous abnormality. XR/XR chest 1V portable [id number] IMPRESSION: Streaky left basilar opacities, indeterminate for atelectasis versus aspiration or pneumonia in the setting of low lung volumes.
[2023-10-10] MEDS: dextrose 10% 250 ML 1000 ML IV (22:06)
[2023-10-10 22:19] LABS: Basophils # 0.1 10^3/uL (0.0-0.1); Basophils % 1.3 %; Eosinophils # 0.3 10^3/uL (0.0-0.8); Hematocrit 39.4 % (37-53); Lymphocytes # 1.2 10^3/uL (0.8-4.8); Lymphocytes % 32.2 %; Mean Corpuscular HGB Conc 31.5 g/dL (30-55); Mean Corpuscular Hemoglobin 30.7 pg (27-33); Mean Corpuscular Volume 97.5 fl (82-101); Mean Platelet Volume 10.9 fL (7.4-10.4); Monocytes # 0.6 10^3/uL (0.2-0.9); Monocytes % 14.6 %; Neutrophils % 42.6 %; Nucleated Red Blood Cells % 0 %; Platelet Count 138 10^3/cmm (157-399); Red Blood Count 4.04 10^6/uL (3.85-5.65); White Blood Count 3.76 10^3/uL (3.29-11.43)
--- NOTE | 2023-10-10 22:21 | ECG_ITS ---
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 Measurements Intervals [place] Rate: 53 P: 73 MN: 207 QRS: 53 QRSD: 106 T: 50 QT: 409 QTc: 385 Interpretive Statements SINUS BRADYCARDIA WITH OCCASIONAL SUPRAVENTRICULAR PREMATURE COMPLEXES POSSIBLE LATERAL MYOCARDIAL INFARCTION , PROBABLY OLD [30 ms Q WAVE IN I/aVL/V5/V6] Compared to ECG 07/09/2022 04:58:41 Myocardial infarct finding now present ST (T wave) deviation no longer present Electronically Signed On 10-11-2023 20:54:10 [employer] by Dior Damon M.D. [id number]
[2023-10-10 22:30] LABS: INR 0.99 (0.8-1.2); Partial Thromboplastin Time 30.9 SECONDS (23.9-36.7)
[2023-10-10 22:45] LABS: Troponin(5th) Baseline 59 ng/L (0-15)
[2023-10-10 22:50] LABS: Alanine Aminotransferase 11 U/L (0-41); Albumin Level 3.1 g/dL (3.5-5.2); Alkaline Phosphatase 95 U/L (40-130); Anion Gap 12.1 (5-19); Aspartate Amino Transferase 18 U/L (0-40); Blood Urea Nitrogen 12 mg/dL (8-23); Calcium 9.3 mg/dL (8.5-10.5); Carbon Dioxide 30 mmol/L (22-29); Chloride 99 mmol/L (98-107); Globulin 3.8 g/dL (1.3-4.6); Glucose 57 mg/dL (65-115); NT Pro B Type Natriuretic Pept 368 pg/mL (0-450); Osmolality Calculated 281 mOsm/kg (285-295); Potassium 4.1 mmol/L (3.5-5.1); Sodium 137 mmol/L (136-145); Total Bilirubin 0.6 mg/dL (0.15-1.2); Total Protein 6.9 g/dL (6.6-8.7)
--- NOTE | 2023-10-10 22:59 | W.ED.GENADLT ---
HPI - General Adult General: Chief complaint: General Medical Stated complaint: Low HR, Time Seen by Provider: 10/10/23 21:36 History of Present Illness: Mr. Parra is a 78-year-old patient from a assisted with his deemed a full code. He has a history of dementia and Parkinson's disease. He presents with a decrease in mentation. Evidently, he was found by his nurse to be unresponsive . This episode did not seem to last very long. On EMS arrival they report that the patient seemed to be in his baseline mental status as far as they remember from seeing him the week prior. He was seen in an outside facility emergency room the week prior after a fall. What was noticed was a low heart rate, in the 40s. It is somewhat irregular. Blood pressure had been normal. Review of Systems General: Reports: ROS unobtainable due to mental status PFS ED PFSH: Medical History (Updated 10/11/23 @ 20:27 by Vipin Lehman DO) Lewy body dementia Hypertension Small bowel obstruction Gastric emphysema Rhabdomyolysis Fall Parkinsons Equinus contracture of ankle Hammertoe Acquired hallux malleus of both feet Hallucinations Falls Depression Vitamin B 12 deficiency HLD (hyperlipidemia) GERD (gastroesophageal reflux disease) Surgical History History of mandibular surgery H/O hand surgery Status post tonsillectomy Family History Father CAD (coronary artery disease) Mother CAD (coronary artery disease) Social History Smoking and tobacco/nicotine status: never used tobacco/nicotine Alcohol intake: never Substance/Drug Use: never Lives independently: Yes Housing: House Physical Exam Const: COMMON NORMALS: no acute distress GENERAL APPEARANCE: lethargic (Mildly) and frail appearing ORIENTATION/CONSCIOUSNESS: Yes lethargic (Mildly) HENMT: COMMON NORMALS: normocephalic HEAD & SCALP: normocephalic Eye: COMMON NORMALS: EOMs intact bilaterally Neck/C-Spine: GENERAL: Yes trachea midline Chest: CHEST: Yes Symmetrical chest wall rise Resp: COMMON NORMALS: normal respiratory effort, No use of accessory muscles and clear to auscultation bilaterally AUSCULTATION: clear to auscultation bilaterally Cardio: RATE: bradycardic GI: COMMON NORMALS: Soft to palpation and non-tender INSPECTION: No visible herniation PALPATION: Yes Soft to palpation Extremity: NARRATIVE EXTREMITY EXAM: Some lower extremity swelling. There was reported to have been a previous history of cellulitis, although lower extremities did not seem overly cellulitic. Neuro: SENSORIUM/ORIENTATION: Yes lethargic (Mildly) Course Vital Signs: Vital signs: Vital Signs Temperature 97.0 F L 10/11/23 20:00 Pulse Rate 56 L 10/11/23 20:00 Respiratory Rate 21 H 10/11/23 20:00 Blood Pressure 143/75 10/11/23 20:00 Pulse Oximetry 100 10/11/23 20:00 Oxygen Delivery Me thod Nasal Cannula 10/11/23 20:00 Oxygen Flow Rate 3 10/11/23 10:45 Fraction of Inspir ed Oxygen 35 10/11/23 01:21 MDM - General Adult Medical Decision Making On arrival, the patient's blood sugar was checked and is 52. Apparently, this had not been checked either at the assisted or by EMS. Heart rate is increased to 50 currently. Blood pressure 125/66. The patient does not answer some questions. He is oxygenating normally on the same settings he has been on. He is afebrile. No leukocytosis. Troponin baseline is 59. BNP is 368. Chest x-ray shows left basilar atelectasis. On arrival he was quite hypothermic. Temperature was 94.8. Rajesh hugger was placed, and his temperature is slowly began to raise. His mental status has not improved much. His blood pressures remained stable. Given his hypothermia, bradycardia, and change in mental status, he will be admitted. Hospitalist has seen the patient in the ER. Lab Data 10/10/23 21:40 10/10/23 21:40 Radiology Impressions Chest X-Ray 10/10/23 22:04 IMPRESSION: Streaky left basilar opacities, indeterminate for atelectasis versus aspiration or pneumonia in the setting of low lung volumes. Head CT 10/11/23 01:22 IMPRESSION: 1. No acute intracranial hemorrhage or acute calvarial fracture. 2. Comminuted bilateral nasal bone and frontal process of the maxilla fractures, appear acute or subacute. 3. Partial bilateral mastoid effusions and right middle ear effusion. 4. Unchanged chronic findings as above. Laboratory Results WBC 3.76 10^3/uL (3.29-11.43) 10/10/23 21:40 RBC 4.04 10^6/uL (3.85-5.65) 10/10/23 21:40 Hgb 12.40 g/dL (11.27-16.99) 10/10/23 21:40 Hct 39.4 % (37-53) 10/10/23 21:40 MCV 97.5 fl (82-101) 10/10/23 21:40 MCH 30.7 pg (27-33) 10/10/23 21:40 MCHC 31.5 g/dL (30-55) 10/10/23 21:40 RDW 15.0 % (12.1-15.1) 10/10/23 21:40 Plt Count 138 10^3/cmm (157-399) L 10/10/23 21:40 MPV 10.9 fL (7.4-10.4) H 10/10/23 21:40 Neut % (Auto) 42.6 % 10/10/23 21:40 Lymph % (Auto) 32.2 % 10/10/23 21:40 [place] % (Auto) 14.6 % 10/10/23 21:40 Eos % (Auto) 9.0 % 10/10/23 21:40 Baso % (Auto) 1.3 % 10/10/23 21:40 Neut # (Auto) 1.60 10^3/uL (1.8-7.7) L 10/10/23 21:40 Lymph # (Auto) 1.2 10^3/uL (0.8-4.8) 10/10/23 21:40 [place] # (Auto) 0.6 10^3/uL (0.2-0.9) 10/10/23 21:40 Eos # (Auto) 0.3 10^3/uL (0.0-0.8) 10/10/23 21:40 Baso # (Auto) 0.1 10^3/uL (0.0-0.1) 10/10/23 21:40 Nucleated RBC % (auto) 0 % 10/10/23 21:40 Nucleated RBCs # 0.0 /100WBC 10/10/23 21:40 PT 13.40 SECONDS (12.1-14.9) 10/10/23 21:40 INR 0.99 (0.8-1.2) 10/10/23 21:40 APTT 30.9 SECONDS (23.9-36.7) 10/10/23 21:40 Sodium 137 mmol/L (136-145) 10/10/23 21:40 Potassium 4.1 mmol/L (3.5-5.1) 10/10/23 21:40 Chloride 99 mmol/L (98-107) 10/10/23 21:40 Carbon Dioxide 30 mmol/L (22-29) H 10/10/23 21:40 Anion Gap 12.1 (5-19) 10/10/23 21:40 BUN 12 mg/dL (8-23) 10/10/23 21:40 Creatinine 0.7 mg/dL (0.7-1.2) 10/10/23 21:40 GFR Calculation Not Reportable 10/10/23 21:40 Glucose 57 mg/dL (65-115) L 10/10/23 21:40 POC Glucose 107 mg/dL (70-110) 10/11/23 00:49 Calculated Osmolality 281 mOsm/kg (285-295) L 10/10/23 21:40 Calcium 9.3 mg/dL (8.5-10.5) 10/10/23 21:40 Total Bilirubin 0.6 mg/dL (0.15-1.2) 10/10/23 21:40 AST 18 U/L (0-40) 10/10/23 21:40 ALT 11 U/L (0-41) 10/10/23 21:40 Alkaline Phosphatase 95 U/L (40-130) 10/10/23 21:40 Troponin T Baseline 59 ng/L (0-15) H 10/10/23 21:40 Troponin T 120 Minute 61.48 ng/L (0-15) H 10/11/23 00:35 Delta Troponin T 2.48 ABS# (0-10) 10/11/23 00:35 NT-Pro-B Natriuret Pep 368 pg/mL (0-450) 10/10/23 21:40 Total Protein 6.9 g/dL (6.6-8.7) 10/10/23 21:40 Albumin 3.1 g/dL (3.5-5.2) L 10/10/23 21:40 Globulin 3.8 g/dL (1.3-4.6) 10/10/23 21:40 TSH 5.36 uIU/mL (0.27-4.20) H 10/11/23 00:35 All radiology interpretation(s) finalized by discharge Discharge Plan Discharge Patient Disposition: Admitted As Inpatient Admit Provider: Haja Guaman Clinical Impression: Lewy body dementia, Hypoglycemia, Hypoxia, Bradycardia Condition: Stable Coding Level of Care Code ED Relay Telegrapher for Mike Bellamy
[2023-10-11] VITALS (20 sets, daily range): BP systolic 99–164; BP diastolic 49–90; PULSE 51–61; RESP 12–21; TEMP 35.7–37.1; O2SAT 84–100
[2023-10-11 00:52] LABS: Glucose Point of Care 107 mg/dL (70-110)
[2023-10-11 01:13] LABS: Troponin 5 2HR 61.48 ng/L (0-15); Troponin 5 2HR Delta 2.48 ABS# (0-10)
[2023-10-11 01:20] LABS: ABG PCO2 48.5 mmHg (35-45); ABG PH Result 7.41 (7.35-7.45); Alveolar-Arterial Oxygen Gradi 20.9 mmHg (5-10); Arterial Blood Gas Hematocrit 37.7 % (42-52); Base Excess ABG 5.2 mmol/L (-2.0-2.0); Blood Gas Allen Test Pos; Blood Gas Operator Identificat ED; Blood Gas Sample Site Radial, right; Blood Gas Sample Type Arterial; Carboxyhemoglobin 1.2 %THgb (0.4-20.1); HCO3 ABG 30.8 mmol/L (22-26); HGB O2 Sat 96.6 % (95-100); Ionized Calcium Level - ABG 1.3 mmol/L (1.1-1.4); Methemoglobin 0.9 % (0.4-1.5); Oxygen Device NC; Oxygen Saturation ABG 98.6; PO2 ABG 92.6 mmHg (80.0-100.0); PO2 FiO2 Ratio Arterial Blood 0; Potassium Level - ABG 3.2 mmol/L (3.5-5.0); Total Hemoglobin 12.3 g/dL (14-18)
--- NOTE | 2023-10-11 01:22 | CTR_ITS ---
PROCEDURE INFORMATION: Exam: CT Head Without Contrast Exam date and time: 10/11/2023 1:53 AM Age: 78 years old Clinical indication: Altered mental status/memory loss; Patient HX: EMS arrival from [facility] for [facility]. Patient non verbal. History of lewy body dementia. TECHNIQUE: Imaging protocol: Computed tomography of the head without contrast. Radiation optimization: All CT scans at this facility use at least one of these dose optimization techniques: automated exposure control; mA and/or kV adjustment per patient size (includes targeted exams where dose is matched to clinical indication); or iterative reconstruction. COMPARISON: CT head wo con* [id number] 11/07/2022 2:09 AM RADIATION DOSE METRICS: Total DLP (mGy-cm): 1475.18 FINDINGS: Brain: Remote right occipital infarct, unchanged. No acute intracranial hemorrhage. No acute territorial region of razo-white dedifferentiation. No extra-axial collection. No mass effect or midline shift. Moderate burden of nonspecific white matter hypoattenuation, likely chronic microvascular ischemic change. Generalized parenchymal volume loss. Cerebral ventricles: No acute hydrocephalus. Paranasal sinuses: Visualized sinuses are well-aerated. No fluid levels. Mastoid air cells: Partial bilateral mastoid effusions and right middle ear effusion. Orbital cavities: No acute abnormality. Bones/joints: Congenital non fused anterior C1 arch. No acute fracture. Comminuted bilateral nasal bone and frontal process of the maxilla fractures, appear acute or subacute. No acute calvarial fracture. 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 CT/CT head wo con* [id number] IMPRESSION: 1. No acute intracranial hemorrhage or acute calvarial fracture. 2. Comminuted bilateral nasal bone and frontal process of the maxilla fractures, appear acute or subacute. 3. Partial bilateral mastoid effusions and right middle ear effusion. 4. Unchanged chronic findings as above.
--- NOTE | 2023-10-11 01:53 | PM.HP ---
Providers/Chief Complaint Primary Care Provider: Jermaine Espinosa MD Chief Complaint: Low HR, History of Present Illness Laith Jimenez is a 78 year old male Resident of [facility] with history of Parkinson's disease dementia, hypertension, major depressive disorder, hallucinations, anemia, recent UTI. . residential reports that patient had an altered mental status patient was reportedly unresponsive it started yesterday and worsened today he had a fall last Thursday was seen at [facility]. I called detention and spoke with the nurse covering for for the nurse who sent the patient in and she could only find that the patient was diagnosed with a UTI in on September 21. Per reports and documentation patient has been nonambulatory the last few months his fall was when he was in a wheelchair trying to get into bed he did suffer facial trauma to the right temporal area questionable facial fractures. Patient has not usually alert and has to be fed as well. He was written requiring new oxygen at the detention and was transferred for further workup In the emergency room he is found to be further hypoxic requiring BiPAP he is bradycardic but troponins are negative his bradycardia is stable in the 40s and 50s. He is significantly hypothermic requiring a Rajesh hugger. He is also hypoglycemic without the diagnosis of diabetes and not on any hypoglycemic c-Myc medications chest x-ray is shows mild pleural effusion. At this time no definitive diagnosis however infection hypothyroidism are on the top of my differential. It is interesting to note that the patient carries a diagnosis of Parkinson's disease but yet is on no Sinemet. Review of Systems General: Reports: ROS unobtainable due to mental status Medications/Allergies Home Medications Medication Instructions Recorded Confirmed Last Taken Type cholecalciferol (vitamin D3) 50 2,000 unit PO DAILY@10/03/19 09/29/23 07/08/21 History mcg (2,000 unit) tablet atorvastatin 10 mg tablet 10 mg PO BEDTIME@04/18/20 09/29/23 07/07/21 History escitalopram oxalate 5 mg tablet 5 mg PO DAILY@04/18/20 09/29/23 07/08/21 History food supplemt, lactose-reduced See Rx Instructions .Route .COMPLEX 07/08/22 09/29/23 Unknown History glycopyrrolate 1 mg tablet 1 mg PO BID@07/08/22 09/29/23 07/07/22 History olanzapine 5 mg tablet (Zyprexa) See Rx Instructions .Route .COMPLEX 07/08/22 09/29/23 07/07/22 History vitamin E 400 unit tablet 400 unit PO DAILY@07/08/22 09/29/23 Unknown History pantoprazole 40 mg tablet,delayed 40 mg PO BID #60 tabs 07/09/22 09/29/23 Unknown Rx release (Protonix) donepezil 5 mg tablet 10 mg PO DAILY@05/13/23 09/29/23 Unknown History folic acid 1 mg tablet 1 mg PO DAILY 05/13/23 09/29/23 Unknown History Allergies Allergy/AdvReac Type Severity Reaction Status Date / Time Penicillins Allergy Unknown Verified 09/29/23 15:02 ranitidine [From Zantac] Allergy Unknown Verified 09/29/23 15:02 PFSH Acute PFSH: Medical History (Updated 10/11/23 @ 02:19 by Haja Guaman DO) Lewy body dementia Hypertension Small bowel obstruction Gastric emphysema Rhabdomyolysis Fall Parkinsons Equinus contracture of ankle Hammertoe Acquired hallux malleus of both feet Hallucinations Falls Depression Vitamin B 12 deficiency HLD (hyperlipidemia) GERD (gastroesophageal reflux disease) Surgical History History of mandibular surgery H/O hand surgery Status post tonsillectomy Family History Father CAD (coronary artery disease) Mother CAD (coronary artery disease) Social History Smoking and tobacco/nicotine status: never used tobacco/nicotine Alcohol intake: never Substance/Drug Use: never Lives independently: Yes Housing: House Vitals/I&O/Wt Last Vital Signs Temp 96.3 F L 10/11/23 00:27 Pulse 59 L 10/11/23 01:21 Resp 15 10/11/23 01:00 BP 105/49 10/11/23 01:00 Pulse Ox 94 10/11/23 01:21 O2 Del Method BiPAP 10/11/23 01:00 O2 Flow Rate 6 10/11/23 00:45 FiO2 35 10/11/23 01:21 10/10/23 10/10/23 10/11/23 14:59 22:59 06:59 Intake Total 250 / 250 Balance 250 / 250 Weight last 48 hrs Weight 90.628 kg Physical Exam Narrative: Elderly male with cushingoid type appearance pale and lethargic is seen in the ED. He is somewhat anxious appearing trying to move his arms but unable HEENT: Patient has bruising in the right temporal area and inferior to right eye there is also some bruising under the left eye pupils appear equal head is stiff unable to assess ocular motion sufficiently mucous membranes are dry with a phlegm appearance on tongue Neck: Thick no carotid bruits lymphadenopathy Heart: Distant heart sounds no loud murmurs thick robust chest Lungs: Clear anteriorly due to patient's size I was unable to manipulate patient to auscultate other areas Abdomen obese distended patient reacted with more movement upon palpation no rebound no rigidity very mild guarding Skin warm now with bear hugger, pale dry Neuro: Patient aphasic: Rigidity and neck cogwheel rigidity left greater than right less movement in the left arm no movement of legs unable to move passively due to stiffness Data 10/10/23 21:40 10/10/23 21:40 CXR: My impression: Possible left lower lobe pneumonia versus effusion Radiologist's impression: Streaky left basilar opacities, indeterminate for atelectasis versus aspiration or pneumonia in the setting of low lung volumes. A&P Assessment and plan (1) Dementia: Long history of dementia with admission to detention June 2021. Per nursing staff patient has shown progressive decline over the last few months and medical staff have talked with the daughter about considering hospice care. She had declined this due to not fully understanding patient's overall prognosis. Patient is on Aricept 10 mg no recent changes in and he continues to decline. He is also had episodes of hallucination and behavioral changes in has been on Zyprexa. He has been moved from the behavioral unit to the general unit with 1 incident of fall. But that was traumatic causing contusion and reported facial fractures Qualifiers: Dementia type: Lewy body dementia Dementia severity: severe Dementia behavioral or psychological symptom: without behavioral, psychotic, or mood disturbance or anxiety Qualified Code(s): G31.83 - Neurocognitive disorder with Lewy bodies; F02.C0 - Dementia in other diseases classified elsewhere, severe, without behavioral disturbance, psychotic disturbance, mood disturbance, and anxiety (2) Hypothermia: Improving with bear hugger. Will need to treat for sepsis if TSH is negative Qualifiers: Encounter type: initial encounter Qualified Code(s): T68.XXXA - Hypothermia, initial encounter (3) Hypoglycemia: It is noted that patient is dependent on feeding so the question is has a patient not been eating enough or refusing to eat versus is this a part of hypothyroidism (4) Hypoxia: While there are some changes noted on the chest x-ray his hypoxia seems to be out of proportion to what seen on plain film. Depending on further workup may need CT chest (5) Diffuse cerebral atrophy: Seen on CT October 2022. 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 (7) History of Parkinson's disease: While patient carries this diagnosis he is not on any medications I question the validity of this historic diagnosis (8) Vitamin D deficiency: Patient takes vitamin D 2000 units daily we will check a vitamin D level (9) Depression: Patient takes Lexapro 5 mg daily and per detention staff no recent change. Qualifiers: Depression Type: persistent depressive disorder Qualified Code(s): F34.1 - Dysthymic disorder Plan Will start antibiotics due to hypoxia and hypothermia Follow-up on TSH and vitamin D DVT prophylaxis Patient is listed as full code; this should be reviewed with daughter since overall prognosis with dementia is poor Attestations Medical Necessity Statement*: Patient's care will require crossing 2 midnights to treat severe hypothermia hypoxia bradycardia and hypoglycemia Coding Level of Care Code Acute Code for Chg Fwd Diagnoses Severe Lewy body dementia without behavioral disturbance, psychotic disturbance, mood disturbance, or anxiety G31.83; F02.C0 Dementia type: Lewy body dementia Dementia severity: severe Dementia behavioral or psychological symptom: without behavioral, psychotic, or mood disturbance or anxiety Hypothermia, initial encounter T68.XXXA Encounter type: initial encounter Hypoglycemia E16.2 Hypoxia R09.02 Diffuse cerebral atrophy G31.9 CVA, old, cognitive deficits I69.319 History of Parkinson's disease Z86.69 Vitamin D deficiency E55.9 Persistent depressive disorder F34.1 Depression Type: persistent depressive disorder
[2023-10-11 02:01] LABS: Thyroid Stimulating Hormone 5.36 uIU/mL (0.27-4.20)
[2023-10-11 02:22] LABS: 25 Hydroxy Vitamin D 33 ng/mL (30-100)
--- NOTE | 2023-10-11 02:39 | PC.NURSE ---
Patient non-verbal presently. Hx of dementia
[2023-10-11] MEDS: heparin 5,000 unit/mL INJ 1 mL 5000 UNIT SUBCUT ×2 (03:16→13:42)
[2023-10-11] MEDS: D5-NS 0.45% + KCL 20 mEq 20 MEQ/1,000 ML BAG 75 MEQ IV ×2 (03:16→15:18)
[2023-10-11 03:27] LABS: Add Urine Microscopic? YES; Bilirubin Urine Neg (Negative); Blood Urine 2+ (Negative); Glucose Urine UA Norm (Normal); Ketones Urine 1+ (Negative); Leukocyte Esterase Urine Negative (Negative); Nitrate Urine Negative (Negative); Protein Urine Neg (Negative); Specific Gravity, Urine 1.015 (1.005-1.030); Urine Appearance Hazy (CLEAR); Urine Color Dark Yellow (Yellow); Urobilinogen Urine Norm (Negative); pH Urine 6 (5-7)
[2023-10-11 03:28] LABS: Bacteria Urine TRACE /hpf; Coarse Granular Casts Urine 0-4 /lpf; Mucus Urine TRACE /hpf; RBC Urine 0-4 /hpf (0-2); Squamous Epithelial Cell Urine 0-4 /hpf (0-5); WBC Urine 0-4 /hpf (0-5)
[2023-10-11 03:29] LABS: Hyaline Casts Urine 0-4 /lpf
[2023-10-11 03:37] LABS: Glucose Point of Care 143 mg/dL (70-110)
[2023-10-11 04:43] LABS: Troponin 5 6HR 65.35 ng/L (0-15); Troponin 5 6HR Delta 6.35 ng/L (0-12)
--- NOTE | 2023-10-11 06:24 | ECG_ITS ---
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 Measurements Intervals [place] Rate: 58 P: 67 SD: 199 QRS: 51 QRSD: 104 T: 54 QT: 455 QTc: 449 Interpretive Statements SINUS BRADYCARDIA WITH OCCASIONAL SUPRAVENTRICULAR PREMATURE COMPLEXES POSSIBLE LATERAL MYOCARDIAL INFARCTION , PROBABLY OLD [30 ms Q WAVE IN I/aVL/V5/V6] Compared to ECG 10/10/2023 22:21:44 No significant changes Electronically Signed On 10-11-2023 21:02:43 DISTRICT OR DISTRICT OFFICE DIRECTOR by Dior Damon M.D. [id number]
[2023-10-11] MEDS: escitalopram 10 mg Tablet 5 MG PO (09:07)
[2023-10-11] MEDS: cholecalciferol (vitamin D3) 5,000 unit Tablet 5000 UNIT PO (09:08)
[2023-10-11] MEDS: docusate sodium 100 mg Capsule PO (09:08)
[2023-10-11 11:35] LABS: Glucose Point of Care 116 mg/dL (70-110)
[2023-10-11] MEDS: levofloxacin-dextrose 5 % 750 MG/150 ML PREMIX 100 MG IV (13:32)
--- NOTE | 2023-10-11 14:17 | P.PN_ITS ---
Subjective 2 Subjective: Patient is asleep, difficult to arouse. He is able to open his eyes and look. Medications: Reviewed: Yes Vitals/I&O/Wt Last Vital Signs Temp 97.0 F L 10/11/23 11:41 Pulse 59 L 10/11/23 11:41 Resp 18 10/11/23 11:41 BP 126/64 10/11/23 11:41 Pulse Ox 97 10/11/23 11:46 O2 Del Method Nasal Cannula 10/11/23 11:46 O2 Flow Rate 3 10/11/23 10:45 FiO2 35 10/11/23 01:21 10/10/23 10/11/23 10/11/23 22:59 06:59 14:59 Intake Total 250 / 250 Output Total 150 / 150 Balance 100 / 100 Weight last 48 hrs Weight 195 lb 1.6 oz Weight 199 lb 12.8 oz Physical Exam 2 Narrative: General: Lethargic, asleep through exam. HEENT: Normocephalic, Atraumatic. External ears normal. Nasal passages patent without drainage. MM are dry with caked saliva around his lips. Heart: RRR. Resp: LCTA. No respiratory distress, no use of accessory muscles. Abd: Soft, non-tender. Non-distended. Extremities: No edema. Skin: No rash or lesions on exposed areas. Neuro: No focal motor or sensory loss. Gait is normal. Urinary Catheter Management: [place]: Cath Placed During This Visit: yes Reason for Continuing Indwelling Catheter: Assist Healing of Perineal & Sacral Wounds- Incontinent Patients Urinary Catheter Date of Insertion: 10/11/23 Urinary Catheter Time of Insertion: 02:55 Data 10/10/23 21:40 10/10/23 21:40 A&P Assessment and plan (1) Dementia: Qualifiers: Dementia behavioral or psychological symptom: without behavioral, psychotic, or mood disturbance or anxiety Dementia severity: severe Dementia type: Lewy body dementia Qualified Code(s): G31.83 - Neurocognitive disorder with Lewy bodies; F02.C0 - Dementia in other diseases classified elsewhere, severe, without behavioral disturbance, psychotic disturbance, mood disturbance, and anxiety (2) Hypothermia: Qualifiers: Encounter type: initial encounter Qualified Code(s): T68.XXXA - Hypothermia, initial encounter (3) Hypoglycemia: (4) Hypoxia: (5) Diffuse cerebral atrophy: (6) CVA, old, cognitive deficits: (7) Vitamin D deficiency: (8) Depression: Qualifiers: Depression Type: persistent depressive disorder Qualified Code(s): F 34.1 - Dysthymic disorder Plan 78-year-old male admitted for hypoglycemia, hypothermia and hypoxic respiratory failure. Continue inpatient monitoring. Started on levofloxacin for possible pneumonia or other underlying infection considering hypothermia. No further episodes of hypoglycemia since admission. Temp is back to normal ranges. TSH was mildly elevated. I will check a T3,T4 Remains david, but Rate increased to upper 50's. Continue Lexapro for depression. Cultures were not obtained prior to admission. DVT prophylaxis with heparin. Change diet to NPO until he is more awake and alert. Recheck a.m. labs. Code Status: Full code IVF: [id number] @ 75ml DVT PPx: Heparin GI PPx: None ABx: Levofloxacin Diet: NPO sips,chips. Discharge plan: TBD. Attestations 2 Medical Necessity Statement*: Patient's care will require crossing 2 midnights to treat severe hypothermia hypoxia bradycardia and hypoglycemia Coding Level of Care Code Acute Code for Chg Fwd Moderate MDM includes number and complexity of problems actively addressed during encounter, amount and/or complexity of data reviewed/ordered and described risk of complication, morbidity or mortality of management as documented Diagnoses Severe Lewy body dementia without behavioral disturbance, psychotic disturbance, mood disturbance, or anxiety G31.83; F02.C0 Dementia behavioral or psychological symptom: without behavioral, psychotic, or mood disturbance or anxiety Dementia severity: severe Dementia type: Lewy body dementia Hypothermia, initial encounter T68.XXXA Encounter type: initial encounter Hypoglycemia E16.2 Hypoxia R09.02 Diffuse cerebral atrophy G31.9 CVA, old, cognitive deficits I69.319 Vitamin D deficiency E55.9 Persistent depressive disorder F34.1 Depression Type: persistent depressive disorder
[2023-10-11 20:55] LABS: T3 Free 1.6 PG/ML (2.0-4.4)
[2023-10-12] VITALS (10 sets, daily range): BP systolic 136–166; BP diastolic 65–76; PULSE 46–56; RESP 12–16; TEMP 36–36.5; O2SAT 94–100
[2023-10-12] MEDS: heparin 5,000 unit/mL INJ 1 mL 5000 UNIT SUBCUT (01:41)
[2023-10-12] MEDS: D5-NS 0.45% + KCL 20 mEq 20 MEQ/1,000 ML BAG 75 MEQ IV (04:23)
[2023-10-12 04:29] LABS: Eosinophils # 0.3 10^3/uL (0.0-0.8); Hematocrit 36.2 % (37-53); Lymphocytes # 1.1 10^3/uL (0.8-4.8); Lymphocytes % 34.6 %; Mean Corpuscular HGB Conc 31.8 g/dL (30-55); Mean Corpuscular Volume 97.6 fl (82-101); Mean Platelet Volume 10.9 fL (7.4-10.4); Monocytes # 0.7 10^3/uL (0.2-0.9); Monocytes % 23.1 %; Neutrophils # 1.03 10^3/uL (1.8-7.7); Nucleated Red Blood Cells % 0 %; Platelet Count 128 10^3/cmm (157-399); Red Blood Count 3.71 10^6/uL (3.85-5.65); Red Cell Distribution Width 15.1 % (12.1-15.1); White Blood Count 3.12 10^3/uL (3.29-11.43)
[2023-10-12 04:45] LABS: Anion Gap 8.6 (5-19); Blood Urea Nitrogen 9 mg/dL (8-23); Calcium 9.2 mg/dL (8.5-10.5); Carbon Dioxide 31 mmol/L (22-29); Chloride 104 mmol/L (98-107); Creatinine Clr Calc Pharmacy 82.4118; Glucose 121 mg/dL (65-115); Magnesium 1.8 mg/dL (1.7-2.3); Osmolality Calculated 290 mOsm/kg (285-295); Phosphorus 1.8 mg/dL (2.5-4.5); Potassium 3.6 mmol/L (3.5-5.1); Sodium 140 mmol/L (136-145)
[2023-10-12 04:48] LABS: C Reactive Protein 9.1 mg/L (0.0-4.9)
[2023-10-12 04:53] LABS: Procalcitonin 0.08 ng/mL (0-0.5)
[2023-10-12] MEDS: levofloxacin-dextrose 5 % 750 MG/150 ML PREMIX 100 MG IV (04:54)
[2023-10-12 05:11] LABS: Free T4 Free Thyroxine 1.09 ng/dL (0.82-1.77)
[2023-10-12 07:01] LABS: Cortisol Random 9.09 ug/dL (2.47-19.5)
[2023-10-12] MEDS: escitalopram 10 mg Tablet 5 MG PO (08:57)
[2023-10-12] MEDS: cholecalciferol (vitamin D3) 5,000 unit Tablet 5000 UNIT PO (08:57)
[2023-10-12] MEDS: hydrocortisone 100 mg/2 mL SDV IVP (09:50)
--- NOTE | 2023-10-12 10:38 | PC.CHAP ---
Pastoral Care Encounter/Spiritual Assessment Type of Contact [] Declined hoseman visit [] Patient/Family/Request visit [] Outpatient visit [] Follow-up visit [] Physician referral [] Code/Alert [x] Routine visit [] Staff referral [] Actively dying [] Patient sleeping [] Family support [] [] Out of room [] Palliative care [] [x] Receiving care in room [] Pre-surgical visit [] Trauma [] Long length of stay [] ICU visit [] Other: Relational/Emotional Strength [] Patient feels connected with others/family/visitors/staff [] Distress [] Loneliness/isolation [] Abandonment Spirituality of Patient [] Person of Betsy [] Attends Jew of their Betsy [] Believes in Prayer [] Reads Bible or Gnosticism materials [] There are Spiritual issues to be addressed Auditor In Charge Interventions [] Prayer [] Active listening [] Non-anxious presence [] Spiritual/emotional support [] Crisis/trauma care [] Spiritual counseling [] Bereavement support [] Provided bereavement packet [] Provided Bible/devotional materials [] Provided toy/stuffed animal, coloring book to patient or family member [] Provided Communion [] Anointing/Curtiss [] Salvation [] Completed spiritual assessment [] Other: Impact on Illness or Injury [] Angry [] Fearful [] Anxious [] Often cries [] Exhaustion [] Unable to work [] Unable to attend congregational [] Unable to walk/stand [] Unable to read [] Unable to drive [] Unable to eat/drink [] Unable to sleep [] Unable to be with family [] Patient intubated [] Other: Summary Time spent with patient
--- NOTE | 2023-10-12 12:16 | PM.PN ---
Subjective Subjective: Spoke with the family patient is not able to open his eyes, not even reciprocating he was full code, goals of care changed to palliative/hospice care, they [facility] They do not want PEG tube placement, spoke with his daughter, she does agree that her father has not been on any Parkinson's medications Vitals/I&O/Wt Last Vital Signs Temp 97.7 F 10/12/23 11:17 Pulse 55 L 10/12/23 11:17 Resp 15 10/12/23 11:17 BP 166/76 10/12/23 11:17 Pulse Ox 99 10/12/23 11:00 O2 Del Method Nasal Cannula 10/12/23 11:00 O2 Flow Rate 3 10/12/23 11:00 FiO2 35 10/11/23 01:21 10/11/23 10/12/23 10/12/23 22:59 06:59 14:59 Intake Total 1052.5 / 1052.5 981.25 / 2033.75 150 / 150 Output Total 1300 / 1300 400 / 1700 500 / 500 Balance -247.5 / -247.5 581.25 / 333.75 -350 / -350 Weight last 48 hrs Weight 89.811 kg Weight 88.496 kg Weight 90.628 kg Physical Exam Narrative: Dehydrated No response to noxious stimuli Moaning in pain Abdomen soft Bradycardia noted Currently on 3 L Dry mucous membranes Neuroexam is limited S1, S2 Urinary Catheter Management: Bush: Cath Placed During This Visit: yes Reason for Continuing Indwelling Catheter: Assist Healing of Perineal & Sacral Wounds- Incontinent Patients Urinary Catheter Date of Insertion: 10/11/23 Urinary Catheter Time of Insertion: 02:55 Data 10/12/23 03:43 10/12/23 03:43 Micro: Microbiology 10/11/23 18:36 Blood Culture - Preliminary Blood SPECIMEN COLLECTED 10/11/23 18:30 Blood Culture - Preliminary Blood SPECIMEN COLLECTED A&P Assessment and plan (1) Depression: Qualifiers: Depression Type: persistent depressive disorder Qualified Code(s): F34.1 - Dysthymic disorder (2) Hallucinations: (3) Bradycardia: (4) Hypoglycemia: (5) GERD (gastroesophageal reflux disease): (6) Cellulitis: Qualifiers: Laterality: left Site of cellulitis: extremity Site of cellulitis of extremity: lower extremity Qualified Code(s): L03.116 - Cellulitis of left lower limb (7) CVA, old, cognitive deficits: (8) Dementia: Qualifiers: Dementia behavioral or psychological symptom: without behavioral, psychotic, or mood disturbance or anxiety Dementia severity: severe Dementia type: Lewy body dementia Qualified Code(s): G31.83 - Neurocognitive disorder with Lewy bodies; F02.C0 - Dementia in other diseases classified elsewhere, severe, without behavioral disturbance, psychotic disturbance, mood disturbance, and anxiety (9) Lewy body dementia: (10) History of Parkinson's disease: (11) Hypoxia: (12) Hypothermia: Qualifiers: Encounter type: initial encounter Qualified Code(s): T68.XXXA - Hypothermia, initial encounter (13) Hypothyroid: Plan Goals of care discussed with daughter, daughter stating that her brother is also in agreement with initiation of palliative care, I will update keycase assembler to arrange hospice at the [facility] At this point PEG tube placement will be considered very aggressive with underlying cardiac prognosis patient has a large decline in functional status he is not on any medications for his Parkinson's Attestations Medical Necessity Statement*: Possible discharge today Coding Level of Care Code Acute Code for Chg Fwd Diagnoses Persistent depressive disorder F34.1 Depression Type: persistent depressive disorder Hallucinations R44.3 Bradycardia R00.1 Hypoglycemia E16.2 GERD (gastroesophageal reflux disease) K21.9 Cellulitis L03.116 Laterality: left Site of cellulitis: extremity Site of cellulitis of extremity: lower extremity CVA, old, cognitive deficits I69.319 Severe Lewy body dementia without behavioral disturbance, psychotic disturbance, mood disturbance, or anxiety G31.83; F02.C0 Dementia behavioral or psychological symptom: without behavioral, psychotic, or mood disturbance or anxiety Dementia severity: severe Dementia type: Lewy body dementia Lewy body dementia G31.83; F02.80 History of Parkinson's disease Z86.69 Hypoxia R09.02 Hypothermia, initial encounter T68.XXXA Encounter type: initial encounter Hypothyroid E03.9
--- NOTE | 2023-10-12 12:32 | P.DS_ITS ---
Discharge Providers Date of Admission: 10/11/23 02:03 Date of Discharge: October 12, 2023 Attending Provider at Admission: Haja Guaman DO Attending Provider at Discharge: Susanne Alvarez MD Primary Care Provider: Jermaine Espinosa MD Diagnoses at Discharge Discharge Diagnosis (1) Depression: Status: Acute Qualifiers: Depression Type: persistent depressive disorder Qualified Code(s): F34.1 - Dysthymic disorder (2) Hallucinations: Status: Acute (3) Bradycardia: Status: Acute (4) Hypoglycemia: Status: Acute (5) GERD (gastroesophageal reflux disease): Status: Acute (6) Cellulitis: Status: Acute Qualifiers: Laterality: left Site of cellulitis: extremity Site of cellulitis of extremity: lower extremity Qualified Code(s): L03.116 - Cellulitis of left lower limb (7) CVA, old, cognitive deficits: Status: Acute (8) Dementia: Status: Chronic Qualifiers: Dementia behavioral or psychological symptom: without behavioral, psychotic, or mood disturbance or anxiety Dementia severity: severe Dementia type: Lewy body dementia Qualified Code(s): G31.83 - Neurocognitive disorder with Lewy bodies; F02.C0 - Dementia in other diseases classified elsewhere, severe, without behavioral disturbance, psychotic disturbance, mood disturbance, and anxiety (9) Lewy body dementia: Status: Acute (10) History of Parkinson's disease: Status: Acute (11) Hypoxia: Status: Acute (12) Hypothermia: Status: Acute Qualifiers: Encounter type: initial encounter Qualified Code(s): T68.XXXA - Hypothermia, initial encounter (13) Hypothyroid: Status: Acute Reason for Visit Reason for Visit: Low HR, Hospital Course Hospital Course 78-year male who presented from a residential with chief complaint of worsening confusion, patient was hypothermic, bradycardic with confusion, there was c oncern for severe hypothyroidism and infectious source, he was diagnosed with hypothyroidism I have put him on levothyroxine and IV steroids, patient did not show any significant progress during hospitalization, he has not been able to eat, he is not reciprocating, no response to painful stimuli, I discussed goals of care with the family to discuss possible intubation because he is not able to protect airways, daughter and her brother both want to pursue hospice care at the residential, they do not want PEG tube placement at this point. CT head did not show any new infarct.Patient was treated with antibiotics for pneumonia as well. Random cortisol level is normal. I had detailed discussion with the daughter Hillary Horton regarding guarded prognosis, untreated Parkinson's, dementia, indication for intubation ICU admission versus conservative management, I have asked Carlene case operator and her nurse Lisa to witness change of goals of care as well Physical Exam Narrative: Patient not responding to painful stimuli Dehydrated Bradycardic Normotensive Currently on 3 L Urinary Catheter Management: Bush: Cath Placed During This Visit: yes Reason for Continuing Indwelling Catheter: Assist Healing of Perineal & Sacral Wounds- Incontinent Patients Urinary Catheter Date of Insertion: 10/11/23 Urinary Catheter Time of Insertion: 02:55 Discharge Data Studies Completed and Pending Completed Studies During Hospitalization Category Date Time Status CT head wo con* [id number] Stat Cat Scan 10/11/23 01:22 Completed XR chest 1V portable [id number] Stat Exams 10/10/23 22:04 Completed Pending at discharge Category Date Time Status Basic Metabolic Panel AM LABS Lab 10/13/23 04:00 Ordered Basic Metabolic Panel AM LABS Lab 10/14/23 04:00 Ordered Blood Culture Stat Lab 10/11/23 18:36 Results Radiology Impressions Chest X-Ray 10/10/23 22:04 IMPRESSION: Streaky left basilar opacities, indeterminate for atelectasis versus aspiration or pneumonia in the setting of low lung volumes. Head CT 10/11/23 01:22 IMPRESSION: 1. No acute intracranial hemorrhage or acute calvarial fracture. 2. Comminuted bilateral nasal bone and frontal process of the maxilla fractures, appear acute or subacute. 3. Partial bilateral mastoid effusions and right middle ear effusion. 4. Unchanged chronic findings as above. Laboratory Results WBC 3.12 10^3/uL (3.29-11.43) L 10/12/23 03:43 RBC 3.71 10^6/uL (3.85-5.65) L 10/12/23 03:43 Hgb 11.50 g/dL (11.27-16.99) 10/12/23 03:43 Hct 36.2 % (37-53) L 10/12/23 03:43 MCV 97.6 fl (82-101) 10/12/23 03:43 MCH 31.0 pg (27-33) 10/12/23 03:43 MCHC 31.8 g/dL (30-55) 10/12/23 03:43 RDW 15.1 % (12.1-15.1) 10/12/23 03:43 Plt Count 128 10^3/cmm (157-399) L 10/12/23 03:43 MPV 10.9 fL (7.4-10.4) H 10/12/23 03:43 Neut % (Auto) 33.0 % 10/12/23 03:43 Lymph % (Auto) 34.6 % 10/12/23 03:43 [place] % (Auto) 23.1 % 10/12/23 03:43 Eos % (Auto) 8.0 % 10/12/23 03:43 Baso % (Auto) 1.0 % 10/12/23 03:43 Neut # (Auto) 1.03 10^3/uL (1.8-7.7) L 10/12/23 03:43 Lymph # (Auto) 1.1 10^3/uL (0.8-4.8) 10/12/23 03:43 [place] # (Auto) 0.7 10^3/uL (0.2-0.9) 10/12/23 03:43 Eos # (Auto) 0.3 10^3/uL (0.0-0.8) 10/12/23 03:43 Baso # (Auto) 0.0 10^3/uL (0.0-0.1) 10/12/23 03:43 Nucleated RBC % (auto) 0 % 10/12/23 03:43 Nucleated RBCs # 0.0 /100WBC 10/12/23 03:43 PT 13.40 SECONDS (12.1-14.9) 10/10/23 21:40 INR 0.99 (0.8-1.2) 10/10/23 21:40 APTT 30.9 SECONDS (23.9-36.7) 10/10/23 21:40 Specimen Type Arterial 10/11/23 03:30 Sample Site Radial, right 10/11/23 03:30 ABG pH 7.41 (7.35-7.45) 10/11/23 03:30 ABG pCO2 48.5 mmHg (35-45) H 10/11/23 03:30 ABG pO2 92.6 mmHg (80.0-100.0) 10/11/23 03:30 ABG PO2/FiO2 Ratio 0 10/11/23 03:30 ABG HCO3 30.8 mmol/L (22-26) H 10/11/23 03:30 ABG O2 Saturation 98.6 10/11/23 03:30 ABG Base Excess 5.2 mmol/L (-2.0-2.0) H 10/11/23 03:30 Rm Test Pos 10/11/23 03:30 A-a O2 Gradient 20.9 mmHg (5-10) H 10/11/23 03:30 Hematocrit 37.7 % (42-52) L 10/11/23 03:30 Hgb O2 Saturation 96.6 % (95-100) 10/11/23 03:30 Carboxyhemoglobin 1.2 %THgb (0.4-20.1) 10/11/23 03:30 Methemoglobin 0.9 % (0.4-1.5) 10/11/23 03:30 Total Hemoglobin 12.3 g/dL (14-18) L 10/11/23 03:30 Sodium 138.0 mmol/L (131-143) 10/11/23 03:30 Potassium 3.2 mmol/L (3.5-5.0) L 10/11/23 03:30 Glucose 99.0 mg/dL (70-115) 10/11/23 03:30 Ionized Calcium 1.3 mmol/L (1.1-1.4) 10/11/23 03:30 O2 Delivery Device Nc 10/11/23 03:30 O2 Liters/Min 6.0 % 10/11/23 03:30 FiO2 44.0 % 10/11/23 03:30 Mechanical Project Manager ID Ed 10/11/23 03:30 Sodium 140 mmol/L (136-145) 10/12/23 03:43 Potassium 3.6 mmol/L (3.5-5.1) 10/12/23 03:43 Chloride 104 mmol/L (98-107) 10/12/23 03:43 Carbon Dioxide 31 mmol/L (22-29) H 10/12/23 03:43 Anion Gap 8.6 (5-19) 10/12/23 03:43 BUN 9 mg/dL (8-23) 10/12/23 03:43 Creatinine 0.7 mg/dL (0.7-1.2) 10/12/23 03:43 GFR Calculation Not Reportable 10/12/23 03:43 Glucose 121 mg/dL (65-115) H 10/12/23 03:43 POC Glucose 116 mg/dL (70-110) H 10/11/23 11:31 Calculated Osmolality 290 mOsm/kg (285-295) 10/12/23 03:43 Calcium 9.2 mg/dL (8.5-10.5) 10/12/23 03:43 Phosphorus 1.8 mg/dL (2.5-4.5) L 10/12/23 03:43 Magnesium 1.8 mg/dL (1.7-2.3) 10/12/23 03:43 Total Bilirubin 0.6 mg/dL (0.15-1.2) 10/10/23 21:40 AST 18 U/L (0-40) 10/10/23 21:40 ALT 11 U/L (0-41) 10/10/23 21:40 Alkaline Phosphatase 95 U/L (40-130) 10/10/23 21:40 Troponin T Baseline 59 ng/L (0-15) H 10/10/23 21:40 Troponin T 120 Minute 61.48 ng/L (0-15) H 10/11/23 00:35 Delta Troponin T 2.48 ABS# (0-10) 10/11/23 00:35 Troponin T Hi Sens 6Hr 65.35 ng/L (0-15) H 10/11/23 03:15 Troponin T Hi Sens 6Hr Delta 6.35 ng/L (0-12) 10/11/23 03:15 C-Reactive Protein 9.1 mg/L (0.0-4.9) H 10/12/23 03:43 NT-Pro-B Natriuret Pep 368 pg/mL (0-450) 10/10/23 21:40 Total Protein 6.9 g/dL (6.6-8.7) 10/10/23 21:40 Albumin 3.1 g/dL (3.5-5.2) L 10/10/23 21:40 Globulin 3.8 g/dL (1.3-4.6) 10/10/23 21:40 25-OH Vitamin D Total 33 ng/mL (30-100) 10/11/23 Unknown Procalcitonin 0.08 ng/mL (0-0.5) 10/12/23 03:43 TSH 5.36 uIU/mL (0.27-4.20) H 10/11/23 00:35 Free T4 1.09 ng/dL (0.82-1.77) 10/12/23 03:43 Free T3 1.6 PG/ML (2.0-4.4) L 10/11/23 18:30 Random Cortisol 9.09 ug/dL (2.47-19.5) 10/12/23 03:43 Urine Color Dark yellow (Yellow) 10/11/23 02:52 Urine Appearance Hazy (CLEAR) A 10/11/23 02:52 Urine pH 6 (5-7) 10/11/23 02:52 Ur Specific [place] 1.015 (1.005-1.030) 10/11/23 02:52 Urine Protein Neg (Negative) 10/11/23 02:52 Urine Glucose (UA) Norm (Normal) 10/11/23 02:52 Urine Ketones 1+ (Negative) H 10/11/23 02:52 Urine Blood 2+ (Negative) H 10/11/23 02:52 Urine Nitrate Negative (Negative) 10/11/23 02:52 Urine Bilirubin Neg (Negative) 10/11/23 02:52 Urine Urobilinogen Norm mg/dL (Negative) 10/11/23 02:52 Ur Leukocyte Esterase Negative (Negative) 10/11/23 02:52 Urine RBC 0-4 /hpf (0-2) H 10/11/23 02:52 Urine WBC 0-4 /hpf (0-5) H 10/11/23 02:52 Ur Squamous Epith Cells 0-4 /hpf (0-5) H 10/11/23 02:52 Amorphous Sediment Not Reportable 10/11/23 02:52 Urine Bacteria Trace /hpf (NONE) 10/11/23 02:52 Hyaline Casts 0-4 /lpf H 10/11/23 02:52 Coarse Granular Casts 0-4 /lpf H 10/11/23 02:52 Urine Mucus Trace /hpf 10/11/23 02:52 Vitals Last Vital Signs Temp 97.7 F 02/26/24 11:17 Pulse 55 L 10/12/23 11:17 Resp 15 10/12/23 11:17 BP 166/76 10/12/23 11:17 Pulse Ox 99 10/12/23 11:00 O2 Del Method Nasal Cannula 10/12/23 11:00 O2 Flow Rate 3 10/12/23 11:00 FiO2 35 10/11/23 01:21 Discharge Plan Discharge Patient Disposition: Xfer SNF Condition: Stable Prescriptions: No Action atorvastatin 10 mg tablet 10 mg PO BEDTIME@18 escitalopram oxalate 5 mg tablet 5 mg PO DAILY@08 folic acid 1 mg tablet 1 mg PO DAILY cholecalciferol (vitamin D3) 2,000 unit Tablet 2,000 unit PO DAILY@08 glycopyrrolate 1 mg tablet 1 mg PO BID@08,18 vitamin E 400 unit Tablet 400 unit PO DAILY@08 food supplemt, lactose-reduced Liquid See Rx Instructions .ROUTE .COMPLEX Rx Instructions: 120cc po tid@08,12,17 donepezil 5 mg tablet 10 mg PO DAILY@08 olanzapine 5 mg Tablet 5 mg PO QPM Discharge Attestations Time Spent in Discharge Care*: greater than 30 min Status at Discharge: Cognitive status at discharge: cognitively intact , Behavioral status at discharge: cooperative , Quality Metrics Clinical Quality Measures [ No reported AMI, CVA or VTE this stay] Coding Level of Care Code Acute Code for Chg Fwd Diagnoses Persistent depressive disorder F34.1 Depression Type: persistent depressive disorder Hallucinations R44.3 Bradycardia R00.1 Hypoglycemia E16.2 GERD (gastroesophageal reflux disease) K21.9 Cellulitis L03.116 Laterality: left Site of cellulitis: extremity Site of cellulitis of extremity: lower extremity CVA, old, cognitive deficits I69.319 Severe Lewy body dementia without behavioral disturbance, psychotic disturbance, mood disturbance, or anxiety G31.83; F02.C0 Dementia behavioral or psychological symptom: without behavioral, psychotic, or mood disturbance or anxiety Dementia severity: severe Dementia type: Lewy body dementia Lewy body dementia G31.83; F02.80 History of Parkinson's disease Z86.69 Hypoxia R09.02 Hypothermia, initial encounter T68.XXXA Encounter type: initial encounter Hypothyroid E03.9
--- NOTE | 2023-10-12 12:48 | PC.NURSE ---
Nurse spoke with Mr. Jimenez's daughter January and confirmed that patient is to be placed on comfort measures only/ hospice. Daughter confirmed stating she only wanted what was best for the patient.
== END 2023-10-12 16:56 | disposition hospice, home (50) | DRG 57 ==
LOC: ER 10-11 01:48 → CSU 10-11 02:04
PROVIDERS: Family Medicine; Admitting Provider Internal Medicine; Emergency Provider Emergency Medicine; PCP Internal Medicine; Visit Provider Internal Medicine
DX: G31.83 Neurocognitive disorder with Lewy bodies (principal); L03.116 Cellulitis of left lower limb; F02.C0 Dementia in other diseases classified elsewhere, severe, without behavioral disturbance, psychotic disturbance, mood disturbance, and anxiety; G20.A1 Parkinson's disease without dyskinesia, without mention of fluctuations; I10 Essential (primary) hypertension; F32.9 Major depressive disorder, single episode, unspecified; D64.9 Anemia, unspecified; R09.02 Hypoxemia; R00.1 Bradycardia, unspecified; E16.2 Hypoglycemia, unspecified; E78.5 Hyperlipidemia, unspecified; K21.9 Gastro-esophageal reflux disease without esophagitis; R68.0 Hypothermia, not associated with low environmental temperature; E55.9 Vitamin D deficiency, unspecified; E03.9 Hypothyroidism, unspecified; E86.0 Dehydration; F34.1 Dysthymic disorder; Z99.81 Dependence on supplemental oxygen; Z87.440 Personal history of urinary (tract) infections; Z91.81 History of falling; Z51.5 Encounter for palliative care
CPT/HCPCS: 36415; 36416; 36600; 51702; 70450; 71045; 80048; 80051; 80053; 81001; 82306; 82330; 82533; 82805; 82962; 83735; 83880; 84100; 84145; 84439; 84443; 84481; 84484; 85025; 85610; 85730; 86140; 87040; 93005; 94660; 94664; 96365; 96372; 99291; J1644; J1720; J1956; J7799